=== PATIENT | female | born 1965 | race African-American/Black ===

== ENCOUNTER 2016-11-10 20:39 | Emergency (ER) | payer MEDICAID, OTHER ==
[~2016-11-10] VITALS: Ht 172.7 cm; Wt 81.0 kg
[~2016-11-10 20:39] MED LIST: LISI10TA5 PO; OMEP20CA10 PO
[2016-11-10] MEDS ORDERED: MAGNESIUM/ALUMINUM HYDROXIDE/SIMETHICONE 30ML UDC PO STA (20:54)
[2016-11-10] MEDS ORDERED: ONDANSETRON HCL 4MG/2ML VIAL IV STA (20:54)
[2016-11-10] MEDS ORDERED: FAMOTIDINE 20MG/2ML VIAL IV STA (20:54)
[2016-11-10] MEDS ORDERED: KETOROLAC 30MG/ML VIAL IV STA (20:54)
[2016-11-10] MEDS ORDERED: SODIUM CHLORIDE 0.9% 1,000 ML IV ONE (20:54)
[2016-11-10] MEDS ORDERED: MORPHINE SULFATE 4 MG/ML CPJ (NOT FOR IM USE) IV STA (20:54)
[2016-11-10 21:23] LABS: BASOPHILS % 0.3 % (0.0-2.0); EOSINOPHILS % 0.2 % (0.0-5.0); HEMATOCRIT. 35.3 % (36.0-48.0); HEMOGLOBIN. 11.5 g/dL (12.0-16.0); LYMPHOCYTES % 31.1 % (20.0-50.0); MEAN CORPUSCULAR HEMOGLOBIN 26.5 pg (28.0-32.0); MEAN CORPUSCULAR HGB CONC 32.5 g/dL (31.0-37.0); MEAN CORPUSCULAR VOLUME 81.8 fL (81.0-99.0); MEAN PLATELET VOLUME 8.5 fl (7.4-10.4); MONOCYTES % 11.7 % (2.0-8.0); NEUTROPHILS % 56.7 % (40.0-76.0); PLATELET 168 x1000/uL (130-400); RED BLOOD CELL COUNT 4.32 mill/uL (4.2-5.4); RED CELL DISTRIBUTION WIDTH 14.3 % (11.6-14.6); WHITE BLOOD COUNT 3.8 x1000/uL (4.5-11.0)
[2016-11-10 21:26] LABS: INR 1.1; PROTHROMBIN TIME 11.4 sec
[2016-11-10 21:55] LABS: ALANINE AMINOTRANSFERASE 35 IU/L (13-61); ALBUMIN 3.5 g/dL (3.4-5.0); ANION GAP 16; CALCIUM 9.3 mg/dL (8.5-10.1); CARBON DIOXIDE 27 mEq/L (21-32); CHLORIDE 99 mEq/L (98-107); ETHANOL BLOOD < 10 mg/dL; INDEX HEMOLYSI 1 (1-3); INDEX ICTERIC 1 (1-4); INDEX LIPEMIC 1 (1-3); LIPASE 63 IU/L (73-393); NT PRO B-TYPE NATRIURETIC PEP 318 pg/mL (5-125); TROPONIN I < 0.02 ng/mL (0.00-0.04); UREA NITROGEN BLOOD 11 mg/dL (7-21); eGFR > 60 mL/min (>60)
[2016-11-10] MEDS ORDERED: MORPHINE SULFATE 4 MG/ML CPJ (NOT FOR IM USE) IV ONE (23:15)
[2016-11-10] MEDS ORDERED: ONDANSETRON HCL 4MG/2ML VIAL IV ONE (23:15)
[2016-11-10 23:19] LABS: CLARITY URINE CLEAR (CLEAR); COLOR URINE YELLOW (YELLOW); GLUCOSE URINE 3+ (NEGATIVE); KETONES URINE 1+ (NEGATIVE); LEUKOCYTE ESTERASE URINE 2+ (NEGATIVE); NITRITE URINE NEGATIVE (NEGATIVE); OCCULT BLOOD URINE NEGATIVE (NEGATIVE); PROTEIN URINE NEGATIVE (NEGATIVE); SPECIFIC GRAVITY URINE 1.015 (1.005-1.030); UROBILINOGEN URINE 0.2 E.U./dL (0.2-1.0)
[2016-11-10 23:31] LABS: *AMPHETAMINES SCREEN URINE NEGATIVE (NEGATIVE); *BARBITURATES SCREEN URINE NEGATIVE (NEGATIVE); *BENZODIAZEPINES SCREEN URINE NEGATIVE (NEGATIVE); *COCAINE SCREEN URINE NEGATIVE (NEGATIVE); CANNABINOID URINE SCREEN NEGATIVE (NEGATIVE); ECSTASY MDMA SCREEN URINE NEGATIVE (NEGATIVE); METHADONE URINE SCREEN NEGATIVE (NEGATIVE); OPIATES URINE SCREEN PRESUMTIVE POSITIVE (NEGATIVE); PHENCYCLIDINE URINE SCREEN NEGATIVE (NEGATIVE)
[2016-11-10 23:46] VITALS: BP 182/93
[2016-11-10 23:55] LABS: SQUAMOUS EPITHELIAL CELL URINE 1+ /lpf (RARE/1+)
[2016-11-10 23:56] LABS: BACTERIA URINE 1+; RBC URINE 0-2 /hpf (0-2)
== END 2016-11-10 23:51 | disposition home or self-care (01) ==
LOC: ER 20:41
DX: K29.00 Acute gastritis without bleeding (principal); D64.9 Anemia, unspecified; I10 Essential (primary) hypertension; E11.9 Type 2 diabetes mellitus without complications; M10.9 Gout, unspecified; Z90.710 Acquired absence of both cervix and uterus; Z88.8 Allergy status to other drugs, medicaments and biological substances
CPT/HCPCS: 36415; 71010; 74000; 80053; 80305; 81001; 82962; 83690; 83880; 84484; 85025; 85610; 93005; 96361; 96374; 96375; 99285; G0482; J1885; J2270; J2405; J3490; J7030; Z7610

== ENCOUNTER 2017-02-17 13:25 | Emergency (ER) | payer MEDICAID, OTHER ==
[~2017-02-17] VITALS: Ht 172.7 cm; Wt 77.0 kg
[2017-02-17 14:30] VITALS: BP 171/86
== END 2017-02-17 21:58 | disposition left against medical advice (07) ==
LOC: ER 21:36
DX: K21.9 Gastro-esophageal reflux disease without esophagitis (principal); R10.9 Unspecified abdominal pain; Z53.21 Procedure and treatment not carried out due to patient leaving prior to being seen by health care provider

== ENCOUNTER 2017-02-25 21:58 | Emergency (ER) | payer MEDICAID, OTHER ==
[~2017-02-25] VITALS: Ht 175.3 cm; Wt 78.0 kg
[2017-02-26] MEDS ORDERED: FAMOTIDINE 20MG/2ML VIAL IV STA (01:19)
[2017-02-26 01:34] LABS: BASOPHILS % 0.2 % (0.0-2.0); EOSINOPHILS % 0.2 % (0.0-5.0); HEMATOCRIT. 36.8 % (36.0-48.0); HEMOGLOBIN. 12.4 g/dL (12.0-16.0); LYMPHOCYTES % 39.4 % (20.0-50.0); MEAN CORPUSCULAR HEMOGLOBIN 26.6 pg (28.0-32.0); MEAN CORPUSCULAR VOLUME 78.8 fL (81.0-99.0); MEAN PLATELET VOLUME 7.2 fl (7.4-10.4); MONOCYTES % 8.4 % (2.0-8.0); NEUTROPHILS % 51.8 % (40.0-76.0); PLATELET 256 x1000/uL (130-400); RED BLOOD CELL COUNT 4.67 mill/uL (4.2-5.4)
[2017-02-26 01:42] LABS: INR 1.1; PARTIAL THROMBOPLASTIN TIME 25.9 sec (24.0-34.0); PROTHROMBIN TIME 11.2 sec
[2017-02-26 01:49] LABS: CARBON DIOXIDE 29 mEq/L (21-32); CHLORIDE 101 mEq/L (98-107); TROPONIN I < 0.02 ng/mL (0.00-0.04)
[2017-02-26] MEDS ORDERED: KETOROLAC 30MG/ML VIAL IV STA (02:09)
[2017-02-26] MEDS ORDERED: SODIUM CHLORIDE 0.9% 1,000 ML IV ONE (03:39)
[2017-02-26 04:15] VITALS: BP 112/62
== END 2017-02-26 05:50 | disposition home or self-care (01) ==
LOC: ER 02-26 01:29
DX: S42.402A Unspecified fracture of lower end of left humerus, initial encounter for closed fracture (principal); K21.9 Gastro-esophageal reflux disease without esophagitis; I10 Essential (primary) hypertension; E11.9 Type 2 diabetes mellitus without complications; Z88.8 Allergy status to other drugs, medicaments and biological substances; W19.XXXA Unspecified fall, initial encounter; Y93.89 Activity, other specified; Y92.89 Other specified places as the place of occurrence of the external cause; Y99.8 Other external cause status
CPT/HCPCS: 36415; 71010; 73080; 80053; 83690; 84484; 85025; 85610; 85730; 93005; 96361; 96374; 96375; 99285; J1885; J3490; J7030; Z7610; A4565

== ENCOUNTER 2017-03-11 07:45 | Inpatient (IN) | payer MEDICAID, OTHER ==
[~2017-03-11] VITALS: Ht 172.7 cm; Wt 76.7 kg
[2017-03-11] MEDS ORDERED: PANTOPRAZOLE SODIUM 40 MG/VIAL IV STA (07:57)
[2017-03-11] MEDS ORDERED: ONDANSETRON HCL 4MG/2ML VIAL IV STA (07:57)
[2017-03-11] MEDS ORDERED: SODIUM CHLORIDE 0.9% 1,000 ML IV ONE ×2 (07:57→09:38)
[2017-03-11] MEDS ORDERED: INSULIN REGULAR (HUMULIN R) 300UNITS/3ML SUBCUT ONE (08:00)
[2017-03-11 08:46] LABS: CHLORIDE 93 mEq/L (98-107); PROTHROMBIN TIME 10.7 sec
[2017-03-11 08:49] LABS: BASOPHILS % 0.3 % (0.0-2.0); HEMATOCRIT. 36.5 % (36.0-48.0); HEMOGLOBIN. 12.3 g/dL (12.0-16.0); LYMPHOCYTES % 21.9 % (20.0-50.0); MEAN CORPUSCULAR HEMOGLOBIN 27.3 pg (28.0-32.0); MEAN CORPUSCULAR VOLUME 81.4 fL (81.0-99.0); MEAN PLATELET VOLUME 7.9 fl (7.4-10.4); MONOCYTES % 4.9 % (2.0-8.0); NEUTROPHILS % 72.9 % (40.0-76.0); PLATELET 291 x1000/uL (130-400); RED BLOOD CELL COUNT 4.49 mill/uL (4.2-5.4); RED CELL DISTRIBUTION WIDTH 14.6 % (11.6-14.6)
[2017-03-11 08:55] LABS: CARBON DIOXIDE 20 mEq/L (21-32); TROPONIN I < 0.02 ng/mL (0.00-0.04)
[2017-03-11 09:11] LABS: BETA HYDROXYBUTYRATE 7.5 mMol/L (0.0-0.3)
[2017-03-11 09:39] LABS: BG BASE EXCESS -6.7 mmol/L (-2.0-2.0); BG CARBOXYHEMOGLOBIN 0.4 % (0.5-1.5); BG DEOXYHEMOGLOBIN 5.2 % (0.0-5.0); BG FRACTION INSPIRED OXYGEN 21; BG HCO3 ACT 17.7 mmol/L (22.0-26.0); BG METHEMOGLOBIN 0.1 % (0.0-1.5); BG OXYGEN SATURATION 94.8 % (92.0-98.5); BG OXYHEMOGLOBIN 94.3 % (94.0-97.0); BG PCO2 32.1 mmHg (35.0-45.0); BG PO2 82.2 mmHg (75.0-100.0); BG SAMPLE SITE RIGHT BRACHIAL; BG TOTAL HEMOGLOBIN 12.3 g/dL (12.0-18.0); BG VENT MODE ROOM AIR
[2017-03-11 09:44] LABS: CLARITY URINE CLOUDY (CLEAR); COLOR URINE YELLOW (YELLOW); GLUCOSE URINE 3+ (NEGATIVE); KETONES URINE 1+ (NEGATIVE); LEUKOCYTE ESTERASE URINE 1+ (NEGATIVE); NITRITE URINE NEGATIVE (NEGATIVE); OCCULT BLOOD URINE 2+ (NEGATIVE); PH URINE 5.5 (4.5-8.0); PROTEIN URINE NEGATIVE (NEGATIVE); SPECIFIC GRAVITY URINE 1.026 (1.005-1.030); UROBILINOGEN URINE 0.2 E.U./dL (0.2-1.0)
[2017-03-11] MEDS ORDERED: ONDANSETRON HCL 4MG/2ML VIAL IV ONE (09:45)
[2017-03-11] MEDS ORDERED: MORPHINE SULFATE 4 MG/ML CPJ (NOT FOR IM USE) IV ONE (09:45)
[2017-03-11] MEDS ORDERED: INSULIN REGULAR (DRIP) 100 UNITS in SODIUM CHLORIDE 0.9% 100 ML IV ONE (10:30)
[2017-03-11] MEDS ORDERED: INSULIN REGULAR (DRIP) 100 UNITS in SODIUM CHLORIDE 0.9% 99 ML IV ONE (10:30)
[2017-03-11] MEDS ORDERED: INSULIN REGULAR (DRIP) 100 UNITS in SODIUM CHLORIDE 0.9% 100 ML IV SCH (12:00)
[2017-03-11] MEDS ORDERED: MAGNESIUM/ALUMINUM HYDROXIDE/SIMETHICONE 30ML UDC PO PRN (12:00)
[2017-03-11] MEDS ORDERED: CLONIDINE 0.1MG TABLET PO PRN (12:00)
[2017-03-11] MEDS ORDERED: ONDANSETRON HCL 4MG/2ML VIAL IV PRN (12:00)
[2017-03-11] MEDS ORDERED: IPRATROPIUM/ALBUTEROL 0.5-3(2.5)MG/3ML NEB INH PRN (12:00)
[2017-03-11] MEDS: MORPHINE SULFATE 2 MG/ML CPJ (NOT FOR IM USE) IV PRN (14:35)
[2017-03-11 15:05] LABS: CARBON DIOXIDE 27 mEq/L (21-32); CHLORIDE 103 mEq/L (98-107)
[2017-03-11 15:12] LABS: CREATINE KINASE 188 IU/L (26-192); PHOSPHORUS 2.1 mg/dL (2.5-4.9); TROPONIN I < 0.02 ng/mL (0.00-0.04)
[2017-03-11 15:13] LABS: CREATINE KINASE MB FRACTION 2.5 ng/mL (0.5-3.6)
[2017-03-11 15:14] LABS: *AMPHETAMINES SCREEN URINE NEGATIVE (NEGATIVE); *BARBITURATES SCREEN URINE NEGATIVE (NEGATIVE); *BENZODIAZEPINES SCREEN URINE NEGATIVE (NEGATIVE); *COCAINE SCREEN URINE NEGATIVE (NEGATIVE); CANNABINOID URINE SCREEN NEGATIVE (NEGATIVE); METHADONE URINE SCREEN NEGATIVE (NEGATIVE); OPIATES URINE SCREEN NEGATIVE (NEGATIVE); PHENCYCLIDINE URINE SCREEN NEGATIVE (NEGATIVE)
[2017-03-11 16:34] LABS: CHLORIDE 104 mEq/L (98-107)
[2017-03-11 16:39] LABS: CARBON DIOXIDE 27 mEq/L (21-32)
[2017-03-11] MEDS ORDERED: INSULIN DETEMIR UD 100 UNITS/ML SYR SUBCUT NR (17:45)
[2017-03-11] MEDS ORDERED: INSULIN REGULAR (DRIP) 100 UNITS in SODIUM CHLORIDE 0.9% 99 ML IV PRN (19:00)
[2017-03-11 20:00] VITALS: BP_SYST 144; BP_SYST 154; BP_DIAS 78; BP_DIAS 82
[2017-03-11] MEDS ORDERED: CEFTRIAXONE 1 G PREMIX 50 ML IV SCH (20:00)
[2017-03-11] MEDS ORDERED: DEXTROSE 50% WATER 50ML SYRINGE IV PRN (20:15)
[2017-03-11 20:34] LABS: CARBON DIOXIDE 23 mEq/L (21-32); CHLORIDE 104 mEq/L (98-107)
[2017-03-11] MEDS: SODIUM CHLORIDE 0.9% 1,000 ML IV SCH (20:58)
[2017-03-11] MEDS ORDERED: ENOXAPARIN 40MG/0.4ML SYR SUBCUT SCH (21:00)
[2017-03-11 23:24] LABS: CREATINE KINASE 150 IU/L (26-192); TROPONIN I < 0.02 ng/mL (0.00-0.04)
[2017-03-11 23:25] LABS: CREATINE KINASE MB FRACTION 1.8 ng/mL (0.5-3.6)
[2017-03-12] VITALS: BP 116/61
[2017-03-12] MEDS: INSULIN LISPRO 100 UNITS/ML SUBCUT SCH ×4 (00:09→12:00)
[2017-03-12] MEDS: INSULIN DETEMIR UD 100 UNITS/ML SYR SUBCUT SCH ×2 (00:10→10:15)
[2017-03-12 04:00] VITALS: BP 126/68
[2017-03-12] MEDS: BLOOD SUGAR DIAGNOSTIC STRIP TEST SCH ×4 (04:00→12:17)
[2017-03-12] MEDS ORDERED: DEXT 5%/0.9% NACL 1,000 ML IV SCH (04:30)
[2017-03-12] MEDS: MORPHINE SULFATE 2 MG/ML CPJ (NOT FOR IM USE) IV PRN ×2 (06:44→10:41)
[2017-03-12] MEDS: SODIUM CHLORIDE 0.9% 1,000 ML IV SCH (06:48)
[2017-03-12 07:06] LABS: BASOPHILS % 0.2 % (0.0-2.0); EOSINOPHILS % 0.2 % (0.0-5.0); HEMATOCRIT. 34.2 % (36.0-48.0); HEMOGLOBIN. 11.3 g/dL (12.0-16.0); LYMPHOCYTES % 33.6 % (20.0-50.0); MEAN CORPUSCULAR HEMOGLOBIN 26.7 pg (28.0-32.0); MEAN CORPUSCULAR VOLUME 80.9 fL (81.0-99.0); MEAN PLATELET VOLUME 7.5 fl (7.4-10.4); MONOCYTES % 6.3 % (2.0-8.0); NEUTROPHILS % 59.7 % (40.0-76.0); PLATELET 306 x1000/uL (130-400); RED BLOOD CELL COUNT 4.23 mill/uL (4.2-5.4); RED CELL DISTRIBUTION WIDTH 14.7 % (11.6-14.6)
[2017-03-12 08:00] VITALS: BP 142/96
[2017-03-12 12:00] VITALS: BP 128/78
[2017-03-12 15:53] VITALS: BP 128/78
[2017-03-12] MEDS ORDERED: ATORVASTATIN CALCIUM 20MG TABLET PO SCH (21:00)
== END 2017-03-12 16:10 | disposition home or self-care (01) | DRG 420 ==
LOC: ER 07:56 → 6EST 10:21 → EDBEDREQ 10:25 → EDBEDREQSVC 10:25 → ENRESERV 17:42 → 6EST 18:53
PROVIDERS: ADMIT Internal Medicine; ATTEND Internal Medicine
DX: E10.10 Type 1 diabetes mellitus with ketoacidosis without coma (principal); N39.0 Urinary tract infection, site not specified; I10 Essential (primary) hypertension; K21.9 Gastro-esophageal reflux disease without esophagitis; Z91.14 Patient's other noncompliance with medication regimen; Z79.4 Long term (current) use of insulin; Z79.899 Other long term (current) drug therapy; Z88.8 Allergy status to other drugs, medicaments and biological substances
CPT/HCPCS: 36415; 36600; 71010; 80048; 80053; 80061; 80305; 81001; 82010; 82375; 82550; 82553; 82805; 82962; 83036; 83690; 83735; 83880; 84100; 84443; 84484; 85025; 85610; 87040; 87086; 93005; 93970; 96361; 96365; 96372; 96375; 96376; 99291; C9113; J0696; J1650; J1815; J2270; J2405; J7030; J7042; J7050

== ENCOUNTER 2017-04-28 07:00 | Inpatient (IN) | payer MEDICAID, OTHER ==
[~2017-04-28] VITALS: Ht 152.4 cm; Wt 77.6 kg
[2017-04-28] MEDS ORDERED: SODIUM CHLORIDE 0.9% 1,000 ML IV ONE (09:21)
[2017-04-28] MEDS ORDERED: FAMOTIDINE 20MG/2ML VIAL IV ONE (09:30)
[2017-04-28 09:31] LABS: BASOPHILS % 0.3 % (0.0-2.0); HEMOGLOBIN. 13.4 g/dL (12.0-16.0); LYMPHOCYTES % 19.8 % (20.0-50.0); MEAN CORPUSCULAR HEMOGLOBIN 27.1 pg (28.0-32.0); MEAN CORPUSCULAR VOLUME 82.6 fL (81.0-99.0); MONOCYTES % 5.1 % (2.0-8.0); NEUTROPHILS % 74.8 % (40.0-76.0); PLATELET 228 x1000/uL (130-400); RED BLOOD CELL COUNT 4.96 mill/uL (4.2-5.4); RED CELL DISTRIBUTION WIDTH 14.3 % (11.6-14.6)
[2017-04-28 09:33] LABS: CHLORIDE 90 mEq/L (98-107)
[2017-04-28 09:38] LABS: HCG SCREEN NEGATIVE
[2017-04-28 09:41] LABS: CARBON DIOXIDE 28 mEq/L (21-32)
[2017-04-28 09:43] LABS: BETA HYDROXYBUTYRATE 2.9 mMol/L (0.0-0.3)
[2017-04-28] MEDS ORDERED: INSULIN REGULAR (HUMULIN R) 300UNITS/3ML IV ONE (10:15)
[2017-04-28 10:43] LABS: BG BASE EXCESS -2.6 mmol/L (-2.0-2.0); BG CARBOXYHEMOGLOBIN 0.6 % (0.5-1.5); BG DEOXYHEMOGLOBIN 2.4 % (0.0-5.0); BG FRACTION INSPIRED OXYGEN 21; BG HCO3 ACT 19.4 mmol/L (22.0-26.0); BG METHEMOGLOBIN 0.3 % (0.0-1.5); BG OXYGEN SATURATION 97.6 % (92.0-98.5); BG OXYHEMOGLOBIN 96.7 % (94.0-97.0); BG PCO2 26.4 mmHg (35.0-45.0); BG PH 7.484 (7.350-7.450); BG PO2 101.5 mmHg (75.0-100.0); BG SAMPLE SITE RIGHT BRACHIAL; BG TOTAL HEMOGLOBIN 13.4 g/dL (12.0-18.0); BG VENT MODE ROOM AIR
[2017-04-28] MEDS ORDERED: NITROGLYCERIN 0.4MG TABLET SL SL PRN (12:00)
[2017-04-28] MEDS ORDERED: NA PHOS,M-B/NA PHOS,DI-BA ENEMA 118ML PR PRN (12:00)
[2017-04-28] MEDS ORDERED: DEXTROSE 50% WATER 50ML SYRINGE IV PRN (12:00)
[2017-04-28] MEDS ORDERED: ZOLPIDEM TARTRATE 5MG TABLET PO PRN (12:00)
[2017-04-28] MEDS ORDERED: IPRATROPIUM/ALBUTEROL 0.5-3(2.5)MG/3ML NEB INH PRN (12:00)
[2017-04-28] MEDS ORDERED: ACETAMINOPHEN 325MG TABLET PO PRN (12:00)
[2017-04-28] MEDS ORDERED: GUAIFENESIN 200MG/10ML SUGAR FREE UDC PO PRN (12:00)
[2017-04-28] MEDS ORDERED: CLONIDINE 0.1MG TABLET PO PRN (12:00)
[2017-04-28] MEDS ORDERED: DIPHENHYDRAMINE 50MG/ML VIAL IV PRN (12:00)
[2017-04-28] MEDS ORDERED: OXYCODONE HCL/ACETAMINOPHEN 5/325MG TABLET PO ONE (12:00)
[2017-04-28] MEDS ORDERED: MAGNESIUM/ALUMINUM HYDROXIDE/SIMETHICONE 30ML UDC PO PRN (12:00)
[2017-04-28] MEDS ORDERED: DOCUSATE SODIUM 100MG CAPSULE PO PRN (12:00)
[2017-04-28] MEDS ORDERED: INSULIN LISPRO 100 UNITS/ML SUBCUT SCH (13:20)
[2017-04-28 13:55] VITALS: BP 150/80
[2017-04-28] MEDS: SODIUM CHLORIDE 0.9% 1,000 ML IV SCH (14:59)
[2017-04-28] MEDS: ONDANSETRON HCL 4MG/2ML VIAL IV PRN ×2 (15:15→21:30)
[2017-04-28 16:00] VITALS: BP 134/64
[2017-04-28] MEDS ORDERED: ENOXAPARIN 40MG/0.4ML SYR SUBCUT SCH (16:00)
[2017-04-28] MEDS ORDERED: 70/30 INSULIN SUBCUT ×2 (16:29)
[2017-04-28] MEDS: BLOOD SUGAR DIAGNOSTIC STRIP TEST SCH ×2 (17:38→21:47)
[2017-04-28] MEDS: INSULIN LISPRO 100 UNITS/ML SUBCUT SCH ×3 (17:48→21:47)
[2017-04-28] MEDS: KETOROLAC 15MG/ML VIAL IV PRN (17:52)
[2017-04-28 19:25] LABS: *AMPHETAMINES SCREEN URINE NEGATIVE (NEGATIVE); *BARBITURATES SCREEN URINE NEGATIVE (NEGATIVE); *BENZODIAZEPINES SCREEN URINE NEGATIVE (NEGATIVE); *COCAINE SCREEN URINE NEGATIVE (NEGATIVE); CANNABINOID URINE SCREEN NEGATIVE (NEGATIVE); METHADONE URINE SCREEN NEGATIVE (NEGATIVE); OPIATES URINE SCREEN NEGATIVE (NEGATIVE); PHENCYCLIDINE URINE SCREEN NEGATIVE (NEGATIVE)
[2017-04-28 20:00] VITALS: BP 163/93
[2017-04-28] MEDS: LISINOPRIL 20MG TABLET PO SCH (21:31)
[2017-04-28] MEDS: LORAZEPAM 2MG/ML CPJ IV PRN (21:31)
[2017-04-28] MEDS: FAMOTIDINE 20MG/2ML VIAL IV SCH (21:31)
[2017-04-28] MEDS ORDERED: INSULIN DETEMIR UD 100 UNITS/ML SYR SUBCUT SCH ×2 (22:00)
[2017-04-29] VITALS: BP 99/62
[2017-04-29] MEDS: SODIUM CHLORIDE 0.9% 1,000 ML IV SCH (00:39)
[2017-04-29 04:24] VITALS: BP 174/93
[2017-04-29] MEDS: ONDANSETRON HCL 4MG/2ML VIAL IV PRN (06:06)
[2017-04-29] MEDS: KETOROLAC 15MG/ML VIAL IV PRN (06:07)
[2017-04-29] MEDS: LORAZEPAM 2MG/ML CPJ IV PRN (06:08)
[2017-04-29] MEDS: INSULIN LISPRO 100 UNITS/ML SUBCUT SCH ×4 (06:50→12:50)
[2017-04-29] MEDS: BLOOD SUGAR DIAGNOSTIC STRIP TEST SCH ×2 (06:50→12:24)
[2017-04-29 08:00] VITALS: BP 98/53
[2017-04-29] MEDS: FAMOTIDINE 20MG/2ML VIAL IV SCH (08:48)
[2017-04-29] MEDS: LISINOPRIL 20MG TABLET PO SCH (08:49)
[2017-04-29 10:14] VITALS: BP 98/53
== END 2017-04-29 13:45 | disposition home or self-care (01) | DRG 241 ==
LOC: ER 08:15 → 6EST 11:44 → ENRESERV 13:02
PROVIDERS: ADMIT Internal Medicine; ATTEND Internal Medicine
DX: K29.70 Gastritis, unspecified, without bleeding (principal); E11.65 Type 2 diabetes mellitus with hyperglycemia; I10 Essential (primary) hypertension; E83.52 Hypercalcemia; E87.1 Hypo-osmolality and hyponatremia; K21.9 Gastro-esophageal reflux disease without esophagitis; Z79.4 Long term (current) use of insulin; Z88.8 Allergy status to other drugs, medicaments and biological substances; Z79.899 Other long term (current) drug therapy
CPT/HCPCS: 36415; 36600; 80053; 80061; 80305; 82010; 82375; 82805; 82947; 82962; 83036; 83690; 84703; 85025; 93005; 96361; 96374; 96375; 99285; J1650; J1815; J1885; J2060; J2405; J3490; J7030

== ENCOUNTER 2017-11-02 09:59 | Emergency (ER) | payer MEDICAID, OTHER ==
[~2017-11-02] VITALS: Ht 172.7 cm; Wt 64.0 kg
[2017-11-02] MEDS ORDERED: MORPHINE SULFATE 10 MG/ML CPJ IM ONE (11:00)
[2017-11-02] MEDS ORDERED: KETOROLAC 60MG/2ML VIAL IM ONE (11:00)
[2017-11-02 11:06] LABS: BASOPHILS % 0.3 % (0.0-2.0); EOSINOPHILS % 0.1 % (0.0-5.0); HEMATOCRIT. 35.1 % (36.0-48.0); LYMPHOCYTES % 42.5 % (20.0-50.0); MEAN CORPUSCULAR HEMOGLOBIN 27.7 pg (28.0-32.0); MEAN PLATELET VOLUME 6.9 fl (7.4-10.4); MONOCYTES % 11.9 % (2.0-8.0); NEUTROPHILS % 45.2 % (40.0-76.0); PLATELET 250 x1000/uL (130-400); RED BLOOD CELL COUNT 4.33 mill/uL (4.2-5.4); RED CELL DISTRIBUTION WIDTH 13.9 % (11.6-14.6)
[2017-11-02 11:14] LABS: CHLORIDE 106 mEq/L (98-107)
[2017-11-02 11:19] LABS: PARTIAL THROMBOPLASTIN TIME 27.5 sec (23.4-31.0); PROTHROMBIN TIME 10.8 sec (9.4-11.6)
[2017-11-02 11:21] LABS: CREATINE KINASE 99 IU/L (26-192)
[2017-11-02 12:48] VITALS: BP 137/75
== END 2017-11-02 12:53 | disposition home or self-care (01) ==
LOC: ER 11:11
DX: M25.572 Pain in left ankle and joints of left foot (principal); E11.649 Type 2 diabetes mellitus with hypoglycemia without coma; M10.9 Gout, unspecified; K21.9 Gastro-esophageal reflux disease without esophagitis; I10 Essential (primary) hypertension; Z88.8 Allergy status to other drugs, medicaments and biological substances
CPT/HCPCS: 36415; 73610; 73630; 80053; 82550; 83690; 83880; 84443; 84484; 84550; 85025; 85610; 85730; 96372; 99285; J1885; J2270; Z7610

== ENCOUNTER 2017-11-30 10:05 | Emergency (ER) | payer MEDICAID ==
[~2017-11-30] VITALS: Ht 172.7 cm; Wt 73.0 kg
[2017-11-30 11:59] LABS: BASOPHILS % 0.3 % (0.0-2.0); EOSINOPHILS % 0.1 % (0.0-5.0); HEMATOCRIT. 35.1 % (36.0-48.0); HEMOGLOBIN. 11.6 g/dL (12.0-16.0); LYMPHOCYTES % 32.3 % (20.0-50.0); MEAN CORPUSCULAR VOLUME 81.5 fL (81.0-99.0); MONOCYTES % 8.4 % (2.0-8.0); NEUTROPHILS % 58.9 % (40.0-76.0); PLATELET 232 x1000/uL (130-400); RED CELL DISTRIBUTION WIDTH 13.9 % (11.6-14.6)
[2017-11-30 13:59] VITALS: BP 137/73
== END 2017-11-30 14:00 | disposition home or self-care (01) ==
LOC: ER 13:06
DX: R60.0 Localized edema (principal); M10.9 Gout, unspecified; K21.9 Gastro-esophageal reflux disease without esophagitis; I10 Essential (primary) hypertension; E11.9 Type 2 diabetes mellitus without complications
CPT/HCPCS: 36415; 84550; 85025; 93971; 99285

== ENCOUNTER 2017-12-30 08:52 | Emergency (ER) | payer MEDICAID ==
[~2017-12-30] VITALS: Ht 175.3 cm; Wt 73.5 kg
[2017-12-30] MEDS ORDERED: AMLO10TA80 PO (09:02)
[2017-12-30] MEDS ORDERED: benazepril (09:02)
[2017-12-30] MEDS ORDERED: insulin (09:02)
[2017-12-30 10:42] LABS: BASOPHILS % 0.1 % (0.0-2.0); EOSINOPHILS % 0.3 % (0.0-5.0); HEMATOCRIT. 31.1 % (36.0-48.0); HEMOGLOBIN. 10.5 g/dL (12.0-16.0); MEAN CORPUSCULAR HEMOGLOBIN 27.3 pg (28.0-32.0); MEAN CORPUSCULAR VOLUME 80.5 fL (81.0-99.0); MEAN PLATELET VOLUME 6.4 fl (7.4-10.4); MONOCYTES % 10.1 % (2.0-8.0); NEUTROPHILS % 66.5 % (40.0-76.0); PLATELET 280 x1000/uL (130-400); RED BLOOD CELL COUNT 3.86 mill/uL (4.2-5.4); RED CELL DISTRIBUTION WIDTH 13.5 % (11.6-14.6)
[2017-12-30 10:47] LABS: CHLORIDE 109 mEq/L (98-107)
[2017-12-30 10:49] LABS: PROTHROMBIN TIME 10.8 sec (9.4-11.6)
[2017-12-30 12:59] VITALS: BP 144/79
== END 2017-12-30 13:37 | disposition home or self-care (01) ==
LOC: ER 08:57
DX: I87.2 Venous insufficiency (chronic) (peripheral) (principal); R60.0 Localized edema; E11.9 Type 2 diabetes mellitus without complications; I10 Essential (primary) hypertension; Z79.4 Long term (current) use of insulin
CPT/HCPCS: 36415; 80053; 85025; 85610; 93971; 99285; Z7610

== ENCOUNTER 2018-04-11 10:04 | Emergency (ER) | payer MEDICAID ==
[~2018-04-11] VITALS: Ht 172.7 cm; Wt 78.0 kg
[~2018-04-11 10:04] MED LIST changes: +AMLO10TA80 PO; -LISI10TA5 PO; +benazepril; +insulin
[2018-04-11] MEDS ORDERED: SODIUM CHLORIDE 0.9% 1,000 ML IV ONE (10:36)
[2018-04-11] MEDS ORDERED: ATENOLOL 25MG TABLET PO ONE (10:45)
[2018-04-11 11:22] VITALS: BP 182/96
== END 2018-04-11 11:36 | disposition left against medical advice (07) ==
LOC: ER 10:16
DX: R53.1 Weakness (principal); E11.649 Type 2 diabetes mellitus with hypoglycemia without coma; Z71.89 Other specified counseling; I11.9 Hypertensive heart disease without heart failure; Z79.4 Long term (current) use of insulin
CPT/HCPCS: 82962; 99283; J7030

== ENCOUNTER 2018-06-29 07:18 | Inpatient (IN) | payer MEDICAID ==
[~2018-06-29] VITALS: Ht 172.7 cm; Wt 77.6 kg
[2018-06-29] MEDS ORDERED: SODIUM CHLORIDE 0.9% 1,000 ML IV ONE (09:00)
[2018-06-29] MEDS ORDERED: MECLIZINE 25MG TABLET PO ONE (09:00)
[2018-06-29 09:48] LABS: BASOPHILS % 0.5 % (0.0-2.0); EOSINOPHILS % 0.4 % (0.0-5.0); HEMATOCRIT. 37.1 % (36.0-48.0); HEMOGLOBIN. 12.7 g/dL (12.0-16.0); LYMPHOCYTES % 30.9 % (20.0-50.0); MEAN CORPUSCULAR HEMOGLOBIN 28.6 pg (28.0-32.0); MEAN CORPUSCULAR VOLUME 83.7 fL (81.0-99.0); MEAN PLATELET VOLUME 7.7 fl (7.4-10.4); MONOCYTES % 9.6 % (2.0-8.0); NEUTROPHILS % 58.6 % (40.0-76.0); PLATELET 258 x1000/uL (130-400); RED BLOOD CELL COUNT 4.43 mill/uL (4.2-5.4); RED CELL DISTRIBUTION WIDTH 14.3 % (11.6-14.6)
[2018-06-29 09:52] LABS: CHLORIDE 102 mEq/L (98-107)
[2018-06-29 09:57] LABS: ETHANOL BLOOD < 10 mg/dL
[2018-06-29 10:24] LABS: CLARITY URINE CLEAR (CLEAR); COLOR URINE YELLOW (YELLOW); KETONES URINE NEGATIVE (NEGATIVE); LEUKOCYTE ESTERASE URINE NEGATIVE (NEGATIVE); NITRITE URINE NEGATIVE (NEGATIVE); OCCULT BLOOD URINE NEGATIVE (NEGATIVE); PROTEIN URINE NEGATIVE (NEGATIVE); SPECIFIC GRAVITY URINE 1.016 (1.005-1.030); UROBILINOGEN URINE 0.2 E.U./dL (0.2-1.0)
[2018-06-29 10:38] LABS: *AMPHETAMINES SCREEN URINE NEGATIVE (NEGATIVE)
[2018-06-29 10:39] LABS: *BARBITURATES SCREEN URINE NEGATIVE (NEGATIVE); *BENZODIAZEPINES SCREEN URINE NEGATIVE (NEGATIVE); *COCAINE SCREEN URINE NEGATIVE (NEGATIVE); METHADONE URINE SCREEN NEGATIVE (NEGATIVE); OPIATES URINE SCREEN NEGATIVE (NEGATIVE); PHENCYCLIDINE URINE SCREEN NEGATIVE (NEGATIVE)
[2018-06-29 10:40] LABS: CANNABINOID URINE SCREEN NEGATIVE (NEGATIVE)
[2018-06-29 16:10] VITALS: BP 166/92
[2018-06-29] MEDS ORDERED: ATEN50TA PO (16:12)
[2018-06-29] MEDS ORDERED: GABA-529 PO (16:14)
[2018-06-29] MEDS ORDERED: DEXTROSE 50% WATER 50ML SYRINGE IV PRN (17:00)
[2018-06-29 17:23] VITALS: BP 166/92
[2018-06-29] MEDS: BLOOD SUGAR DIAGNOSTIC STRIP TEST SCH ×2 (18:09→21:20)
[2018-06-29] MEDS: ASPIRIN 325MG TABLET PO SCH (18:22)
[2018-06-29] MEDS: GABAPENTIN 100MG CAPSULE PO SCH (18:23)
[2018-06-29] MEDS: ATENOLOL 50 MG TABLET PO SCH (18:23)
[2018-06-29] MEDS: METFORMIN HCL 500MG TABLET PO SCH (18:23)
[2018-06-29] MEDS: INSULIN LISPRO 100 UNITS/ML SUBCUT SCH ×2 (18:24→21:17)
[2018-06-29 20:00] VITALS: BP 163/85
[2018-06-29] MEDS ORDERED: CLONIDINE 0.1MG TABLET PO PRN (20:30)
[2018-06-29] MEDS ORDERED: ATORVASTATIN CALCIUM 20MG TABLET PO SCH (21:00)
[2018-06-29] MEDS ORDERED: INSULIN GLARGINE UD 100 UNITS/ML SYR SUBCUT SCH (22:00)
[2018-06-30] VITALS: BP 95/54
[2018-06-30 04:00] VITALS: BP 114/72
[2018-06-30] MEDS: BLOOD SUGAR DIAGNOSTIC STRIP TEST SCH ×2 (06:33→12:40)
[2018-06-30] MEDS: INSULIN LISPRO 100 UNITS/ML SUBCUT SCH ×2 (07:48→13:05)
[2018-06-30 07:56] LABS: BASOPHILS % 0.4 % (0.0-2.0); EOSINOPHILS % 0.3 % (0.0-5.0); HEMATOCRIT. 35.1 % (36.0-48.0); HEMOGLOBIN. 11.6 g/dL (12.0-16.0); LYMPHOCYTES % 37.5 % (20.0-50.0); MEAN CORPUSCULAR HEMOGLOBIN 27.7 pg (28.0-32.0); MONOCYTES % 12.3 % (2.0-8.0); NEUTROPHILS % 49.5 % (40.0-76.0); PLATELET 250 x1000/uL (130-400); RED BLOOD CELL COUNT 4.18 mill/uL (4.2-5.4); RED CELL DISTRIBUTION WIDTH 14.1 % (11.6-14.6)
[2018-06-30 08:00] VITALS: BP 114/73
[2018-06-30 08:02] LABS: CHLORIDE 103 mEq/L (98-107)
[2018-06-30] MEDS: METFORMIN HCL 500MG TABLET PO SCH (08:50)
[2018-06-30] MEDS: ASPIRIN 325MG TABLET PO SCH (08:50)
[2018-06-30] MEDS: GABAPENTIN 100MG CAPSULE PO SCH (08:50)
[2018-06-30] MEDS: ATENOLOL 50 MG TABLET PO SCH (08:52)
[2018-06-30] MEDS ORDERED: MECLIZINE 25MG TABLET PO PRN (09:00)
[2018-06-30 12:00] VITALS: BP 127/74
[2018-06-30] MEDS ORDERED: POTASSIUM CHLORIDE 20MEQ TABLET SR PO SCH (13:30)
[2018-06-30 16:00] VITALS: BP 110/66
== END 2018-06-30 16:30 | disposition home or self-care (01) | DRG 48 ==
LOC: ER 07:38 → 7WST 13:21 → ENRESERV 13:58
PROVIDERS: ADMIT Internal Medicine; ATTEND Internal Medicine
DX: G90.8 Other disorders of autonomic nervous system (principal); E11.65 Type 2 diabetes mellitus with hyperglycemia; E78.5 Hyperlipidemia, unspecified; I10 Essential (primary) hypertension; Z79.899 Other long term (current) drug therapy; Z88.8 Allergy status to other drugs, medicaments and biological substances
CPT/HCPCS: 36415; 70551; 80061; 80305; 82962; 83036; 93005; 99285; G0482; J1815; J7030; J8597

== ENCOUNTER 2018-12-07 15:47 | Inpatient (IN) | payer MEDICAID ==
[~2018-12-07] VITALS: Ht 175.3 cm; Wt 77.1 kg
[~2018-12-07 15:47] MED LIST changes: -AMLO10TA80 PO; +ATEN50TA PO; +GABA-529 PO; -OMEP20CA10 PO; -benazepril; -insulin
[2018-12-07] MEDS ORDERED: SODIUM CHLORIDE 0.9% 1,000 ML IV ONE ×2 (19:49→22:41)
[2018-12-07] MEDS ORDERED: MORPHINE SULFATE 4 MG/ML CPJ (NOT FOR IM USE) IV STA (19:49)
[2018-12-07] MEDS ORDERED: FAMOTIDINE 20MG/2ML VIAL IV STA (19:49)
[2018-12-07] MEDS ORDERED: ONDANSETRON HCL 4MG/2ML INJ IV STA (19:49)
[2018-12-07 20:17] LABS: CLARITY URINE TURBID (CLEAR); COLOR URINE YELLOW (YELLOW)
[2018-12-07 20:19] LABS: KETONES URINE TRACE (NEGATIVE); LEUKOCYTE ESTERASE URINE 3+ (NEGATIVE); NITRITE URINE NEGATIVE (NEGATIVE); OCCULT BLOOD URINE 2+ (NEGATIVE); PROTEIN URINE 2+ (NEGATIVE); SPECIFIC GRAVITY URINE 1.018 (1.005-1.030); UROBILINOGEN URINE 0.2 E.U./dL (0.2-1.0)
[2018-12-07 20:20] LABS: BASOPHILS % 0.1 % (0.0-2.0); HEMATOCRIT. 39.4 % (36.0-48.0); HEMOGLOBIN. 12.8 g/dL (12.0-16.0); LYMPHOCYTES % 9.9 % (20.0-50.0); MEAN CORPUSCULAR HEMOGLOBIN 26.4 pg (28.0-32.0); MEAN PLATELET VOLUME 8.4 fl (7.4-10.4); MONOCYTES % 13.7 % (2.0-8.0); NEUTROPHILS % 76.3 % (40.0-76.0); PLATELET 270 x1000/uL (130-400); RED BLOOD CELL COUNT 4.87 mill/uL (4.2-5.4)
[2018-12-07 20:23] LABS: CHLORIDE 99 mEq/L (98-107)
[2018-12-07 20:24] LABS: PROTHROMBIN TIME 10.8 sec (9.6-11.0)
[2018-12-07 20:26] LABS: ETHANOL BLOOD < 10 mg/dL
[2018-12-07 20:38] LABS: HCG SCREEN NEGATIVE
[2018-12-07 20:42] LABS: *AMPHETAMINES SCREEN URINE NEGATIVE (NEGATIVE); *BARBITURATES SCREEN URINE NEGATIVE (NEGATIVE); *BENZODIAZEPINES SCREEN URINE NEGATIVE (NEGATIVE); *COCAINE SCREEN URINE NEGATIVE (NEGATIVE); CANNABINOID URINE SCREEN NEGATIVE (NEGATIVE); METHADONE URINE SCREEN NEGATIVE (NEGATIVE); OPIATES URINE SCREEN NEGATIVE (NEGATIVE); PHENCYCLIDINE URINE SCREEN NEGATIVE (NEGATIVE)
[2018-12-07] MEDS ORDERED: INSULIN REGULAR (HUMULIN R) 300UNITS/3ML IV ONE ×2 (21:00→23:15)
[2018-12-08] VITALS: BP_SYST 111; BP_SYST 130; BP_DIAS 60; BP_DIAS 65
[2018-12-08] MEDS ORDERED: ONDANSETRON HCL 4MG/2ML INJ IV PRN (00:15)
[2018-12-08] MEDS ORDERED: DEXTROSE 50% WATER 50ML SYRINGE IV PRN (00:15)
[2018-12-08] MEDS ORDERED: INSULIN GLARGINE UD 100 UNITS/ML SYR SUBCUT SCH (01:00)
[2018-12-08] MEDS: CEFTRIAXONE 1 G PREMIX 50 ML IV SCH (01:25)
[2018-12-08] MEDS: SODIUM CHLORIDE 0.9% 1,000 ML IV SCH ×3 (01:25→20:31)
[2018-12-08] MEDS: MORPHINE SULFATE 4 MG/ML CPJ (NOT FOR IM USE) IV PRN ×4 (01:39→23:30)
[2018-12-08 04:00] VITALS: BP 102/59
[2018-12-08 06:20] LABS: CHLORIDE 105 mEq/L (98-107)
[2018-12-08 06:25] LABS: HEMOGLOBIN. 11.4 g/dL (12.0-16.0); MEAN CORPUSCULAR HEMOGLOBIN 26.1 pg (28.0-32.0); MEAN CORPUSCULAR VOLUME 82.4 fL (81.0-99.0); MEAN PLATELET VOLUME 8.6 fl (7.4-10.4); PLATELET 245 x1000/uL (130-400); RED BLOOD CELL COUNT 4.37 mill/uL (4.2-5.4); RED CELL DISTRIBUTION WIDTH 14.1 % (11.6-14.6)
[2018-12-08 06:28] LABS: HDL CHOLESTEROL 81 mg/dL (40-59)
[2018-12-08 06:29] LABS: LDL CHOLESTEROL 59 mg/dL (5-100)
[2018-12-08] MEDS: BLOOD SUGAR DIAGNOSTIC STRIP TEST SCH ×4 (06:36→20:44)
[2018-12-08] MEDS ORDERED: INSULIN LISPRO 100 UNITS/ML SUBCUT SCH ×2 (07:50→17:45)
[2018-12-08 08:00] VITALS: BP 109/47
[2018-12-08] MEDS: INSULIN GLARGINE UD 100 UNITS/ML SYR SUBCUT SCH ×2 (10:38→21:22)
[2018-12-08 12:00] VITALS: BP 101/51
[2018-12-08] MEDS: INSULIN LISPRO 100 UNITS/ML SUBCUT SCH ×4 (13:46→20:42)
[2018-12-08 15:49] LABS: PLATELET ESTIMATE NORMAL
[2018-12-08] MEDS: OMEPRAZOLE 20MG CAPSULE EXTENDED RELEASE PO SCH (15:56)
[2018-12-08 16:00] VITALS: BP 104/61
[2018-12-08] MEDS: GLIPIZIDE 5MG TABLET PO SCH (18:16)
[2018-12-08 20:00] VITALS: BP_SYST 107; BP_SYST 110; BP_DIAS 55; BP_DIAS 63
[2018-12-09] VITALS: BP 105/67
[2018-12-09] MEDS: CEFTRIAXONE 1 G PREMIX 50 ML IV SCH (01:09)
[2018-12-09 04:00] VITALS: BP 108/61
[2018-12-09] MEDS: BLOOD SUGAR DIAGNOSTIC STRIP TEST SCH ×2 (06:33→11:44)
[2018-12-09] MEDS: INSULIN LISPRO 100 UNITS/ML SUBCUT SCH ×4 (06:34→12:08)
[2018-12-09] MEDS: OMEPRAZOLE 20MG CAPSULE EXTENDED RELEASE PO SCH (06:37)
[2018-12-09 07:07] LABS: HEMATOCRIT. 32.7 % (36.0-48.0); HEMOGLOBIN. 10.8 g/dL (12.0-16.0); MEAN CORPUSCULAR HEMOGLOBIN 26.2 pg (28.0-32.0); MEAN CORPUSCULAR VOLUME 79.5 fL (81.0-99.0); MEAN PLATELET VOLUME 7.9 fl (7.4-10.4); PLATELET 219 x1000/uL (130-400); RED BLOOD CELL COUNT 4.12 mill/uL (4.2-5.4); RED CELL DISTRIBUTION WIDTH 13.8 % (11.6-14.6)
[2018-12-09 08:00] VITALS: BP 131/76
[2018-12-09] MEDS: GLIPIZIDE 5MG TABLET PO SCH (08:41)
[2018-12-09] MEDS: INSULIN GLARGINE UD 100 UNITS/ML SYR SUBCUT SCH (10:58)
[2018-12-09 12:00] VITALS: BP 156/81
[2018-12-09 13:38] VITALS: BP 131/71
[2018-12-09 17:52] LABS: PLATELET ESTIMATE NORMAL
== END 2018-12-09 13:50 | disposition home or self-care (01) | DRG 720 ==
LOC: ER 15:47 → 6EST 21:26 → EDBEDREQ 21:38 → EDBEDREQTM 21:38 → ENRESERV 22:29
PROVIDERS: ADMIT Internal Medicine; ATTEND Internal Medicine
DX: A41.9 Sepsis, unspecified organism (principal); N17.0 Acute kidney failure with tubular necrosis; E11.65 Type 2 diabetes mellitus with hyperglycemia; N39.0 Urinary tract infection, site not specified; K21.9 Gastro-esophageal reflux disease without esophagitis; I10 Essential (primary) hypertension; Z88.0 Allergy status to penicillin
CPT/HCPCS: 36415; 71045; 74176; 80048; 80061; 80305; 80320; 82962; 83036; 84484; 84703; 87077; 87186; 93005; 96374; 96375; 99285; J0696; J1815; J2270; J2405; J3490; J7030; G0480

== ENCOUNTER 2019-01-05 13:43 | Inpatient (IN) | payer MEDICAID ==
[~2019-01-05] VITALS: Ht 172.7 cm; Wt 75.0 kg
[2019-01-05] MEDS ORDERED: ONDANSETRON HCL 4MG/2ML INJ IV STA (14:31)
[2019-01-05] MEDS ORDERED: SODIUM CHLORIDE 0.9% 1,000 ML IV ONE (14:31)
[2019-01-05 14:46] LABS: BASOPHILS % 0.1 % (0.0-2.0); CHLORIDE 102 mEq/L (98-107); HEMATOCRIT. 38.9 % (36.0-48.0); HEMOGLOBIN. 13.1 g/dL (12.0-16.0); LYMPHOCYTES % 19.4 % (20.0-50.0); MEAN CORPUSCULAR HEMOGLOBIN 26.8 pg (28.0-32.0); MEAN CORPUSCULAR VOLUME 79.9 fL (81.0-99.0); MEAN PLATELET VOLUME 7.4 fl (7.4-10.4); MONOCYTES % 5.4 % (2.0-8.0); NEUTROPHILS % 75.1 % (40.0-76.0); PLATELET 277 x1000/uL (130-400); RED BLOOD CELL COUNT 4.87 mill/uL (4.2-5.4); RED CELL DISTRIBUTION WIDTH 15.5 % (11.6-14.6)
[2019-01-05 14:48] LABS: PROTHROMBIN TIME 10.6 sec (9.6-11.0)
[2019-01-05 14:50] LABS: ETHANOL BLOOD < 10 mg/dL
[2019-01-05 14:51] LABS: CLARITY URINE CLEAR (CLEAR); COLOR URINE YELLOW (YELLOW); KETONES URINE TRACE (NEGATIVE); LEUKOCYTE ESTERASE URINE NEGATIVE (NEGATIVE); NITRITE URINE NEGATIVE (NEGATIVE); OCCULT BLOOD URINE TRACE (NEGATIVE); PROTEIN URINE 2+ (NEGATIVE); SPECIFIC GRAVITY URINE 1.026 (1.005-1.030); UROBILINOGEN URINE 0.2 E.U./dL (0.2-1.0)
[2019-01-05] MEDS ORDERED: PANTOPRAZOLE 80MG in SODIUM CHLORIDE 0.9% 100ML IV SCH (15:00)
[2019-01-05] MEDS ORDERED: PANTOPRAZOLE SODIUM 40 MG/VIAL IV SCH (15:00)
[2019-01-05] MEDS ORDERED: PANTOPRAZOLE 80 MG in SODIUM CHLORIDE 0.9% 100 ML IV SCH (15:00)
[2019-01-05] MEDS ORDERED: MORPHINE SULFATE 4 MG/ML CPJ (NOT FOR IM USE) IV ONE (15:00)
[2019-01-05 15:27] LABS: *BARBITURATES SCREEN URINE NEGATIVE (NEGATIVE); *BENZODIAZEPINES SCREEN URINE NEGATIVE (NEGATIVE); *COCAINE SCREEN URINE NEGATIVE (NEGATIVE); CANNABINOID URINE SCREEN NEGATIVE (NEGATIVE); METHADONE URINE SCREEN NEGATIVE (NEGATIVE); OPIATES URINE SCREEN NEGATIVE (NEGATIVE); PHENCYCLIDINE URINE SCREEN NEGATIVE (NEGATIVE)
[2019-01-05 15:28] LABS: *AMPHETAMINES SCREEN URINE NEGATIVE (NEGATIVE)
[2019-01-05] MEDS ORDERED: INSULIN REGULAR (HUMULIN R) 300UNITS/3ML SUBCUT ONE (18:00)
[2019-01-05] MEDS ORDERED: ACETAMINOPHEN 325MG TABLET PO PRN (20:15)
[2019-01-05] MEDS ORDERED: CLONIDINE 0.1MG TABLET PO PRN (20:15)
[2019-01-05] MEDS ORDERED: ONDANSETRON HCL 4MG/2ML INJ IV PRN (20:15)
[2019-01-05] MEDS ORDERED: ZOLPIDEM TARTRATE 5MG TABLET PO PRN (21:00)
[2019-01-05 23:10] VITALS: BP 166/92
[2019-01-05 23:15] VITALS: BP 166/92
[2019-01-05] MEDS ORDERED: HYDRALAZINE 20MG/ML VIAL IV PRN (23:35)
[2019-01-05] MEDS: MORPHINE SULFATE 2 MG/ML CPJ (NOT FOR IM USE) IV PRN (23:41)
[2019-01-06] MEDS: SODIUM CHLORIDE 0.9% 1,000 ML IV SCH ×2 (01:54→13:52)
[2019-01-06 02:46] VITALS: BP 161/83
[2019-01-06 04:00] VITALS: BP 124/61
[2019-01-06] MEDS: MORPHINE SULFATE 2 MG/ML CPJ (NOT FOR IM USE) IV PRN ×2 (04:30→10:26)
[2019-01-06] MEDS ORDERED: METOCLOPRAMIDE HCL 10MG/2ML VIAL IV PRN (05:45)
[2019-01-06] MEDS: BLOOD SUGAR DIAGNOSTIC STRIP TEST SCH ×4 (07:08→20:57)
[2019-01-06] MEDS ORDERED: DEXTROSE 50% WATER 50ML SYRINGE IV PRN (07:30)
[2019-01-06 08:00] VITALS: BP 98/48
[2019-01-06] MEDS ORDERED: KCL 20MEQ/100ML PREMIX 100 ML IV SCH (08:00)
[2019-01-06 08:11] LABS: BASOPHILS % 0.2 % (0.0-2.0); HEMATOCRIT. 35.8 % (36.0-48.0); HEMOGLOBIN. 11.8 g/dL (12.0-16.0); LYMPHOCYTES % 11.3 % (20.0-50.0); MEAN CORPUSCULAR HEMOGLOBIN 26.7 pg (28.0-32.0); MEAN CORPUSCULAR VOLUME 81.3 fL (81.0-99.0); MEAN PLATELET VOLUME 7.7 fl (7.4-10.4); MONOCYTES % 6.9 % (2.0-8.0); NEUTROPHILS % 81.6 % (40.0-76.0); PLATELET 277 x1000/uL (130-400); RED BLOOD CELL COUNT 4.41 mill/uL (4.2-5.4); RED CELL DISTRIBUTION WIDTH 16.2 % (11.6-14.6)
[2019-01-06] MEDS: LOSARTAN POTASSIUM 50 MG TABLET PO SCH ×2 (08:35→21:00)
[2019-01-06] MEDS: FAMOTIDINE 20MG/2ML VIAL IV SCH ×2 (08:42→21:06)
[2019-01-06] MEDS: AZITHROMYCIN 500 MG TABLET PO SCH (08:42)
[2019-01-06] MEDS ORDERED: AMLODIPINE 5MG TABLET PO SCH (09:00)
[2019-01-06] MEDS: INSULIN LISPRO 100 UNITS/ML SUBCUT SCH ×6 (09:07→21:00)
[2019-01-06] MEDS ORDERED: INSULIN GLARGINE UD 100 UNITS/ML SYR SUBCUT SCH (10:00)
[2019-01-06 10:23] LABS: TOTAL IRON BINDING CAPACITY 299 ug/dL (250-450)
[2019-01-06] MEDS: CEFTRIAXONE 1 G PREMIX 50 ML IV SCH (11:50)
[2019-01-06 12:00] VITALS: BP 121/51
[2019-01-06 16:00] VITALS: BP 94/50
[2019-01-06 20:00] VITALS: BP 90/52
[2019-01-06] MEDS: INSULIN GLARGINE UD 100 UNITS/ML SYR SUBCUT SCH (22:00)
[2019-01-07] VITALS: BP 95/54
[2019-01-07] MEDS: SODIUM CHLORIDE 0.9% 1,000 ML IV SCH ×2 (00:17→15:01)
[2019-01-07 04:00] VITALS: BP 122/70
[2019-01-07] MEDS: BLOOD SUGAR DIAGNOSTIC STRIP TEST SCH ×4 (05:44→20:20)
[2019-01-07] MEDS: INSULIN LISPRO 100 UNITS/ML SUBCUT SCH ×7 (06:00→20:28)
[2019-01-07] MEDS: MORPHINE SULFATE 2 MG/ML CPJ (NOT FOR IM USE) IV PRN ×3 (06:00→20:19)
[2019-01-07 06:19] LABS: BASOPHILS % 0.2 % (0.0-2.0); EOSINOPHILS % 0.2 % (0.0-5.0); HEMATOCRIT. 33.7 % (36.0-48.0); HEMOGLOBIN. 11.2 g/dL (12.0-16.0); LYMPHOCYTES % 32.2 % (20.0-50.0); MEAN CORPUSCULAR HEMOGLOBIN 26.9 pg (28.0-32.0); MEAN CORPUSCULAR VOLUME 80.8 fL (81.0-99.0); MEAN PLATELET VOLUME 7.6 fl (7.4-10.4); NEUTROPHILS % 58.4 % (40.0-76.0); PLATELET 262 x1000/uL (130-400); RED BLOOD CELL COUNT 4.17 mill/uL (4.2-5.4); RED CELL DISTRIBUTION WIDTH 16.4 % (11.6-14.6)
[2019-01-07 08:00] VITALS: BP 119/68
[2019-01-07] MEDS: FAMOTIDINE 20MG/2ML VIAL IV SCH ×2 (09:00→20:19)
[2019-01-07] MEDS: AZITHROMYCIN 500 MG TABLET PO SCH (09:00)
[2019-01-07] MEDS: LOSARTAN POTASSIUM 50 MG TABLET PO SCH (09:00)
[2019-01-07] MEDS: CEFTRIAXONE 1 G PREMIX 50 ML IV SCH (09:04)
[2019-01-07] MEDS: INSULIN GLARGINE UD 100 UNITS/ML SYR SUBCUT SCH ×2 (11:16→22:00)
[2019-01-07 11:23] LABS: CREATINE KINASE 69 IU/L (26-192)
[2019-01-07 12:00] VITALS: BP 132/67
[2019-01-07 16:00] VITALS: BP 120/80
[2019-01-07 20:00] VITALS: BP 132/67
[2019-01-08] VITALS: BP 113/62
[2019-01-08 04:00] VITALS: BP 127/77
[2019-01-08] MEDS: SODIUM CHLORIDE 0.9% 1,000 ML IV SCH (05:05)
[2019-01-08] MEDS: INSULIN LISPRO 100 UNITS/ML SUBCUT SCH ×7 (06:02→21:00)
[2019-01-08] MEDS: BLOOD SUGAR DIAGNOSTIC STRIP TEST SCH ×4 (06:03→21:29)
[2019-01-08 07:25] LABS: BASOPHILS % 0.2 % (0.0-2.0); EOSINOPHILS % 0.3 % (0.0-5.0); HEMATOCRIT. 30.5 % (36.0-48.0); HEMOGLOBIN. 10.2 g/dL (12.0-16.0); LYMPHOCYTES % 42.4 % (20.0-50.0); MEAN CORPUSCULAR HEMOGLOBIN 26.9 pg (28.0-32.0); MEAN CORPUSCULAR VOLUME 80.4 fL (81.0-99.0); MEAN PLATELET VOLUME 7.5 fl (7.4-10.4); MONOCYTES % 9.2 % (2.0-8.0); NEUTROPHILS % 47.9 % (40.0-76.0); PLATELET 219 x1000/uL (130-400); RED BLOOD CELL COUNT 3.79 mill/uL (4.2-5.4); RED CELL DISTRIBUTION WIDTH 16.1 % (11.6-14.6)
[2019-01-08 08:00] VITALS: BP 141/71
[2019-01-08] MEDS: AZITHROMYCIN 500 MG TABLET PO SCH (08:11)
[2019-01-08] MEDS: CEFTRIAXONE 1 G PREMIX 50 ML IV SCH (08:12)
[2019-01-08] MEDS: FAMOTIDINE 20MG/2ML VIAL IV SCH ×2 (08:12→21:12)
[2019-01-08 10:14] LABS: PHOSPHORUS 3.5 mg/dL (2.5-4.9)
[2019-01-08 10:31] LABS: CLARITY URINE CLEAR (CLEAR); COLOR URINE YELLOW (YELLOW); KETONES URINE TRACE (NEGATIVE); LEUKOCYTE ESTERASE URINE 1+ (NEGATIVE); NITRITE URINE NEGATIVE (NEGATIVE); OCCULT BLOOD URINE NEGATIVE (NEGATIVE); PH URINE 5.5 (4.5-8.0); PROTEIN URINE 2+ (NEGATIVE); SPECIFIC GRAVITY URINE 1.021 (1.005-1.030); UROBILINOGEN URINE 0.2 E.U./dL (0.2-1.0)
[2019-01-08] MEDS: INSULIN GLARGINE UD 100 UNITS/ML SYR SUBCUT SCH ×2 (10:31→22:09)
[2019-01-08] MEDS ORDERED: MAGNESIUM 2 G PREMIX 50 ML IV NR (11:30)
[2019-01-08 12:00] VITALS: BP 154/77
[2019-01-08] MEDS: POTASSIUM CHLORIDE INJ 40 MEQ in SODIUM CHLORIDE 0.45% 1,000 ML IV SCH (13:25)
[2019-01-08 16:00] VITALS: BP 131/77
[2019-01-08] MEDS: MORPHINE SULFATE 2 MG/ML CPJ (NOT FOR IM USE) IV PRN ×2 (17:59→22:02)
[2019-01-08 20:00] VITALS: BP 137/77
[2019-01-09] VITALS: BP 142/80
[2019-01-09] MEDS: POTASSIUM CHLORIDE INJ 40 MEQ in SODIUM CHLORIDE 0.45% 1,000 ML IV SCH (01:36)
[2019-01-09] MEDS: MORPHINE SULFATE 2 MG/ML CPJ (NOT FOR IM USE) IV PRN (03:49)
[2019-01-09 04:00] VITALS: BP 152/85
[2019-01-09 06:23] LABS: BASOPHILS % 0.1 % (0.0-2.0); EOSINOPHILS % 0.3 % (0.0-5.0); HEMATOCRIT. 30.6 % (36.0-48.0); HEMOGLOBIN. 10.2 g/dL (12.0-16.0); LYMPHOCYTES % 38.4 % (20.0-50.0); MEAN CORPUSCULAR HEMOGLOBIN 26.6 pg (28.0-32.0); MEAN CORPUSCULAR VOLUME 79.7 fL (81.0-99.0); MEAN PLATELET VOLUME 7.4 fl (7.4-10.4); MONOCYTES % 10.4 % (2.0-8.0); NEUTROPHILS % 50.8 % (40.0-76.0); PLATELET 215 x1000/uL (130-400); RED BLOOD CELL COUNT 3.84 mill/uL (4.2-5.4); RED CELL DISTRIBUTION WIDTH 15.9 % (11.6-14.6)
[2019-01-09] MEDS: INSULIN LISPRO 100 UNITS/ML SUBCUT SCH ×3 (06:33→14:08)
[2019-01-09] MEDS: BLOOD SUGAR DIAGNOSTIC STRIP TEST SCH ×2 (06:33→12:37)
[2019-01-09 08:00] VITALS: BP 149/79
[2019-01-09 08:29] LABS: CHLORIDE 111 mEq/L (98-107)
[2019-01-09 08:34] LABS: PHOSPHORUS 3.6 mg/dL (2.5-4.9)
[2019-01-09] MEDS: FAMOTIDINE 20MG/2ML VIAL IV SCH (08:34)
[2019-01-09] MEDS: CEFTRIAXONE 1 G PREMIX 50 ML IV SCH (08:34)
[2019-01-09] MEDS: AZITHROMYCIN 500 MG TABLET PO SCH (08:34)
[2019-01-09] MEDS: INSULIN GLARGINE UD 100 UNITS/ML SYR SUBCUT SCH (10:11)
[2019-01-09] MEDS ORDERED: INSULIN LISPRO 100 UNITS/ML SUBCUT SCH (11:45)
[2019-01-09 12:00] VITALS: BP 164/84
[2019-01-09 14:19] VITALS: BP 132/68
[2019-01-09 15:07] VITALS: BP 134/72
[2019-01-09 15:39] LABS: CLARITY URINE CLEAR (CLEAR); COLOR URINE YELLOW (YELLOW); KETONES URINE NEGATIVE (NEGATIVE); LEUKOCYTE ESTERASE URINE NEGATIVE (NEGATIVE); NITRITE URINE NEGATIVE (NEGATIVE); OCCULT BLOOD URINE NEGATIVE (NEGATIVE); PH URINE 6.5 (4.5-8.0); PROTEIN URINE 1+ (NEGATIVE); SPECIFIC GRAVITY URINE 1.014 (1.005-1.030); UROBILINOGEN URINE 0.2 E.U./dL (0.2-1.0)
== END 2019-01-09 15:00 | disposition home or self-care (01) | DRG 242 ==
LOC: ER 13:43 → 5WST 18:09 → ENRESERV 19:58
PROVIDERS: ADMIT Internal Medicine; ATTEND Internal Medicine
DX: K22.6 Gastro-esophageal laceration-hemorrhage syndrome (principal); N17.0 Acute kidney failure with tubular necrosis; E11.22 Type 2 diabetes mellitus with diabetic chronic kidney disease; D50.9 Iron deficiency anemia, unspecified; E87.6 Hypokalemia; I12.9 Hypertensive chronic kidney disease with stage 1 through stage 4 chronic kidney disease, or unspecified chronic kidney disease; K21.9 Gastro-esophageal reflux disease without esophagitis; I16.0 Hypertensive urgency; N18.1 Chronic kidney disease, stage 1; E11.65 Type 2 diabetes mellitus with hyperglycemia; N32.89 Other specified disorders of bladder; E87.0 Hyperosmolality and hypernatremia; J18.9 Pneumonia, unspecified organism; K29.71 Gastritis, unspecified, with bleeding; Z79.4 Long term (current) use of insulin; Z82.49 Family history of ischemic heart disease and other diseases of the circulatory system; Z83.3 Family history of diabetes mellitus; Z90.710 Acquired absence of both cervix and uterus; Z88.8 Allergy status to other drugs, medicaments and biological substances; Z79.899 Other long term (current) drug therapy
CPT/HCPCS: 36415; 71045; 76705; 76770; 80048; 80305; 80320; 82550; 82728; 82962; 83540; 83550; 83735; 84100; 84145; 84484; 87106; 93005; 93970; 96374; 96375; 99285; C9113; J0360; J0696; J1815; J2270; J2405; J2765; J3475; J3480; J3490; J7030; J7050; G0480

== ENCOUNTER 2019-06-02 11:08 | Inpatient (IN) | payer MEDICAID ==
[~2019-06-02] VITALS: Ht 172.7 cm; Wt 72.6 kg
[2019-06-02] MEDS ORDERED: MAGNESIUM/ALUMINUM HYDROXIDE/SIMETHICONE 30ML UDC PO STA (11:35)
[2019-06-02] MEDS ORDERED: SODIUM CHLORIDE 0.9% 2,000 ML IV ONE (11:35)
[2019-06-02 12:00] LABS: BASOPHILS % 0.1 % (0.0-2.0); EOSINOPHILS % 0.1 % (0.0-5.0); HEMOGLOBIN. 11.7 g/dL (12.0-16.0); LYMPHOCYTES % 24.8 % (20.0-50.0); MEAN CORPUSCULAR HEMOGLOBIN 27.1 pg (28.0-32.0); MEAN PLATELET VOLUME 7.2 fl (7.4-10.4); MONOCYTES % 8.7 % (2.0-8.0); NEUTROPHILS % 66.3 % (40.0-76.0); PLATELET 241 x1000/uL (130-400); RED CELL DISTRIBUTION WIDTH 14.6 % (11.6-14.6)
[2019-06-02 12:06] LABS: HCG SCREEN NEGATIVE
[2019-06-02 12:07] LABS: CHLORIDE 97 mEq/L (98-107)
[2019-06-02 12:12] LABS: ETHANOL BLOOD < 10 mg/dL
[2019-06-02 12:19] LABS: PROTHROMBIN TIME 10.6 sec (9.6-11.0)
[2019-06-02 12:32] LABS: CLARITY URINE CLEAR (CLEAR); COLOR URINE YELLOW (YELLOW); KETONES URINE TRACE (NEGATIVE); LEUKOCYTE ESTERASE URINE NEGATIVE (NEGATIVE); NITRITE URINE NEGATIVE (NEGATIVE); OCCULT BLOOD URINE TRACE (NEGATIVE); PH URINE 6.5 (4.5-8.0); PROTEIN URINE NEGATIVE (NEGATIVE); SPECIFIC GRAVITY URINE 1.025 (1.005-1.030); UROBILINOGEN URINE 0.2 E.U./dL (0.2-1.0)
[2019-06-02 12:43] LABS: *AMPHETAMINES SCREEN URINE NEGATIVE (NEGATIVE); *BARBITURATES SCREEN URINE NEGATIVE (NEGATIVE)
[2019-06-02 12:44] LABS: *BENZODIAZEPINES SCREEN URINE NEGATIVE (NEGATIVE); *COCAINE SCREEN URINE NEGATIVE (NEGATIVE); METHADONE URINE SCREEN NEGATIVE (NEGATIVE); OPIATES URINE SCREEN NEGATIVE (NEGATIVE); PHENCYCLIDINE URINE SCREEN NEGATIVE (NEGATIVE)
[2019-06-02 12:45] LABS: CANNABINOID URINE SCREEN NEGATIVE (NEGATIVE)
[2019-06-02 13:05] LABS: BG BASE EXCESS -1.3 mmol/L (-2.0-2.0); BG CARBOXYHEMOGLOBIN 0.7 % (0.5-1.5); BG DEOXYHEMOGLOBIN 4.6 % (0.0-5.0); BG FRACTION INSPIRED OXYGEN 21; BG HCO3 ACT 24.2 mmol/L (22.0-26.0); BG METHEMOGLOBIN 0.3 % (0.0-1.5); BG OXYGEN SATURATION 95.4 % (92.0-98.5); BG OXYHEMOGLOBIN 94.4 % (94.0-97.0); BG PCO2 43.8 mmHg (35.0-45.0); BG PO2 79.7 mmHg (75.0-100.0); BG SAMPLE SITE RIGHT BRACHIAL; BG TOTAL HEMOGLOBIN 12.2 g/dL (12.0-18.0); BG VENT MODE ROOM AIR
[2019-06-02] MEDS ORDERED: INSULIN REGULAR 0.5UNIT/ML SYR(NEO) IV ONE (13:30)
[2019-06-02] MEDS ORDERED: POTASSIUM CHLORIDE 20MEQ TABLET SR PO ONE (13:30)
[2019-06-02] MEDS ORDERED: CEFTRIAXONE 1 G PREMIX 50 ML IV ONE (13:30)
[2019-06-02] MEDS ORDERED: INSULIN REGULAR (HUMULIN R) 300UNITS/3ML IV NR (14:00)
[2019-06-02] MEDS ORDERED: ACETAMINOPHEN 325MG TABLET PO ONE (18:00)
[2019-06-02 23:00] VITALS: BP 138/68
[2019-06-02 23:10] VITALS: BP 138/68
[2019-06-03] VITALS: BP 146/73
[2019-06-03] MEDS ORDERED: ACETAMINOPHEN 325MG TABLET PO PRN
[2019-06-03] MEDS ORDERED: DEXTROSE 50% WATER 50ML SYRINGE IV PRN
[2019-06-03] MEDS ORDERED: MORPHINE SULFATE 2 MG/ML CPJ (NOT FOR IM USE) IV PRN
[2019-06-03] MEDS: SODIUM CHLORIDE 0.9% 1,000 ML IV SCH ×2 (03:58→15:20)
[2019-06-03 04:00] VITALS: BP 147/78
[2019-06-03] MEDS ORDERED: INSU100I34 SQ (06:40)
[2019-06-03] MEDS: BLOOD SUGAR DIAGNOSTIC STRIP TEST SCH ×4 (06:45→20:43)
[2019-06-03] MEDS ORDERED: INSULIN LISPRO 100 UNITS/ML SUBCUT SCH (07:50)
[2019-06-03 07:58] LABS: EOSINOPHILS % 0.1 % (0.0-5.0); HEMATOCRIT. 34.6 % (36.0-48.0); HEMOGLOBIN. 11.5 g/dL (12.0-16.0); LYMPHOCYTES % 28.1 % (20.0-50.0); MEAN CORPUSCULAR HEMOGLOBIN 26.7 pg (28.0-32.0); MEAN CORPUSCULAR VOLUME 80.3 fL (81.0-99.0); MEAN PLATELET VOLUME 7.4 fl (7.4-10.4); MONOCYTES % 6.2 % (2.0-8.0); NEUTROPHILS % 65.6 % (40.0-76.0); PLATELET 238 x1000/uL (130-400); RED BLOOD CELL COUNT 4.31 mill/uL (4.2-5.4); RED CELL DISTRIBUTION WIDTH 14.7 % (11.6-14.6)
[2019-06-03 08:00] VITALS: BP 158/81
[2019-06-03 08:13] LABS: CHLORIDE 101 mEq/L (98-107)
[2019-06-03 08:30] LABS: LDL CHOLESTEROL 140 mg/dL (5-100)
[2019-06-03 08:31] LABS: HDL CHOLESTEROL 62 mg/dL (40-59)
[2019-06-03] MEDS: ENOXAPARIN 40MG/0.4ML SYR SUBCUT SCH (09:35)
[2019-06-03] MEDS: INSULIN LISPRO 100 UNITS/ML SUBCUT SCH ×6 (09:38→20:41)
[2019-06-03] MEDS ORDERED: INSULIN GLARGINE UD 100 UNITS/ML SYR SUBCUT SCH (10:00)
[2019-06-03] MEDS: AMLODIPINE 5MG TABLET PO SCH ×2 (11:30→20:31)
[2019-06-03 12:00] VITALS: BP 109/56
[2019-06-03] MEDS: INSULIN GLARGINE UD 100 UNITS/ML SYR SUBCUT SCH ×2 (12:16→22:40)
[2019-06-03] MEDS ORDERED: CEFTRIAXONE 1 G PREMIX 50 ML IV SCH (15:00)
[2019-06-03 16:00] VITALS: BP 102/53
[2019-06-03 20:00] VITALS: BP 106/60
[2019-06-03] MEDS ORDERED: FAMOTIDINE 20MG TABLET PO SCH (21:00)
[2019-06-03] MEDS ORDERED: ATORVASTATIN CALCIUM 40MG TABLET PO SCH (21:00)
[2019-06-04] VITALS: BP 158/89
[2019-06-04 04:00] VITALS: BP_SYST 106; BP_SYST 124; BP_DIAS 66; BP_DIAS 72
[2019-06-04] MEDS: BLOOD SUGAR DIAGNOSTIC STRIP TEST SCH ×2 (07:26→12:29)
[2019-06-04 08:00] VITALS: BP 149/90
[2019-06-04] MEDS: AMLODIPINE 5MG TABLET PO SCH (09:01)
[2019-06-04] MEDS: ENOXAPARIN 40MG/0.4ML SYR SUBCUT SCH (09:01)
[2019-06-04] MEDS: INSULIN LISPRO 100 UNITS/ML SUBCUT SCH ×4 (09:05→12:50)
[2019-06-04] MEDS: INSULIN GLARGINE UD 100 UNITS/ML SYR SUBCUT SCH (09:56)
[2019-06-04 11:43] VITALS: BP 133/85
[2019-06-04 12:00] VITALS: BP 100/61
== END 2019-06-04 13:30 | disposition home or self-care (01) | DRG 420 ==
LOC: ER 11:08 → 6EST 15:05 → EDBEDREQTM 15:25 → ENRESERV 21:16
PROVIDERS: ADMIT Internal Medicine; ATTEND Internal Medicine
DX: E11.65 Type 2 diabetes mellitus with hyperglycemia (principal); E87.8 Other disorders of electrolyte and fluid balance, not elsewhere classified; E87.1 Hypo-osmolality and hyponatremia; E78.5 Hyperlipidemia, unspecified; E87.6 Hypokalemia; I10 Essential (primary) hypertension; K21.9 Gastro-esophageal reflux disease without esophagitis; Z90.710 Acquired absence of both cervix and uterus; Z88.9 Allergy status to unspecified drugs, medicaments and biological substances; Z79.4 Long term (current) use of insulin
CPT/HCPCS: 36415; 36600; 71045; 80061; 80305; 80320; 81003; 82375; 82805; 82962; 83036; 84484; 84703; 93005; 96365; 99285; J0696; J1650; J1815; J2270; J7030; G0480

== ENCOUNTER 2019-11-13 12:24 | Emergency (ER) | payer MEDICAID, OTHER ==
[~2019-11-13] VITALS: Ht 172.7 cm; Wt 66.0 kg
[2019-11-13] MEDS ORDERED: insulin (12:41)
[2019-11-13 12:42] VITALS: BP 113/71
== END 2019-11-13 16:42 | disposition left against medical advice (07) ==
LOC: ER 12:24
DX: Z53.21 Procedure and treatment not carried out due to patient leaving prior to being seen by health care provider (principal)

== ENCOUNTER 2023-09-10 06:09 | Inpatient (IN) | payer OTHER ==
[~2023-09-10] VITALS: Ht 172.7 cm; Wt 75.3 kg
[~2023-09-10 06:09] MED LIST changes: +FAMO-135 MT; +LANTUSUD SUBCUT; +insulin
[2023-09-10 06:14] VITALS: O2SAT 97
[2023-09-10 07:33] LABS: BASOPHILS % 0.4 % (0.0-2.0); HEMATOCRIT. 29.1 % (36.0-48.0); LYMPHOCYTES % 15.8 % (20.0-50.0); MEAN CORPUSCULAR HEMOGLOBIN 26.1 pg (28.0-32.0); MEAN CORPUSCULAR VOLUME 84.4 fL (81.0-99.0); MEAN PLATELET VOLUME 7.3 fl (7.4-10.4); MONOCYTES % 13.8 % (2.0-8.0); PLATELET 202 x1000/uL (130-400); RED BLOOD CELL COUNT 3.45 mill/uL (4.2-5.4); RED CELL DISTRIBUTION WIDTH 15.4 % (11.6-14.6); WHITE BLOOD COUNT 3.4 x1000/uL (4.5-11.0)
[2023-09-10 07:39] LABS: ALANINE AMINOTRANSFERASE 15 IU/L (10-49); ALBUMIN 3.4 g/dL (3.2-4.8); ASPARTATE AMINOTRANSFERASE 39 IU/L (<34); BILIRUBIN TOTAL 0.9 mg/dL (0.1-1.0); CALCIUM 7.5 mg/dL (8.7-10.4); CARBON DIOXIDE 24 mEq/L (21-32); CHLORIDE 107 mEq/L (98-107); CREATININE 3.1 mg/dL (0.6-1.0); GLUCOSE 87 mg/dL (70-105); POTASSIUM 5.3 mEq/L (3.5-5.1); PROTEIN TOTAL 7.8 g/dL (6.0-8.3); SODIUM 139 mEq/L (136-145); TROPONIN I HIGH SENSITIVITY 8 ng/L (3.0-34); UREA NITROGEN BLOOD 43 mg/dL (9-23)
[2023-09-10] MEDS ORDERED: KETOROLAC 30MG/ML VIAL IV ONE (08:45)
[2023-09-10] MEDS ORDERED: DEXTROSE 50% WATER 50ML SYRINGE IV PRN (12:15)
[2023-09-10] MEDS ORDERED: ONDANSETRON HCL 4MG/2ML INJ IV PRN (12:15)
[2023-09-10] MEDS: AMLODIPINE 10MG TABLET PO SCH (12:33)
[2023-09-10] MEDS: BLOOD SUGAR DIAGNOSTIC STRIP TEST SCH ×3 (12:34→21:34)
[2023-09-10] MEDS: TRAMADOL 50MG TABLET PO PRN ×2 (12:42→18:59)
[2023-09-10] MEDS: INSULIN LISPRO 100 UNITS/ML SUBCUT SCH ×3 (12:42→21:31)
[2023-09-10] MEDS ORDERED: NALOXONE HCL 0.4MG/ML VIAL IV PRN (12:45)
[2023-09-10] MEDS: METOCLOPRAMIDE HCL 10MG/2ML VIAL IV SCH ×2 (12:47→17:11)
[2023-09-10 13:30] VITALS: BP 168/83; PULSE 86; RESP 18; RESP 20; TEMP 97.9
[2023-09-10 13:35] VITALS: RESP 18
[2023-09-10] MEDS ORDERED: AMLO10TA80 PO (14:30)
[2023-09-10] MEDS ORDERED: HYDR100T26 PO (14:30)
[2023-09-10] MEDS ORDERED: LOSA50TA41 PO (14:30)
[2023-09-10] MEDS ORDERED: INSULIN GLARGINE 100 UNITS/ML SUBCUT NR (14:45)
[2023-09-10] MEDS ORDERED: AMLODIPINE 10MG TABLET PO SCH (15:00)
[2023-09-10] MEDS: LOSARTAN 50 MG TABLET PO SCH (15:04)
[2023-09-10] MEDS: FOLIC ACID/VITAMIN B COMP W-C TABLET PO SCH (15:48)
[2023-09-10 16:00] VITALS: BP_SYST 126; BP_SYST 168; BP_SYST 188; BP_DIAS 80; BP_DIAS 83; BP_DIAS 95; PULSE 77; PULSE 79; PULSE 80; RESP 19; RESP 20; TEMP 97.2; TEMP 97.9; TEMP 98.5
[2023-09-10 16:30] VITALS: BP 152/80; PULSE 82; RESP 20; TEMP 97.9
[2023-09-10] MEDS ORDERED: INSULIN LISPRO 100 UNITS/ML SUBCUT NR (17:00)
[2023-09-10] MEDS ORDERED: NON FORMULARY PATIENT HOME MED XX SCH ×2 (17:00→17:15)
[2023-09-10] MEDS: ENOXAPARIN 30MG/0.3ML SYR SUBCUT SCH (17:16)
[2023-09-10 20:00] VITALS: BP 162/91; PULSE 80; RESP 19; TEMP 98.4
[2023-09-10 20:47] LABS: BODY FLUID MONOCYTES 6 %; BODY FLUID RBC 60 /cu mm (0-2000); BODY FLUID WBC 25 /cu mm (0-200)
[2023-09-10] MEDS ORDERED: EPOETIN ALFA 4000UNITS/ML VIAL SUBCUT SCH (21:00)
[2023-09-10] MEDS ORDERED: FAMOTIDINE 20MG TABLET PO SCH (21:00)
[2023-09-10] MEDS ORDERED: MELATONIN 3MG TABLET PO PRN (21:00)
[2023-09-10] MEDS: GABAPENTIN 100MG CAPSULE PO SCH (21:16)
[2023-09-10] MEDS: HYDRALAZINE HCL 100MG TABLET PO SCH (21:17)
[2023-09-10] MEDS: INSULIN GLARGINE 100 UNITS/ML SUBCUT SCH (21:33)
[2023-09-11] VITALS (7 sets, daily range): BP systolic 92–145; BP diastolic 49–78; PULSE 76–83; RESP 15–20; TEMP 97.5–98.6
[2023-09-11] MEDS: GABAPENTIN 100MG CAPSULE PO SCH ×2 (05:48→13:38)
[2023-09-11] MEDS: METOCLOPRAMIDE HCL 10MG/2ML VIAL IV SCH ×4 (05:48→17:04)
[2023-09-11] MEDS: HYDRALAZINE HCL 100MG TABLET PO SCH ×2 (05:49→13:41)
[2023-09-11 07:31] LABS: PHOSPHORUS 4.3 mg/dL (2.5-4.9)
[2023-09-11] MEDS: BLOOD SUGAR DIAGNOSTIC STRIP TEST SCH ×3 (07:40→16:48)
[2023-09-11] MEDS: INSULIN LISPRO 100 UNITS/ML SUBCUT SCH ×3 (08:22→17:09)
[2023-09-11] MEDS: AMLODIPINE 10MG TABLET PO SCH (08:23)
[2023-09-11] MEDS: LOSARTAN 50 MG TABLET PO SCH (08:23)
[2023-09-11] MEDS: FOLIC ACID/VITAMIN B COMP W-C TABLET PO SCH (08:24)
[2023-09-11] MEDS ORDERED: ATENOLOL 50 MG TABLET PO SCH (09:00)
[2023-09-11] MEDS: INSULIN GLARGINE 100 UNITS/ML SUBCUT SCH (09:35)
[2023-09-11] MEDS ORDERED: FUROSEMIDE 40MG TABLET PO SCH (11:30)
[2023-09-11] MEDS: ENOXAPARIN 30MG/0.3ML SYR SUBCUT SCH (16:07)
[2023-09-11] MEDS ORDERED: INSULIN GLARGINE 100 UNITS/ML SUBCUT SCH (22:00)
== END 2023-09-11 17:55 | disposition home or self-care (01) | DRG 640 ==
LOC: ER 06:09 → EDBEDREQ 08:37 → 5WST 10:43 → EDBEDREQ 10:45 → EDBEDREQTM 10:45 → 7WST 13:53
PROVIDERS: ADMIT Internal Medicine; ATTEND Internal Medicine
PROC: 3E1M39Z Irrigation of Peritoneal Cavity using Dialysate, Percutaneous Approach (ICD-10-PCS; principal; 2023-09-10)
DX: E87.5 Hyperkalemia (principal); N18.6 End stage renal disease; E46 Unspecified protein-calorie malnutrition; I12.0 Hypertensive chronic kidney disease with stage 5 chronic kidney disease or end stage renal disease; N17.9 Acute kidney failure, unspecified; E87.70 Fluid overload, unspecified; E11.22 Type 2 diabetes mellitus with diabetic chronic kidney disease; D64.9 Anemia, unspecified; R09.02 Hypoxemia; D72.819 Decreased white blood cell count, unspecified; E11.65 Type 2 diabetes mellitus with hyperglycemia; Z99.2 Dependence on renal dialysis; Z87.01 Personal history of pneumonia (recurrent); Z87.440 Personal history of urinary (tract) infections; Z90.710 Acquired absence of both cervix and uterus; Z79.899 Other long term (current) drug therapy; Z68.25 Body mass index [BMI] 25.0-25.9, adult
CPT/HCPCS: 36415; 71045; 80053; 82962; 83036; 83880; 84100; 84484; 85025; 90945; 93005; 99285; J0885; J1650; J1815; J1885; J2765

== ENCOUNTER 2023-10-23 09:11 | Inpatient (IN) | payer OTHER ==
[~2023-10-23] VITALS: Ht 152.4 cm; Wt 82.7 kg
[~2023-10-23 09:11] MED LIST changes: +AMLO10TA80 PO; +HYDR100T26 PO; -LANTUSUD SUBCUT; +LOSA50TA41 PO
[2023-10-23] MEDS: SODIUM CHLORIDE 0.9% 1,000 ML IV ONE (09:36)
[2023-10-23 10:05] LABS: BASOPHILS % 0.1 % (0.0-2.0); EOSINOPHILS % 0.1 % (0.0-5.0); HEMATOCRIT. 26.5 % (36.0-48.0); HEMOGLOBIN. 8.2 g/dL (12.0-16.0); LYMPHOCYTES % 11.7 % (20.0-50.0); MEAN CORPUSCULAR HEMOGLOBIN 27.5 pg (28.0-32.0); MEAN CORPUSCULAR VOLUME 88.7 fL (81.0-99.0); MONOCYTES % 9.1 % (2.0-8.0); PLATELET 196 x1000/uL (130-400); RED BLOOD CELL COUNT 2.99 mill/uL (4.2-5.4); RED CELL DISTRIBUTION WIDTH 20.5 % (11.6-14.6); WHITE BLOOD COUNT 3.6 x1000/uL (4.5-11.0)
[2023-10-23 10:15] LABS: INR 1.1; PROTHROMBIN TIME 11.7 sec (9.6-11.0)
[2023-10-23 10:33] LABS: ALANINE AMINOTRANSFERASE < 7 IU/L (10-49); ALBUMIN 4.1 g/dL (3.2-4.8); ASPARTATE AMINOTRANSFERASE 14 IU/L (<34); BILIRUBIN TOTAL 0.9 mg/dL (0.1-1.0); CALCIUM 7.2 mg/dL (8.7-10.4); CARBON DIOXIDE 18 mEq/L (21-32); CHLORIDE 113 mEq/L (98-107); CREATININE 3.3 mg/dL (0.6-1.0); GLUCOSE 81 mg/dL (70-105); POTASSIUM 3.6 mEq/L (3.5-5.1); PROTEIN TOTAL 8.4 g/dL (6.0-8.3); SODIUM 141 mEq/L (136-145); UREA NITROGEN BLOOD 44 mg/dL (9-23)
[2023-10-23] MEDS ORDERED: DOCUSATE SODIUM 100MG CAPSULE PO PRN (12:15)
[2023-10-23] MEDS ORDERED: CLONIDINE 0.1MG TABLET PO PRN (12:15)
[2023-10-23] MEDS ORDERED: GUAIFENESIN 200MG/10ML SUGAR FREE UDC PO PRN (12:15)
[2023-10-23] MEDS ORDERED: ACETAMINOPHEN 325MG TABLET PO PRN (12:15)
[2023-10-23] MEDS ORDERED: DIPHENHYDRAMINE 50MG/ML VIAL IV PRN (12:15)
[2023-10-23] MEDS ORDERED: NALOXONE HCL 0.4MG/ML VIAL IV PRN (12:45)
[2023-10-23] MEDS: AMLODIPINE 5MG TABLET PO NR (12:50)
[2023-10-23] MEDS: DEXT 5%/0.45% NACL 1000ML 1,000 ML IV SCH (12:55)
[2023-10-23 13:06] LABS: CLARITY URINE CLOUDY (CLEAR); COLOR URINE YELLOW (YELLOW); GLUCOSE URINE NEGATIVE (NEGATIVE); KETONES URINE NEGATIVE (NEGATIVE); LEUKOCYTE ESTERASE URINE 3+ (NEGATIVE); NITRITE URINE NEGATIVE (NEGATIVE); OCCULT BLOOD URINE NEGATIVE (NEGATIVE); PROTEIN URINE 2+ (NEGATIVE); SPECIFIC GRAVITY URINE 1.011 (1.005-1.030); UROBILINOGEN URINE 0.2 E.U./dL (0.2-1.0)
[2023-10-23] MEDS ORDERED: AMLODIPINE 10MG TABLET PO SCH (13:30)
[2023-10-23] MEDS: GABAPENTIN 100MG CAPSULE PO SCH (14:32)
[2023-10-23] MEDS: HYDRALAZINE HCL 100MG TABLET PO SCH (14:34)
[2023-10-23 14:38] LABS: SQUAMOUS EPITHELIAL CELL URINE RARE /lpf (RARE/1+)
[2023-10-23 14:39] LABS: BACTERIA URINE 4+; RBC URINE 0-2 /hpf (0-2); WBC URINE TNTC /hpf (0-2)
[2023-10-23] MEDS: ATENOLOL 25MG TABLET PO SCH (15:25)
[2023-10-23] MEDS: TRAMADOL 50MG TABLET PO PRN (16:15)
[2023-10-23] MEDS: FAMOTIDINE 20MG TABLET PO SCH (17:42)
[2023-10-23 20:00] VITALS: BP 136/86; PULSE 74; TEMP 98.6
[2023-10-23 21:40] VITALS: BP 120/63; PULSE 74; RESP 17; TEMP 98.4
[2023-10-23] MEDS: MELATONIN 3MG TABLET PO NR (22:21)
[2023-10-23] MEDS ORDERED: DEXTROSE 50% WATER 50ML SYRINGE IV PRN (22:45)
[2023-10-24] VITALS (11 sets, daily range): BP systolic 98–148; BP diastolic 54–78; PULSE 63–76; RESP 14–18; TEMP 97.8–99.2
[2023-10-24 06:04] LABS: BASOPHILS % 0.2 % (0.0-2.0); EOSINOPHILS % 0.3 % (0.0-5.0); HEMATOCRIT. 24.3 % (36.0-48.0); HEMOGLOBIN. 7.3 g/dL (12.0-16.0); LYMPHOCYTES % 15.6 % (20.0-50.0); MEAN CORPUSCULAR HEMOGLOBIN 27.5 pg (28.0-32.0); MEAN CORPUSCULAR HGB CONC 29.9 g/dL (31.0-37.0); MEAN PLATELET VOLUME 7.5 fl (7.4-10.4); NEUTROPHILS % 71.9 % (40.0-76.0); PLATELET 171 x1000/uL (130-400); RED BLOOD CELL COUNT 2.65 mill/uL (4.2-5.4); RED CELL DISTRIBUTION WIDTH 21.1 % (11.6-14.6); WHITE BLOOD COUNT 2.8 x1000/uL (4.5-11.0)
[2023-10-24 06:19] LABS: ALANINE AMINOTRANSFERASE < 7 IU/L (10-49); ALBUMIN 3.5 g/dL (3.2-4.8); ASPARTATE AMINOTRANSFERASE 9 IU/L (<34); CARBON DIOXIDE 16 mEq/L (21-32); CHLORIDE 107 mEq/L (98-107); CHOLESTEROL 147 mg/dL (<200); CREATININE 3.7 mg/dL (0.6-1.0); HDL CHOLESTEROL 52 mg/dL (>65); LDL CHOLESTEROL 66 mg/dL (5-100); PROTEIN TOTAL 7.4 g/dL (6.0-8.3); SODIUM 135 mEq/L (136-145); TRIGLYCERIDE 143 mg/dL (0-150); UREA NITROGEN BLOOD 46 mg/dL (9-23)
[2023-10-24 06:47] LABS: GLUCOSE 609 mg/dL (70-105)
[2023-10-24] MEDS: INSULIN LISPRO 100 UNITS/ML SUBCUT SCH ×2 (06:47→12:55)
[2023-10-24] MEDS: BLOOD SUGAR DIAGNOSTIC STRIP TEST SCH (06:47)
[2023-10-24] MEDS: INSULIN GLARGINE 100 UNITS/ML SUBCUT NR (07:30)
[2023-10-24] MEDS: INSULIN REGULAR (HUMULIN R) 300UNITS/3ML VIAL SUBCUT NR (08:58)
[2023-10-24] MEDS: LOSARTAN 50 MG TABLET PO SCH (09:24)
[2023-10-24] MEDS: AMLODIPINE 10MG TABLET PO SCH (09:25)
[2023-10-24] MEDS ORDERED: CEFTRIAXONE 500 MG in DEXTROSE 5% WATER 50 ML IV SCH (11:15)
[2023-10-24] MEDS: FOLIC ACID/VITAMIN B COMP W-C TABLET PO SCH (13:46)
[2023-10-24] MEDS: CEFTRIAXONE 1GM/50ML 50 ML IV SCH (13:47)
[2023-10-24] MEDS: MELATONIN 3MG TABLET PO NR (20:49)
[2023-10-24] MEDS: EPOETIN ALFA 4000UNITS/ML VIAL SUBCUT SCH (20:50)
[2023-10-25] VITALS (11 sets, daily range): BP systolic 93–133; BP diastolic 5–72; PULSE 66–79; RESP 14–20; TEMP 97.5–99
[2023-10-25 06:07] LABS: CALCIUM 7.1 mg/dL (8.7-10.4); CREATININE 4.5 mg/dL (0.6-1.0); POTASSIUM 4.1 mEq/L (3.5-5.1)
[2023-10-25 06:16] LABS: BASOPHILS % 0.3 % (0.0-2.0); EOSINOPHILS % 0.3 % (0.0-5.0); HEMATOCRIT. 23.9 % (36.0-48.0); HEMOGLOBIN. 7.5 g/dL (12.0-16.0); LYMPHOCYTES % 24.3 % (20.0-50.0); MEAN CORPUSCULAR HEMOGLOBIN 28.4 pg (28.0-32.0); MEAN CORPUSCULAR HGB CONC 31.4 g/dL (31.0-37.0); MEAN CORPUSCULAR VOLUME 90.3 fL (81.0-99.0); MEAN PLATELET VOLUME 7.6 fl (7.4-10.4); NEUTROPHILS % 61.1 % (40.0-76.0); PLATELET 195 x1000/uL (130-400); RED BLOOD CELL COUNT 2.65 mill/uL (4.2-5.4); RED CELL DISTRIBUTION WIDTH 21.1 % (11.6-14.6); WHITE BLOOD COUNT 3.4 x1000/uL (4.5-11.0)
[2023-10-25] MEDS: PNEUMOCOCCAL 23-VAL P-SAC VAC 0.5 ML IM ONE (06:43)
[2023-10-25] MEDS: INFLUENZA VACCINE 05/PF 0.5 ML SYRINGE IM ONE (06:44)
[2023-10-25] MEDS: INSULIN GLARGINE 100 UNITS/ML SUBCUT SCH (09:14)
[2023-10-25] MEDS: SODIUM CHLORIDE 0.9% 1,000 ML IV SCH (12:31)
[2023-10-25] MEDS: MELATONIN 3MG TABLET PO SCH (21:34)
[2023-10-26] VITALS (10 sets, daily range): BP systolic 101–118; BP diastolic 55–72; PULSE 65–70; RESP 12–17; TEMP 97.8–99
[2023-10-26 06:42] LABS: ALANINE AMINOTRANSFERASE < 7 IU/L (10-49); ALBUMIN 3.2 g/dL (3.2-4.8); ASPARTATE AMINOTRANSFERASE 12 IU/L (<34); BILIRUBIN TOTAL 0.4 mg/dL (0.1-1.0); CARBON DIOXIDE 19 mEq/L (21-32); CHLORIDE 106 mEq/L (98-107); GLUCOSE 274 mg/dL (70-105); POTASSIUM 3.6 mEq/L (3.5-5.1); PROTEIN TOTAL 6.4 g/dL (6.0-8.3); SODIUM 137 mEq/L (136-145); UREA NITROGEN BLOOD 52 mg/dL (9-23)
[2023-10-26 06:44] LABS: BASOPHILS % 0.3 % (0.0-2.0); EOSINOPHILS % 0.5 % (0.0-5.0); HEMATOCRIT. 24.9 % (36.0-48.0); HEMOGLOBIN. 7.9 g/dL (12.0-16.0); LYMPHOCYTES % 20.8 % (20.0-50.0); MEAN CORPUSCULAR HEMOGLOBIN 28.3 pg (28.0-32.0); MEAN CORPUSCULAR HGB CONC 31.8 g/dL (31.0-37.0); MEAN CORPUSCULAR VOLUME 89.2 fL (81.0-99.0); MEAN PLATELET VOLUME 7.4 fl (7.4-10.4); MONOCYTES % 14.8 % (2.0-8.0); NEUTROPHILS % 63.6 % (40.0-76.0); PLATELET 201 x1000/uL (130-400); RED BLOOD CELL COUNT 2.79 mill/uL (4.2-5.4); RED CELL DISTRIBUTION WIDTH 20.6 % (11.6-14.6); WHITE BLOOD COUNT 3.3 x1000/uL (4.5-11.0)
[2023-10-26 06:49] LABS: CREATININE 5.5 mg/dL (0.6-1.0)
[2023-10-26 07:11] LABS: DIFFERENTIAL COMMENT 1
[2023-10-26] MEDS: MEROPENEM IV SCH (12:04)
[2023-10-26] MEDS ORDERED: MEROPENEM 1G/100ML 100 ML IV SCH (14:00)
[2023-10-27] VITALS (10 sets, daily range): BP systolic 97–115; BP diastolic 49–76; PULSE 63–68; RESP 11–19; TEMP 97.6–98.6
[2023-10-27 06:57] LABS: CARBON DIOXIDE 20 mEq/L (21-32); CHLORIDE 108 mEq/L (98-107); POTASSIUM 4.3 mEq/L (3.5-5.1); SODIUM 138 mEq/L (136-145)
[2023-10-27] MEDS: ONDANSETRON HCL 4MG/2ML INJ IV PRN (08:58)
[2023-10-27] MEDS ORDERED: LIDOCAINE HCL 1% 10 MG/ML 10ML VIAL ONE (12:32)
[2023-10-27] MEDS ORDERED: HYDRALAZINE HCL 25MG TABLET PO SCH (13:00)
[2023-10-28] VITALS (10 sets, daily range): BP systolic 106–143; BP diastolic 59–71; PULSE 68–89; RESP 13–22; TEMP 97.6–99.3
[2023-10-28] MEDS: HYDRALAZINE HCL 50MG TABLET PO SCH (09:06)
[2023-10-28] MEDS: FUROSEMIDE 40MG TABLET PO SCH (14:57)
[2023-10-29] VITALS (7 sets, daily range): BP systolic 119–129; BP diastolic 59–70; PULSE 66–71; RESP 12–16; TEMP 97.6–99.3; O2SAT 100
[2023-10-29 05:59] LABS: BASOPHILS % 0.2 % (0.0-2.0); EOSINOPHILS % 0.5 % (0.0-5.0); HEMATOCRIT. 26.6 % (36.0-48.0); HEMOGLOBIN. 8.3 g/dL (12.0-16.0); LYMPHOCYTES % 30.1 % (20.0-50.0); MEAN CORPUSCULAR HEMOGLOBIN 28.3 pg (28.0-32.0); MEAN CORPUSCULAR HGB CONC 31.2 g/dL (31.0-37.0); MEAN CORPUSCULAR VOLUME 90.7 fL (81.0-99.0); MEAN PLATELET VOLUME 7.5 fl (7.4-10.4); MONOCYTES % 14.1 % (2.0-8.0); NEUTROPHILS % 55.1 % (40.0-76.0); PLATELET 234 x1000/uL (130-400); RED BLOOD CELL COUNT 2.93 mill/uL (4.2-5.4); RED CELL DISTRIBUTION WIDTH 20.2 % (11.6-14.6); WHITE BLOOD COUNT 3.3 x1000/uL (4.5-11.0)
[2023-10-29 06:05] LABS: DIFFERENTIAL COMMENT 1
[2023-10-29 06:31] LABS: CALCIUM 6.9 mg/dL (8.7-10.4); POTASSIUM 3.8 mEq/L (3.5-5.1)
[2023-10-29 06:32] LABS: CREATININE 7.5 mg/dL (0.6-1.0)
== END 2023-10-29 13:45 | disposition home or self-care (01) | DRG 638 ==
LOC: ER 10:08 → EDBEDREQ 11:34 → EDBEDREQTM 11:34 → EDBEDREQSVC 12:44 → 3WST 20:35
PROVIDERS: ADMIT Hospitalist; ATTEND Hospitalist
PROC: 3E1M39Z Irrigation of Peritoneal Cavity using Dialysate, Percutaneous Approach (ICD-10-PCS; 2023-10-23)
PROC: 3E1M39Z Irrigation of Peritoneal Cavity using Dialysate, Percutaneous Approach (ICD-10-PCS; 2023-10-24)
PROC: 3E1M39Z Irrigation of Peritoneal Cavity using Dialysate, Percutaneous Approach (ICD-10-PCS; 2023-10-25)
PROC: 3E1M39Z Irrigation of Peritoneal Cavity using Dialysate, Percutaneous Approach (ICD-10-PCS; 2023-10-26)
PROC: 02HV33Z Insertion of Infusion Device into Superior Vena Cava, Percutaneous Approach (ICD-10-PCS; principal; 2023-10-27)
PROC: B548ZZA Ultrasonography of Superior Vena Cava, Guidance (ICD-10-PCS; 2023-10-27)
PROC: B5181ZA Fluoroscopy of Superior Vena Cava using Low Osmolar Contrast, Guidance (ICD-10-PCS; 2023-10-27)
PROC: 3E1M39Z Irrigation of Peritoneal Cavity using Dialysate, Percutaneous Approach (ICD-10-PCS; 2023-10-27)
PROC: 3E1M39Z Irrigation of Peritoneal Cavity using Dialysate, Percutaneous Approach (ICD-10-PCS; 2023-10-28)
DX: E11.649 Type 2 diabetes mellitus with hypoglycemia without coma (principal); E46 Unspecified protein-calorie malnutrition; Z16.12 Extended spectrum beta lactamase (ESBL) resistance; I12.0 Hypertensive chronic kidney disease with stage 5 chronic kidney disease or end stage renal disease; N39.0 Urinary tract infection, site not specified; N18.6 End stage renal disease; E87.70 Fluid overload, unspecified; E11.40 Type 2 diabetes mellitus with diabetic neuropathy, unspecified; E11.22 Type 2 diabetes mellitus with diabetic chronic kidney disease; D64.9 Anemia, unspecified; E11.65 Type 2 diabetes mellitus with hyperglycemia; D72.819 Decreased white blood cell count, unspecified; K21.9 Gastro-esophageal reflux disease without esophagitis; Z99.2 Dependence on renal dialysis; Z79.4 Long term (current) use of insulin; Z87.01 Personal history of pneumonia (recurrent); Z90.710 Acquired absence of both cervix and uterus; Z68.35 Body mass index [BMI] 35.0-35.9, adult
CPT/HCPCS: 36415; 36573; 80048; 80051; 80053; 80061; 81003; 82962; 83036; 84145; 85025; 87077; 87186; 90686; 90732; 90945; 93970; 99285; C1725; J0696; J0885; J1815; J2185; J2405; J3490; J7030

== ENCOUNTER 2023-11-02 05:09 | Inpatient (IN) | payer OTHER ==
[~2023-11-02] VITALS: Ht 170.2 cm; Wt 91.1 kg
[2023-11-02 06:34] LABS: HEMATOCRIT. 27.4 % (36.0-48.0); HEMOGLOBIN. 8.4 g/dL (12.0-16.0); MEAN CORPUSCULAR HEMOGLOBIN 28.1 pg (28.0-32.0); MEAN CORPUSCULAR HGB CONC 30.7 g/dL (31.0-37.0); MEAN CORPUSCULAR VOLUME 91.5 fL (81.0-99.0); MEAN PLATELET VOLUME 7.2 fl (7.4-10.4); PLATELET 183 x1000/uL (130-400); RED CELL DISTRIBUTION WIDTH 20.3 % (11.6-14.6); WHITE BLOOD COUNT 3.9 x1000/uL (4.5-11.0)
[2023-11-02 06:36] LABS: DIFFERENTIAL COMMENT 1
[2023-11-02 06:44] LABS: PROTHROMBIN TIME 11.6 sec (9.6-11.0)
[2023-11-02 06:58] LABS: ALANINE AMINOTRANSFERASE 54 IU/L (10-49); ALBUMIN 3.8 g/dL (3.2-4.8); ASPARTATE AMINOTRANSFERASE 102 IU/L (<34); BILIRUBIN TOTAL 0.8 mg/dL (0.1-1.0); CALCIUM 6.8 mg/dL (8.7-10.4); CARBON DIOXIDE 19 mEq/L (21-32); CHLORIDE 111 mEq/L (98-107); GLUCOSE 59 mg/dL (70-105); POTASSIUM 5.8 mEq/L (3.5-5.1); PROTEIN TOTAL 7.9 g/dL (6.0-8.3); SODIUM 143 mEq/L (136-145); TROPONIN I HIGH SENSITIVITY 11 ng/L (3.0-34); UREA NITROGEN BLOOD 70 mg/dL (9-23)
[2023-11-02 07:00] LABS: CREATININE 10.3 mg/dL (0.6-1.0)
[2023-11-02] MEDS: PIPERACILLIN/TAZO 3.375G/50ML 50 ML IV ONE (07:27)
[2023-11-02] MEDS: SODIUM BICARBONATE 8.4% 1 MEQ/ML 50ML SYR IV ONE (08:10)
[2023-11-02] MEDS: DEXTROSE 50% WATER 50ML SYRINGE IV ONE (08:10)
[2023-11-02] MEDS: SODIUM POLYSTYRENE SULFONATE 15 G/60 ML BOT PO ONE (08:10)
[2023-11-02 08:18] VITALS: PULSE 59; RESP 14; O2SAT 100
[2023-11-02] MEDS: ALBUTEROL (0.083%) 2.5MG/3ML NEB HHN ONE (08:18)
[2023-11-02] MEDS: MORPHINE SULFATE 2 MG/ML CPJ (NOT FOR IM USE) IV NR (08:41)
[2023-11-02 08:53] LABS: ANISOCYTOSIS 2+; HYPOCHROMASIA 1+; PLATELET ESTIMATE NORMAL
[2023-11-02] MEDS ORDERED: ACETAMINOPHEN 325MG TABLET PO PRN ×2 (10:15)
[2023-11-02] MEDS ORDERED: ENOXAPARIN 40MG/0.4ML SYR SUBCUT SCH (10:15)
[2023-11-02] MEDS ORDERED: DOCUSATE SODIUM 100MG CAPSULE PO PRN (10:15)
[2023-11-02] MEDS ORDERED: ONDANSETRON HCL 4MG/2ML INJ IV PRN (10:15)
[2023-11-02] MEDS ORDERED: GUAIFENESIN 200MG/10ML SUGAR FREE UDC PO PRN (10:15)
[2023-11-02] MEDS ORDERED: MAGNESIUM/ALUMINUM HYDROXIDE/SIMETHICONE 30ML UDC PO PRN (10:15)
[2023-11-02] MEDS ORDERED: IPRATROPIUM/ALBUTEROL 0.5-3(2.5)MG/3ML NEB HHN PRN (10:15)
[2023-11-02] MEDS ORDERED: CLONIDINE 0.1MG TABLET PO PRN (10:15)
[2023-11-02] MEDS: ENOXAPARIN 30MG/0.3ML SYR SUBCUT SCH (11:01)
[2023-11-02] MEDS ORDERED: DEXTROSE 50% WATER 50ML SYRINGE IV PRN (11:45)
[2023-11-02 13:13] LABS: CLARITY URINE CLOUDY (CLEAR); COLOR URINE YELLOW (YELLOW); GLUCOSE URINE NEGATIVE (NEGATIVE); KETONES URINE TRACE (NEGATIVE); PROTEIN URINE 1+ (NEGATIVE); SPECIFIC GRAVITY URINE 1.015 (1.005-1.030)
[2023-11-02 13:14] LABS: LEUKOCYTE ESTERASE URINE 2+ (NEGATIVE); NITRITE URINE NEGATIVE (NEGATIVE); OCCULT BLOOD URINE NEGATIVE (NEGATIVE); UROBILINOGEN URINE 0.2 E.U./dL (0.2-1.0)
[2023-11-02] MEDS: BLOOD SUGAR DIAGNOSTIC STRIP TEST SCH (13:17)
[2023-11-02 13:18] LABS: BACTERIA URINE TRACE; RBC URINE 0-2 /hpf (0-2); SQUAMOUS EPITHELIAL CELL URINE 2+ /lpf (RARE/1+); WBC URINE 50-100 /hpf (0-2); YEAST URINE NONE SEEN
[2023-11-02] MEDS: GABAPENTIN 100MG CAPSULE PO SCH (13:19)
[2023-11-02] MEDS: INSULIN LISPRO 100 UNITS/ML SUBCUT SCH (13:29)
[2023-11-02 13:35] LABS: IRON 43 ug/dL (50-170); TOTAL IRON BINDING CAPACITY 228 ug/dl (250-425)
[2023-11-02 13:54] LABS: *AMPHETAMINES SCREEN URINE NEGATIVE (NEGATIVE); *BARBITURATES SCREEN URINE NEGATIVE (NEGATIVE); *BENZODIAZEPINES SCREEN URINE NEGATIVE (NEGATIVE); *COCAINE SCREEN URINE NEGATIVE (NEGATIVE); CANNABINOID URINE SCREEN NEGATIVE (NEGATIVE); ECSTASY MDMA SCREEN URINE NEGATIVE (NEGATIVE); METHADONE URINE SCREEN Neg (NEGATIVE); OPIATES URINE SCREEN PRESUMPTIVE POSITIVE (NEGATIVE); PHENCYCLIDINE URINE SCREEN NEGATIVE (NEGATIVE)
[2023-11-02] MEDS: MEROPENEM 1G/100ML IV SCH (14:29)
[2023-11-02 14:57] LABS: FERRITIN 185 ng/mL (10-291); VITAMIN B12 SERUM 610 pg/mL (211-911)
[2023-11-02 15:11] LABS: CREATINE KINASE MB FRACTION 1.1 ng/mL (0.5-3.6)
[2023-11-02 17:21] VITALS: BP 100/76; PULSE 73; RESP 18; TEMP 97.8
[2023-11-02] MEDS: FAMOTIDINE 20MG TABLET PO SCH (18:16)
[2023-11-02 19:55] VITALS: BP 107/68; PULSE 78; RESP 17; TEMP 98.6
[2023-11-02 20:00] VITALS: BP_SYST 107; BP_SYST 135; BP_DIAS 66; BP_DIAS 68; PULSE 75; PULSE 78; RESP 17; RESP 18; TEMP 98.6
[2023-11-02] MEDS ORDERED: MEROPENEM 500MG/50ML 50 ML IV SCH (21:00)
[2023-11-02 23:19] LABS: CREATINE KINASE MB FRACTION 0.9 ng/mL (0.5-3.6)
[2023-11-02] MEDS: MELATONIN 3MG TABLET PO PRN (23:37)
[2023-11-03] VITALS (9 sets, daily range): BP systolic 103–153; BP diastolic 55–85; PULSE 66–92; RESP 16–22; TEMP 97.2–99
[2023-11-03 05:58] LABS: BASOPHILS % 0.3 % (0.0-2.0); EOSINOPHILS % 0.2 % (0.0-5.0); HEMATOCRIT. 25.4 % (36.0-48.0); HEMOGLOBIN. 7.7 g/dL (12.0-16.0); LYMPHOCYTES % 19.9 % (20.0-50.0); MEAN CORPUSCULAR HEMOGLOBIN 28.4 pg (28.0-32.0); MEAN CORPUSCULAR HGB CONC 30.4 g/dL (31.0-37.0); MEAN CORPUSCULAR VOLUME 93.3 fL (81.0-99.0); MEAN PLATELET VOLUME 7.9 fl (7.4-10.4); MONOCYTES % 12.6 % (2.0-8.0); PLATELET 157 x1000/uL (130-400); RED BLOOD CELL COUNT 2.72 mill/uL (4.2-5.4); RED CELL DISTRIBUTION WIDTH 20.7 % (11.6-14.6); WHITE BLOOD COUNT 3.5 x1000/uL (4.5-11.0)
[2023-11-03 06:15] LABS: ALANINE AMINOTRANSFERASE 35 IU/L (10-49); ALBUMIN 3.5 g/dL (3.2-4.8); ASPARTATE AMINOTRANSFERASE 39 IU/L (<34); BILIRUBIN TOTAL 0.9 mg/dL (0.1-1.0); CALCIUM 6.3 mg/dL (8.7-10.4); CARBON DIOXIDE 17 mEq/L (21-32); CHLORIDE 104 mEq/L (98-107); CHOLESTEROL 132 mg/dL (<200); HDL CHOLESTEROL 67 mg/dL (>65); LDL CHOLESTEROL 54 mg/dL (5-100); PROTEIN TOTAL 7.2 g/dL (6.0-8.3); T4 FREE 0.95 ng/dL (0.89-1.76); THYROID STIMULATING HORMONE 3.52 uIU/mL (0.55-4.78); TRIGLYCERIDE 61 mg/dL (0-150); UREA NITROGEN BLOOD 70 mg/dL (9-23)
[2023-11-03 06:31] LABS: SODIUM 135 mEq/L (136-145)
[2023-11-03] MEDS ORDERED: DEXTROSE 50% WATER 50ML SYRINGE IV PRN (06:45)
[2023-11-03 07:02] LABS: GLUCOSE 643 mg/dL (70-105); POTASSIUM 6.2 mEq/L (3.5-5.1)
[2023-11-03 07:03] LABS: CREATININE 9.9 mg/dL (0.6-1.0); PHOSPHORUS 8.5 mg/dL (2.5-4.9)
[2023-11-03] MEDS ORDERED: BLOOD SUGAR DIAGNOSTIC STRIP TEST SCH ×2 (07:10)
[2023-11-03] MEDS ORDERED: INSULIN LISPRO 100 UNITS/ML SUBCUT SCH (07:40)
[2023-11-03] MEDS: INSULIN LISPRO 100 UNITS/ML SUBCUT SCH ×2 (07:40→12:50)
[2023-11-03] MEDS: FOLIC ACID/VITAMIN B COMP W-C TABLET PO SCH (09:14)
[2023-11-03] MEDS: AMLODIPINE 10MG TABLET PO SCH (09:15)
[2023-11-03] MEDS: INSULIN LISPRO 100 UNITS/ML SUBCUT ONE (09:22)
[2023-11-03] MEDS: INSULIN LISPRO 100 UNITS/ML SUBCUT NR (10:09)
[2023-11-03 10:15] LABS: BODY FLUID MONOCYTES 8 %
[2023-11-03 10:17] LABS: BODY FLUID WBC 7 /cu mm (0-200)
[2023-11-03 10:18] LABS: BODY FLUID RBC 0 /cu mm (0-2000)
[2023-11-03] MEDS: ALBUTEROL (0.083%) 2.5MG/3ML NEB HHN NR (11:15)
[2023-11-03] MEDS: SODIUM POLYSTYRENE SULFONATE 15 G/60 ML BOT PO NR (12:38)
[2023-11-03] MEDS: HYDRALAZINE HCL 100MG TABLET PO SCH (14:00)
[2023-11-03] MEDS: MEROPENEM 500MG/50ML IV SCH (17:34)
[2023-11-03 18:26] LABS: POTASSIUM 4.8 mEq/L (3.5-5.1)
[2023-11-03] MEDS ORDERED: MELATONIN 3MG TABLET PO SCH (21:00)
[2023-11-03] MEDS: INSULIN GLARGINE 100 UNITS/ML SUBCUT SCH (21:58)
[2023-11-03] MEDS: EPOETIN ALFA 4000UNITS/ML VIAL SUBCUT SCH (22:30)
[2023-11-04] VITALS (11 sets, daily range): BP systolic 85–143; BP diastolic 52–79; PULSE 62–109; RESP 12–19; TEMP 97–98.5
[2023-11-04 06:21] LABS: BASOPHILS % 0.2 % (0.0-2.0); EOSINOPHILS % 0.4 % (0.0-5.0); HEMATOCRIT. 24.2 % (36.0-48.0); HEMOGLOBIN. 7.6 g/dL (12.0-16.0); LYMPHOCYTES % 24.4 % (20.0-50.0); MEAN CORPUSCULAR HEMOGLOBIN 27.5 pg (28.0-32.0); MEAN CORPUSCULAR HGB CONC 31.5 g/dL (31.0-37.0); MEAN CORPUSCULAR VOLUME 87.4 fL (81.0-99.0); MEAN PLATELET VOLUME 7.7 fl (7.4-10.4); MONOCYTES % 14.5 % (2.0-8.0); NEUTROPHILS % 60.5 % (40.0-76.0); PLATELET 166 x1000/uL (130-400); RED BLOOD CELL COUNT 2.77 mill/uL (4.2-5.4); RED CELL DISTRIBUTION WIDTH 19.3 % (11.6-14.6); WHITE BLOOD COUNT 3.3 x1000/uL (4.5-11.0)
[2023-11-04 06:44] LABS: CALCIUM 6.6 mg/dL (8.7-10.4); CARBON DIOXIDE 20 mEq/L (21-32); CHLORIDE 106 mEq/L (98-107); GLUCOSE 171 mg/dL (70-105); POTASSIUM 4.1 mEq/L (3.5-5.1); SODIUM 140 mEq/L (136-145); UREA NITROGEN BLOOD 66 mg/dL (9-23)
[2023-11-04 07:54] LABS: CREATININE 9.7 mg/dL (0.6-1.0)
[2023-11-04 07:56] LABS: PHOSPHORUS 8.6 mg/dL (2.5-4.9)
[2023-11-04] MEDS ORDERED: LORAZEPAM 2MG/ML INJ IV NR (08:45)
[2023-11-04] MEDS ORDERED: GLUCAGON,HUMAN RECOMBINANT 1MG/VIAL IM ONE (09:00)
[2023-11-04] MEDS ORDERED: GLUCAGON,HUMAN RECOMBINANT 1MG/VIAL IM NR (09:00)
[2023-11-04] MEDS: DEXTROSE 50% WATER 50ML SYRINGE IV PRN (10:07)
[2023-11-04] MEDS: DEXT 10% WATER 1,000 ML IV SCH (11:48)
[2023-11-04] MEDS: SODIUM CHLORIDE 0.9% 500 ML IV ONE (11:49)
[2023-11-04] MEDS: MAGNESIUM 4 G PREMIX 100 ML IV NR (11:54)
[2023-11-04] MEDS ORDERED: INSU100I24 SUBCUT (13:23)
[2023-11-04] MEDS ORDERED: INSU100I53 SUBCUT (13:23)
[2023-11-04 17:11] LABS: CALCIUM 6.1 mg/dL (8.7-10.4); POTASSIUM 4.9 mEq/L (3.5-5.1)
[2023-11-04 17:17] LABS: CREATININE 9.8 mg/dL (0.6-1.0)
[2023-11-04] MEDS ORDERED: DEXTROSE 50% WATER 50ML SYRINGE IV PRN ×2 (18:45)
[2023-11-04] MEDS ORDERED: INSULIN LISPRO 100 UNITS/ML SUBCUT SCH (18:45)
[2023-11-04] MEDS: INSULIN LISPRO 100 UNITS/ML SUBCUT SCH (19:32)
[2023-11-04] MEDS ORDERED: BLOOD SUGAR DIAGNOSTIC STRIP TEST SCH (21:00)
[2023-11-04] MEDS: BLOOD SUGAR DIAGNOSTIC STRIP TEST SCH (21:00)
[2023-11-04] MEDS: IBUPROFEN 200MG TABLET PO NR (22:07)
[2023-11-05] VITALS (15 sets, daily range): BP systolic 102–145; BP diastolic 62–84; PULSE 70–92; RESP 10–18; TEMP 96.7–98.9
[2023-11-05] MEDS ORDERED: IBUPROFEN 200MG TABLET PO PRN (06:00)
[2023-11-05] MEDS: INSULIN LISPRO 100 UNITS/ML SUBCUT NR (06:05)
[2023-11-05 06:18] LABS: HEMATOCRIT. 26.4 % (36.0-48.0); HEMOGLOBIN. 8.1 g/dL (12.0-16.0); MEAN CORPUSCULAR HEMOGLOBIN 27.2 pg (28.0-32.0); MEAN CORPUSCULAR HGB CONC 30.7 g/dL (31.0-37.0); MEAN CORPUSCULAR VOLUME 88.5 fL (81.0-99.0); MEAN PLATELET VOLUME 7.6 fl (7.4-10.4); PLATELET 174 x1000/uL (130-400); RED BLOOD CELL COUNT 2.98 mill/uL (4.2-5.4); WHITE BLOOD COUNT 3.1 x1000/uL (4.5-11.0)
[2023-11-05 06:44] LABS: DIFFERENTIAL COMMENT 1
[2023-11-05 06:45] LABS: CALCIUM 6.3 mg/dL (8.7-10.4); CARBON DIOXIDE 20 mEq/L (21-32); CHLORIDE 103 mEq/L (98-107); POTASSIUM 4.7 mEq/L (3.5-5.1); SODIUM 137 mEq/L (136-145); UREA NITROGEN BLOOD 63 mg/dL (9-23)
[2023-11-05 08:15] LABS: GLUCOSE 445 mg/dL (70-105)
[2023-11-05 08:16] LABS: CREATININE 9.6 mg/dL (0.6-1.0)
[2023-11-05 08:17] LABS: PHOSPHORUS 8.7 mg/dL (2.5-4.9)
[2023-11-05] MEDS: CALCIUM ACETATE 667MG CAPSULE PO SCH (13:15)
[2023-11-05 19:10] LABS: PLATELET ESTIMATE NORMAL
[2023-11-05] MEDS: INSULIN GLARGINE 100 UNITS/ML SUBCUT SCH (22:15)
[2023-11-06] VITALS (11 sets, daily range): BP systolic 113–138; BP diastolic 56–74; PULSE 67–70; RESP 14–19; TEMP 96.9–98.6; O2SAT 98
[2023-11-06] MEDS: INSULIN LISPRO 100 UNITS/ML SUBCUT NR (06:02)
[2023-11-06 07:36] LABS: BASOPHILS % 0.2 % (0.0-2.0); EOSINOPHILS % 0.5 % (0.0-5.0); HEMATOCRIT. 27.5 % (36.0-48.0); HEMOGLOBIN. 8.6 g/dL (12.0-16.0); LYMPHOCYTES % 19.8 % (20.0-50.0); MEAN CORPUSCULAR HEMOGLOBIN 27.5 pg (28.0-32.0); MEAN CORPUSCULAR HGB CONC 31.2 g/dL (31.0-37.0); MEAN CORPUSCULAR VOLUME 88.2 fL (81.0-99.0); MEAN PLATELET VOLUME 7.8 fl (7.4-10.4); MONOCYTES % 13.5 % (2.0-8.0); PLATELET 201 x1000/uL (130-400); RED BLOOD CELL COUNT 3.12 mill/uL (4.2-5.4); RED CELL DISTRIBUTION WIDTH 18.2 % (11.6-14.6)
[2023-11-06 07:50] LABS: CALCIUM 6.3 mg/dL (8.7-10.4); POTASSIUM 4.9 mEq/L (3.5-5.1)
[2023-11-06 08:09] LABS: CREATININE 9.8 mg/dL (0.6-1.0)
[2023-11-06] MEDS: INSULIN LISPRO 100 UNITS/ML SUBCUT SCH ×2 (08:36→13:00)
[2023-11-06] MEDS ORDERED: INS NPH/REG HM 70-30 10ML VIAL (HUMULIN 70-30) SUBCUT SCH (09:00)
[2023-11-06 14:09] LABS: FOLATE RBC 2181 ng/mL (>498)
[2023-11-06] MEDS ORDERED: INSU100I24 SUBCUT (17:03)
[2023-11-06] MEDS ORDERED: INSU100I53 SUBCUT (17:03)
[2023-11-06] MEDS ORDERED: INSULIN GLARGINE 100 UNITS/ML SUBCUT SCH (22:00)
== END 2023-11-06 19:45 | disposition home health service (06) | DRG 640 ==
LOC: ER 05:09 → 8WST 08:33 → EDBEDREQ 09:01 → EDBEDREQSVC 09:01 → EDBEDREQTM 09:01 → 5EST 11-04 10:15
PROVIDERS: ADMIT Internal Medicine; ATTEND Internal Medicine
PROC: 3E1M39Z Irrigation of Peritoneal Cavity using Dialysate, Percutaneous Approach (ICD-10-PCS; principal; 2023-11-02)
PROC: 3E1M39Z Irrigation of Peritoneal Cavity using Dialysate, Percutaneous Approach (ICD-10-PCS; 2023-11-03)
PROC: 3E1M39Z Irrigation of Peritoneal Cavity using Dialysate, Percutaneous Approach (ICD-10-PCS; 2023-11-04)
PROC: 3E1M39Z Irrigation of Peritoneal Cavity using Dialysate, Percutaneous Approach (ICD-10-PCS; 2023-11-05)
PROC: 5A1935Z Respiratory Ventilation, Less than 24 Consecutive Hours (ICD-10-PCS; 2023-11-05)
DX: E87.70 Fluid overload, unspecified (principal); I21.A1 Myocardial infarction type 2; N18.6 End stage renal disease; N39.0 Urinary tract infection, site not specified; E46 Unspecified protein-calorie malnutrition; J84.9 Interstitial pulmonary disease, unspecified; Z16.12 Extended spectrum beta lactamase (ESBL) resistance; I12.0 Hypertensive chronic kidney disease with stage 5 chronic kidney disease or end stage renal disease; M48.54XA Collapsed vertebra, not elsewhere classified, thoracic region, initial encounter for fracture; G93.40 Encephalopathy, unspecified; E87.5 Hyperkalemia; J44.9 Chronic obstructive pulmonary disease, unspecified; B96.1 Klebsiella pneumoniae [K. pneumoniae] as the cause of diseases classified elsewhere; Z91.158 Patient's noncompliance with renal dialysis for other reason; Z99.2 Dependence on renal dialysis; D63.8 Anemia in other chronic diseases classified elsewhere; R74.01 Elevation of levels of liver transaminase levels; R91.1 Solitary pulmonary nodule; D72.819 Decreased white blood cell count, unspecified; E11.22 Type 2 diabetes mellitus with diabetic chronic kidney disease; K76.9 Liver disease, unspecified; E11.40 Type 2 diabetes mellitus with diabetic neuropathy, unspecified; E11.649 Type 2 diabetes mellitus with hypoglycemia without coma; I25.10 Atherosclerotic heart disease of native coronary artery without angina pectoris; Z68.31 Body mass index [BMI] 31.0-31.9, adult; Z79.4 Long term (current) use of insulin; Z79.899 Other long term (current) drug therapy; Z87.01 Personal history of pneumonia (recurrent); Z87.440 Personal history of urinary (tract) infections; Z90.49 Acquired absence of other specified parts of digestive tract; Z90.710 Acquired absence of both cervix and uterus
CPT/HCPCS: 36415; 71045; 74176; 80048; 80053; 80061; 80305; 81003; 82010; 82550; 82553; 82607; 82728; 82747; 82962; 83036; 83540; 83550; 83605; 83735; 83880; 83930; 84100; 84132; 84145; 84439; 84443; 84484; 85014; 85025; 90945; 93005; 94640; 97162; 97166; 99285; J0885; J1610; J1650; J1815; J2060; J2185; J2270; J2543; J3475; J3490

== ENCOUNTER 2023-11-08 05:28 | Inpatient (IN) | payer OTHER ==
[~2023-11-08] VITALS: Ht 167.6 cm; Wt 91.6 kg
[2023-11-08] VITALS (10 sets, daily range): BP systolic 87–155; BP diastolic 64–106; PULSE 80–85; RESP 16–20; TEMP 97–98.8
[~2023-11-08 05:28] MED LIST changes: +INSU100I24 SUBCUT; +INSU100I53 SUBCUT; -insulin
[2023-11-08] MEDS ORDERED: FUROSEMIDE 40MG/4ML VIAL IVP ONE (06:00)
[2023-11-08 06:16] LABS: HEMATOCRIT. 26.8 % (36.0-48.0); HEMOGLOBIN. 8.2 g/dL (12.0-16.0); MEAN CORPUSCULAR HEMOGLOBIN 27.7 pg (28.0-32.0); MEAN CORPUSCULAR HGB CONC 30.6 g/dL (31.0-37.0); MEAN CORPUSCULAR VOLUME 90.5 fL (81.0-99.0); MEAN PLATELET VOLUME 7.7 fl (7.4-10.4); PLATELET 197 x1000/uL (130-400); RED BLOOD CELL COUNT 2.96 mill/uL (4.2-5.4); RED CELL DISTRIBUTION WIDTH 18.4 % (11.6-14.6); WHITE BLOOD COUNT 6.5 x1000/uL (4.5-11.0)
[2023-11-08 06:26] LABS: DIFFERENTIAL COMMENT 1
[2023-11-08 06:27] LABS: PROTHROMBIN TIME 11.5 sec (9.6-11.0)
[2023-11-08 07:09] LABS: PLATELET ESTIMATE NORMAL
[2023-11-08] MEDS: FUROSEMIDE 40MG/4ML VIAL IVP NR (07:41)
[2023-11-08] MEDS: SODIUM POLYSTYRENE SULFONATE 15 G/60 ML BOT PO ONE ×2 (07:45→12:30)
[2023-11-08] MEDS: CALCIUM CHLORIDE 1GM/10ML SYR IV ONE ×2 (09:11→12:30)
[2023-11-08] MEDS: SODIUM BICARBONATE 8.4% 1 MEQ/ML 50ML SYR IV ONE ×2 (09:11→12:30)
[2023-11-08] MEDS: ALBUTEROL (0.083%) 2.5MG/3ML NEB HHN ONE (09:15)
[2023-11-08 10:22] LABS: ALANINE AMINOTRANSFERASE 15 IU/L (10-49); ALBUMIN 3.4 g/dL (3.2-4.8); ASPARTATE AMINOTRANSFERASE 18 IU/L (<34); BETA HYDROXYBUTYRATE 0.5 mMol/L (0.0-0.3); BILIRUBIN TOTAL 0.8 mg/dL (0.1-1.0); CARBON DIOXIDE 19 mEq/L (21-32); CHLORIDE 97 mEq/L (98-107); PROTEIN TOTAL 6.7 g/dL (6.0-8.3); SODIUM 131 mEq/L (136-145); TROPONIN I HIGH SENSITIVITY 25 ng/L (3.0-34); UREA NITROGEN BLOOD 92 mg/dL (9-23)
[2023-11-08 10:24] LABS: ETHANOL BLOOD < 10 mg/dL (<10)
[2023-11-08 10:30] LABS: POTASSIUM 6.7 mEq/L (3.5-5.1)
[2023-11-08 10:31] LABS: CALCIUM 5.8 mg/dL (8.7-10.4); CREATININE 11.6 mg/dL (0.6-1.0); GLUCOSE 628 mg/dL (70-105)
[2023-11-08] MEDS: INSULIN REGULAR (HUMULIN R) 300UNITS/3ML VIAL SUBCUT ONE (10:45)
[2023-11-08 12:22] LABS: CALCIUM 6.6 mg/dL (8.7-10.4)
[2023-11-08 12:27] LABS: POTASSIUM 6.7 mEq/L (3.5-5.1)
[2023-11-08] MEDS ORDERED: FUROSEMIDE 100MG/10ML VIAL IV STA (12:28)
[2023-11-08 12:29] LABS: CREATININE 11.7 mg/dL (0.6-1.0)
[2023-11-08] MEDS ORDERED: ALBUTEROL (0.083%) 2.5MG/3ML NEB HHN ONE (12:30)
[2023-11-08] MEDS ORDERED: INSULIN REGULAR (HUMULIN R) 300UNITS/3ML VIAL SUBCUT ONE (13:15)
[2023-11-08] MEDS: FUROSEMIDE 40MG/4ML VIAL IV NR (13:31)
[2023-11-08] MEDS: INSULIN REGULAR (HUMULIN R) 300UNITS/3ML VIAL SUBCUT SCH (13:32)
[2023-11-08] MEDS: SODIUM CHLORIDE 0.9% 1,000 ML IV ONE (13:33)
[2023-11-08] MEDS ORDERED: ALBUTEROL (0.083%) 2.5MG/3ML NEB HHN NR (15:30)
[2023-11-08] MEDS: SODIUM BICARBONATE 100 MEQ in SODIUM CHLORIDE 0.45% 1,000 ML IV SCH (16:00)
[2023-11-08 19:34] LABS: ALANINE AMINOTRANSFERASE 10 IU/L (10-49); ALBUMIN 3.4 g/dL (3.2-4.8); ASPARTATE AMINOTRANSFERASE 19 IU/L (<34); BILIRUBIN TOTAL 0.9 mg/dL (0.1-1.0); CALCIUM 6.8 mg/dL (8.7-10.4); CARBON DIOXIDE 14 mEq/L (21-32); CHLORIDE 97 mEq/L (98-107); POTASSIUM 5.7 mEq/L (3.5-5.1); PROTEIN TOTAL 6.8 g/dL (6.0-8.3); SODIUM 132 mEq/L (136-145); UREA NITROGEN BLOOD 84 mg/dL (9-23)
[2023-11-08 19:36] LABS: GLUCOSE 797 mg/dL (70-105)
[2023-11-08] MEDS ORDERED: DEXTROSE 50% WATER 50ML SYRINGE IV PRN ×2 (21:45)
[2023-11-08] MEDS: INSULIN REGULAR (HUMULIN R) 300UNITS/3ML VIAL IV NR (22:07)
[2023-11-08] MEDS: BLOOD SUGAR DIAGNOSTIC STRIP TEST SCH (22:07)
[2023-11-08] MEDS: SODIUM BICARBONATE 8.4% 1 MEQ/ML 50ML SYR IV NR (22:11)
[2023-11-08] MEDS: INSULIN REGULAR 100U/100ML PMX 100 ML IV SCH (23:25)
[2023-11-09] VITALS (17 sets, daily range): BP systolic 101–149; BP diastolic 50–98; PULSE 74–88; RESP 11–19; TEMP 97.5–99.1
[2023-11-09] MEDS ORDERED: ONDANSETRON HCL 4MG/2ML INJ IV PRN (01:00)
[2023-11-09 01:33] LABS: POTASSIUM 4.8 mEq/L (3.5-5.1)
[2023-11-09 02:02] LABS: CREATININE 11.5 mg/dL (0.6-1.0)
[2023-11-09 02:19] LABS: PHOSPHORUS 8.8 mg/dL (2.5-4.9)
[2023-11-09] MEDS: INSULIN GLARGINE 100 UNITS/ML SUBCUT SCH (10:00)
[2023-11-09] MEDS: DEXTROSE 50% WATER 50ML SYRINGE IV PRN (11:01)
[2023-11-09] MEDS: DEXTROSE 50% WATER 50ML SYRINGE IV NR (11:41)
[2023-11-09] MEDS: INSULIN LISPRO 100 UNITS/ML SUBCUT SCH (12:35)
[2023-11-09] MEDS: BLOOD SUGAR DIAGNOSTIC STRIP TEST SCH (13:00)
[2023-11-09] MEDS: GABAPENTIN 100MG CAPSULE PO SCH (23:01)
[2023-11-09] MEDS: MELATONIN 3MG TABLET PO SCH (23:01)
[2023-11-09] MEDS: FAMOTIDINE 20MG TABLET PO SCH (23:01)
[2023-11-10] VITALS (15 sets, daily range): BP systolic 101–158; BP diastolic 45–85; PULSE 67–88; RESP 16–20; TEMP 97.3–99.1
[2023-11-10 11:44] LABS: BASOPHILS % 0.2 % (0.0-2.0); DIFFERENTIAL COMMENT 0; EOSINOPHILS % 0.2 % (0.0-5.0); HEMATOCRIT. 21.8 % (36.0-48.0); LYMPHOCYTES % 11.4 % (20.0-50.0); MEAN CORPUSCULAR HEMOGLOBIN 27.8 pg (28.0-32.0); MEAN CORPUSCULAR HGB CONC 31.5 g/dL (31.0-37.0); MEAN CORPUSCULAR VOLUME 88.1 fL (81.0-99.0); MEAN PLATELET VOLUME 7.9 fl (7.4-10.4); MONOCYTES % 13.5 % (2.0-8.0); NEUTROPHILS % 74.7 % (40.0-76.0); PLATELET 185 x1000/uL (130-400); RED BLOOD CELL COUNT 2.47 mill/uL (4.2-5.4); RED CELL DISTRIBUTION WIDTH 17.8 % (11.6-14.6); WHITE BLOOD COUNT 4.9 x1000/uL (4.5-11.0)
[2023-11-10 12:06] LABS: HEMOGLOBIN. 6.9 g/dL (12.0-16.0)
[2023-11-10 12:33] LABS: CALCIUM 6.4 mg/dL (8.7-10.4)
[2023-11-10 12:52] LABS: POTASSIUM 6.3 mEq/L (3.5-5.1)
[2023-11-10 14:10] LABS: CLARITY URINE CLOUDY (CLEAR); COLOR URINE YELLOW (YELLOW); GLUCOSE URINE 2+ (NEGATIVE); KETONES URINE NEGATIVE (NEGATIVE); LEUKOCYTE ESTERASE URINE 3+ (NEGATIVE); NITRITE URINE NEGATIVE (NEGATIVE); OCCULT BLOOD URINE NEGATIVE (NEGATIVE); PROTEIN URINE 2+ (NEGATIVE); SPECIFIC GRAVITY URINE 1.013 (1.005-1.030); UROBILINOGEN URINE 0.2 E.U./dL (0.2-1.0)
[2023-11-10 14:27] LABS: BACTERIA URINE 1+; SQUAMOUS EPITHELIAL CELL URINE FEW /lpf (RARE/1+); WBC URINE 50-100 /hpf (0-2); YEAST URINE 1+
[2023-11-10] MEDS: SODIUM POLYSTYRENE SULFONATE 15 G/60 ML BOT PO NR (15:08)
[2023-11-10] MEDS: MEROPENEM 500MG/50ML IV SCH (17:58)
[2023-11-10] MEDS ORDERED: MEROPENEM 1G/100ML 100 ML IV SCH (22:00)
[2023-11-11] VITALS (8 sets, daily range): BP systolic 125–156; BP diastolic 61–76; PULSE 73–80; RESP 17–20; TEMP 97.1–97.5
[2023-11-11] MEDS: EPOETIN ALFA 4000UNITS/ML VIAL SUBCUT NR (02:06)
[2023-11-11 07:08] LABS: BASOPHILS % 0.2 % (0.0-2.0); EOSINOPHILS % 0.1 % (0.0-5.0); HEMATOCRIT. 25.6 % (36.0-48.0); HEMOGLOBIN. 8.2 g/dL (12.0-16.0); LYMPHOCYTES % 9.6 % (20.0-50.0); MEAN CORPUSCULAR HEMOGLOBIN 27.7 pg (28.0-32.0); MEAN CORPUSCULAR HGB CONC 32.1 g/dL (31.0-37.0); MEAN CORPUSCULAR VOLUME 86.1 fL (81.0-99.0); MEAN PLATELET VOLUME 8.1 fl (7.4-10.4); MONOCYTES % 13.6 % (2.0-8.0); NEUTROPHILS % 76.5 % (40.0-76.0); PLATELET 206 x1000/uL (130-400); RED BLOOD CELL COUNT 2.98 mill/uL (4.2-5.4); RED CELL DISTRIBUTION WIDTH 17.2 % (11.6-14.6); WHITE BLOOD COUNT 4.9 x1000/uL (4.5-11.0)
[2023-11-11 07:24] LABS: CALCIUM 6.5 mg/dL (8.7-10.4); POTASSIUM 5.3 mEq/L (3.5-5.1)
[2023-11-11] MEDS: INSULIN GLARGINE 100 UNITS/ML SUBCUT SCH (10:25)
[2023-11-11] MEDS: SODIUM POLYSTYRENE SULFONATE 15 G/60 ML BOT PO NR (10:27)
[2023-11-11] MEDS: CALCIUM ACETATE 667MG CAPSULE PO SCH (14:15)
[2023-11-11 19:38] LABS: CREATINE KINASE 121 IU/L (34-145)
[2023-11-11] MEDS: OMEPRAZOLE 20MG CAPSULE EXTENDED RELEASE PO SCH (21:31)
[2023-11-11] MEDS: DAPTOMYCIN 500 MG in SODIUM CHLORIDE 0.9% 50 ML IV SCH (21:53)
[2023-11-12] VITALS (8 sets, daily range): BP systolic 134–155; BP diastolic 55–79; PULSE 62–78; RESP 17–20; TEMP 96.9–98
[2023-11-12] MEDS: SODIUM CHLORIDE 0.9% IV NR (01:58)
[2023-11-12] MEDS: DAPTOMYCIN IV NR (01:58)
[2023-11-12 07:15] LABS: BASOPHILS % 0.3 % (0.0-2.0); EOSINOPHILS % 0.2 % (0.0-5.0); HEMATOCRIT. 25.7 % (36.0-48.0); HEMOGLOBIN. 8.3 g/dL (12.0-16.0); MEAN CORPUSCULAR HEMOGLOBIN 27.6 pg (28.0-32.0); MEAN CORPUSCULAR HGB CONC 32.3 g/dL (31.0-37.0); MEAN CORPUSCULAR VOLUME 85.4 fL (81.0-99.0); MEAN PLATELET VOLUME 7.8 fl (7.4-10.4); MONOCYTES % 13.9 % (2.0-8.0); NEUTROPHILS % 72.6 % (40.0-76.0); PLATELET 212 x1000/uL (130-400); RED BLOOD CELL COUNT 3.01 mill/uL (4.2-5.4); RED CELL DISTRIBUTION WIDTH 16.9 % (11.6-14.6); WHITE BLOOD COUNT 4.8 x1000/uL (4.5-11.0)
[2023-11-12 07:32] LABS: CALCIUM 6.4 mg/dL (8.7-10.4); POTASSIUM 4.5 mEq/L (3.5-5.1)
[2023-11-12 07:42] LABS: CREATININE 10.6 mg/dL (0.6-1.0)
[2023-11-12] MEDS: HYDROCODONE/ACETAMINOPHEN 5/325MG TABLET PO PRN (15:12)
[2023-11-12] MEDS: HYDROCODONE/ACETAMINOPHEN 10/325MG TABLET PO PRN (18:06)
[2023-11-12] MEDS ORDERED: FAMOTIDINE 20MG TABLET PO SCH (21:00)
[2023-11-12] MEDS: INSULIN GLARGINE 100 UNITS/ML SUBCUT SCH (23:43)
[2023-11-13] VITALS (8 sets, daily range): BP systolic 95–145; BP diastolic 50–75; PULSE 73–88; RESP 17–20; TEMP 97.6–98.9
[2023-11-13] MEDS ORDERED: LINE600T14 MT (16:50)
[2023-11-13] MEDS: DAPTOMYCIN 700 MG in SODIUM CHLORIDE 0.9% 100 ML IV SCH (21:11)
[2023-11-14] VITALS (31 sets, daily range): BP systolic 106–203; BP diastolic 41–130; PULSE 70–88; RESP 0–28; TEMP 97.8–99.2; O2SAT 98
[2023-11-14] MEDS: GLUCAGON,HUMAN RECOMBINANT 1MG/VIAL IM NR (16:15)
[2023-11-14 17:05] LABS: BG BASE EXCESS -0.4 mmol/L (-2.0-2.0); BG CARBOXYHEMOGLOBIN 0.3 % (0.5-1.5); BG DEOXYHEMOGLOBIN 35.6 % (0.0-5.0); BG FRACTION INSPIRED OXYGEN 21; BG HCO3 ACT 27.1 mmol/L (22.0-26.0); BG METHEMOGLOBIN 0.3 % (0.0-1.5); BG OXYGEN SATURATION 64.2 % (92.0-98.5); BG OXYHEMOGLOBIN 63.8 % (94.0-97.0); BG PCO2 59.4 mmHg (35.0-45.0); BG PH 7.277 (7.350-7.450); BG PO2 39.1 mmHg (75.0-100.0); BG SAMPLE SITE RIGHT BRACHIAL; BG TOTAL HEMOGLOBIN 10.3 g/dL (12.0-18.0); BG VENT MODE ROOM AIR
[2023-11-14] MEDS ORDERED: NALOXONE HCL 0.4MG/ML VIAL IV PRN (17:30)
[2023-11-14] MEDS ORDERED: NICARDIPINE 100 MG in SODIUM CHLORIDE 0.9% 60 ML IV PRN (17:30)
[2023-11-14] MEDS: HYDRALAZINE 20MG/ML VIAL IV NR (17:37)
[2023-11-14] MEDS ORDERED: NICARDIPINE 50 MG in SODIUM CHLORIDE 0.9% 250 ML IV PRN (18:00)
[2023-11-14 18:29] LABS: BG BASE EXCESS -2.7 mmol/L (-2.0-2.0); BG CARBOXYHEMOGLOBIN 0.7 % (0.5-1.5); BG DEOXYHEMOGLOBIN 0.3 % (0.0-5.0); BG FRACTION INSPIRED OXYGEN 100; BG HCO3 ACT 22.1 mmol/L (22.0-26.0); BG METHEMOGLOBIN 0.3 % (0.0-1.5); BG OXYGEN SATURATION 99.7 % (92.0-98.5); BG OXYHEMOGLOBIN 98.7 % (94.0-97.0); BG PCO2 37.9 mmHg (35.0-45.0); BG PH 7.383 (7.350-7.450); BG PO2 350.9 mmHg (75.0-100.0); BG SAMPLE SITE RIGHT BRACHIAL; BG TOTAL HEMOGLOBIN 9.8 g/dL (12.0-18.0); BG TOTAL RESPIRATORY RATE 21 b/min; BG VENT MODE VENT - AC
[2023-11-14 18:42] LABS: BASOPHILS % 0.2 % (0.0-2.0); EOSINOPHILS % 0.2 % (0.0-5.0); HEMATOCRIT. 29.4 % (36.0-48.0); HEMOGLOBIN. 9.5 g/dL (12.0-16.0); LYMPHOCYTES % 7.8 % (20.0-50.0); MEAN CORPUSCULAR HGB CONC 32.4 g/dL (31.0-37.0); MEAN CORPUSCULAR VOLUME 83.5 fL (81.0-99.0); MEAN PLATELET VOLUME 7.4 fl (7.4-10.4); MONOCYTES % 12.6 % (2.0-8.0); NEUTROPHILS % 79.2 % (40.0-76.0); PLATELET 255 x1000/uL (130-400); RED BLOOD CELL COUNT 3.52 mill/uL (4.2-5.4); RED CELL DISTRIBUTION WIDTH 17.2 % (11.6-14.6)
[2023-11-14 18:49] LABS: CALCIUM 6.2 mg/dL (8.7-10.4); POTASSIUM 4.7 mEq/L (3.5-5.1)
[2023-11-14 18:51] LABS: D-DIMER 5.02 mg/L FEU (<0.50); PROTHROMBIN TIME 11.5 sec (9.6-11.0)
[2023-11-14 18:54] LABS: CREATININE 10.5 mg/dL (0.6-1.0)
[2023-11-14] MEDS: PROPOFOL 10MG/ML 100ML 100 ML IV PRN (19:02)
[2023-11-14] MEDS: METHYLPREDNISOLONE SOD SUCC 40MG/ML (ACT-O-VIAL) IV SCH (20:12)
[2023-11-14] MEDS: SODIUM BICARBONATE 100 MEQ in SODIUM CHLORIDE 0.45% 1,000 ML IV SCH (21:41)
[2023-11-14 22:00] LABS: AMMONIA 26 uMol/L (<32)
[2023-11-14] MEDS ORDERED: IOHEXOL-350 100 ML BOTTLE ONE (23:01)
[2023-11-15] VITALS (100 sets, daily range): BP systolic 82–171; BP diastolic 25–147; PULSE 65–132; RESP 0–26; TEMP 97.5–98.3
[2023-11-15 05:24] LABS: HEMOGLOBIN. 10.1 g/dL (12.0-16.0); MEAN CORPUSCULAR HEMOGLOBIN 26.6 pg (28.0-32.0); MEAN CORPUSCULAR HGB CONC 31.6 g/dL (31.0-37.0); MEAN CORPUSCULAR VOLUME 84.4 fL (81.0-99.0); MEAN PLATELET VOLUME 7.9 fl (7.4-10.4); PLATELET 294 x1000/uL (130-400); RED BLOOD CELL COUNT 3.79 mill/uL (4.2-5.4); RED CELL DISTRIBUTION WIDTH 17.3 % (11.6-14.6); WHITE BLOOD COUNT 4.4 x1000/uL (4.5-11.0)
[2023-11-15 05:46] LABS: POTASSIUM 4.3 mEq/L (3.5-5.1)
[2023-11-15 06:45] LABS: DIFFERENTIAL COMMENT 1
[2023-11-15] MEDS: INSULIN LISPRO 100 UNITS/ML SUBCUT NR (06:52)
[2023-11-15] MEDS: SODIUM CHLORIDE 0.45% 1,000 ML IV SCH (08:36)
[2023-11-15] MEDS: HYDRALAZINE 20MG/ML VIAL IV PRN (08:49)
[2023-11-15] MEDS ORDERED: LIDOCAINE HCL 1% 10 MG/ML 10ML VIAL ONE (09:14)
[2023-11-15 10:15] LABS: BG BASE EXCESS 1.7 mmol/L (-2.0-2.0); BG CARBOXYHEMOGLOBIN 0.5 % (0.5-1.5); BG DEOXYHEMOGLOBIN 6.3 % (0.0-5.0); BG FRACTION INSPIRED OXYGEN 45; BG HCO3 ACT 24.8 mmol/L (22.0-26.0); BG METHEMOGLOBIN 0.2 % (0.0-1.5); BG OXYGEN SATURATION 93.7 % (92.0-98.5); BG PCO2 33.3 mmHg (35.0-45.0); BG PH 7.489 (7.350-7.450); BG PO2 71.4 mmHg (75.0-100.0); BG SAMPLE SITE RIGHT BRACHIAL; BG TOTAL HEMOGLOBIN 10.2 g/dL (12.0-18.0); BG VENT MODE VENT - AC
[2023-11-15] MEDS ORDERED: HEPARIN 100 UNITS/1 ML VIAL IVF PRN (11:45)
[2023-11-15 13:12] LABS: ANISOCYTOSIS 1+; PLATELET ESTIMATE NORMAL
[2023-11-15 14:53] LABS: HEPATITIS A AB IGM NEGATIVE (Negative); HEPATITIS B CORE AB IGM NEGATIVE (Negative); HEPATITIS B SURFACE ANTIGEN NEGATIVE (Negative); HEPATITIS C AB NON REACTIVE (Neg) (Negative)
[2023-11-15] MEDS: NOREPINEPHRINE 8MG/250ML PMX 250 ML IV PRN (15:44)
[2023-11-15] MEDS ORDERED: METHYLPREDNISOLONE SOD SUCC 40MG/ML (ACT-O-VIAL) IV SCH (16:30)
[2023-11-15] MEDS: VANCOMYCIN 2,000 MG in DEXT 5% WATER 500 ML IV NR (18:24)
[2023-11-16] VITALS (101 sets, daily range): BP systolic 84–158; BP diastolic 43–124; PULSE 64–83; RESP 0–25; TEMP 97.2–98.6
[2023-11-16 05:21] LABS: BASOPHILS % 0.2 % (0.0-2.0); HEMATOCRIT. 31.2 % (36.0-48.0); LYMPHOCYTES % 8.7 % (20.0-50.0); MEAN CORPUSCULAR HEMOGLOBIN 26.8 pg (28.0-32.0); MEAN CORPUSCULAR HGB CONC 32.1 g/dL (31.0-37.0); MEAN CORPUSCULAR VOLUME 83.4 fL (81.0-99.0); MEAN PLATELET VOLUME 7.9 fl (7.4-10.4); MONOCYTES % 10.3 % (2.0-8.0); NEUTROPHILS % 80.8 % (40.0-76.0); PLATELET 350 x1000/uL (130-400); RED BLOOD CELL COUNT 3.75 mill/uL (4.2-5.4); WHITE BLOOD COUNT 6.2 x1000/uL (4.5-11.0)
[2023-11-16 05:37] LABS: CALCIUM 6.3 mg/dL (8.7-10.4); POTASSIUM 4.1 mEq/L (3.5-5.1)
[2023-11-16 06:16] LABS: CREATININE 10.8 mg/dL (0.6-1.0)
[2023-11-16] MEDS ORDERED: CALCIUM GLUCONATE 1,000 MG in DEXT 5% WATER 90 ML IV ONE (07:30)
[2023-11-16] MEDS: CALCIUM GLUCONATE 1GM PREMIX 50ML IV NR (08:51)
[2023-11-16] MEDS: PREDNISONE 20MG TABLET PO SCH (08:52)
[2023-11-16] MEDS: MEROPENEM 1G/100ML 100 ML IV SCH (17:21)
[2023-11-17] VITALS (71 sets, daily range): BP systolic 98–150; BP diastolic 37–93; PULSE 73–89; RESP 0–21; TEMP 97.4–98.4
[2023-11-17 05:17] LABS: EOSINOPHILS % 0.4 % (0.0-5.0); HEMATOCRIT. 32.6 % (36.0-48.0); HEMOGLOBIN. 10.5 g/dL (12.0-16.0); LYMPHOCYTES % 9.5 % (20.0-50.0); MEAN CORPUSCULAR HEMOGLOBIN 26.9 pg (28.0-32.0); MEAN CORPUSCULAR HGB CONC 32.4 g/dL (31.0-37.0); MEAN PLATELET VOLUME 7.5 fl (7.4-10.4); MONOCYTES % 9.5 % (2.0-8.0); NEUTROPHILS % 80.6 % (40.0-76.0); PLATELET 393 x1000/uL (130-400); RED BLOOD CELL COUNT 3.92 mill/uL (4.2-5.4); RED CELL DISTRIBUTION WIDTH 17.3 % (11.6-14.6); WHITE BLOOD COUNT 5.9 x1000/uL (4.5-11.0)
[2023-11-17 05:28] LABS: CALCIUM 6.5 mg/dL (8.7-10.4); CARBON DIOXIDE 24 mEq/L (21-32); CHLORIDE 98 mEq/L (98-107); GLUCOSE 82 mg/dL (70-105); POTASSIUM 4.6 mEq/L (3.5-5.1); SODIUM 134 mEq/L (136-145); UREA NITROGEN BLOOD 71 mg/dL (9-23)
[2023-11-17 05:49] LABS: PHOSPHORUS 9.3 mg/dL (2.5-4.9)
[2023-11-17] MEDS: PREDNISONE 10MG TABLET PO SCH (08:16)
[2023-11-18] VITALS (19 sets, daily range): BP systolic 99–130; BP diastolic 56–82; PULSE 71–89; RESP 8–23; TEMP 97.2–98.4
[2023-11-18 05:56] LABS: POTASSIUM 4.6 mEq/L (3.5-5.1)
[2023-11-18 05:59] LABS: CREATININE 11.7 mg/dL (0.6-1.0)
[2023-11-18] MEDS ORDERED: HYDRALAZINE 10 MG in SODIUM CHLORIDE 0.9% 49.5 ML IV PRN (12:00)
[2023-11-19 04:00] VITALS: BP 116/61; PULSE 77; RESP 16; TEMP 97.2
[2023-11-19] MEDS: OMEPRAZOLE 20MG CAPSULE EXTENDED RELEASE PO SCH (06:34)
[2023-11-19 08:00] VITALS: BP 128/53; PULSE 73; RESP 20; TEMP 98.4
[2023-11-19 12:00] VITALS: BP 130/65; PULSE 70; RESP 20; TEMP 98.4
[2023-11-19 14:56] VITALS: BP 130/65; PULSE 70; TEMP 98.4; O2SAT 100
== END 2023-11-19 15:23 | disposition home or self-care (01) | DRG 291 ==
LOC: ER 05:28 → 5EST 11:33 → EDBEDREQTM 11:34 → EDBEDREQSVC 11:34 → EDBEDREQ 11:34 → 4WST 18:35 → ER 18:35 → CVICU 22:20 → 4WST 11-09 12:34 → MICUSO 11-14 17:30 → 6EST 11-18 11:38
PROVIDERS: ADMIT Internal Medicine; ATTEND Internal Medicine
PROC: 30233N1 Transfusion of Nonautologous Red Blood Cells into Peripheral Vein, Percutaneous Approach (ICD-10-PCS; 2023-11-10)
PROC: 5A1945Z Respiratory Ventilation, 24-96 Consecutive Hours (ICD-10-PCS; principal; 2023-11-14)
PROC: 0BH17EZ Insertion of Endotracheal Airway into Trachea, Via Natural or Artificial Opening (ICD-10-PCS; 2023-11-14)
PROC: 02HV33Z Insertion of Infusion Device into Superior Vena Cava, Percutaneous Approach (ICD-10-PCS; 2023-11-15)
PROC: B548ZZA Ultrasonography of Superior Vena Cava, Guidance (ICD-10-PCS; 2023-11-15)
PROC: 5A1D70Z Performance of Urinary Filtration, Intermittent, Less than 6 Hours Per Day (ICD-10-PCS; 2023-11-15)
PROC: 5A1D70Z Performance of Urinary Filtration, Intermittent, Less than 6 Hours Per Day (ICD-10-PCS; 2023-11-16)
PROC: 5A1D70Z Performance of Urinary Filtration, Intermittent, Less than 6 Hours Per Day (ICD-10-PCS; 2023-11-18)
DX: I13.2 Hypertensive heart and chronic kidney disease with heart failure and with stage 5 chronic kidney disease, or end stage renal disease (principal); E11.10 Type 2 diabetes mellitus with ketoacidosis without coma; J96.01 Acute respiratory failure with hypoxia; N18.6 End stage renal disease; J69.0 Pneumonitis due to inhalation of food and vomit; J96.02 Acute respiratory failure with hypercapnia; N39.0 Urinary tract infection, site not specified; E46 Unspecified protein-calorie malnutrition; G93.49 Other encephalopathy; J84.9 Interstitial pulmonary disease, unspecified; Z16.12 Extended spectrum beta lactamase (ESBL) resistance; Z99.2 Dependence on renal dialysis; Z68.32 Body mass index [BMI] 32.0-32.9, adult; E87.5 Hyperkalemia; Z20.822 Contact with and (suspected) exposure to COVID-19; E78.5 Hyperlipidemia, unspecified; E11.65 Type 2 diabetes mellitus with hyperglycemia; E11.22 Type 2 diabetes mellitus with diabetic chronic kidney disease; D64.9 Anemia, unspecified; B96.1 Klebsiella pneumoniae [K. pneumoniae] as the cause of diseases classified elsewhere; R41.82 Altered mental status, unspecified; K21.9 Gastro-esophageal reflux disease without esophagitis; D72.819 Decreased white blood cell count, unspecified; E11.40 Type 2 diabetes mellitus with diabetic neuropathy, unspecified; I50.9 Heart failure, unspecified; Z87.01 Personal history of pneumonia (recurrent); Z87.440 Personal history of urinary (tract) infections; Z90.710 Acquired absence of both cervix and uterus
CPT/HCPCS: 31500; 36415; 36556; 36600; 70496; 70498; 71045; 76937; 78580; 80048; 80053; 80061; 80202; 80320; 81003; 82010; 82140; 82270; 82375; 82550; 82803; 82805; 82962; 83036; 83735; 83880; 84100; 84145; 84478; 84484; 85025; 85379; 86705; 86709; 86850; 86900; 86920; 87070; 87186; 87340; 87426; 87804; 90935; 90945; 93005; 94002; 94003; 94640; 97162; 99285; C1752; J0360; J0610; J0878; J0885; J1610; J1815; J1940; J2185; J2704; J2920; J3370; J3490; J7030; J7050; J7060; J7512; P9016; Q9967; G0480

== ENCOUNTER 2023-11-21 00:09 | Inpatient (IN) | payer OTHER ==
[~2023-11-21] VITALS: Ht 170.2 cm; Wt 87.5 kg
[2023-11-21] VITALS (38 sets, daily range): BP systolic 100–150; BP diastolic 49–92; PULSE 67–78; RESP 0–19; TEMP 98.5–99.1; O2SAT 99
[2023-11-21 01:01] LABS: BASOPHILS % 0.3 % (0.0-2.0); EOSINOPHILS % 0.1 % (0.0-5.0); HEMATOCRIT. 28.9 % (36.0-48.0); HEMOGLOBIN. 8.7 g/dL (12.0-16.0); LYMPHOCYTES % 8.7 % (20.0-50.0); MEAN CORPUSCULAR HEMOGLOBIN 26.7 pg (28.0-32.0); MEAN CORPUSCULAR HGB CONC 29.9 g/dL (31.0-37.0); MEAN CORPUSCULAR VOLUME 89.4 fL (81.0-99.0); MEAN PLATELET VOLUME 7.5 fl (7.4-10.4); MONOCYTES % 7.7 % (2.0-8.0); NEUTROPHILS % 83.2 % (40.0-76.0); PLATELET 237 x1000/uL (130-400); RED BLOOD CELL COUNT 3.24 mill/uL (4.2-5.4); RED CELL DISTRIBUTION WIDTH 18.3 % (11.6-14.6); WHITE BLOOD COUNT 6.4 x1000/uL (4.5-11.0)
[2023-11-21 01:20] LABS: ALANINE AMINOTRANSFERASE 80 IU/L (10-49); ALBUMIN 2.9 g/dL (3.2-4.8); ASPARTATE AMINOTRANSFERASE 425 IU/L (<34); BILIRUBIN TOTAL 0.5 mg/dL (0.1-1.0); CARBON DIOXIDE 19 mEq/L (21-32); CHLORIDE 98 mEq/L (98-107); POTASSIUM 5.7 mEq/L (3.5-5.1); PROTEIN TOTAL 6.7 g/dL (6.0-8.3); SODIUM 133 mEq/L (136-145); TROPONIN I HIGH SENSITIVITY 22 ng/L (3.0-34); UREA NITROGEN BLOOD 72 mg/dL (9-23)
[2023-11-21 01:23] LABS: LACTIC ACID 3.6 mmol/L (0.4-2.0)
[2023-11-21 01:24] LABS: BG BASE EXCESS -6.3 mmol/L (-2.0-2.0); BG CARBOXYHEMOGLOBIN 0.1 % (0.5-1.5); BG DEOXYHEMOGLOBIN 10.4 % (0.0-5.0); BG FRACTION INSPIRED OXYGEN 32; BG HCO3 ACT 18.9 mmol/L (22.0-26.0); BG METHEMOGLOBIN 0.2 % (0.0-1.5); BG OXYGEN SATURATION 89.6 % (92.0-98.5); BG OXYHEMOGLOBIN 89.3 % (94.0-97.0); BG PCO2 36.3 mmHg (35.0-45.0); BG PH 7.334 (7.350-7.450); BG PO2 68.2 mmHg (75.0-100.0); BG SAMPLE SITE RIGHT BRACHIAL; BG TOTAL HEMOGLOBIN 12.3 g/dL (12.0-18.0); BG VENT MODE NASAL CANNULA
[2023-11-21 01:24] LABS: ETHANOL BLOOD < 10 mg/dL (<10)
[2023-11-21 01:25] LABS: HCG SCREEN NEGATIVE
[2023-11-21 01:26] LABS: GLUCOSE 767 mg/dL (70-105)
[2023-11-21 01:27] LABS: CALCIUM 5.5 mg/dL (8.7-10.4); CREATININE 10.8 mg/dL (0.6-1.0)
[2023-11-21] MEDS ORDERED: DEXTROSE 50% WATER 50ML SYRINGE IV PRN ×2 (01:45→10:15)
[2023-11-21 01:59] LABS: PARTIAL THROMBOPLASTIN TIME 31.2 sec (23.4-31.0); PROTHROMBIN TIME 11.4 sec (9.6-11.0)
[2023-11-21] MEDS ORDERED: BLOOD SUGAR DIAGNOSTIC STRIP TEST SCH (02:00)
[2023-11-21 02:04] LABS: BETA HYDROXYBUTYRATE 1.1 mMol/L (0.0-0.3)
[2023-11-21 02:26] LABS: CARBON DIOXIDE 21 mEq/L (21-32); CHLORIDE 97 mEq/L (98-107); PHOSPHORUS 6.7 mg/dL (2.5-4.9); POTASSIUM 5.8 mEq/L (3.5-5.1); SODIUM 131 mEq/L (136-145)
[2023-11-21] MEDS: BLOOD SUGAR DIAGNOSTIC STRIP TEST SCH ×2 (02:26→13:14)
[2023-11-21] MEDS: SODIUM CHLORIDE 0.9% 1,000 ML IV SCH (02:26)
[2023-11-21] MEDS: INSULIN REGULAR (HUMULIN R) 300UNITS/3ML VIAL IV NR (02:27)
[2023-11-21] MEDS: MORPHINE SULFATE 2 MG/ML CPJ (NOT FOR IM USE) IV ONE (02:31)
[2023-11-21] MEDS: INSULIN REGULAR 100U/100ML PMX 100 ML IV SCH (02:52)
[2023-11-21] MEDS: CALCIUM GLUCONATE 100MG/ML 10ML VIAL IV NR (05:50)
[2023-11-21 07:52] LABS: HEPATITIS A AB IGM NEGATIVE (Negative); HEPATITIS B CORE AB IGM NEGATIVE (Negative); HEPATITIS B SURFACE AB < 3.1 mIU/mL (<10); HEPATITIS B SURFACE ANTIGEN NEGATIVE (Negative); HEPATITIS C AB NON REACTIVE (Neg) (Negative)
[2023-11-21] MEDS ORDERED: LIDOCAINE HCL 1% 10 MG/ML 10ML VIAL ONE (09:16)
[2023-11-21] MEDS ORDERED: ONDANSETRON HCL 4MG/2ML INJ IV PRN (10:15)
[2023-11-21] MEDS: INSULIN GLARGINE 100 UNITS/ML SUBCUT NR (11:09)
[2023-11-21] MEDS ORDERED: IPRATROPIUM/ALBUTEROL 0.5-3(2.5)MG/3ML NEB HHN PRN (13:15)
[2023-11-21] MEDS: FOLIC ACID/VITAMIN B COMP W-C TABLET PO SCH (13:28)
[2023-11-21] MEDS: INSULIN LISPRO 100 UNITS/ML SUBCUT SCH (13:29)
[2023-11-21 16:18] LABS: HEMATOCRIT 27.7 % (36.0-48.0); HEMOGLOBIN 8.5 g/dL (12.0-16.0)
[2023-11-21 16:24] LABS: POTASSIUM 4.6 mEq/L (3.5-5.1)
[2023-11-21 16:33] LABS: CALCIUM 5.7 mg/dL (8.7-10.4); CREATININE 10.9 mg/dL (0.6-1.0)
[2023-11-21] MEDS: EPOETIN ALFA 4000UNITS/ML VIAL SUBCUT SCH (21:48)
[2023-11-21] MEDS: INSULIN GLARGINE 100 UNITS/ML SUBCUT SCH (21:49)
[2023-11-21] MEDS: ACETAMINOPHEN 325MG TABLET PO PRN (21:56)
[2023-11-22] VITALS (51 sets, daily range): BP systolic 104–157; BP diastolic 62–111; PULSE 66–98; RESP 0–18; TEMP 97.5–98.6; O2SAT 99
[2023-11-22] MEDS: IPRATROPIUM/ALBUTEROL 0.5-3(2.5)MG/3ML NEB HHN SCH (02:00)
[2023-11-22 06:01] LABS: MEAN CORPUSCULAR HEMOGLOBIN 26.7 pg (28.0-32.0); MEAN CORPUSCULAR HGB CONC 32.1 g/dL (31.0-37.0); MEAN CORPUSCULAR VOLUME 83.3 fL (81.0-99.0); MEAN PLATELET VOLUME 7.5 fl (7.4-10.4); PLATELET 274 x1000/uL (130-400); RED BLOOD CELL COUNT 2.99 mill/uL (4.2-5.4); RED CELL DISTRIBUTION WIDTH 18.4 % (11.6-14.6); WHITE BLOOD COUNT 5.7 x1000/uL (4.5-11.0)
[2023-11-22 06:27] LABS: PHOSPHORUS 7.9 mg/dL (2.5-4.9); POTASSIUM 4.7 mEq/L (3.5-5.1)
[2023-11-22 06:28] LABS: CREATININE 11.4 mg/dL (0.6-1.0)
[2023-11-22 06:33] LABS: CALCIUM 5.3 mg/dL (8.7-10.4)
[2023-11-22 06:40] LABS: DIFFERENTIAL COMMENT 1
[2023-11-22] MEDS: HYDROCODONE/ACETAMINOPHEN 10/325MG TABLET PO PRN (09:35)
[2023-11-22] MEDS ORDERED: NALOXONE HCL 0.4MG/ML VIAL IV PRN (12:30)
[2023-11-22 12:39] LABS: ANISOCYTOSIS 2+; NUCLEATED RED BLOOD CELLS 1 /100 WBC; PLATELET ESTIMATE NORMAL
[2023-11-23] VITALS (9 sets, daily range): BP systolic 125–157; BP diastolic 67–87; PULSE 81–99; RESP 18–20; TEMP 97.7–99.3; O2SAT 97
[2023-11-24] VITALS (16 sets, daily range): BP systolic 103–172; BP diastolic 52–84; PULSE 57–101; RESP 16–20; TEMP 97.7–102.7; O2SAT 94–96
[2023-11-24 12:28] LABS: BG BASE EXCESS -1.9 mmol/L (-2.0-2.0); BG CARBOXYHEMOGLOBIN 0.3 % (0.5-1.5); BG DEOXYHEMOGLOBIN 6.5 % (0.0-5.0); BG FRACTION INSPIRED OXYGEN 28; BG HCO3 ACT 22.9 mmol/L (22.0-26.0); BG METHEMOGLOBIN 0.3 % (0.0-1.5); BG OXYGEN SATURATION 93.5 % (92.0-98.5); BG OXYHEMOGLOBIN 92.9 % (94.0-97.0); BG PH 7.387 (7.350-7.450); BG PO2 80.4 mmHg (75.0-100.0); BG SAMPLE SITE RIGHT BRACHIAL; BG TOTAL HEMOGLOBIN 8.5 g/dL (12.0-18.0); BG VENT MODE NASAL CANNULA
[2023-11-24 12:28] LABS: HEMATOCRIT. 28.9 % (36.0-48.0); HEMOGLOBIN. 8.7 g/dL (12.0-16.0); MEAN CORPUSCULAR HEMOGLOBIN 26.4 pg (28.0-32.0); MEAN CORPUSCULAR HGB CONC 30.1 g/dL (31.0-37.0); MEAN CORPUSCULAR VOLUME 87.7 fL (81.0-99.0); MEAN PLATELET VOLUME 7.5 fl (7.4-10.4); PLATELET 235 x1000/uL (130-400); RED CELL DISTRIBUTION WIDTH 18.8 % (11.6-14.6); WHITE BLOOD COUNT 9.9 x1000/uL (4.5-11.0)
[2023-11-24 12:33] LABS: DIFFERENTIAL COMMENT 1
[2023-11-24 12:53] LABS: CALCIUM 6.2 mg/dL (8.7-10.4); POTASSIUM 5.4 mEq/L (3.5-5.1)
[2023-11-24 12:59] LABS: CREATININE 9.2 mg/dL (0.6-1.0)
[2023-11-24 13:15] LABS: PHOSPHORUS 5.1 mg/dL (2.5-4.9); TROPONIN I HIGH SENSITIVITY 28 ng/L (3.0-34)
[2023-11-24 14:15] LABS: ANISOCYTOSIS 1+; PLATELET ESTIMATE NORMAL
[2023-11-24] MEDS: AMLODIPINE 10MG TABLET PO SCH (18:09)
[2023-11-24] MEDS: INSULIN GLARGINE 100 UNITS/ML SUBCUT SCH (21:07)
[2023-11-24] MEDS: VANCOMYCIN 1.5GM/250ML IV NR (21:28)
[2023-11-25] VITALS (17 sets, daily range): BP systolic 111–138; BP diastolic 60–79; PULSE 83–99; RESP 13–28; TEMP 97.7–99.8; O2SAT 97
[2023-11-25 06:29] LABS: HEMATOCRIT. 24.4 % (36.0-48.0); HEMOGLOBIN. 7.7 g/dL (12.0-16.0); MEAN CORPUSCULAR HEMOGLOBIN 25.9 pg (28.0-32.0); MEAN CORPUSCULAR HGB CONC 31.6 g/dL (31.0-37.0); MEAN PLATELET VOLUME 7.9 fl (7.4-10.4); PLATELET 194 x1000/uL (130-400); RED BLOOD CELL COUNT 2.98 mill/uL (4.2-5.4); RED CELL DISTRIBUTION WIDTH 18.6 % (11.6-14.6); WHITE BLOOD COUNT 9.5 x1000/uL (4.5-11.0)
[2023-11-25 07:53] LABS: DIFFERENTIAL COMMENT 1
[2023-11-25 08:10] LABS: CALCIUM 6.2 mg/dL (8.7-10.4); PHOSPHORUS 6.1 mg/dL (2.5-4.9); POTASSIUM 5.8 mEq/L (3.5-5.1)
[2023-11-25] MEDS ORDERED: MIDAZOLAM HCL 2 MG/2 ML VIAL ONE (08:31)
[2023-11-25] MEDS ORDERED: LIDOCAINE HCL 1% 20ML VIAL (Pyxis) INJ ONE (08:31)
[2023-11-25] MEDS ORDERED: HEPARIN 1000 UNITS/ML 10ML ONE ×2 (08:32→10:01)
[2023-11-25] MEDS ORDERED: FENTANYL CITRATE/PF 50MCG/ML 2ML VIAL ONE (08:32)
[2023-11-25] MEDS ORDERED: DIPHENHYDRAMINE 50MG/ML VIAL ONE (09:14)
[2023-11-25 09:19] LABS: CREATININE 10.1 mg/dL (0.6-1.0)
[2023-11-25] MEDS ORDERED: IODIXANOL 320MG/ML 100 ML BOTTLE IV ONE ×3 (09:36→10:28)
[2023-11-25] MEDS ORDERED: CLOPIDOGREL 75MG TABLET ONE (10:34)
[2023-11-25] MEDS ORDERED: LABETALOL HCL 5MG/ML VIAL 20ML IV ONE (10:42)
[2023-11-25] MEDS ORDERED: HYDRALAZINE 20MG/ML VIAL ONE (10:42)
[2023-11-25] MEDS ORDERED: ATROPINE SULFATE 1MG/10ML SYR IV PRN (11:30)
[2023-11-25 13:24] LABS: ANISOCYTOSIS 1+; PLATELET ESTIMATE NORMAL
[2023-11-25] MEDS: ASPIRIN 325MG EC TABLET PO NR (17:35)
[2023-11-25] MEDS: ATORVASTATIN CALCIUM 40MG TABLET PO SCH (22:15)
[2023-11-25] MEDS: ACETAMINOPHEN 325MG TABLET PO PRN (23:16)
[2023-11-26] VITALS (7 sets, daily range): BP systolic 99–123; BP diastolic 56–75; PULSE 80–98; RESP 12–23; TEMP 97.3–99.5; O2SAT 96
[2023-11-26 04:58] LABS: BASOPHILS % 0.2 % (0.0-2.0); EOSINOPHILS % 0.4 % (0.0-5.0); HEMATOCRIT. 24.1 % (36.0-48.0); HEMOGLOBIN. 7.6 g/dL (12.0-16.0); LYMPHOCYTES % 9.2 % (20.0-50.0); MEAN CORPUSCULAR HEMOGLOBIN 26.7 pg (28.0-32.0); MEAN CORPUSCULAR HGB CONC 31.6 g/dL (31.0-37.0); MEAN CORPUSCULAR VOLUME 84.5 fL (81.0-99.0); MEAN PLATELET VOLUME 8.1 fl (7.4-10.4); MONOCYTES % 14.5 % (2.0-8.0); NEUTROPHILS % 75.7 % (40.0-76.0); PLATELET 188 x1000/uL (130-400); RED BLOOD CELL COUNT 2.85 mill/uL (4.2-5.4); RED CELL DISTRIBUTION WIDTH 18.8 % (11.6-14.6); WHITE BLOOD COUNT 11.8 x1000/uL (4.5-11.0)
[2023-11-26 05:08] LABS: CALCIUM 6.8 mg/dL (8.7-10.4); POTASSIUM 4.9 mEq/L (3.5-5.1)
[2023-11-26 05:11] LABS: CREATININE 8.1 mg/dL (0.6-1.0)
[2023-11-26] MEDS: SODIUM CHLORIDE 0.9% 1,000 ML IV ONE (06:23)
[2023-11-26] MEDS: ASPIRIN 81MG EC TABLET PO SCH (08:32)
[2023-11-26] MEDS: CLOPIDOGREL 75MG TABLET PO SCH (08:32)
[2023-11-26] MEDS: CEFTRIAXONE 1GM/50ML 50 ML IV NR (15:29)
[2023-11-26 20:06] LABS: BODY FLUID MONOCYTES 10 %; BODY FLUID RBC 440 /cu mm (0-2000); BODY FLUID WBC 45 /cu mm (0-200)
[2023-11-26] MEDS: MEROPENEM 1G/100ML 100 ML IV SCH (20:50)
[2023-11-26] MEDS: EPOETIN ALFA 4000UNITS/ML VIAL SUBCUT SCH (21:57)
[2023-11-27] VITALS (17 sets, daily range): BP systolic 95–146; BP diastolic 58–95; PULSE 78–96; RESP 15–25; TEMP 96.6–100.1
[2023-11-27 07:43] LABS: BASOPHILS % 0.4 % (0.0-2.0); DIFFERENTIAL COMMENT 0; EOSINOPHILS % 0.2 % (0.0-5.0); HEMATOCRIT. 21.3 % (36.0-48.0); LYMPHOCYTES % 7.1 % (20.0-50.0); MEAN CORPUSCULAR HEMOGLOBIN 25.8 pg (28.0-32.0); MEAN CORPUSCULAR HGB CONC 31.4 g/dL (31.0-37.0); MEAN CORPUSCULAR VOLUME 82.1 fL (81.0-99.0); MONOCYTES % 14.8 % (2.0-8.0); NEUTROPHILS % 77.5 % (40.0-76.0); PLATELET 207 x1000/uL (130-400); RED BLOOD CELL COUNT 2.59 mill/uL (4.2-5.4); RED CELL DISTRIBUTION WIDTH 18.9 % (11.6-14.6); WHITE BLOOD COUNT 7.6 x1000/uL (4.5-11.0)
[2023-11-27 07:54] LABS: CALCIUM 6.7 mg/dL (8.7-10.4); POTASSIUM 4.9 mEq/L (3.5-5.1)
[2023-11-27 07:58] LABS: CREATININE 9.2 mg/dL (0.6-1.0)
[2023-11-27 09:08] LABS: HEMOGLOBIN. 6.7 g/dL (12.0-16.0)
[2023-11-27] MEDS ORDERED: CEFTRIAXONE 1GM/50ML 50 ML IV SCH (15:00)
[2023-11-27 16:37] LABS: BG BASE EXCESS -2.5 mmol/L (-2.0-2.0); BG CARBOXYHEMOGLOBIN 0.3 % (0.5-1.5); BG DEOXYHEMOGLOBIN 18.7 % (0.0-5.0); BG FRACTION INSPIRED OXYGEN 21; BG HCO3 ACT 21.7 mmol/L (22.0-26.0); BG METHEMOGLOBIN 0.3 % (0.0-1.5); BG OXYGEN SATURATION 81.2 % (92.0-98.5); BG OXYHEMOGLOBIN 80.7 % (94.0-97.0); BG PO2 47.9 mmHg (75.0-100.0); BG SAMPLE SITE LEFT BRACHIAL; BG TOTAL HEMOGLOBIN 9.9 g/dL (12.0-18.0); BG VENT MODE ROOM AIR
[2023-11-27] MEDS: VANCOMYCIN 500MG/100ML IV NR (22:01)
[2023-11-28 00:15] VITALS: BP 122/67; PULSE 93; RESP 16; TEMP 100.2
[2023-11-28 04:15] VITALS: BP 121/67; PULSE 85; RESP 16; TEMP 99.9
[2023-11-28 06:38] LABS: HEMATOCRIT. 24.4 % (36.0-48.0); HEMOGLOBIN. 7.9 g/dL (12.0-16.0); MEAN CORPUSCULAR HEMOGLOBIN 26.4 pg (28.0-32.0); MEAN CORPUSCULAR HGB CONC 32.4 g/dL (31.0-37.0); MEAN CORPUSCULAR VOLUME 81.4 fL (81.0-99.0); MEAN PLATELET VOLUME 7.9 fl (7.4-10.4); PLATELET 223 x1000/uL (130-400); RED CELL DISTRIBUTION WIDTH 18.1 % (11.6-14.6); WHITE BLOOD COUNT 6.2 x1000/uL (4.5-11.0)
[2023-11-28 06:53] LABS: DIFFERENTIAL COMMENT 1
[2023-11-28 07:03] LABS: POTASSIUM 4.7 mEq/L (3.5-5.1)
[2023-11-28 07:04] LABS: CALCIUM 7.5 mg/dL (8.7-10.4)
[2023-11-28 07:24] LABS: CREATININE 7.5 mg/dL (0.6-1.0)
[2023-11-28 12:00] VITALS: BP 102/61; PULSE 83; RESP 16; TEMP 98.7
[2023-11-28] MEDS ORDERED: NALOXONE HCL 0.4MG/ML VIAL IV PRN (15:00)
[2023-11-28] MEDS: HYDROCODONE/ACETAMINOPHEN 5/325MG TABLET PO PRN (15:55)
[2023-11-28 16:00] VITALS: BP 114/68; PULSE 84; RESP 18; TEMP 98.2
[2023-11-28 18:01] LABS: PLATELET ESTIMATE NORMAL
[2023-11-28 20:10] VITALS: BP 111/69; PULSE 80; RESP 21; TEMP 97.5
[2023-11-29] VITALS (14 sets, daily range): BP systolic 92–146; BP diastolic 58–82; PULSE 79–91; RESP 16–22; TEMP 97.4–100.1
[2023-11-29 06:31] LABS: HEMATOCRIT. 24.8 % (36.0-48.0); MEAN CORPUSCULAR HEMOGLOBIN 26.9 pg (28.0-32.0); MEAN CORPUSCULAR HGB CONC 32.3 g/dL (31.0-37.0); MEAN CORPUSCULAR VOLUME 83.4 fL (81.0-99.0); MEAN PLATELET VOLUME 7.9 fl (7.4-10.4); PLATELET 230 x1000/uL (130-400); RED BLOOD CELL COUNT 2.98 mill/uL (4.2-5.4); RED CELL DISTRIBUTION WIDTH 18.4 % (11.6-14.6); WHITE BLOOD COUNT 5.9 x1000/uL (4.5-11.0)
[2023-11-29 06:47] LABS: CALCIUM 7.1 mg/dL (8.7-10.4); POTASSIUM 4.8 mEq/L (3.5-5.1)
[2023-11-29 06:54] LABS: CREATININE 9.4 mg/dL (0.6-1.0)
[2023-11-29 06:58] LABS: DIFFERENTIAL COMMENT 1
[2023-11-29 12:37] LABS: ANISOCYTOSIS 1+; PLATELET ESTIMATE NORMAL
[2023-11-29] MEDS ORDERED: IPRATROPIUM/ALBUTEROL 0.5-3(2.5)MG/3ML NEB HHN PRN (17:15)
[2023-11-29 21:58] LABS: HEMATOCRIT. 24.2 % (36.0-48.0); HEMOGLOBIN. 7.8 g/dL (12.0-16.0); MEAN CORPUSCULAR HEMOGLOBIN 26.5 pg (28.0-32.0); MEAN CORPUSCULAR HGB CONC 32.2 g/dL (31.0-37.0); MEAN CORPUSCULAR VOLUME 82.2 fL (81.0-99.0); MEAN PLATELET VOLUME 7.9 fl (7.4-10.4); PLATELET 215 x1000/uL (130-400); RED BLOOD CELL COUNT 2.95 mill/uL (4.2-5.4); RED CELL DISTRIBUTION WIDTH 18.9 % (11.6-14.6); WHITE BLOOD COUNT 5.4 x1000/uL (4.5-11.0)
[2023-11-29 22:00] LABS: DIFFERENTIAL COMMENT 1
[2023-11-29 22:19] LABS: ANISOCYTOSIS 1+; PLATELET ESTIMATE NORMAL
[2023-11-30] VITALS (7 sets, daily range): BP systolic 86–116; BP diastolic 60–86; PULSE 76–90; RESP 13–22; TEMP 97.2–99.9
[2023-11-30 06:52] LABS: HEMATOCRIT. 22.8 % (36.0-48.0); HEMOGLOBIN. 7.3 g/dL (12.0-16.0); MEAN CORPUSCULAR HEMOGLOBIN 26.7 pg (28.0-32.0); MEAN CORPUSCULAR HGB CONC 31.9 g/dL (31.0-37.0); MEAN CORPUSCULAR VOLUME 83.7 fL (81.0-99.0); MEAN PLATELET VOLUME 7.5 fl (7.4-10.4); PLATELET 220 x1000/uL (130-400); RED BLOOD CELL COUNT 2.72 mill/uL (4.2-5.4); RED CELL DISTRIBUTION WIDTH 18.6 % (11.6-14.6); WHITE BLOOD COUNT 5.2 x1000/uL (4.5-11.0)
[2023-11-30 06:57] LABS: POTASSIUM 4.3 mEq/L (3.5-5.1)
[2023-11-30 06:59] LABS: CALCIUM 6.6 mg/dL (8.7-10.4)
[2023-11-30 07:00] LABS: DIFFERENTIAL COMMENT 1
[2023-11-30 07:05] LABS: CREATININE 8.7 mg/dL (0.6-1.0)
[2023-11-30 13:59] LABS: ANISOCYTOSIS 1+; PLATELET ESTIMATE NORMAL
[2023-12-01] VITALS (12 sets, daily range): BP systolic 102–124; BP diastolic 70–86; PULSE 63–86; RESP 14–27; TEMP 97.3–98.8
[2023-12-01 06:30] LABS: HEMATOCRIT. 24.7 % (36.0-48.0); MEAN CORPUSCULAR HEMOGLOBIN 26.6 pg (28.0-32.0); MEAN CORPUSCULAR HGB CONC 32.2 g/dL (31.0-37.0); MEAN CORPUSCULAR VOLUME 82.6 fL (81.0-99.0); MEAN PLATELET VOLUME 7.7 fl (7.4-10.4); PLATELET 244 x1000/uL (130-400); RED BLOOD CELL COUNT 2.99 mill/uL (4.2-5.4)
[2023-12-01 06:39] LABS: POTASSIUM 4.6 mEq/L (3.5-5.1)
[2023-12-01 06:40] LABS: CALCIUM 6.6 mg/dL (8.7-10.4)
[2023-12-01 07:00] LABS: CREATININE 9.7 mg/dL (0.6-1.0)
[2023-12-01 07:18] LABS: DIFFERENTIAL COMMENT 1
[2023-12-01] MEDS ORDERED: LIDOCAINE HCL 1% 10 MG/ML 10ML VIAL ONE (07:47)
[2023-12-01 12:27] LABS: ANISOCYTOSIS 1+; PLATELET ESTIMATE NORMAL
[2023-12-02] VITALS (13 sets, daily range): BP systolic 92–120; BP diastolic 66–80; PULSE 62–81; RESP 16–18; TEMP 97.3–99; O2SAT 96
[2023-12-02] MEDS: IOHEXOL-350 100 ML BOTTLE ONE (06:52)
[2023-12-02 07:33] LABS: HEMATOCRIT. 23.5 % (36.0-48.0); HEMOGLOBIN. 7.4 g/dL (12.0-16.0); MEAN CORPUSCULAR HEMOGLOBIN 25.8 pg (28.0-32.0); MEAN CORPUSCULAR HGB CONC 31.5 g/dL (31.0-37.0); MEAN CORPUSCULAR VOLUME 81.9 fL (81.0-99.0); MEAN PLATELET VOLUME 7.8 fl (7.4-10.4); PLATELET 273 x1000/uL (130-400); RED BLOOD CELL COUNT 2.86 mill/uL (4.2-5.4); WHITE BLOOD COUNT 4.1 x1000/uL (4.5-11.0)
[2023-12-02 07:52] LABS: DIFFERENTIAL COMMENT 1
[2023-12-02 08:01] LABS: CALCIUM 6.4 mg/dL (8.7-10.4); POTASSIUM 4.4 mEq/L (3.5-5.1)
[2023-12-02 08:15] LABS: CREATININE 10.6 mg/dL (0.6-1.0)
[2023-12-02 14:09] LABS: NUCLEATED RED BLOOD CELLS 1 /100 WBC
[2023-12-02 14:15] LABS: ANISOCYTOSIS 2+; PLATELET ESTIMATE NORMAL
== END 2023-12-02 13:32 | disposition home or self-care (01) | DRG 323 ==
LOC: ER 00:09 → CVICU 03:52 → EDBEDREQTM 03:55 → EDBEDREQ 03:55 → 8WST 11-22 12:04 → 3WST 11-25 11:16
PROVIDERS: ADMIT Internal Medicine; ATTEND Internal Medicine
PROC: 02HV33Z Insertion of Infusion Device into Superior Vena Cava, Percutaneous Approach (ICD-10-PCS; 2023-11-21)
PROC: B548ZZA Ultrasonography of Superior Vena Cava, Guidance (ICD-10-PCS; 2023-11-21)
PROC: 027034Z Dilation of Coronary Artery, One Artery with Drug-eluting Intraluminal Device, Percutaneous Approach (ICD-10-PCS; 2023-11-22)
PROC: 3E1M39Z Irrigation of Peritoneal Cavity using Dialysate, Percutaneous Approach (ICD-10-PCS; 2023-11-22)
PROC: 02F03ZZ Fragmentation in Coronary Artery, One Artery, Percutaneous Approach (ICD-10-PCS; 2023-11-25)
PROC: 4A023N7 Measurement of Cardiac Sampling and Pressure, Left Heart, Percutaneous Approach (ICD-10-PCS; 2023-11-25)
PROC: B215YZZ Fluoroscopy of Left Heart using Other Contrast (ICD-10-PCS; 2023-11-25)
PROC: B41FYZZ Fluoroscopy of Right Lower Extremity Arteries using Other Contrast (ICD-10-PCS; 2023-11-25)
PROC: B41JYZZ Fluoroscopy of Other Lower Arteries using Other Contrast (ICD-10-PCS; 2023-11-25)
PROC: 30233N1 Transfusion of Nonautologous Red Blood Cells into Peripheral Vein, Percutaneous Approach (ICD-10-PCS; principal; 2023-11-27)
PROC: 0JH63XZ Insertion of Tunneled Vascular Access Device into Chest Subcutaneous Tissue and Fascia, Percutaneous Approach (ICD-10-PCS; 2023-12-01)
PROC: 02HV33Z Insertion of Infusion Device into Superior Vena Cava, Percutaneous Approach (ICD-10-PCS; 2023-12-01)
PROC: B5181ZA Fluoroscopy of Superior Vena Cava using Low Osmolar Contrast, Guidance (ICD-10-PCS; 2023-12-01)
DX: I25.110 Atherosclerotic heart disease of native coronary artery with unstable angina pectoris (principal); E11.10 Type 2 diabetes mellitus with ketoacidosis without coma; J96.01 Acute respiratory failure with hypoxia; N18.6 End stage renal disease; E46 Unspecified protein-calorie malnutrition; Z16.12 Extended spectrum beta lactamase (ESBL) resistance; N39.0 Urinary tract infection, site not specified; I12.0 Hypertensive chronic kidney disease with stage 5 chronic kidney disease or end stage renal disease; J81.1 Chronic pulmonary edema; J84.9 Interstitial pulmonary disease, unspecified; Z99.2 Dependence on renal dialysis; E87.5 Hyperkalemia; E11.22 Type 2 diabetes mellitus with diabetic chronic kidney disease; B96.1 Klebsiella pneumoniae [K. pneumoniae] as the cause of diseases classified elsewhere; E66.9 Obesity, unspecified; Z91.199 Patient's noncompliance with other medical treatment and regimen due to unspecified reason; Z87.01 Personal history of pneumonia (recurrent); E87.70 Fluid overload, unspecified; E87.6 Hypokalemia; Z68.34 Body mass index [BMI] 34.0-34.9, adult; D63.1 Anemia in chronic kidney disease; I49.3 Ventricular premature depolarization
CPT/HCPCS: 36415; 36556; 36558; 36589; 36600; 71045; 71275; 76937; 77001; 80048; 80051; 80053; 80202; 80320; 82010; 82375; 82805; 82962; 83605; 83735; 83880; 83930; 84100; 84145; 84484; 84703; 85014; 85018; 85025; 85347; 86705; 86706; 86709; 86850; 86900; 86920; 87340; 90935; 92928; 93005; 93306; 93458; 93970; 94640; 99291; C1725; C1750; C1752; C1760; C1769; C1874; C1887; C1893; J0360; J0610; J0696; J0885; J1200; J1642; J1644; J1815; J2185; J2250; J2270; J3010; J3370; J3490; P9016; Q9967; C1761; G0480

== ENCOUNTER 2023-12-06 10:06 | Inpatient (IN) | payer OTHER ==
[~2023-12-06] VITALS: Ht 172.7 cm; Wt 63.5 kg
[2023-12-06] MEDS ORDERED: DEXTROSE 50% WATER 50ML SYRINGE IV PRN ×2 (10:30→14:45)
[2023-12-06] MEDS: SODIUM CHLORIDE 0.9% 1,000 ML IV ONE (10:30)
[2023-12-06 10:55] LABS: CARBON DIOXIDE 22 mEq/L (21-32); CHLORIDE 97 mEq/L (98-107); POTASSIUM 3.9 mEq/L (3.5-5.1); SODIUM 134 mEq/L (136-145)
[2023-12-06 10:56] LABS: CALCIUM 7.1 mg/dL (8.7-10.4)
[2023-12-06 11:01] LABS: GLUCOSE 382 mg/dL (70-105); UREA NITROGEN BLOOD 25 mg/dL (9-23)
[2023-12-06 11:02] LABS: ALANINE AMINOTRANSFERASE < 7 IU/L (10-49); ASPARTATE AMINOTRANSFERASE 13 IU/L (<34)
[2023-12-06 11:03] LABS: ALBUMIN 3.1 g/dL (3.2-4.8); BETA HYDROXYBUTYRATE 4.9 mMol/L (0.0-0.3); BILIRUBIN TOTAL 0.4 mg/dL (0.1-1.0); PHOSPHORUS 4.2 mg/dL (2.5-4.9)
[2023-12-06] MEDS: BLOOD SUGAR DIAGNOSTIC STRIP TEST SCH ×2 (11:22→17:16)
[2023-12-06] MEDS: INSULIN GLARGINE 100 UNITS/ML SUBCUT ONE (11:35)
[2023-12-06 12:21] LABS: BG BASE EXCESS -5.1 mmol/L (-2.0-2.0); BG CARBOXYHEMOGLOBIN 0.3 % (0.5-1.5); BG DEOXYHEMOGLOBIN 6.4 % (0.0-5.0); BG FRACTION INSPIRED OXYGEN 28; BG HCO3 ACT 19.1 mmol/L (22.0-26.0); BG METHEMOGLOBIN 0.4 % (0.0-1.5); BG OXYGEN SATURATION 93.6 % (92.0-98.5); BG OXYHEMOGLOBIN 92.9 % (94.0-97.0); BG PCO2 32.2 mmHg (35.0-45.0); BG PH 7.391 (7.350-7.450); BG PO2 74.6 mmHg (75.0-100.0); BG SAMPLE SITE RIGHT BRACHIAL; BG TOTAL HEMOGLOBIN 9.4 g/dL (12.0-18.0); BG VENT MODE NASAL CANNULA
[2023-12-06] MEDS ORDERED: ONDANSETRON HCL 4MG/2ML INJ IV PRN (14:45)
[2023-12-06 14:56] VITALS: BP 145/83; PULSE 85; RESP 20; TEMP 97.7
[2023-12-06] MEDS: AMLODIPINE 10MG TABLET PO SCH (15:37)
[2023-12-06 16:00] VITALS: BP 128/69; PULSE 84; RESP 20; TEMP 97.6
[2023-12-06] MEDS: ASPIRIN 81MG TABLET PO SCH (16:18)
[2023-12-06] MEDS: CLOPIDOGREL 75MG TABLET PO SCH (16:18)
[2023-12-06] MEDS: ACETAMINOPHEN 325MG TABLET PO PRN (16:42)
[2023-12-06] MEDS: INSULIN GLARGINE 100 UNITS/ML SUBCUT NR (17:26)
[2023-12-06] MEDS: INSULIN LISPRO 100 UNITS/ML SUBCUT SCH (17:27)
[2023-12-06 20:00] VITALS: BP 99/50; PULSE 76; RESP 16; TEMP 97.3
[2023-12-06] MEDS: ATORVASTATIN CALCIUM 40MG TABLET PO SCH (21:00)
[2023-12-07] MEDS: INSULIN GLARGINE 100 UNITS/ML SUBCUT SCH (00:35)
[2023-12-07 04:00] VITALS: BP 105/61; PULSE 84; RESP 16; TEMP 97.3
[2023-12-07 08:00] VITALS: BP 135/76; PULSE 73; RESP 18; TEMP 97.5
[2023-12-07 11:18] LABS: HEPATITIS B SURFACE ANTIGEN NEGATIVE (Negative)
[2023-12-07 11:39] LABS: HEPATITIS A AB IGM NEGATIVE (Negative)
[2023-12-07 11:40] LABS: HEPATITIS B CORE AB IGM NEGATIVE (Negative); HEPATITIS C AB NON REACTIVE (Neg) (Negative)
[2023-12-07 12:00] VITALS: BP 130/75; PULSE 74; RESP 19; TEMP 98.2
[2023-12-07 14:12] VITALS: BP 130/75; PULSE 74; TEMP 98.2; O2SAT 93
== END 2023-12-07 14:56 | disposition home or self-care (01) | DRG 637 ==
LOC: ER 10:50 → 6WST 12:47 → EDBEDREQTM 12:49 → EDBEDREQ 12:49 → EDBEDREQSVC 12:49
PROVIDERS: ADMIT Internal Medicine; ATTEND Internal Medicine
DX: E11.65 Type 2 diabetes mellitus with hyperglycemia (principal); N18.6 End stage renal disease; E46 Unspecified protein-calorie malnutrition; N39.0 Urinary tract infection, site not specified; I12.0 Hypertensive chronic kidney disease with stage 5 chronic kidney disease or end stage renal disease; Z16.12 Extended spectrum beta lactamase (ESBL) resistance; B96.1 Klebsiella pneumoniae [K. pneumoniae] as the cause of diseases classified elsewhere; D64.9 Anemia, unspecified; E11.22 Type 2 diabetes mellitus with diabetic chronic kidney disease; E87.70 Fluid overload, unspecified; Z68.21 Body mass index [BMI] 21.0-21.9, adult; Z79.4 Long term (current) use of insulin; Z87.01 Personal history of pneumonia (recurrent); Z87.440 Personal history of urinary (tract) infections; Z99.2 Dependence on renal dialysis; Z79.899 Other long term (current) drug therapy
CPT/HCPCS: 36415; 36600; 80051; 80053; 82010; 82375; 82805; 82962; 83036; 83735; 83930; 84100; 86705; 86709; 87340; 99285; J1815; J7030

== ENCOUNTER 2023-12-25 23:18 | Emergency (ER) | payer OTHER, MEDICAID ==
[~2023-12-25] VITALS: Ht 172.7 cm; Wt 80.0 kg
[2023-12-25 23:25] VITALS: O2SAT 97
[2023-12-25 23:51] LABS: HEMOGLOBIN. 10.8 g/dL (12.0-16.0); MEAN CORPUSCULAR HEMOGLOBIN 26.5 pg (28.0-32.0); MEAN CORPUSCULAR HGB CONC 31.7 g/dL (31.0-37.0); MEAN CORPUSCULAR VOLUME 83.6 fL (81.0-99.0); MEAN PLATELET VOLUME 6.7 fl (7.4-10.4); PLATELET 191 x1000/uL (130-400); RED BLOOD CELL COUNT 4.07 mill/uL (4.2-5.4); RED CELL DISTRIBUTION WIDTH 20.7 % (11.6-14.6); WHITE BLOOD COUNT 2.9 x1000/uL (4.5-11.0)
[2023-12-25 23:57] LABS: CARBON DIOXIDE 28 mEq/L (21-32); CHLORIDE 103 mEq/L (98-107); POTASSIUM 3.9 mEq/L (3.5-5.1); SODIUM 143 mEq/L (136-145)
[2023-12-25 23:58] LABS: CALCIUM 8.5 mg/dL (8.7-10.4)
[2023-12-26 00:03] LABS: UREA NITROGEN BLOOD 32 mg/dL (9-23)
[2023-12-26 00:04] LABS: TROPONIN I HIGH SENSITIVITY 15 ng/L (3.0-34)
[2023-12-26 00:05] LABS: ALANINE AMINOTRANSFERASE 7 IU/L (10-49); ALBUMIN 3.8 g/dL (3.2-4.8); ASPARTATE AMINOTRANSFERASE 23 IU/L (<34); BILIRUBIN TOTAL 0.3 mg/dL (0.1-1.0); PROTEIN TOTAL 7.8 g/dL (6.0-8.3)
[2023-12-26 00:09] LABS: GLUCOSE 48 mg/dL (70-105)
[2023-12-26 00:10] LABS: CREATININE 5.8 mg/dL (0.6-1.0)
[2023-12-26 00:15] LABS: DIFFERENTIAL COMMENT 1
[2023-12-26 00:45] LABS: PLATELET ESTIMATE NORMAL
[2023-12-26] MEDS: DEXTROSE 10% WATER 500 ML IV ONE (01:30)
[2023-12-26] MEDS: HYDROCODONE/ACETAMINOPHEN 5/325MG TABLET PO ONE (02:30)
[2023-12-26 06:30] VITALS: BP 139/74; PULSE 99; RESP 19; TEMP 98.5
== END 2023-12-26 06:38 | disposition home or self-care (01) ==
LOC: ER 23:18
DX: R53.1 Weakness (principal); R42 Dizziness and giddiness; E11.9 Type 2 diabetes mellitus without complications; I10 Essential (primary) hypertension; Z79.899 Other long term (current) drug therapy
CPT/HCPCS: 36415; 71045; 80053; 82962; 84484; 85025; 93005; 99291

== ENCOUNTER 2024-01-06 16:03 | Inpatient (IN) | payer OTHER ==
[~2024-01-06] VITALS: Ht 170.2 cm; Wt 77.6 kg
[2024-01-06] MEDS: NITROGLYCERIN 0.4MG TABLET SL SL PRN (16:51)
[2024-01-06] MEDS: ASPIRIN 81MG TABLET PO ONE (16:51)
[2024-01-06] MEDS: ONDANSETRON HCL 4MG/2ML INJ IV ONE (17:17)
[2024-01-06 17:18] LABS: HEMATOCRIT. 34.7 % (36.0-48.0); HEMOGLOBIN. 10.9 g/dL (12.0-16.0); MEAN CORPUSCULAR HGB CONC 31.3 g/dL (31.0-37.0); MEAN CORPUSCULAR VOLUME 86.2 fL (81.0-99.0); MEAN PLATELET VOLUME 7.5 fl (7.4-10.4); PLATELET 240 x1000/uL (130-400); RED BLOOD CELL COUNT 4.03 mill/uL (4.2-5.4); RED CELL DISTRIBUTION WIDTH 20.4 % (11.6-14.6); WHITE BLOOD COUNT 2.9 x1000/uL (4.5-11.0)
[2024-01-06 17:19] LABS: DIFFERENTIAL COMMENT 1
[2024-01-06 17:22] LABS: PARTIAL THROMBOPLASTIN TIME 26.8 sec (23.4-31.0); PROTHROMBIN TIME 10.8 sec (9.6-11.0)
[2024-01-06 17:26] LABS: CHLORIDE 100 mEq/L (98-107); POTASSIUM 4.6 mEq/L (3.5-5.1); SODIUM 132 mEq/L (136-145)
[2024-01-06 17:27] LABS: CALCIUM 8.3 mg/dL (8.7-10.4); CARBON DIOXIDE 18 mEq/L (21-32)
[2024-01-06 17:33] LABS: GLUCOSE 392 mg/dL (70-105); TROPONIN I HIGH SENSITIVITY 19 ng/L (3.0-34); UREA NITROGEN BLOOD 60 mg/dL (9-23)
[2024-01-06 17:35] LABS: ETHANOL BLOOD < 10 mg/dL (<10)
[2024-01-06 17:42] LABS: CREATININE 8.9 mg/dL (0.6-1.0)
[2024-01-06 17:48] LABS: ANISOCYTOSIS 1+; PLATELET ESTIMATE NORMAL
[2024-01-06 18:23] LABS: ALANINE AMINOTRANSFERASE 54 IU/L (10-49); ALBUMIN 3.8 g/dL (3.2-4.8); ASPARTATE AMINOTRANSFERASE 54 IU/L (<34); BILIRUBIN DIRECT 0.1 mg/dL (<=3.0); BILIRUBIN TOTAL < 0.2 mg/dL (0.1-1.0); PROTEIN TOTAL 7.3 g/dL (6.0-8.3)
[2024-01-06] MEDS: HYDROCODONE/ACETAMINOPHEN 10/325MG TABLET PO PRN (18:39)
[2024-01-06] MEDS: NALOXONE HCL 0.4MG/ML VIAL IV PRN (18:39)
[2024-01-06 20:27] LABS: TROPONIN I HIGH SENSITIVITY 17 ng/L (3.0-34)
[2024-01-06] MEDS: INSULIN LISPRO 100 UNITS/ML SUBCUT NR (20:35)
[2024-01-07] VITALS (11 sets, daily range): BP systolic 103–196; BP diastolic 65–96; PULSE 79–87; RESP 15–20; TEMP 97.9–98
[2024-01-07] MEDS ORDERED: DEXTROSE 50% WATER 50ML SYRINGE IV PRN (12:45)
[2024-01-07] MEDS: CLOPIDOGREL 75MG TABLET PO SCH (16:40)
[2024-01-07] MEDS: ASPIRIN 81MG TABLET PO SCH (16:40)
[2024-01-07] MEDS: INSULIN GLARGINE 100 UNITS/ML SUBCUT NR (16:41)
[2024-01-07] MEDS: INSULIN LISPRO 100 UNITS/ML SUBCUT SCH (16:42)
[2024-01-07] MEDS: BLOOD SUGAR DIAGNOSTIC STRIP TEST SCH (16:42)
[2024-01-07] MEDS: METOCLOPRAMIDE HCL 10MG/2ML VIAL IV SCH (17:10)
[2024-01-07] MEDS: ONDANSETRON HCL 4MG/2ML INJ IV PRN (17:10)
[2024-01-07 20:00] LABS: CLARITY URINE TURBID (CLEAR); COLOR URINE YELLOW (YELLOW); GLUCOSE URINE 2+ (NEGATIVE); KETONES URINE TRACE (NEGATIVE); LEUKOCYTE ESTERASE URINE 3+ (NEGATIVE); NITRITE URINE NEGATIVE (NEGATIVE); OCCULT BLOOD URINE TRACE (NEGATIVE); PH URINE 5.5 (4.5-8.0); PROTEIN URINE 2+ (NEGATIVE); SPECIFIC GRAVITY URINE 1.015 (1.005-1.030); UROBILINOGEN URINE 0.2 E.U./dL (0.2-1.0)
[2024-01-07 20:48] LABS: BACTERIA URINE 3+; SQUAMOUS EPITHELIAL CELL URINE 1+ /lpf (RARE/1+)
[2024-01-07 20:49] LABS: RBC URINE 0-2 /hpf (0-2); WBC URINE TNTC /hpf (0-2)
[2024-01-07] MEDS: MELATONIN 3MG TABLET PO SCH (21:02)
[2024-01-07] MEDS: INSULIN GLARGINE 100 UNITS/ML SUBCUT SCH (22:35)
[2024-01-08 01:30] VITALS: BP 96/47; PULSE 95; RESP 20; TEMP 98
[2024-01-08 04:00] VITALS: BP 130/79; PULSE 71; RESP 22; TEMP 98.2
[2024-01-08 06:50] LABS: HEMATOCRIT 32.4 % (36.0-48.0); HEMOGLOBIN 10.4 g/dL (12.0-16.0); MEAN CORPUSCULAR HEMOGLOBIN 26.9 pg (28.0-32.0); MEAN CORPUSCULAR HGB CONC 32.2 g/dL (31.0-37.0); MEAN CORPUSCULAR VOLUME 83.5 fL (81.0-99.0); PLATELET 229 x1000/uL (130-400); RED BLOOD CELL COUNT 3.88 mill/uL (4.2-5.4); RED CELL DISTRIBUTION WIDTH 19.8 % (11.6-14.6); WHITE BLOOD COUNT 2.6 x1000/uL (4.5-11.0)
[2024-01-08 07:01] LABS: CALCIUM 7.8 mg/dL (8.7-10.4); CARBON DIOXIDE 24 mEq/L (21-32); CHLORIDE 104 mEq/L (98-107); POTASSIUM 4.5 mEq/L (3.5-5.1); SODIUM 139 mEq/L (136-145)
[2024-01-08 07:07] LABS: GLUCOSE 77 mg/dL (70-105); UREA NITROGEN BLOOD 45 mg/dL (9-23)
[2024-01-08 07:10] LABS: PHOSPHORUS 5.4 mg/dL (2.5-4.9)
[2024-01-08 08:00] VITALS: BP 149/88; PULSE 77; RESP 15; TEMP 98.2
[2024-01-08] MEDS ORDERED: LINE600T11 MT (10:37)
[2024-01-08] MEDS ORDERED: LANTUSUD SUBCUT (10:37)
[2024-01-08 12:00] VITALS: BP 156/85; PULSE 79; RESP 16; TEMP 98.2
[2024-01-08 13:22] VITALS: BP 156/85; PULSE 79; TEMP 98.2; O2SAT 100
[2024-01-08] MEDS: CEFTRIAXONE 1GM/50ML 50 ML IV SCH (13:38)
== END 2024-01-08 19:07 | disposition home or self-care (01) | DRG 291 ==
LOC: ER 16:03 → 5WST 18:03 → EDBEDREQ 18:15 → EDBEDREQTM 18:15 → 3WST 01-07 15:35
PROVIDERS: ADMIT Internal Medicine; ATTEND Internal Medicine
PROC: 5A1D70Z Performance of Urinary Filtration, Intermittent, Less than 6 Hours Per Day (ICD-10-PCS; principal; 2024-01-07)
DX: I13.2 Hypertensive heart and chronic kidney disease with heart failure and with stage 5 chronic kidney disease, or end stage renal disease (principal); N18.6 End stage renal disease; N39.0 Urinary tract infection, site not specified; D64.9 Anemia, unspecified; I25.10 Atherosclerotic heart disease of native coronary artery without angina pectoris; R07.89 Other chest pain; I50.9 Heart failure, unspecified; Z99.2 Dependence on renal dialysis; E11.22 Type 2 diabetes mellitus with diabetic chronic kidney disease; E11.65 Type 2 diabetes mellitus with hyperglycemia; I25.2 Old myocardial infarction; Z95.5 Presence of coronary angioplasty implant and graft
CPT/HCPCS: 36415; 71045; 80048; 80076; 80320; 81003; 82962; 83735; 83880; 84100; 84484; 85025; 85027; 87077; 87186; 90935; 93005; 99285; J0696; J1815; J2405; J2765; G0480

== ENCOUNTER 2024-01-24 04:21 | Inpatient (IN) | payer OTHER ==
[~2024-01-24] VITALS: Ht 172.7 cm; Wt 73.0 kg
[2024-01-24] VITALS (11 sets, daily range): BP systolic 114–188; BP diastolic 71–99; PULSE 71–108; RESP 14–18; TEMP 97.5–98.1
[~2024-01-24 04:21] MED LIST changes: +LANTUSUD SUBCUT; +LINE600T11 MT
[2024-01-24] MEDS: DEXTROSE 50% WATER 50ML SYRINGE IV ONE ×5 (04:45→11:17)
[2024-01-24] MEDS ORDERED: ONDANSETRON 4MG ODT PO ONE (05:30)
[2024-01-24] MEDS ORDERED: MORPHINE SULFATE 4 MG/ML INJ (FOR IV/IM USE) IV ONE (05:30)
[2024-01-24 05:38] LABS: BASOPHILS % 0.6 % (0.0-2.0); EOSINOPHILS % 1.2 % (0.0-5.0); HEMATOCRIT. 27.2 % (36.0-48.0); HEMOGLOBIN. 8.5 g/dL (12.0-16.0); LYMPHOCYTES % 14.8 % (20.0-50.0); MEAN CORPUSCULAR HEMOGLOBIN 26.4 pg (28.0-32.0); MEAN CORPUSCULAR HGB CONC 31.2 g/dL (31.0-37.0); MEAN CORPUSCULAR VOLUME 84.4 fL (81.0-99.0); MEAN PLATELET VOLUME 7.6 fl (7.4-10.4); MONOCYTES % 11.8 % (2.0-8.0); NEUTROPHILS % 71.6 % (40.0-76.0); PLATELET 188 x1000/uL (130-400); RED BLOOD CELL COUNT 3.22 mill/uL (4.2-5.4); RED CELL DISTRIBUTION WIDTH 20.3 % (11.6-14.6); WHITE BLOOD COUNT 3.6 x1000/uL (4.5-11.0)
[2024-01-24 05:40] LABS: CHLORIDE 108 mEq/L (98-107); SODIUM 138 mEq/L (136-145)
[2024-01-24 05:41] LABS: CARBON DIOXIDE 18 mEq/L (21-32)
[2024-01-24 05:42] LABS: CALCIUM 7.1 mg/dL (8.7-10.4)
[2024-01-24 05:46] LABS: GLUCOSE 103 mg/dL (70-105); TROPONIN I HIGH SENSITIVITY 12 ng/L (3.0-34)
[2024-01-24 05:47] LABS: UREA NITROGEN BLOOD 80 mg/dL (9-23)
[2024-01-24 05:48] LABS: ALANINE AMINOTRANSFERASE 32 IU/L (10-49); ASPARTATE AMINOTRANSFERASE 42 IU/L (<34)
[2024-01-24 05:49] LABS: BILIRUBIN TOTAL 0.3 mg/dL (0.1-1.0); PROTEIN TOTAL 7.5 g/dL (6.0-8.3)
[2024-01-24 05:52] LABS: POTASSIUM 5.2 mEq/L (3.5-5.1)
[2024-01-24 05:54] LABS: CREATININE 9.2 mg/dL (0.6-1.0)
[2024-01-24] MEDS: DEXT 10% WATER 250 ML IV SCH (05:54)
[2024-01-24 05:56] LABS: PROTHROMBIN TIME 11.3 sec (9.6-11.0)
[2024-01-24] MEDS: MORPHINE SULFATE 4 MG/ML INJ (FOR IV/IM USE) IV NR (06:08)
[2024-01-24] MEDS: ONDANSETRON 4MG ODT PO NR (06:08)
[2024-01-24] MEDS ORDERED: DEXTROSE 50% WATER 50ML SYRINGE IV ONE (07:24)
[2024-01-24] MEDS: DEXT 10% WATER 1,000 ML IV ONE (07:59)
[2024-01-24] MEDS: MORPHINE SULFATE 4 MG/ML INJ (FOR IV/IM USE) IV ONE (08:12)
[2024-01-24 09:17] LABS: TROPONIN I HIGH SENSITIVITY 16 ng/L (3.0-34)
[2024-01-24] MEDS ORDERED: DEXT 10% WATER 1,000 ML IV SCH (11:15)
[2024-01-24 11:40] LABS: HEPATITIS B SURFACE ANTIGEN NEGATIVE (Negative)
[2024-01-24 12:00] LABS: HEPATITIS A AB IGM NEGATIVE (Negative)
[2024-01-24 12:01] LABS: HEPATITIS B CORE AB IGM NEGATIVE (Negative)
[2024-01-24 12:02] LABS: HEPATITIS C AB NON REACTIVE (Neg) (Negative)
[2024-01-24] MEDS ORDERED: ONDANSETRON HCL 4MG/2ML INJ IV PRN (12:15)
[2024-01-24] MEDS ORDERED: ACETAMINOPHEN 325MG TABLET PO PRN (12:15)
[2024-01-24] MEDS: BLOOD SUGAR DIAGNOSTIC STRIP TEST SCH (13:10)
[2024-01-24] MEDS: CALCIUM ACETATE 667 MG TABLET PO SCH (13:27)
[2024-01-24] MEDS: MORPHINE SULFATE 2 MG/ML CPJ (NOT FOR IM USE) IV ONE (15:07)
[2024-01-24] MEDS ORDERED: ASPI-1406 MT (16:39)
[2024-01-24] MEDS ORDERED: DEXTROSE 50% WATER 50ML SYRINGE IV PRN (18:30)
[2024-01-24] MEDS: DEXT 5%/0.45% NACL 1000ML 1,000 ML IV SCH (21:40)
[2024-01-25] VITALS: BP 152/76; PULSE 86; RESP 18; TEMP 98.6
[2024-01-25 04:00] VITALS: BP 156/86; PULSE 86; RESP 18; TEMP 98.8
[2024-01-25 08:00] VITALS: BP 135/58; PULSE 83; RESP 18; TEMP 97.8
[2024-01-25] MEDS: ASPIRIN 81MG TABLET PO SCH (08:49)
[2024-01-25] MEDS: CLOPIDOGREL 75MG TABLET PO SCH (08:50)
[2024-01-25] MEDS: FOLIC ACID/VITAMIN B COMP W-C TABLET PO SCH (08:50)
[2024-01-25 11:42] VITALS: BP 159/79; PULSE 86; TEMP 98.8; O2SAT 100
[2024-01-25 12:00] VITALS: BP 159/79; PULSE 86; RESP 18; TEMP 98.8
== END 2024-01-25 13:25 | disposition home or self-care (01) | DRG 638 ==
LOC: ER 04:21 → EDBEDREQSVC 08:40 → EDBEDREQTM 08:40 → EDBEDREQ 08:40 → EDBEDREQSVC 11:09 → 8WST 15:41
PROVIDERS: ADMIT Internal Medicine; ATTEND Internal Medicine
PROC: 3E1M39Z Irrigation of Peritoneal Cavity using Dialysate, Percutaneous Approach (ICD-10-PCS; principal; 2024-01-24)
DX: E11.649 Type 2 diabetes mellitus with hypoglycemia without coma (principal); I12.0 Hypertensive chronic kidney disease with stage 5 chronic kidney disease or end stage renal disease; E11.65 Type 2 diabetes mellitus with hyperglycemia; E11.22 Type 2 diabetes mellitus with diabetic chronic kidney disease; D64.9 Anemia, unspecified; E87.70 Fluid overload, unspecified; I25.10 Atherosclerotic heart disease of native coronary artery without angina pectoris; I25.2 Old myocardial infarction; N18.6 End stage renal disease; Z87.440 Personal history of urinary (tract) infections; Z95.5 Presence of coronary angioplasty implant and graft; Z99.2 Dependence on renal dialysis; Z88.8 Allergy status to other drugs, medicaments and biological substances
CPT/HCPCS: 36415; 71045; 74176; 80053; 82962; 84484; 85025; 86705; 86709; 87340; 90935; 99291; J2270; Q0162

== ENCOUNTER 2024-01-27 10:23 | Inpatient (IN) | payer OTHER ==
[~2024-01-27] VITALS: Ht 172.7 cm; Wt 87.7 kg
[~2024-01-27 10:23] MED LIST changes: +ASPI-1406 MT
[2024-01-27] MEDS: DEXTROSE 50% WATER 50ML SYRINGE IV ONE ×2 (11:00→12:37)
[2024-01-27 11:15] LABS: BASOPHILS % 0.7 % (0.0-2.0); EOSINOPHILS % 0.9 % (0.0-5.0); HEMATOCRIT. 25.4 % (36.0-48.0); HEMOGLOBIN. 8.2 g/dL (12.0-16.0); LYMPHOCYTES % 16.8 % (20.0-50.0); MEAN CORPUSCULAR HEMOGLOBIN 26.9 pg (28.0-32.0); MEAN CORPUSCULAR HGB CONC 32.4 g/dL (31.0-37.0); MEAN CORPUSCULAR VOLUME 82.9 fL (81.0-99.0); MEAN PLATELET VOLUME 7.2 fl (7.4-10.4); MONOCYTES % 12.1 % (2.0-8.0); NEUTROPHILS % 69.5 % (40.0-76.0); PLATELET 154 x1000/uL (130-400); RED BLOOD CELL COUNT 3.07 mill/uL (4.2-5.4); RED CELL DISTRIBUTION WIDTH 19.6 % (11.6-14.6); WHITE BLOOD COUNT 2.5 x1000/uL (4.5-11.0)
[2024-01-27 11:21] LABS: CHLORIDE 104 mEq/L (98-107); POTASSIUM 4.2 mEq/L (3.5-5.1); SODIUM 137 mEq/L (136-145)
[2024-01-27 11:22] LABS: CARBON DIOXIDE 22 mEq/L (21-32)
[2024-01-27 11:23] LABS: CALCIUM 6.8 mg/dL (8.7-10.4)
[2024-01-27 11:26] LABS: INR 1.1; PROTHROMBIN TIME 11.9 sec (9.6-11.0)
[2024-01-27 11:27] LABS: GLUCOSE 172 mg/dL (70-105); UREA NITROGEN BLOOD 64 mg/dL (9-23)
[2024-01-27 11:28] LABS: TROPONIN I HIGH SENSITIVITY 21 ng/L (3.0-34)
[2024-01-27 11:50] LABS: CREATININE 7.7 mg/dL (0.6-1.0)
[2024-01-27] MEDS: ONDANSETRON HCL 4MG/2ML INJ IV STA (12:41)
[2024-01-27] MEDS: MORPHINE SULFATE 4 MG/ML INJ (FOR IV/IM USE) IV STA (12:42)
[2024-01-27 13:28] LABS: TROPONIN I HIGH SENSITIVITY 23 ng/L (3.0-34)
[2024-01-27] MEDS ORDERED: IPRATROPIUM/ALBUTEROL 0.5-3(2.5)MG/3ML NEB HHN PRN (14:30)
[2024-01-27] MEDS ORDERED: DEXTROSE 50% WATER 50ML SYRINGE IV PRN ×2 (14:30→23:30)
[2024-01-27] MEDS ORDERED: ONDANSETRON HCL 4MG/2ML INJ IV PRN (14:30)
[2024-01-27] MEDS ORDERED: ACETAMINOPHEN 325MG TABLET PO PRN ×2 (14:30)
[2024-01-27] MEDS: PANTOPRAZOLE SODIUM 40 MG/VIAL IV SCH (16:20)
[2024-01-27] MEDS: FOLIC ACID/VITAMIN B COMP W-C TABLET PO SCH (16:28)
[2024-01-27] MEDS: AMLODIPINE 10MG TABLET PO SCH (16:28)
[2024-01-27] MEDS: ATENOLOL 25MG TABLET PO SCH (16:28)
[2024-01-27] MEDS ORDERED: HYDRALAZINE 20MG/ML VIAL IV PRN (17:00)
[2024-01-27 17:24] LABS: PHOSPHORUS 6.9 mg/dL (2.5-4.9); TROPONIN I HIGH SENSITIVITY 18 ng/L (3.0-34)
[2024-01-27 17:33] LABS: IRON 69 ug/dL (50-170)
[2024-01-27 17:35] LABS: ALBUMIN 3.7 g/dL (3.2-4.8); TOTAL IRON BINDING CAPACITY 335 ug/dl (250-425)
[2024-01-27] MEDS ORDERED: CALCIUM GLUCONATE 1GM PREMIX 50 ML IV NR (18:30)
[2024-01-27] MEDS: LOSARTAN 50 MG TABLET PO SCH (19:07)
[2024-01-27] MEDS: HYDRALAZINE HCL 50MG TABLET PO SCH (19:07)
[2024-01-27 19:25] VITALS: BP 133/74; PULSE 68; RESP 18; TEMP 97.9
[2024-01-27 19:30] VITALS: BP 128/73; PULSE 68; RESP 18; TEMP 97.9
[2024-01-27 19:44] LABS: FOLIC ACID (FOLATE) SERUM 10.16 ng/mL (>5.38)
[2024-01-27 19:45] LABS: VITAMIN B12 SERUM 1052 pg/mL (211-911)
[2024-01-27 20:00] VITALS: BP 133/74; PULSE 71; RESP 18; TEMP 97.9
[2024-01-27] MEDS: TRAMADOL 50MG TABLET PO NR (21:46)
[2024-01-27] MEDS: EPOETIN ALFA 4000UNITS/ML VIAL SUBCUT SCH (21:53)
[2024-01-27 22:00] VITALS: BP 133/74; PULSE 71; RESP 14; TEMP 97.9
[2024-01-27] MEDS ORDERED: HYDRALAZINE HCL 50MG TABLET PO SCH (22:00)
[2024-01-27] MEDS: CALCIUM GLUCONATE 1 GM IV NR (22:46)
[2024-01-27] MEDS: MELATONIN 3MG TABLET PO PRN (23:12)
[2024-01-28] VITALS (9 sets, daily range): BP systolic 98–129; BP diastolic 56–88; PULSE 66–85; RESP 11–20; TEMP 97.5–98.5
[2024-01-28] MEDS: INSULIN LISPRO 100 UNITS/ML SUBCUT NR (05:53)
[2024-01-28 06:40] LABS: POTASSIUM 4.4 mEq/L (3.5-5.1)
[2024-01-28 06:41] LABS: CALCIUM 6.8 mg/dL (8.7-10.4)
[2024-01-28 06:49] LABS: THYROID STIMULATING HORMONE 5.71 uIU/mL (0.55-4.78)
[2024-01-28 06:54] LABS: CREATININE 7.2 mg/dL (0.6-1.0)
[2024-01-28 06:55] LABS: BASOPHILS % 0.5 % (0.0-2.0); EOSINOPHILS % 1.9 % (0.0-5.0); HEMATOCRIT. 24.3 % (36.0-48.0); HEMOGLOBIN. 7.9 g/dL (12.0-16.0); LYMPHOCYTES % 20.3 % (20.0-50.0); MEAN CORPUSCULAR HEMOGLOBIN 27.2 pg (28.0-32.0); MEAN CORPUSCULAR HGB CONC 32.4 g/dL (31.0-37.0); MEAN CORPUSCULAR VOLUME 83.8 fL (81.0-99.0); MEAN PLATELET VOLUME 8.2 fl (7.4-10.4); MONOCYTES % 12.4 % (2.0-8.0); NEUTROPHILS % 64.9 % (40.0-76.0); PLATELET 189 x1000/uL (130-400); RED CELL DISTRIBUTION WIDTH 19.5 % (11.6-14.6)
[2024-01-28] MEDS ORDERED: DEXTROSE 50% WATER 50ML SYRINGE IV PRN (07:30)
[2024-01-28] MEDS: BLOOD SUGAR DIAGNOSTIC STRIP TEST SCH ×2 (07:30)
[2024-01-28] MEDS ORDERED: LOSARTAN 50 MG TABLET PO SCH (09:00)
[2024-01-28] MEDS ORDERED: NALOXONE HCL 0.4MG/ML VIAL IV PRN (10:00)
[2024-01-28] MEDS: ASPIRIN 81MG EC TABLET PO SCH (10:09)
[2024-01-28 12:23] LABS: CLARITY URINE TURBID (CLEAR); COLOR URINE YELLOW (YELLOW); GLUCOSE URINE NEGATIVE (NEGATIVE); KETONES URINE TRACE (NEGATIVE); LEUKOCYTE ESTERASE URINE 3+ (NEGATIVE); NITRITE URINE NEGATIVE (NEGATIVE); OCCULT BLOOD URINE 3+ (NEGATIVE); PH URINE 6.5 (4.5-8.0); PROTEIN URINE 2+ (NEGATIVE); SPECIFIC GRAVITY URINE 1.016 (1.005-1.030); UROBILINOGEN URINE 0.2 E.U./dL (0.2-1.0)
[2024-01-28 12:36] LABS: *AMPHETAMINES SCREEN URINE NEGATIVE (NEGATIVE); *BENZODIAZEPINES SCREEN URINE NEGATIVE (NEGATIVE)
[2024-01-28 12:37] LABS: *BARBITURATES SCREEN URINE NEGATIVE (NEGATIVE); *COCAINE SCREEN URINE NEGATIVE (NEGATIVE); CANNABINOID URINE SCREEN NEGATIVE (NEGATIVE); METHADONE URINE SCREEN NEGATIVE (NEGATIVE); OPIATES URINE SCREEN PRESUMPTIVE POSITIVE (NEGATIVE); PHENCYCLIDINE URINE SCREEN NEGATIVE (NEGATIVE)
[2024-01-28 12:38] LABS: ECSTASY MDMA SCREEN URINE NEGATIVE (NEGATIVE)
[2024-01-28 13:00] LABS: BACTERIA URINE 4+
[2024-01-28 13:01] LABS: SQUAMOUS EPITHELIAL CELL URINE NONE SEEN /lpf (RARE/1+); WBC URINE TNTC /hpf (0-2)
[2024-01-28 13:02] LABS: RBC URINE 25-50 /hpf (0-2)
[2024-01-28] MEDS: INSULIN LISPRO 100 UNITS/ML SUBCUT SCH (14:21)
[2024-01-28] MEDS: LEVOTHYROXINE SODIUM 25MCG TABLET PO SCH (17:30)
[2024-01-28] MEDS: TRAMADOL 50MG TABLET PO PRN (21:30)
[2024-01-28 22:21] LABS: BODY FLUID MONOCYTES 49 %; BODY FLUID RBC 75 /cu mm (0-2000); BODY FLUID WBC 23 /cu mm (0-200)
[2024-01-29] VITALS (9 sets, daily range): BP systolic 96–142; BP diastolic 54–103; PULSE 62–87; RESP 11–23; TEMP 98–98.9
[2024-01-29] MEDS: MORPHINE SULFATE 2 MG/ML CPJ (NOT FOR IM USE) IV NR (02:01)
[2024-01-29] MEDS: INSULIN REGULAR (HUMULIN R) 1000UNITS/10ML VIAL IV NR ×2 (07:11→10:46)
[2024-01-29] MEDS: INSULIN LISPRO 100 UNITS/ML SUBCUT NR (07:12)
[2024-01-29 08:13] LABS: FOLICLE STIMULATING HORMONE 1.6 mIU/mL (.); LUTEINIZING HORMONE <0.3 mIU/mL (.); THYROID PEROXIDASE ANTIBODY 14 IU/mL (0-34); VITAMIN D 25-OH 7.8 ng/mL (30.0-100.0)
[2024-01-29] MEDS: FUROSEMIDE 40MG TABLET PO SCH (09:17)
[2024-01-29 10:20] LABS: HEMATOCRIT. 26.1 % (36.0-48.0); MEAN CORPUSCULAR HEMOGLOBIN 27.2 pg (28.0-32.0); MEAN CORPUSCULAR HGB CONC 30.7 g/dL (31.0-37.0); MEAN CORPUSCULAR VOLUME 88.5 fL (81.0-99.0); MEAN PLATELET VOLUME 8.4 fl (7.4-10.4); PLATELET 173 x1000/uL (130-400); RED BLOOD CELL COUNT 2.95 mill/uL (4.2-5.4); RED CELL DISTRIBUTION WIDTH 19.9 % (11.6-14.6); WHITE BLOOD COUNT 3.3 x1000/uL (4.5-11.0)
[2024-01-29 10:22] LABS: DIFFERENTIAL COMMENT 1
[2024-01-29 11:54] LABS: CALCIUM 6.4 mg/dL (8.7-10.4); POTASSIUM 3.8 mEq/L (3.5-5.1)
[2024-01-29] MEDS: SEVELAMER CARBONATE 800 MG TABLET PO SCH (12:20)
[2024-01-29 13:07] LABS: C-PEPTIDE < 0.1 ng/mL (1.1-4.4); INSULIN 1.3 uIU/mL (2.6-24.9)
[2024-01-29] MEDS ORDERED: INSULIN REGULAR (HUMULIN R) 1000UNITS/10ML VIAL SUBCUT SCH (16:50)
[2024-01-29 18:03] LABS: PLATELET ESTIMATE NORMAL
[2024-01-29 18:04] LABS: ANISOCYTOSIS 1+
[2024-01-29] MEDS: INSULIN LISPRO 100 UNITS/ML SUBCUT SCH ×3 (18:11→22:35)
[2024-01-29] MEDS ORDERED: CALCIUM GLUCONATE 1GM PREMIX 50 ML IV ONE (20:15)
[2024-01-29] MEDS: CALCIUM GLUCONATE 1 GM IV NR (21:09)
[2024-01-29] MEDS: CEFTRIAXONE 1GM/50ML 50 ML IV SCH (22:33)
[2024-01-30] VITALS: BP 98/51; PULSE 60; RESP 14; TEMP 98.7
[2024-01-30] MEDS: BLOOD SUGAR DIAGNOSTIC STRIP TEST SCH (03:00)
[2024-01-30 04:00] VITALS: BP 99/59; PULSE 60; RESP 17; TEMP 98.7
[2024-01-30] MEDS: INSULIN LISPRO 100 UNITS/ML SUBCUT SCH (06:55)
[2024-01-30] MEDS: INSULIN REGULAR (HUMULIN R) 1000UNITS/10ML VIAL IV SCH (06:56)
[2024-01-30 07:27] LABS: CHLORIDE 102 mEq/L (98-107); POTASSIUM 4.3 mEq/L (3.5-5.1); SODIUM 134 mEq/L (136-145)
[2024-01-30 07:28] LABS: CALCIUM 6.8 mg/dL (8.7-10.4); CARBON DIOXIDE 21 mEq/L (21-32); HEMATOCRIT. 25.2 % (36.0-48.0); MEAN CORPUSCULAR HEMOGLOBIN 26.8 pg (28.0-32.0); MEAN CORPUSCULAR HGB CONC 31.7 g/dL (31.0-37.0); MEAN CORPUSCULAR VOLUME 84.5 fL (81.0-99.0); MEAN PLATELET VOLUME 8.2 fl (7.4-10.4); PLATELET 199 x1000/uL (130-400); RED BLOOD CELL COUNT 2.98 mill/uL (4.2-5.4); RED CELL DISTRIBUTION WIDTH 19.6 % (11.6-14.6); WHITE BLOOD COUNT 3.6 x1000/uL (4.5-11.0)
[2024-01-30 07:30] VITALS: BP_SYST 104; BP_SYST 105; BP_DIAS 54; BP_DIAS 66; PULSE 66; PULSE 67; RESP 18; TEMP 97; TEMP 97.8
[2024-01-30 07:33] LABS: GLUCOSE 351 mg/dL (70-105); UREA NITROGEN BLOOD 60 mg/dL (9-23)
[2024-01-30 07:44] LABS: CREATININE 8.4 mg/dL (0.6-1.0)
[2024-01-30 08:00] VITALS: BP 113/59; PULSE 63; RESP 11; TEMP 98.5
[2024-01-30 08:01] LABS: DIFFERENTIAL COMMENT 1
[2024-01-30] MEDS ORDERED: MAGNESIUM 2 G PREMIX 50 ML IV SCH (09:30)
[2024-01-30] MEDS: INSULIN REGULAR (HUMULIN R) 1000UNITS/10ML VIAL IV ONE (09:39)
[2024-01-30] MEDS: MAGNESIUM 2 G PREMIX 50 ML IV ONE (10:15)
[2024-01-30] MEDS ORDERED: INSU100V40 SQ (10:47)
[2024-01-30] MEDS ORDERED: INSU100V43 SQ (10:47)
[2024-01-30] MEDS ORDERED: LEVO-65 PO (10:47)
[2024-01-30] MEDS ORDERED: LEVO25TA7 PO (11:02)
[2024-01-30 13:10] VITALS: BP 111/69; PULSE 60; TEMP 98.4; O2SAT 97
[2024-01-30 16:37] LABS: PLATELET ESTIMATE NORMAL
[2024-02-02 14:11] LABS: PRO INSULIN < 0.3 pmol/L (0.0-10.0)
== END 2024-01-30 13:50 | disposition home or self-care (01) | DRG 638 ==
LOC: ER 10:23 → 5WST 13:01 → EDBEDREQTM 13:12 → EDBEDREQ 13:12 → 3WST 18:15
PROVIDERS: ADMIT Internal Medicine; ATTEND Internal Medicine
PROC: 3E1M39Z Irrigation of Peritoneal Cavity using Dialysate, Percutaneous Approach (ICD-10-PCS; principal; 2024-01-27)
PROC: 3E1M39Z Irrigation of Peritoneal Cavity using Dialysate, Percutaneous Approach (ICD-10-PCS; 2024-01-28)
PROC: 3E1M39Z Irrigation of Peritoneal Cavity using Dialysate, Percutaneous Approach (ICD-10-PCS; 2024-01-29)
DX: E11.649 Type 2 diabetes mellitus with hypoglycemia without coma (principal); I12.0 Hypertensive chronic kidney disease with stage 5 chronic kidney disease or end stage renal disease; N39.0 Urinary tract infection, site not specified; N18.6 End stage renal disease; I25.10 Atherosclerotic heart disease of native coronary artery without angina pectoris; E83.51 Hypocalcemia; J44.9 Chronic obstructive pulmonary disease, unspecified; D63.1 Anemia in chronic kidney disease; E11.22 Type 2 diabetes mellitus with diabetic chronic kidney disease; B96.1 Klebsiella pneumoniae [K. pneumoniae] as the cause of diseases classified elsewhere; E03.9 Hypothyroidism, unspecified; T38.3X5A Adverse effect of insulin and oral hypoglycemic [antidiabetic] drugs, initial encounter; D72.819 Decreased white blood cell count, unspecified; E83.42 Hypomagnesemia; K76.0 Fatty (change of) liver, not elsewhere classified; R91.1 Solitary pulmonary nodule; Z99.2 Dependence on renal dialysis; I25.2 Old myocardial infarction; Z87.440 Personal history of urinary (tract) infections; Z87.19 Personal history of other diseases of the digestive system; Z79.4 Long term (current) use of insulin; Z79.82 Long term (current) use of aspirin; Z79.899 Other long term (current) drug therapy; Z90.49 Acquired absence of other specified parts of digestive tract; Z95.5 Presence of coronary angioplasty implant and graft; Y92.89 Other specified places as the place of occurrence of the external cause
CPT/HCPCS: 36415; 71045; 80048; 80305; 81003; 82040; 82306; 82330; 82533; 82607; 82746; 82947; 82962; 83001; 83002; 83036; 83525; 83540; 83550; 83605; 83735; 83880; 83930; 83935; 84100; 84145; 84146; 84206; 84439; 84443; 84484; 84681; 85025; 86376; 87077; 87186; 90935; 90945; 99285; C9113; J0610; J0696; J0885; J1815; J2270; J2405; J3475

== ENCOUNTER 2024-03-06 10:17 | Inpatient (IN) | payer OTHER ==
[~2024-03-06] VITALS: Ht 162.6 cm; Wt 83.0 kg
[~2024-03-06 10:17] MED LIST changes: -HYDR100T26 PO; -INSU100I24 SUBCUT; -INSU100I53 SUBCUT; +INSU100V40 SQ; +INSU100V43 SQ; -LANTUSUD SUBCUT; +LEVO-65 PO; +LEVO25TA7 PO; -LINE600T11 MT; -LOSA50TA41 PO
[2024-03-06 10:25] VITALS: O2SAT 97
[2024-03-06] MEDS: FUROSEMIDE 40MG/4ML VIAL IVP SCH (11:24)
[2024-03-06] MEDS: VANCOMYCIN 1G PREMIX 200 ML IV STA (12:08)
[2024-03-06] MEDS: PIPERACILLIN/TAZO 3.375G/50ML 50 ML IV STA (12:09)
[2024-03-06] MEDS: MORPHINE SULFATE 4 MG/ML INJ (FOR IV/IM USE) IV ONE (12:54)
[2024-03-06] MEDS: HYDRALAZINE 20MG/ML VIAL IV ONE (12:54)
[2024-03-06 13:02] LABS: HEMATOCRIT. 27.7 % (36.0-48.0); HEMOGLOBIN. 8.7 g/dL (12.0-16.0); MEAN CORPUSCULAR HEMOGLOBIN 26.5 pg (28.0-32.0); MEAN CORPUSCULAR HGB CONC 31.2 g/dL (31.0-37.0); MEAN CORPUSCULAR VOLUME 84.9 fL (81.0-99.0); MEAN PLATELET VOLUME 7.1 fl (7.4-10.4); PLATELET 235 x1000/uL (130-400); RED BLOOD CELL COUNT 3.26 mill/uL (4.2-5.4); WHITE BLOOD COUNT 4.6 x1000/uL (4.5-11.0)
[2024-03-06 13:03] LABS: DIFFERENTIAL COMMENT 1
[2024-03-06 13:06] LABS: CHLORIDE 102 mEq/L (98-107); POTASSIUM 4.9 mEq/L (3.5-5.1); SODIUM 137 mEq/L (136-145)
[2024-03-06 13:07] LABS: CALCIUM 8.2 mg/dL (8.7-10.4); CARBON DIOXIDE 26 mEq/L (21-32)
[2024-03-06 13:12] LABS: GLUCOSE 135 mg/dL (70-105); UREA NITROGEN BLOOD 60 mg/dL (9-23)
[2024-03-06 13:14] LABS: ALANINE AMINOTRANSFERASE < 7 IU/L (10-49); ALBUMIN 3.3 g/dL (3.2-4.8); ASPARTATE AMINOTRANSFERASE 10 IU/L (<34); BILIRUBIN TOTAL 0.4 mg/dL (0.1-1.0); PROTEIN TOTAL 7.1 g/dL (6.0-8.3)
[2024-03-06 13:18] LABS: TROPONIN I HIGH SENSITIVITY 44 ng/L (3.0-34)
[2024-03-06 13:19] LABS: CREATININE 9.6 mg/dL (0.6-1.0)
[2024-03-06] MEDS: SEVELAMER CARBONATE 800 MG TABLET PO SCH (13:39)
[2024-03-06] MEDS: ASPIRIN 325MG TABLET PO ONE (14:17)
[2024-03-06 14:21] LABS: ANISOCYTOSIS 1+; PLATELET ESTIMATE NORMAL
[2024-03-06] MEDS ORDERED: ONDANSETRON HCL 4MG/2ML INJ IV PRN (14:30)
[2024-03-06] MEDS ORDERED: MAGNESIUM/ALUMINUM HYDROXIDE/SIMETHICONE 30ML UDC PO PRN (14:30)
[2024-03-06] MEDS ORDERED: IPRATROPIUM/ALBUTEROL 0.5-3(2.5)MG/3ML NEB HHN PRN (14:30)
[2024-03-06] MEDS ORDERED: DOCUSATE SODIUM 100MG CAPSULE PO PRN (14:30)
[2024-03-06] MEDS ORDERED: GUAIFENESIN 200MG/10ML SUGAR FREE UDC PO PRN (14:30)
[2024-03-06] MEDS ORDERED: HYDRALAZINE 20MG/ML VIAL IV PRN (14:30)
[2024-03-06] MEDS: ENOXAPARIN 30MG/0.3ML SYR SUBCUT SCH (14:30)
[2024-03-06] MEDS ORDERED: CLONIDINE 0.1MG TABLET PO PRN (14:30)
[2024-03-06 15:33] LABS: TROPONIN I HIGH SENSITIVITY 42 ng/L (3.0-34)
[2024-03-06] MEDS: VANCOMYCIN 500MG/100ML IV NR (16:38)
[2024-03-06] MEDS: BLOOD SUGAR DIAGNOSTIC STRIP TEST SCH (16:45)
[2024-03-06] MEDS: INSULIN LISPRO 100 UNITS/ML SUBCUT SCH (17:15)
[2024-03-06] MEDS: HYDRALAZINE HCL 50MG TABLET PO SCH (23:00)
[2024-03-07] MEDS: PIPERACILLIN/TAZO 3.375G/50ML 50 ML IV SCH
[2024-03-07 00:09] LABS: TROPONIN I HIGH SENSITIVITY 39 ng/L (3.0-34)
[2024-03-07 04:00] VITALS: BP 114/70; PULSE 80; RESP 19; TEMP 97.9
[2024-03-07] MEDS ORDERED: NALOXONE HCL 0.4MG/ML VIAL IV PRN (05:45)
[2024-03-07] MEDS ORDERED: LEVOTHYROXINE SODIUM PO SCH (06:40)
[2024-03-07 08:00] VITALS: BP 153/72; PULSE 86; RESP 18; TEMP 98.6
[2024-03-07] MEDS: FOLIC ACID/VITAMIN B COMP W-C TABLET PO SCH (08:18)
[2024-03-07] MEDS: PANTOPRAZOLE SODIUM 40 MG/VIAL IV SCH (08:18)
[2024-03-07] MEDS: MORPHINE SULFATE 4 MG/ML INJ (FOR IV/IM USE) IV PRN (08:19)
[2024-03-07] MEDS: CLOPIDOGREL 75MG TABLET PO SCH (08:19)
[2024-03-07] MEDS: ASPIRIN 81MG EC TABLET PO SCH (08:19)
[2024-03-07] MEDS: LEVOTHYROXINE SODIUM 75MCG TABLET PO SCH (08:26)
[2024-03-07 12:00] VITALS: BP 128/68; PULSE 83; RESP 18; TEMP 99.7
[2024-03-07 12:13] LABS: HEMATOCRIT. 26.4 % (36.0-48.0); HEMOGLOBIN. 8.3 g/dL (12.0-16.0); MEAN CORPUSCULAR HEMOGLOBIN 26.8 pg (28.0-32.0); MEAN CORPUSCULAR HGB CONC 31.6 g/dL (31.0-37.0); MEAN CORPUSCULAR VOLUME 84.8 fL (81.0-99.0); MEAN PLATELET VOLUME 7.6 fl (7.4-10.4); PLATELET 243 x1000/uL (130-400); RED BLOOD CELL COUNT 3.11 mill/uL (4.2-5.4)
[2024-03-07 12:17] LABS: DIFFERENTIAL COMMENT 1
[2024-03-07 12:23] LABS: CARBON DIOXIDE 24 mEq/L (21-32); CHLORIDE 101 mEq/L (98-107); SODIUM 136 mEq/L (136-145)
[2024-03-07 12:24] LABS: CALCIUM 7.9 mg/dL (8.7-10.4)
[2024-03-07 12:25] LABS: TROPONIN I HIGH SENSITIVITY 27 ng/L (3.0-34)
[2024-03-07 12:28] LABS: IRON 20 ug/dL (50-170)
[2024-03-07 12:29] LABS: GLUCOSE 145 mg/dL (70-105); T4 FREE 0.74 ng/dL (0.89-1.76); TRIGLYCERIDE 84 mg/dL (0-150); UREA NITROGEN BLOOD 66 mg/dL (9-23)
[2024-03-07 12:30] LABS: LDL CHOLESTEROL 83 mg/dL (5-100); THYROID STIMULATING HORMONE 5.38 uIU/mL (0.55-4.78)
[2024-03-07 12:31] LABS: CHOLESTEROL 163 mg/dL (<200); HDL CHOLESTEROL 64 mg/dL (>65); PHOSPHORUS 6.7 mg/dL (2.5-4.9); TOTAL IRON BINDING CAPACITY 400 ug/dl (250-425)
[2024-03-07 12:36] LABS: FERRITIN 278 ng/mL (10-291)
[2024-03-07 12:37] LABS: FOLIC ACID (FOLATE) SERUM 11.63 ng/mL (>5.38); VITAMIN B12 SERUM 790 pg/mL (211-911)
[2024-03-07 13:01] LABS: CREATININE 10.2 mg/dL (0.6-1.0)
[2024-03-07] MEDS: ENOXAPARIN 40MG/0.4ML SYR SUBCUT SCH (15:13)
[2024-03-07 16:00] VITALS: BP 136/68; PULSE 81; RESP 18; TEMP 99.5
[2024-03-07 16:42] LABS: PLATELET ESTIMATE NORMAL
[2024-03-07] MEDS: FUROSEMIDE 100MG/10ML VIAL IVP SCH (17:15)
[2024-03-07 19:55] VITALS: BP 140/85; PULSE 80; RESP 18; TEMP 98.1
[2024-03-07 20:00] VITALS: BP_SYST 141; BP_SYST 144; BP_DIAS 101; BP_DIAS 83; PULSE 80; PULSE 81; RESP 18; RESP 19; TEMP 97.9; TEMP 98.1
[2024-03-08] VITALS (9 sets, daily range): BP systolic 120–155; BP diastolic 62–89; PULSE 82–91; RESP 16–19; TEMP 97–98.3
[2024-03-08 11:07] LABS: POTASSIUM 5.7 mEq/L (3.5-5.1)
[2024-03-08 11:08] LABS: CALCIUM 7.6 mg/dL (8.7-10.4)
[2024-03-08 11:23] LABS: CREATININE 9.9 mg/dL (0.6-1.0)
[2024-03-08 12:35] LABS: HEMATOCRIT. 26.7 % (36.0-48.0); HEMOGLOBIN. 8.3 g/dL (12.0-16.0); MEAN CORPUSCULAR HEMOGLOBIN 26.7 pg (28.0-32.0); MEAN PLATELET VOLUME 7.4 fl (7.4-10.4); PLATELET 240 x1000/uL (130-400); RED BLOOD CELL COUNT 3.11 mill/uL (4.2-5.4); RED CELL DISTRIBUTION WIDTH 16.1 % (11.6-14.6); WHITE BLOOD COUNT 5.7 x1000/uL (4.5-11.0)
[2024-03-08 12:43] LABS: DIFFERENTIAL COMMENT 1
[2024-03-08] MEDS: VANCOMYCIN 1GM/200ML PMX (BAXTER) IV NR (13:07)
[2024-03-08] MEDS: FERROUS SULFATE 325MG TABLET PO SCH (13:07)
[2024-03-08] MEDS: MAGNESIUM 2 G PREMIX 50 ML IV NR (13:09)
[2024-03-08] MEDS: INSULIN GLARGINE 100 UNITS/ML SUBCUT SCH (13:15)
[2024-03-08] MEDS: SODIUM BICARBONATE 8.4% 50MEQ/50ML SYR IV NR (14:15)
[2024-03-08] MEDS: INSULIN REGULAR (HUMULIN R) 1000UNITS/10ML VIAL IV NR (14:15)
[2024-03-08 14:16] LABS: ANISOCYTOSIS 1+; PLATELET ESTIMATE NORMAL
[2024-03-08] MEDS: CALCIUM GLUCONATE 1GM PREMIX 50 ML IV NR (15:00)
[2024-03-08 17:36] LABS: POTASSIUM 5.1 mEq/L (3.5-5.1)
[2024-03-09] VITALS (8 sets, daily range): BP systolic 98–145; BP diastolic 43–97; PULSE 84–90; RESP 16–20; TEMP 97.7–98.5
[2024-03-09 04:45] LABS: POTASSIUM 5.2 mEq/L (3.5-5.1)
[2024-03-09 04:46] LABS: CALCIUM 7.6 mg/dL (8.7-10.4)
[2024-03-09 04:55] LABS: CREATININE 10.4 mg/dL (0.6-1.0)
[2024-03-09 07:26] LABS: HEMATOCRIT. 27.1 % (36.0-48.0); HEMOGLOBIN. 8.5 g/dL (12.0-16.0); MEAN CORPUSCULAR HEMOGLOBIN 26.6 pg (28.0-32.0); MEAN CORPUSCULAR HGB CONC 31.2 g/dL (31.0-37.0); MEAN CORPUSCULAR VOLUME 85.4 fL (81.0-99.0); MEAN PLATELET VOLUME 7.9 fl (7.4-10.4); PLATELET 259 x1000/uL (130-400); RED BLOOD CELL COUNT 3.18 mill/uL (4.2-5.4); RED CELL DISTRIBUTION WIDTH 15.5 % (11.6-14.6); WHITE BLOOD COUNT 4.9 x1000/uL (4.5-11.0)
[2024-03-09 07:48] LABS: DIFFERENTIAL COMMENT 1
[2024-03-09] MEDS: SODIUM ZIRCONIUM CYCLOSILICATE 10GM/PACKET PO NR (13:29)
[2024-03-09 16:04] LABS: BODY FLUID RBC 0 /cu mm (0-2000); BODY FLUID WBC 1 /cu mm (0-200)
[2024-03-09 16:39] LABS: PLATELET ESTIMATE NORMAL
[2024-03-10] VITALS (8 sets, daily range): BP systolic 98–145; BP diastolic 7–84; PULSE 83–90; RESP 16–20; TEMP 97.6–98.1
[2024-03-10 06:17] LABS: HEMATOCRIT. 28.1 % (36.0-48.0); HEMOGLOBIN. 8.7 g/dL (12.0-16.0); MEAN CORPUSCULAR HEMOGLOBIN 26.4 pg (28.0-32.0); MEAN CORPUSCULAR HGB CONC 30.9 g/dL (31.0-37.0); MEAN CORPUSCULAR VOLUME 85.5 fL (81.0-99.0); MEAN PLATELET VOLUME 8.1 fl (7.4-10.4); PLATELET 300 x1000/uL (130-400); RED BLOOD CELL COUNT 3.28 mill/uL (4.2-5.4); RED CELL DISTRIBUTION WIDTH 15.9 % (11.6-14.6); WHITE BLOOD COUNT 6.2 x1000/uL (4.5-11.0)
[2024-03-10 06:22] LABS: DIFFERENTIAL COMMENT 1
[2024-03-10 06:52] LABS: POTASSIUM 5.1 mEq/L (3.5-5.1)
[2024-03-10 06:54] LABS: CALCIUM 8.1 mg/dL (8.7-10.4)
[2024-03-10 07:27] LABS: CREATININE 11.1 mg/dL (0.6-1.0)
[2024-03-10] MEDS ORDERED: SODIUM POLYSTYRENE SULFONATE 15 G/60 ML BOT PO ONE (08:45)
[2024-03-10] MEDS: SODIUM ZIRCONIUM CYCLOSILICATE 10GM/PACKET PO NR (09:34)
[2024-03-10 16:37] LABS: PLATELET ESTIMATE NORMAL
[2024-03-11] VITALS: BP 105/70; PULSE 87; RESP 19; TEMP 98
[2024-03-11 04:00] VITALS: BP 121/74; PULSE 92; RESP 19; TEMP 97.9
[2024-03-11] MEDS ORDERED: CALC0.253 PO (07:13)
[2024-03-11] MEDS ORDERED: CALC667C MT (07:13)
[2024-03-11 08:00] VITALS: BP_SYST 112; BP_SYST 133; BP_SYST 140; BP_DIAS 52; BP_DIAS 58; BP_DIAS 78; PULSE 88; PULSE 94; RESP 18; RESP 19; TEMP 97; TEMP 98
[2024-03-11] MEDS: CLOPIDOGREL 75MG TABLET PO SCH (09:00)
[2024-03-11 14:25] VITALS: BP_SYST 114; BP_SYST 115; BP_DIAS 54; BP_DIAS 61; PULSE 88; PULSE 95; RESP 18; RESP 19; TEMP 97; TEMP 98
[2024-03-11 16:00] VITALS: BP 106/59; PULSE 81; RESP 18; TEMP 98.6
[2024-03-11 20:00] VITALS: BP 114/63; PULSE 90; RESP 18; TEMP 98.2
[2024-03-12] VITALS (35 sets, daily range): BP systolic 87–234; BP diastolic 55–96; PULSE 76–92; RESP 7–23; TEMP 97.9–98.8
[2024-03-12] MEDS: LEVETIRACETAM 500MG TABLET PO SCH (08:15)
[2024-03-12] MEDS: LORAZEPAM 2MG/ML INJ IV PRN (08:25)
[2024-03-12] MEDS: INSULIN GLARGINE 100 UNITS/ML SUBCUT SCH (11:26)
[2024-03-12] MEDS ORDERED: LIDOCAINE HCL 1% 10 MG/ML 10ML VIAL ONE (14:02)
[2024-03-12] MEDS: CALCIUM ACETATE 667MG CAPSULE PO SCH (16:26)
[2024-03-12] MEDS: INSULIN LISPRO 100 UNITS/ML SUBCUT SCH (16:35)
[2024-03-12 17:39] LABS: HEMATOCRIT. 23.9 % (36.0-48.0); HEMOGLOBIN. 7.5 g/dL (12.0-16.0); MEAN CORPUSCULAR HEMOGLOBIN 26.6 pg (28.0-32.0); MEAN CORPUSCULAR HGB CONC 31.3 g/dL (31.0-37.0); MEAN CORPUSCULAR VOLUME 84.9 fL (81.0-99.0); MEAN PLATELET VOLUME 7.6 fl (7.4-10.4); PLATELET 287 x1000/uL (130-400); RED BLOOD CELL COUNT 2.81 mill/uL (4.2-5.4); RED CELL DISTRIBUTION WIDTH 16.1 % (11.6-14.6); WHITE BLOOD COUNT 6.9 x1000/uL (4.5-11.0)
[2024-03-12 17:43] LABS: POTASSIUM 4.8 mEq/L (3.5-5.1)
[2024-03-12 17:44] LABS: CALCIUM 7.7 mg/dL (8.7-10.4)
[2024-03-12 17:47] LABS: DIFFERENTIAL COMMENT 1
[2024-03-12 17:56] LABS: CREATININE 12.5 mg/dL (0.6-1.0)
[2024-03-12 18:06] LABS: HEPATITIS B SURFACE ANTIGEN NEGATIVE (Negative)
[2024-03-12 18:26] LABS: HEPATITIS A AB IGM NEGATIVE (Negative)
[2024-03-12 18:27] LABS: HEPATITIS B CORE AB IGM NEGATIVE (Negative); HEPATITIS C AB NON REACTIVE (Neg) (Negative)
[2024-03-12] MEDS: LEVETIRACETAM 500MG in NACL 100ML PREMIX IV SCH (21:32)
[2024-03-12 22:27] LABS: ANISOCYTOSIS 1+; PLATELET ESTIMATE NORMAL
[2024-03-13] VITALS (60 sets, daily range): BP systolic 94–161; BP diastolic 55–86; PULSE 72–90; RESP 2–20; TEMP 97.5–98.6
[2024-03-13 04:30] LABS: CHLORIDE 103 mEq/L (98-107); POTASSIUM 4.2 mEq/L (3.5-5.1); SODIUM 141 mEq/L (136-145)
[2024-03-13 04:31] LABS: CARBON DIOXIDE 26 mEq/L (21-32)
[2024-03-13 04:36] LABS: GLUCOSE 62 mg/dL (70-105)
[2024-03-13 04:37] LABS: UREA NITROGEN BLOOD 37 mg/dL (9-23)
[2024-03-13 04:39] LABS: PHOSPHORUS 6.5 mg/dL (2.5-4.9)
[2024-03-13 04:54] LABS: CREATININE 8.8 mg/dL (0.6-1.0)
[2024-03-13] MEDS: DEXTROSE 50% WATER 50ML SYRINGE IV PRN (06:24)
[2024-03-13] MEDS: PANTOPRAZOLE SODIUM 40 MG/VIAL IV SCH (08:14)
[2024-03-13] MEDS: ENOXAPARIN 30MG/0.3ML SYR SUBCUT SCH (08:15)
[2024-03-13] MEDS: EPOETIN ALFA-EPBX 4,000 UNIT/ML VIAL SUBCUT SCH (20:31)
[2024-03-13] MEDS: ACETAMINOPHEN 325MG TABLET PO PRN (21:28)
[2024-03-14] VITALS (22 sets, daily range): BP systolic 95–130; BP diastolic 55–80; PULSE 69–80; RESP 2–19; TEMP 83.2–99.1
[2024-03-14 05:28] LABS: POTASSIUM 3.6 mEq/L (3.5-5.1)
[2024-03-14 05:29] LABS: CALCIUM 7.7 mg/dL (8.7-10.4)
[2024-03-14 05:36] LABS: PHOSPHORUS 6.4 mg/dL (2.5-4.9)
[2024-03-14 05:41] LABS: HEMATOCRIT. 23.7 % (36.0-48.0); HEMOGLOBIN. 7.5 g/dL (12.0-16.0); MEAN CORPUSCULAR HEMOGLOBIN 26.5 pg (28.0-32.0); MEAN CORPUSCULAR HGB CONC 31.5 g/dL (31.0-37.0); MEAN CORPUSCULAR VOLUME 84.1 fL (81.0-99.0); MEAN PLATELET VOLUME 7.6 fl (7.4-10.4); PLATELET 295 x1000/uL (130-400); RED BLOOD CELL COUNT 2.82 mill/uL (4.2-5.4); RED CELL DISTRIBUTION WIDTH 15.6 % (11.6-14.6); WHITE BLOOD COUNT 5.5 x1000/uL (4.5-11.0)
[2024-03-14 05:47] LABS: CREATININE 8.2 mg/dL (0.6-1.0)
[2024-03-14 06:45] LABS: DIFFERENTIAL COMMENT 1
[2024-03-14 10:31] LABS: PLATELET ESTIMATE NORMAL
[2024-03-14] MEDS: LEVETIRACETAM 500MG PREMIX 100 ML IV SCH (20:50)
[2024-03-15] VITALS (15 sets, daily range): BP systolic 99–142; BP diastolic 47–81; PULSE 74–94; RESP 16–19; TEMP 96.6–100.9
[2024-03-15 05:49] LABS: POTASSIUM 4.3 mEq/L (3.5-5.1)
[2024-03-15 05:50] LABS: CALCIUM 7.8 mg/dL (8.7-10.4)
[2024-03-15 06:17] LABS: CREATININE 9.3 mg/dL (0.6-1.0)
[2024-03-15 07:24] LABS: BASOPHILS % 0.3 % (0.0-2.0); EOSINOPHILS % 3.7 % (0.0-5.0); HEMATOCRIT. 24.2 % (36.0-48.0); HEMOGLOBIN. 7.6 g/dL (12.0-16.0); LYMPHOCYTES % 13.2 % (20.0-50.0); MEAN CORPUSCULAR HEMOGLOBIN 26.7 pg (28.0-32.0); MEAN CORPUSCULAR HGB CONC 31.4 g/dL (31.0-37.0); MEAN CORPUSCULAR VOLUME 85.2 fL (81.0-99.0); MEAN PLATELET VOLUME 7.9 fl (7.4-10.4); MONOCYTES % 11.5 % (2.0-8.0); NEUTROPHILS % 71.3 % (40.0-76.0); PLATELET 287 x1000/uL (130-400); RED BLOOD CELL COUNT 2.84 mill/uL (4.2-5.4); RED CELL DISTRIBUTION WIDTH 15.7 % (11.6-14.6); WHITE BLOOD COUNT 5.7 x1000/uL (4.5-11.0)
[2024-03-15] MEDS: ACETAMINOPHEN 325MG TABLET PO PRN (21:25)
[2024-03-16] VITALS: BP 117/80; PULSE 88; RESP 20; TEMP 98
[2024-03-16 04:00] VITALS: BP 119/59; PULSE 74; RESP 20; TEMP 98.1
== END 2024-03-16 13:50 | disposition left against medical advice (07) | DRG 291 ==
LOC: ER 10:30 → 5WST 13:13 → EDBEDREQ 13:51 → 7EST 03-07 05:25 → MICUSO 03-12 10:29 → 8WST 03-14 11:50
PROVIDERS: ADMIT Internal Medicine; ATTEND Internal Medicine
PROC: 5A1D70Z Performance of Urinary Filtration, Intermittent, Less than 6 Hours Per Day (ICD-10-PCS; 2024-03-07)
PROC: 3E1M39Z Irrigation of Peritoneal Cavity using Dialysate, Percutaneous Approach (ICD-10-PCS; 2024-03-07)
PROC: 5A1D70Z Performance of Urinary Filtration, Intermittent, Less than 6 Hours Per Day (ICD-10-PCS; 2024-03-08)
PROC: 3E1M39Z Irrigation of Peritoneal Cavity using Dialysate, Percutaneous Approach (ICD-10-PCS; 2024-03-08)
PROC: 5A1D70Z Performance of Urinary Filtration, Intermittent, Less than 6 Hours Per Day (ICD-10-PCS; 2024-03-09)
PROC: 3E1M39Z Irrigation of Peritoneal Cavity using Dialysate, Percutaneous Approach (ICD-10-PCS; 2024-03-09)
PROC: 5A1D70Z Performance of Urinary Filtration, Intermittent, Less than 6 Hours Per Day (ICD-10-PCS; 2024-03-10)
PROC: 3E1M39Z Irrigation of Peritoneal Cavity using Dialysate, Percutaneous Approach (ICD-10-PCS; 2024-03-10)
PROC: 5A1D70Z Performance of Urinary Filtration, Intermittent, Less than 6 Hours Per Day (ICD-10-PCS; 2024-03-11)
PROC: 3E1M39Z Irrigation of Peritoneal Cavity using Dialysate, Percutaneous Approach (ICD-10-PCS; 2024-03-11)
PROC: 02H633Z Insertion of Infusion Device into Right Atrium, Percutaneous Approach (ICD-10-PCS; 2024-03-12)
PROC: B548ZZA Ultrasonography of Superior Vena Cava, Guidance (ICD-10-PCS; 2024-03-12)
PROC: 5A1D70Z Performance of Urinary Filtration, Intermittent, Less than 6 Hours Per Day (ICD-10-PCS; 2024-03-12)
PROC: 4A00X4Z Measurement of Central Nervous Electrical Activity, External Approach (ICD-10-PCS; principal; 2024-03-13)
PROC: 5A1D70Z Performance of Urinary Filtration, Intermittent, Less than 6 Hours Per Day (ICD-10-PCS; 2024-03-13)
PROC: 5A1D70Z Performance of Urinary Filtration, Intermittent, Less than 6 Hours Per Day (ICD-10-PCS; 2024-03-15)
PROC: 5A1D70Z Performance of Urinary Filtration, Intermittent, Less than 6 Hours Per Day (ICD-10-PCS; 2024-03-16)
DX: I13.2 Hypertensive heart and chronic kidney disease with heart failure and with stage 5 chronic kidney disease, or end stage renal disease (principal); G93.41 Metabolic encephalopathy; I50.33 Acute on chronic diastolic (congestive) heart failure; J96.01 Acute respiratory failure with hypoxia; N18.6 End stage renal disease; E87.5 Hyperkalemia; I25.10 Atherosclerotic heart disease of native coronary artery without angina pectoris; E11.65 Type 2 diabetes mellitus with hyperglycemia; E11.22 Type 2 diabetes mellitus with diabetic chronic kidney disease; D63.1 Anemia in chronic kidney disease; E03.9 Hypothyroidism, unspecified; E11.40 Type 2 diabetes mellitus with diabetic neuropathy, unspecified; G40.909 Epilepsy, unspecified, not intractable, without status epilepticus; N31.9 Neuromuscular dysfunction of bladder, unspecified; R04.0 Epistaxis; R13.10 Dysphagia, unspecified; Z53.29 Procedure and treatment not carried out because of patient's decision for other reasons; R26.9 Unspecified abnormalities of gait and mobility; R74.01 Elevation of levels of liver transaminase levels; R33.9 Retention of urine, unspecified; Z99.2 Dependence on renal dialysis; I25.2 Old myocardial infarction; Z82.49 Family history of ischemic heart disease and other diseases of the circulatory system; Z87.19 Personal history of other diseases of the digestive system; Z87.440 Personal history of urinary (tract) infections; Z95.5 Presence of coronary angioplasty implant and graft; Z88.8 Allergy status to other drugs, medicaments and biological substances
CPT/HCPCS: 36415; 36556; 70551; 71045; 74018; 76937; 80048; 80053; 80061; 80202; 82607; 82728; 82746; 82962; 83036; 83540; 83550; 83735; 83880; 84100; 84132; 84145; 84439; 84443; 84484; 85025; 86705; 86709; 87340; 87426; 90935; 90945; 93005; 93306; 95816; 97167; 99291; A6261; C1752; J0360; J0610; J0885; J1642; J1650; J1815; J1940; J1953; J2060; J2270; J2470; J2543; J3370; J3475; J3490

== ENCOUNTER 2024-04-23 10:39 | Inpatient (IN) | payer OTHER ==
[~2024-04-23] VITALS: Ht 170.2 cm; Wt 75.3 kg
[~2024-04-23 10:39] MED LIST changes: +CALC0.253 PO; +CALC667C MT
[2024-04-23 11:15] LABS: BASOPHILS % 0.5 % (0.0-2.0); EOSINOPHILS % 2.2 % (0.0-5.0); HEMATOCRIT. 28.1 % (36.0-48.0); HEMOGLOBIN. 9.1 g/dL (12.0-16.0); LYMPHOCYTES % 13.3 % (20.0-50.0); MEAN CORPUSCULAR HEMOGLOBIN 28.5 pg (28.0-32.0); MEAN CORPUSCULAR HGB CONC 32.4 g/dL (31.0-37.0); MEAN CORPUSCULAR VOLUME 87.8 fL (81.0-99.0); MEAN PLATELET VOLUME 7.2 fl (7.4-10.4); MONOCYTES % 14.6 % (2.0-8.0); NEUTROPHILS % 69.4 % (40.0-76.0); PLATELET 277 x1000/uL (130-400); RED CELL DISTRIBUTION WIDTH 18.1 % (11.6-14.6); WHITE BLOOD COUNT 4.7 x1000/uL (4.5-11.0)
[2024-04-23 11:16] LABS: CHLORIDE 102 mEq/L (98-107); POTASSIUM 4.1 mEq/L (3.5-5.1); SODIUM 140 mEq/L (136-145)
[2024-04-23 11:17] LABS: CARBON DIOXIDE 33 mEq/L (21-32)
[2024-04-23 11:22] LABS: GLUCOSE 359 mg/dL (70-105)
[2024-04-23 11:23] LABS: UREA NITROGEN BLOOD 33 mg/dL (9-23)
[2024-04-23 11:26] LABS: D-DIMER 2.39 mg/L FEU (<0.50); PROTHROMBIN TIME 10.9 sec (9.6-11.0)
[2024-04-23 11:31] LABS: TROPONIN I HIGH SENSITIVITY 59 ng/L (3.0-34)
[2024-04-23 11:32] LABS: CREATININE 5.7 mg/dL (0.6-1.0)
[2024-04-23 11:37] VITALS: PULSE 85; RESP 20; O2SAT 100
[2024-04-23] MEDS: ALBUTEROL (0.083%) 2.5MG/3ML NEB HHN STA (11:37)
[2024-04-23] MEDS: IPRATROPIUM BROMIDE (0.02%) 0.5MG/2.5ML NEB HHN STA (11:38)
[2024-04-23] MEDS: MORPHINE SULFATE 4 MG/ML INJ (FOR IV/IM USE) IV STA ×2 (12:02→13:29)
[2024-04-23] MEDS: ONDANSETRON HCL 4MG/2ML INJ IV STA (12:02)
[2024-04-23] MEDS: CEFTRIAXONE 2GM/50ML 50 ML IV ONE (12:56)
[2024-04-23] MEDS ORDERED: ONDANSETRON HCL 4MG/2ML INJ IV PRN (13:15)
[2024-04-23] MEDS ORDERED: IPRATROPIUM/ALBUTEROL 0.5-3(2.5)MG/3ML NEB HHN PRN (13:15)
[2024-04-23 13:35] LABS: TROPONIN I HIGH SENSITIVITY 66 ng/L (3.0-34)
[2024-04-23 14:35] LABS: CREATINE KINASE MB FRACTION < 0.5 ng/mL (0.5-3.6)
[2024-04-23 14:36] LABS: CREATINE KINASE 34 IU/L (34-145)
[2024-04-23 14:43] LABS: TROPONIN I HIGH SENSITIVITY 61 ng/L (3.0-34)
[2024-04-23] MEDS: INSULIN LISPRO 100 UNITS/ML SUBCUT SCH (17:15)
[2024-04-23] MEDS: CALCIUM ACETATE 667MG CAPSULE PO SCH (17:18)
[2024-04-23] MEDS: FAMOTIDINE 20MG/2ML VIAL IV SCH (17:18)
[2024-04-23] MEDS: GABAPENTIN 100MG CAPSULE PO SCH (17:18)
[2024-04-23] MEDS: BLOOD SUGAR DIAGNOSTIC STRIP TEST SCH (17:19)
[2024-04-23] MEDS: INSULIN REGULAR (HUMULIN R) 1000UNITS/10ML VIAL SUBCUT NR (17:43)
[2024-04-23 21:00] VITALS: BP 126/73; PULSE 73; RESP 21; TEMP 36.8072
[2024-04-23] MEDS ORDERED: FAMOTIDINE 20MG/2ML VIAL IV SCH (21:00)
[2024-04-23 21:10] VITALS: BP 126/73; PULSE 73; RESP 21; TEMP 36.78072; O2SAT 96
[2024-04-24] VITALS: BP 110/75; PULSE 68; RESP 13; TEMP 36.89184; O2SAT 96
[2024-04-24 00:06] LABS: CREATINE KINASE MB FRACTION 0.8 ng/mL (0.5-3.6)
[2024-04-24] MEDS: MORPHINE SULFATE 2 MG/ML INJ (NOT FOR IM USE) IV NR (00:07)
[2024-04-24 04:00] VITALS: BP 116/67; PULSE 64; RESP 12; TEMP 36.72516; O2SAT 96
[2024-04-24] MEDS: LEVOTHYROXINE SODIUM 25MCG TABLET PO SCH (06:50)
[2024-04-24] MEDS: DEXTROSE 50% WATER 50ML SYRINGE IV PRN (06:50)
[2024-04-24 07:55] LABS: CALCIUM 8.4 mg/dL (8.7-10.4); POTASSIUM 4.3 mEq/L (3.5-5.1)
[2024-04-24 08:00] VITALS: BP 126/79; PULSE 66; RESP 11; TEMP 36.9474; O2SAT 94
[2024-04-24 08:01] LABS: T4 FREE 1.11 ng/dL (0.89-1.76)
[2024-04-24 08:02] LABS: BASOPHILS % 0.7 % (0.0-2.0); EOSINOPHILS % 5.4 % (0.0-5.0); HEMATOCRIT. 25.4 % (36.0-48.0); LYMPHOCYTES % 22.8 % (20.0-50.0); MEAN CORPUSCULAR HEMOGLOBIN 27.8 pg (28.0-32.0); MEAN CORPUSCULAR HGB CONC 31.6 g/dL (31.0-37.0); MEAN PLATELET VOLUME 7.5 fl (7.4-10.4); MONOCYTES % 14.7 % (2.0-8.0); NEUTROPHILS % 56.4 % (40.0-76.0); PLATELET 239 x1000/uL (130-400); RED BLOOD CELL COUNT 2.88 mill/uL (4.2-5.4); THYROID STIMULATING HORMONE 1.63 uIU/mL (0.55-4.78); WHITE BLOOD COUNT 3.5 x1000/uL (4.5-11.0)
[2024-04-24 08:03] LABS: CREATININE 6.5 mg/dL (0.6-1.0)
[2024-04-24 08:59] LABS: HEPATITIS B SURFACE ANTIGEN NEGATIVE (Negative)
[2024-04-24] MEDS: CALCITRIOL 0.25MCG CAPSULE PO SCH (09:07)
[2024-04-24] MEDS: ASPIRIN 81MG EC TABLET PO SCH (09:08)
[2024-04-24] MEDS: ATENOLOL 25MG TABLET PO SCH (09:08)
[2024-04-24] MEDS: AMLODIPINE 10MG TABLET PO SCH (09:08)
[2024-04-24 09:19] LABS: HEPATITIS A AB IGM NEGATIVE (Negative)
[2024-04-24 09:20] LABS: HEPATITIS B CORE AB IGM NEGATIVE (Negative); HEPATITIS C AB NON REACTIVE (Neg) (Negative)
[2024-04-24] MEDS: ACETAMINOPHEN 325MG TABLET PO PRN (11:09)
[2024-04-24 12:00] VITALS: BP 100/71; PULSE 62; RESP 10; TEMP 36.6696; O2SAT 93
[2024-04-24] MEDS: INSULIN LISPRO 100 UNITS/ML SUBCUT SCH (12:20)
[2024-04-24] MEDS ORDERED: MAGNESIUM/ALUMINUM HYDROXIDE/SIMETHICONE 30ML UDC PO PRN (12:45)
[2024-04-24 13:28] LABS: CREATINE KINASE MB FRACTION 0.6 ng/mL (0.5-3.6)
[2024-04-24] MEDS: PANTOPRAZOLE 40MG DR TABLET PO SCH (15:19)
[2024-04-24 16:00] VITALS: BP 111/72; PULSE 65; RESP 12; TEMP 36.50292; O2SAT 92
[2024-04-24 17:07] LABS: CLARITY URINE CLOUDY (CLEAR); COLOR URINE YELLOW (YELLOW); GLUCOSE URINE 2+ (NEGATIVE); KETONES URINE TRACE (NEGATIVE); LEUKOCYTE ESTERASE URINE 2+ (NEGATIVE); NITRITE URINE NEGATIVE (NEGATIVE); OCCULT BLOOD URINE NEGATIVE (NEGATIVE); PH URINE 5.5 (4.5-8.0); PROTEIN URINE 2+ (NEGATIVE); SPECIFIC GRAVITY URINE 1.015 (1.005-1.030); UROBILINOGEN URINE 0.2 E.U./dL (0.2-1.0)
[2024-04-24 17:17] LABS: *AMPHETAMINES SCREEN URINE NEGATIVE (NEGATIVE); *BENZODIAZEPINES SCREEN URINE NEGATIVE (NEGATIVE)
[2024-04-24 17:18] LABS: *BARBITURATES SCREEN URINE NEGATIVE (NEGATIVE); *COCAINE SCREEN URINE NEGATIVE (NEGATIVE)
[2024-04-24 17:19] LABS: CANNABINOID URINE SCREEN NEGATIVE (NEGATIVE); ECSTASY MDMA SCREEN URINE NEGATIVE (NEGATIVE); METHADONE URINE SCREEN NEGATIVE (NEGATIVE); OPIATES URINE SCREEN PRESUMPTIVE POSITIVE (NEGATIVE); PHENCYCLIDINE URINE SCREEN NEGATIVE (NEGATIVE)
[2024-04-24 18:11] LABS: BACTERIA URINE 3+; SQUAMOUS EPITHELIAL CELL URINE 1+ /lpf (RARE/1+)
[2024-04-24 18:12] LABS: RBC URINE 0-2 /hpf (0-2)
[2024-04-24 20:00] VITALS: BP 93/57; PULSE 64; RESP 12; TEMP 36.89184; O2SAT 94
[2024-04-24 20:50] LABS: CREATINE KINASE MB FRACTION < 0.5 ng/mL (0.5-3.6); TROPONIN I HIGH SENSITIVITY 34 ng/L (3.0-34)
[2024-04-24 20:51] LABS: ALANINE AMINOTRANSFERASE 25 IU/L (10-49); ALBUMIN 3.4 g/dL (3.2-4.8); ASPARTATE AMINOTRANSFERASE 24 IU/L (<34); BILIRUBIN DIRECT 0.2 mg/dL (<=3.0); BILIRUBIN TOTAL 0.5 mg/dL (0.1-1.0); PROTEIN TOTAL 6.9 g/dL (6.0-8.3)
[2024-04-24 20:52] LABS: CREATINE KINASE 34 IU/L (34-145)
[2024-04-24] MEDS: MELATONIN 3MG TABLET PO SCH (22:11)
[2024-04-25] VITALS (15 sets, daily range): BP systolic 102–136; BP diastolic 59–75; PULSE 58–69; RESP 12–18; TEMP 36.22512–37.28076; O2SAT 92–100
[2024-04-25] MEDS: INSULIN LISPRO 100 UNITS/ML SUBCUT NR (06:23)
[2024-04-25 07:51] LABS: CARBON DIOXIDE 25 mEq/L (21-32); CHLORIDE 102 mEq/L (98-107); POTASSIUM 5.9 mEq/L (3.5-5.1); SODIUM 136 mEq/L (136-145)
[2024-04-25 07:52] LABS: CALCIUM 7.9 mg/dL (8.7-10.4)
[2024-04-25 07:56] LABS: IRON 45 ug/dL (50-170)
[2024-04-25 07:57] LABS: CREATINE KINASE MB FRACTION < 0.5 ng/mL (0.5-3.6); TROPONIN I HIGH SENSITIVITY 27 ng/L (3.0-34); UREA NITROGEN BLOOD 47 mg/dL (9-23)
[2024-04-25 07:59] LABS: CREATINE KINASE 32 IU/L (34-145); HEMATOCRIT 27.1 % (36.0-48.0); HEMATOCRIT. 27.1 % (36.0-48.0); HEMOGLOBIN 8.1 g/dL (12.0-16.0); HEMOGLOBIN. 8.1 g/dL (12.0-16.0); MEAN CORPUSCULAR HEMOGLOBIN 27.5 pg (28.0-32.0); MEAN CORPUSCULAR HGB CONC 30.1 g/dL (31.0-37.0); MEAN CORPUSCULAR VOLUME 91.5 fL (81.0-99.0); PHOSPHORUS 4.5 mg/dL (2.5-4.9); PLATELET 222 x1000/uL (130-400); RED BLOOD CELL COUNT 2.96 mill/uL (4.2-5.4); RED CELL DISTRIBUTION WIDTH 19.5 % (11.6-14.6); TOTAL IRON BINDING CAPACITY 178 ug/dl (250-425); WHITE BLOOD COUNT 4.5 x1000/uL (4.5-11.0)
[2024-04-25 08:01] LABS: CREATININE 7.6 mg/dL (0.6-1.0)
[2024-04-25 08:03] LABS: DIFFERENTIAL COMMENT 1
[2024-04-25 08:04] LABS: GLUCOSE 452 mg/dL (70-105)
[2024-04-25 08:13] LABS: FERRITIN 620 ng/mL (10-291)
[2024-04-25 08:14] LABS: FOLIC ACID (FOLATE) SERUM 12.48 ng/mL (>5.38); VITAMIN B12 SERUM 1091 pg/mL (211-911)
[2024-04-25] MEDS: CLOPIDOGREL 75MG TABLET PO SCH (08:18)
[2024-04-25] MEDS: CEFTRIAXONE 1GM/50ML 50 ML IV SCH (08:31)
[2024-04-25] MEDS ORDERED: KETOROLAC 15MG/ML VIAL IV PRN (09:30)
[2024-04-25 10:42] LABS: ANISOCYTOSIS 1+; PLATELET ESTIMATE NORMAL
[2024-04-25] MEDS: INSULIN GLARGINE 100 UNITS/ML SUBCUT SCH (11:01)
[2024-04-25] MEDS: TRAMADOL 50MG TABLET PO PRN (12:14)
[2024-04-26] VITALS (15 sets, daily range): BP systolic 90–122; BP diastolic 59–83; PULSE 56–63; RESP 7–16; TEMP 35.8362–36.78072; O2SAT 95–100
[2024-04-26 07:00] LABS: POTASSIUM 4.8 mEq/L (3.5-5.1)
[2024-04-26 07:27] LABS: CREATININE 6.9 mg/dL (0.6-1.0)
[2024-04-26] MEDS ORDERED: NALOXONE HCL 0.4MG/ML VIAL IV PRN (07:30)
[2024-04-26] MEDS ORDERED: PANTOPRAZOLE 40MG DR TABLET PO SCH (09:15)
[2024-04-26] MEDS ORDERED: CLOP-31 PO (14:14)
[2024-04-26] MEDS ORDERED: ATOR20TA65 PO (14:16)
[2024-04-27 00:10] VITALS: BP 110/73; PULSE 57; RESP 12; TEMP 36.16956; O2SAT 99
[2024-04-27 04:10] VITALS: BP 129/70; PULSE 58; RESP 13; TEMP 36.16956; O2SAT 99
[2024-04-27 06:44] LABS: CHLORIDE 103 mEq/L (98-107); POTASSIUM 4.8 mEq/L (3.5-5.1); SODIUM 139 mEq/L (136-145)
[2024-04-27 06:45] LABS: CARBON DIOXIDE 28 mEq/L (21-32)
[2024-04-27 06:50] LABS: GLUCOSE 126 mg/dL (70-105); UREA NITROGEN BLOOD 38 mg/dL (9-23)
[2024-04-27 06:51] LABS: ALBUMIN 3.6 g/dL (3.2-4.8)
[2024-04-27 06:52] LABS: PHOSPHORUS 4.9 mg/dL (2.5-4.9); PREALBUMIN 12.2 mg/dl (10.0-40.0)
[2024-04-27 07:10] LABS: CREATININE 6.8 mg/dL (0.6-1.0)
[2024-04-27 08:00] VITALS: BP 143/73; PULSE 61; RESP 16; TEMP 36.9474; O2SAT 98
[2024-04-27 08:37] LABS: HEMOGLOBIN 8.3 g/dL (12.0-16.0); MEAN CORPUSCULAR HEMOGLOBIN 27.7 pg (28.0-32.0); MEAN CORPUSCULAR HGB CONC 28.7 g/dL (31.0-37.0); MEAN CORPUSCULAR VOLUME 96.6 fL (81.0-99.0); PLATELET 239 x1000/uL (130-400); RED CELL DISTRIBUTION WIDTH 19.7 % (11.6-14.6); WHITE BLOOD COUNT 3.7 x1000/uL (4.5-11.0)
[2024-04-27 11:22] VITALS: BP 149/73; PULSE 61; TEMP 98.5; O2SAT 98
[2024-04-27 12:00] VITALS: BP 141/81; PULSE 62; RESP 20; TEMP 36.6696; TEMP 36.66960; O2SAT 99
== END 2024-04-27 13:06 | disposition home or self-care (01) | DRG 391 ==
LOC: ER 10:39 → 5WST 12:41 → EDBEDREQ 12:49 → EDBEDREQTM 12:49 → 3WST 21:00
PROVIDERS: ADMIT Internal Medicine; ATTEND Internal Medicine
PROC: 5A1D70Z Performance of Urinary Filtration, Intermittent, Less than 6 Hours Per Day (ICD-10-PCS; principal; 2024-04-25)
PROC: 5A1D70Z Performance of Urinary Filtration, Intermittent, Less than 6 Hours Per Day (ICD-10-PCS; 2024-04-26)
DX: K21.9 Gastro-esophageal reflux disease without esophagitis (principal); I21.A1 Myocardial infarction type 2; L89.153 Pressure ulcer of sacral region, stage 3; J96.00 Acute respiratory failure, unspecified whether with hypoxia or hypercapnia; N18.6 End stage renal disease; J18.9 Pneumonia, unspecified organism; I50.30 Unspecified diastolic (congestive) heart failure; I13.2 Hypertensive heart and chronic kidney disease with heart failure and with stage 5 chronic kidney disease, or end stage renal disease; N39.0 Urinary tract infection, site not specified; D63.1 Anemia in chronic kidney disease; E11.22 Type 2 diabetes mellitus with diabetic chronic kidney disease; E87.5 Hyperkalemia; E03.9 Hypothyroidism, unspecified; B96.1 Klebsiella pneumoniae [K. pneumoniae] as the cause of diseases classified elsewhere; I25.10 Atherosclerotic heart disease of native coronary artery without angina pectoris; I25.2 Old myocardial infarction; Z79.4 Long term (current) use of insulin; Z79.82 Long term (current) use of aspirin; Z79.899 Other long term (current) drug therapy; Z87.440 Personal history of urinary (tract) infections; Z95.5 Presence of coronary angioplasty implant and graft; Z99.2 Dependence on renal dialysis; Z88.8 Allergy status to other drugs, medicaments and biological substances
CPT/HCPCS: 36415; 71045; 74176; 76700; 80048; 80061; 80076; 80305; 81003; 82040; 82550; 82553; 82607; 82728; 82746; 82962; 83036; 83540; 83550; 83605; 83735; 83880; 84100; 84134; 84439; 84443; 84484; 85025; 85027; 85044; 85379; 86705; 86709; 87340; 90935; 93005; 94640; 99285; J0696; J1815; J2270; J2405; J3490

== ENCOUNTER 2024-07-15 05:49 | Inpatient (IN) | payer OTHER, MEDICAID ==
[~2024-07-15] VITALS: Ht 170.2 cm; Wt 67.6 kg
[~2024-07-15 05:49] MED LIST changes: +ATOR20TA65 PO; +CLOP-31 PO; -LEVO-65 PO
[2024-07-15] MEDS: MORPHINE SULFATE 4 MG/ML INJ (FOR IV/IM USE) IV ONE (07:08)
[2024-07-15 07:26] LABS: BASOPHILS % 0.5 % (0.0-2.0); EOSINOPHILS % 0.2 % (0.0-5.0); HEMATOCRIT. 38.7 % (36.0-48.0); HEMOGLOBIN. 12.2 g/dL (12.0-16.0); LYMPHOCYTES % 14.1 % (20.0-50.0); MEAN CORPUSCULAR HEMOGLOBIN 27.6 pg (28.0-32.0); MEAN CORPUSCULAR HGB CONC 31.4 g/dL (31.0-37.0); MEAN CORPUSCULAR VOLUME 87.7 fL (81.0-99.0); MEAN PLATELET VOLUME 7.6 fl (7.4-10.4); MONOCYTES % 13.6 % (2.0-8.0); NEUTROPHILS % 71.6 % (40.0-76.0); PLATELET 212 x1000/uL (130-400); RED BLOOD CELL COUNT 4.42 mill/uL (4.2-5.4); RED CELL DISTRIBUTION WIDTH 17.2 % (11.6-14.6)
[2024-07-15 07:31] LABS: CHLORIDE 102 mEq/L (98-107); POTASSIUM 4.4 mEq/L (3.5-5.1); SODIUM 142 mEq/L (136-145)
[2024-07-15 07:32] LABS: CALCIUM 9.4 mg/dL (8.7-10.4); CARBON DIOXIDE 27 mEq/L (21-32)
[2024-07-15 07:37] LABS: GLUCOSE 82 mg/dL (70-105)
[2024-07-15 07:38] LABS: UREA NITROGEN BLOOD 33 mg/dL (9-23)
[2024-07-15 07:39] LABS: ALANINE AMINOTRANSFERASE < 7 IU/L (10-49); ALBUMIN 4.8 g/dL (3.2-4.8); ASPARTATE AMINOTRANSFERASE 13 IU/L (<34); BILIRUBIN DIRECT 0.1 mg/dL (<=3.0)
[2024-07-15 07:40] LABS: BILIRUBIN TOTAL 0.4 mg/dL (0.1-1.0)
[2024-07-15 08:25] LABS: PROTEIN TOTAL 9.7 g/dL (6.0-8.3)
[2024-07-15 08:26] LABS: CREATININE 9.9 mg/dL (0.6-1.0)
[2024-07-15] MEDS: IOHEXOL-300 100 ML BOTTLE ONE (10:09)
[2024-07-15] MEDS ORDERED: CLONIDINE 0.1MG TABLET PO PRN (13:45)
[2024-07-15] MEDS ORDERED: MAGNESIUM/ALUMINUM HYDROXIDE/SIMETHICONE 30ML UDC PO PRN (13:45)
[2024-07-15] MEDS ORDERED: ACETAMINOPHEN 325MG TABLET PO PRN (13:45)
[2024-07-15] MEDS ORDERED: GUAIFENESIN 200MG/10ML SUGAR FREE UDC PO PRN (13:45)
[2024-07-15] MEDS ORDERED: IPRATROPIUM/ALBUTEROL 0.5-3(2.5)MG/3ML NEB HHN PRN (13:45)
[2024-07-15] MEDS ORDERED: DOCUSATE SODIUM 100MG CAPSULE PO PRN (13:45)
[2024-07-15] MEDS: PANTOPRAZOLE 40MG DR TABLET PO SCH (14:33)
[2024-07-15] MEDS: KETOROLAC 15MG/ML VIAL IV NR (14:33)
[2024-07-15 14:53] LABS: HEPATITIS B SURFACE ANTIGEN NEGATIVE (Negative)
[2024-07-15 15:05] LABS: HEPATITIS A AB IGM NEGATIVE (Negative)
[2024-07-15 15:06] LABS: HEPATITIS B CORE AB IGM NEGATIVE (Negative); HEPATITIS C AB NON REACTIVE (Neg) (Negative)
[2024-07-15] MEDS ORDERED: DEXTROSE 50% WATER 50ML SYRINGE IV PRN (19:45)
[2024-07-15 20:00] VITALS: BP 146/68; PULSE 79; RESP 19; TEMP 36.44736; O2SAT 99
[2024-07-15] MEDS: BLOOD SUGAR DIAGNOSTIC STRIP TEST SCH (20:31)
[2024-07-15] MEDS: INSULIN LISPRO 100 UNITS/ML SUBCUT NR (20:44)
[2024-07-15] MEDS: INSULIN LISPRO 100 UNITS/ML SUBCUT SCH (20:44)
[2024-07-15 22:13] VITALS: BP 146/68; PULSE 79; RESP 19; TEMP 36.4736
[2024-07-16] VITALS (14 sets, daily range): BP systolic 108–155; BP diastolic 56–82; PULSE 53–80; RESP 15–20; TEMP 36.114–37.00296; O2SAT 97–100
[2024-07-16] MEDS: MELATONIN 3MG TABLET PO NR (01:08)
[2024-07-16] MEDS: INSULIN REGULAR (HUMULIN R) 1000UNITS/10ML VIAL SUBCUT NR (05:49)
[2024-07-16] MEDS: LOPERAMIDE 2MG/15ML UDC PO NR (06:07)
[2024-07-16] MEDS: INSULIN GLARGINE 100 UNITS/ML SUBCUT SCH (10:00)
[2024-07-16] MEDS ORDERED: LEVO75TA7 PO (13:10)
[2024-07-16] MEDS ORDERED: PANT40TA51 PO (13:10)
[2024-07-16] MEDS ORDERED: CARV6.2548 PO (13:10)
[2024-07-16] MEDS ORDERED: HYDR25TA78 PO (13:10)
[2024-07-16] MEDS ORDERED: DEXTROSE 50% WATER 50ML SYRINGE IV PRN ×2 (13:15→13:30)
[2024-07-16] MEDS ORDERED: KETOROLAC 15MG/ML VIAL IV PRN (13:30)
[2024-07-16 13:54] LABS: HEMATOCRIT. 32.8 % (36.0-48.0); MEAN CORPUSCULAR HEMOGLOBIN 27.4 pg (28.0-32.0); MEAN CORPUSCULAR HGB CONC 30.5 g/dL (31.0-37.0); MEAN CORPUSCULAR VOLUME 89.8 fL (81.0-99.0); MEAN PLATELET VOLUME 7.9 fl (7.4-10.4); PLATELET 180 x1000/uL (130-400); RED BLOOD CELL COUNT 3.65 mill/uL (4.2-5.4); RED CELL DISTRIBUTION WIDTH 17.8 % (11.6-14.6); WHITE BLOOD COUNT 3.6 x1000/uL (4.5-11.0)
[2024-07-16] MEDS: ASPIRIN 81MG EC TABLET PO SCH (13:59)
[2024-07-16] MEDS: AMLODIPINE 10MG TABLET PO SCH (13:59)
[2024-07-16 14:18] LABS: DIFFERENTIAL COMMENT 1
[2024-07-16 14:39] LABS: CALCIUM 8.9 mg/dL (8.7-10.4); CARBON DIOXIDE 25 mEq/L (21-32); CHLORIDE 99 mEq/L (98-107); POTASSIUM 5.1 mEq/L (3.5-5.1); SODIUM 137 mEq/L (136-145)
[2024-07-16 14:43] LABS: GLUCOSE 375 mg/dL (70-105)
[2024-07-16 14:44] LABS: LDL CHOLESTEROL 105 mg/dL (5-100); TRIGLYCERIDE 105 mg/dL (0-150)
[2024-07-16 14:45] LABS: ALANINE AMINOTRANSFERASE < 7 IU/L (10-49); ALBUMIN 3.9 g/dL (3.2-4.8); ASPARTATE AMINOTRANSFERASE 10 IU/L (<34); CHOLESTEROL 196 mg/dL (<200); UREA NITROGEN BLOOD 40 mg/dL (9-23)
[2024-07-16 14:46] LABS: BETA HYDROXYBUTYRATE 0.7 mMol/L (0.0-0.3); BILIRUBIN DIRECT 0.1 mg/dL (<=3.0); BILIRUBIN TOTAL 0.3 mg/dL (0.1-1.0); HDL CHOLESTEROL 60 mg/dL (>65); PROTEIN TOTAL 7.8 g/dL (6.0-8.3)
[2024-07-16 14:53] LABS: T4 FREE 1.16 ng/dL (0.89-1.76)
[2024-07-16 15:03] LABS: CREATININE 11.3 mg/dL (0.6-1.0)
[2024-07-16] MEDS: SODIUM ZIRCONIUM CYCLOSILICATE 10GM/PACKET PO NR (16:00)
[2024-07-16] MEDS: BLOOD SUGAR DIAGNOSTIC STRIP TEST SCH ×2 (16:40)
[2024-07-16] MEDS ORDERED: HYDRALAZINE HCL 25MG TABLET PO SCH (17:00)
[2024-07-16] MEDS: INSULIN LISPRO 100 UNITS/ML SUBCUT SCH ×2 (17:10→18:31)
[2024-07-16] MEDS: GABAPENTIN 100MG CAPSULE PO SCH (18:27)
[2024-07-16] MEDS: IBUPROFEN 800MG TABLET PO PRN (18:27)
[2024-07-16] MEDS: CARVEDILOL 6.25 MG TABLET PO SCH (21:16)
[2024-07-17] VITALS: BP 111/64; PULSE 67; RESP 19; TEMP 36.89184; O2SAT 100
[2024-07-17] MEDS: HYDRALAZINE HCL 25MG TABLET PO SCH (01:00)
[2024-07-17 04:00] VITALS: BP 99/52; PULSE 70; RESP 19; TEMP 36.72516; O2SAT 100
[2024-07-17] MEDS: LEVOTHYROXINE SODIUM 75MCG TABLET PO SCH (05:56)
[2024-07-17 07:30] LABS: ANISOCYTOSIS 1+; PLATELET ESTIMATE NORMAL
[2024-07-17 08:00] VITALS: BP 128/71; PULSE 71; RESP 17; TEMP 36.83628; O2SAT 96
[2024-07-17] MEDS: ATORVASTATIN CALCIUM 20MG TABLET PO SCH (08:29)
[2024-07-17 09:10] LABS: HEMATOCRIT 28.7 % (36.0-48.0); HEMOGLOBIN 8.9 g/dL (12.0-16.0); MEAN CORPUSCULAR HEMOGLOBIN 27.8 pg (28.0-32.0); MEAN CORPUSCULAR HGB CONC 31.1 g/dL (31.0-37.0); MEAN CORPUSCULAR VOLUME 89.5 fL (81.0-99.0); PLATELET 212 x1000/uL (130-400); RED BLOOD CELL COUNT 3.21 mill/uL (4.2-5.4); RED CELL DISTRIBUTION WIDTH 17.4 % (11.6-14.6); WHITE BLOOD COUNT 3.4 x1000/uL (4.5-11.0)
[2024-07-17 09:20] LABS: POTASSIUM 4.8 mEq/L (3.5-5.1)
[2024-07-17] MEDS: ONDANSETRON HCL 4MG/2ML INJ IV PRN (11:05)
[2024-07-17 11:09] LABS: CALCIUM 8.5 mg/dL (8.7-10.4)
[2024-07-17 12:00] VITALS: BP 125/67; PULSE 75; RESP 19; TEMP 36.22512; O2SAT 97
[2024-07-17 15:03] LABS: PHOSPHORUS 5.1 mg/dL (2.5-4.9)
[2024-07-17 16:00] VITALS: BP 114/62; PULSE 60; RESP 17; TEMP 36.55848; O2SAT 96
[2024-07-17 20:00] VITALS: BP 117/66; PULSE 67; RESP 16; TEMP 36.44736; O2SAT 100
[2024-07-18] VITALS: BP 94/43; PULSE 63; RESP 18; TEMP 36.00288; O2SAT 95
[2024-07-18 04:00] VITALS: BP 95/43; PULSE 66; RESP 19; TEMP 36.114; O2SAT 98
[2024-07-18 08:00] VITALS: BP 116/63; PULSE 73; RESP 18; TEMP 36.6696; O2SAT 99
[2024-07-18 12:00] VITALS: BP 132/73; PULSE 77; RESP 18; TEMP 36.3918; O2SAT 99
[2024-07-18] MEDS: IBUPROFEN 800MG TABLET PO NR (12:30)
[2024-07-18 20:00] VITALS: BP 101/57; PULSE 64; RESP 18; TEMP 36.89184; O2SAT 99
[2024-07-19] VITALS (16 sets, daily range): BP systolic 101–129; BP diastolic 53–85; PULSE 63–78; RESP 16–18; TEMP 36.33624–37.89192; O2SAT 95–100
[2024-07-19] MEDS: ACETAMINOPHEN 325MG TABLET PO PRN (05:54)
[2024-07-19 07:14] LABS: CALCIUM 8.2 mg/dL (8.7-10.4)
[2024-07-19 07:16] LABS: HEMATOCRIT. 27.5 % (36.0-48.0); HEMOGLOBIN. 8.6 g/dL (12.0-16.0); MEAN CORPUSCULAR HEMOGLOBIN 27.8 pg (28.0-32.0); MEAN CORPUSCULAR HGB CONC 31.3 g/dL (31.0-37.0); MEAN CORPUSCULAR VOLUME 88.8 fL (81.0-99.0); MEAN PLATELET VOLUME 7.8 fl (7.4-10.4); PLATELET 199 x1000/uL (130-400); RED CELL DISTRIBUTION WIDTH 17.5 % (11.6-14.6); WHITE BLOOD COUNT 4.7 x1000/uL (4.5-11.0)
[2024-07-19 07:20] LABS: DIFFERENTIAL COMMENT 1
[2024-07-19 07:55] LABS: CREATININE 12.8 mg/dL (0.6-1.0); POTASSIUM 6.6 mEq/L (3.5-5.1)
[2024-07-19] MEDS ORDERED: ALBUTEROL (0.083%) 2.5MG/3ML NEB HHN NR (10:45)
[2024-07-19] MEDS: CALCIUM ACETATE 667MG CAPSULE PO SCH (11:29)
[2024-07-19] MEDS: DEXTROSE 50% WATER 50ML SYRINGE IV NR (11:29)
[2024-07-19] MEDS: SODIUM BICARBONATE 8.4% 50MEQ/50ML SYR IV NR (11:30)
[2024-07-19] MEDS: SODIUM ZIRCONIUM CYCLOSILICATE 10GM/PACKET PO NR (11:30)
[2024-07-19] MEDS: INSULIN REGULAR (HUMULIN R) 1000UNITS/10ML VIAL IV NR (12:35)
[2024-07-19 13:32] LABS: PLATELET ESTIMATE NORMAL
[2024-07-19 13:33] LABS: ANISOCYTOSIS 1+
[2024-07-19] MEDS: CALCIUM CHLORIDE 1GM/10ML SYR IV NR (16:43)
[2024-07-19] MEDS: MENTHOL/LANOLIN/CALAMINE/ZN OX OINT 71GM TOP SCH (17:44)
[2024-07-19] MEDS: EPOETIN ALFA-EPBX 4,000 UNIT/ML VIAL SUBCUT SCH (21:18)
[2024-07-20] VITALS: BP 127/83; PULSE 73; RESP 18; TEMP 36.83628; O2SAT 99
[2024-07-20 04:00] VITALS: BP 126/80; PULSE 79; RESP 17; TEMP 36.9474; O2SAT 98
[2024-07-20 06:44] LABS: CALCIUM 8.6 mg/dL (8.7-10.4)
[2024-07-20 06:47] LABS: ALBUMIN 3.6 g/dL (3.2-4.8)
[2024-07-20 06:51] LABS: PREALBUMIN 13.8 mg/dl (10.0-40.0)
[2024-07-20 07:29] LABS: CREATININE 9.3 mg/dL (0.6-1.0)
[2024-07-20 08:00] VITALS: BP 127/64; PULSE 68; RESP 18; TEMP 36.44736; O2SAT 94
[2024-07-20 10:34] VITALS: BP 127/64; PULSE 68; TEMP 97.6; O2SAT 95
[2024-07-20 12:00] VITALS: BP 125/67; PULSE 66; RESP 18; TEMP 36.28068; O2SAT 92
== END 2024-07-20 15:05 | disposition home or self-care (01) | DRG 189 ==
LOC: ER 05:49 → EDBEDREQ 07:44 → EDBEDREQSVC 07:45 → 7EST 17:57
PROVIDERS: ADMIT Hospitalist; ATTEND Hospitalist
PROC: 5A1D70Z Performance of Urinary Filtration, Intermittent, Less than 6 Hours Per Day (ICD-10-PCS; principal; 2024-07-16)
PROC: 5A1D70Z Performance of Urinary Filtration, Intermittent, Less than 6 Hours Per Day (ICD-10-PCS; 2024-07-19)
DX: J96.00 Acute respiratory failure, unspecified whether with hypoxia or hypercapnia (principal); N18.6 End stage renal disease; I13.2 Hypertensive heart and chronic kidney disease with heart failure and with stage 5 chronic kidney disease, or end stage renal disease; K56.49 Other impaction of intestine; D63.1 Anemia in chronic kidney disease; E11.22 Type 2 diabetes mellitus with diabetic chronic kidney disease; R16.0 Hepatomegaly, not elsewhere classified; R91.1 Solitary pulmonary nodule; E11.40 Type 2 diabetes mellitus with diabetic neuropathy, unspecified; I25.10 Atherosclerotic heart disease of native coronary artery without angina pectoris; E03.9 Hypothyroidism, unspecified; I50.9 Heart failure, unspecified; Z95.5 Presence of coronary angioplasty implant and graft; I25.2 Old myocardial infarction; Z99.2 Dependence on renal dialysis; Z87.440 Personal history of urinary (tract) infections; Z79.899 Other long term (current) drug therapy
CPT/HCPCS: 36415; 74177; 76700; 80048; 80061; 80076; 82010; 82040; 82962; 83036; 83735; 84100; 84134; 84145; 84439; 84443; 85025; 85027; 86705; 86709; 87340; 90935; 93005; 93970; 97166; 99285; J0885; J1815; J1885; J2270; J2405; J3490; Q9967

== ENCOUNTER 2024-07-27 02:21 | Inpatient (IN) | payer OTHER, MEDICAID ==
[~2024-07-27] VITALS: Ht 167.6 cm; Wt 69.0 kg
[2024-07-27] VITALS (13 sets, daily range): BP systolic 119–147; BP diastolic 57–80; PULSE 60–72; RESP 16–24; TEMP 36.33624–36.50292; O2SAT 94–99
[~2024-07-27 02:21] MED LIST changes: -ATEN50TA PO; -CALC0.253 PO; +CARV6.2548 PO; -FAMO-135 MT; +HYDR25TA78 PO; +LEVO75TA7 PO
[2024-07-27 03:25] LABS: BASOPHILS % 0.8 % (0.0-2.0); EOSINOPHILS % 0.3 % (0.0-5.0); HEMATOCRIT. 27.8 % (36.0-48.0); HEMOGLOBIN. 8.6 g/dL (12.0-16.0); LYMPHOCYTES % 17.6 % (20.0-50.0); MEAN CORPUSCULAR HEMOGLOBIN 27.3 pg (28.0-32.0); MEAN CORPUSCULAR VOLUME 88.2 fL (81.0-99.0); MONOCYTES % 11.5 % (2.0-8.0); NEUTROPHILS % 69.8 % (40.0-76.0); PLATELET 189 x1000/uL (130-400); RED BLOOD CELL COUNT 3.15 mill/uL (4.2-5.4); RED CELL DISTRIBUTION WIDTH 17.1 % (11.6-14.6); WHITE BLOOD COUNT 4.2 x1000/uL (4.5-11.0)
[2024-07-27 03:30] LABS: CHLORIDE 105 mEq/L (98-107); SODIUM 140 mEq/L (136-145)
[2024-07-27 03:31] LABS: CARBON DIOXIDE 19 mEq/L (21-32); INR 1.1; PARTIAL THROMBOPLASTIN TIME 29.1 sec (23.4-31.0); PROTHROMBIN TIME 11.7 sec (9.6-11.0)
[2024-07-27 03:36] LABS: GLUCOSE 305 mg/dL (70-105); UREA NITROGEN BLOOD 79 mg/dL (9-23)
[2024-07-27 03:37] LABS: TROPONIN I HIGH SENSITIVITY 18 ng/L (3.0-34)
[2024-07-27 03:49] LABS: ETHANOL BLOOD < 10 mg/dL (<10)
[2024-07-27 03:53] LABS: CREATININE 13.4 mg/dL (0.6-1.0); POTASSIUM 7.1 mEq/L (3.5-5.1)
[2024-07-27] MEDS: INSULIN REGULAR (HUMULIN R) 1000UNITS/10ML VIAL IV NR (04:00)
[2024-07-27] MEDS: ALBUTEROL (0.5%) 2.5MG/0.5ML NEB HHN ONE ×2 (05:26)
[2024-07-27] MEDS: ALBUTEROL (0.083%) 2.5MG/3ML NEB HHN NR (05:40)
[2024-07-27] MEDS: SODIUM BICARBONATE 8.4% 50MEQ/50ML SYR IV NR (05:55)
[2024-07-27] MEDS: DEXTROSE 50% WATER 50ML SYRINGE IV NR (05:55)
[2024-07-27] MEDS: CALCIUM GLUCONATE 100MG/ML 10ML VIAL IV NR (05:56)
[2024-07-27] MEDS: SODIUM ZIRCONIUM CYCLOSILICATE 10GM/PACKET PO NR (05:56)
[2024-07-27] MEDS: FUROSEMIDE 40MG/4ML VIAL IV NR (05:56)
[2024-07-27] MEDS: KETOROLAC 15MG/ML VIAL IV NR (06:38)
[2024-07-27] MEDS ORDERED: ACETAMINOPHEN 325MG TABLET PO PRN ×2 (08:45)
[2024-07-27] MEDS ORDERED: MAGNESIUM/ALUMINUM HYDROXIDE/SIMETHICONE 30ML UDC PO PRN (08:45)
[2024-07-27] MEDS ORDERED: DEXTROSE 50% WATER 50ML SYRINGE IV PRN (08:45)
[2024-07-27] MEDS ORDERED: GUAIFENESIN 200MG/10ML SUGAR FREE UDC PO PRN (08:45)
[2024-07-27] MEDS ORDERED: IPRATROPIUM/ALBUTEROL 0.5-3(2.5)MG/3ML NEB HHN PRN (08:45)
[2024-07-27] MEDS ORDERED: DOCUSATE SODIUM 100MG CAPSULE PO PRN (08:45)
[2024-07-27] MEDS ORDERED: SEVE800T25 PO (08:46)
[2024-07-27] MEDS: BLOOD SUGAR DIAGNOSTIC STRIP TEST SCH (09:13)
[2024-07-27] MEDS: INSULIN LISPRO 100 UNITS/ML SUBCUT SCH (09:17)
[2024-07-27] MEDS: ASPIRIN 81MG EC TABLET PO SCH (09:17)
[2024-07-27] MEDS: PANTOPRAZOLE SODIUM 40 MG/VIAL IV SCH (10:18)
[2024-07-27 12:05] LABS: IRON 37 ug/dL (50-170)
[2024-07-27 12:08] LABS: PHOSPHORUS 6.3 mg/dL (2.5-4.9)
[2024-07-27 12:09] LABS: TOTAL IRON BINDING CAPACITY 263 ug/dl (250-425)
[2024-07-27 12:13] LABS: FERRITIN 438 ng/mL (10-291); FOLIC ACID (FOLATE) SERUM 8.29 ng/mL (>5.38)
[2024-07-27 12:14] LABS: VITAMIN B12 SERUM 777 pg/mL (211-911)
[2024-07-27 12:27] LABS: HEPATITIS B SURFACE ANTIGEN NEGATIVE (Negative)
[2024-07-27 12:47] LABS: HEPATITIS A AB IGM NEGATIVE (Negative)
[2024-07-27 12:48] LABS: HEPATITIS B CORE AB IGM NEGATIVE (Negative); HEPATITIS C AB NON REACTIVE (Neg) (Negative)
[2024-07-27] MEDS: LEVOTHYROXINE SODIUM 25MCG TABLET PO SCH (12:59)
[2024-07-27] MEDS: HYDRALAZINE HCL 25MG TABLET PO SCH (14:53)
[2024-07-27] MEDS: ENOXAPARIN 30MG/0.3ML SYR SUBCUT SCH (14:55)
[2024-07-27] MEDS: CALCIUM ACETATE 667MG CAPSULE PO SCH (17:00)
[2024-07-27 17:39] LABS: POTASSIUM 7.5 mEq/L (3.5-5.1); TROPONIN I HIGH SENSITIVITY 48 ng/L (3.0-34)
[2024-07-27] MEDS: FAMOTIDINE 20MG TABLET PO SCH (21:42)
[2024-07-28] VITALS (9 sets, daily range): BP systolic 115–182; BP diastolic 59–99; PULSE 66–72; RESP 16–18; TEMP 36.16956–36.6696; O2SAT 94–99
[2024-07-28 00:04] LABS: TROPONIN I HIGH SENSITIVITY 31 ng/L (3.0-34)
[2024-07-28] MEDS: INSULIN GLARGINE 100 UNITS/ML SUBCUT SCH (00:24)
[2024-07-28] MEDS ORDERED: THYROID 60MG TABLET PO SCH (06:45)
[2024-07-28] MEDS: ONDANSETRON HCL 4MG/2ML INJ IV PRN (09:20)
[2024-07-28 11:03] LABS: CALCIUM 8.6 mg/dL (8.7-10.4)
[2024-07-28 11:15] LABS: CREATININE 9.2 mg/dL (0.6-1.0)
[2024-07-28 11:17] LABS: POTASSIUM 6.7 mEq/L (3.5-5.1)
[2024-07-28 11:34] LABS: HEMATOCRIT 27.8 % (36.0-48.0); HEMOGLOBIN 8.6 g/dL (12.0-16.0); MEAN CORPUSCULAR HEMOGLOBIN 26.8 pg (28.0-32.0); MEAN CORPUSCULAR VOLUME 86.4 fL (81.0-99.0); PLATELET 184 x1000/uL (130-400); RED BLOOD CELL COUNT 3.22 mill/uL (4.2-5.4); RED CELL DISTRIBUTION WIDTH 16.8 % (11.6-14.6); WHITE BLOOD COUNT 3.1 x1000/uL (4.5-11.0)
[2024-07-28] MEDS: CLONIDINE 0.1MG TABLET PO PRN (12:17)
[2024-07-29] VITALS: BP 180/76; PULSE 70; RESP 20; TEMP 37.05852; O2SAT 98
[2024-07-29 01:20] VITALS: BP 150/60
[2024-07-29 04:00] VITALS: BP 138/47; PULSE 72; RESP 18; TEMP 36.55848; O2SAT 98
[2024-07-29 05:26] VITALS: BP 137/42; PULSE 69; RESP 18
[2024-07-29] MEDS: IBUPROFEN 400MG TABLET PO NR (05:26)
== END 2024-07-29 10:40 | disposition home or self-care (01) | DRG 640 ==
LOC: ER 02:21 → 5WST 04:53
PROVIDERS: ADMIT Internal Medicine; ATTEND Internal Medicine
PROC: 5A1D70Z Performance of Urinary Filtration, Intermittent, Less than 6 Hours Per Day (ICD-10-PCS; principal; 2024-07-27)
PROC: 5A1D70Z Performance of Urinary Filtration, Intermittent, Less than 6 Hours Per Day (ICD-10-PCS; 2024-07-28)
DX: E87.5 Hyperkalemia (principal); N18.6 End stage renal disease; I13.2 Hypertensive heart and chronic kidney disease with heart failure and with stage 5 chronic kidney disease, or end stage renal disease; I50.32 Chronic diastolic (congestive) heart failure; E87.8 Other disorders of electrolyte and fluid balance, not elsewhere classified; K29.70 Gastritis, unspecified, without bleeding; E11.22 Type 2 diabetes mellitus with diabetic chronic kidney disease; E03.9 Hypothyroidism, unspecified; E83.39 Other disorders of phosphorus metabolism; R94.31 Abnormal electrocardiogram [ECG] [EKG]; I25.10 Atherosclerotic heart disease of native coronary artery without angina pectoris; D63.1 Anemia in chronic kidney disease; L89.90 Pressure ulcer of unspecified site, unspecified stage; R91.1 Solitary pulmonary nodule; I25.2 Old myocardial infarction; Z87.440 Personal history of urinary (tract) infections; Z95.5 Presence of coronary angioplasty implant and graft; Z99.2 Dependence on renal dialysis; Z91.158 Patient's noncompliance with renal dialysis for other reason; Z79.4 Long term (current) use of insulin; Z79.899 Other long term (current) drug therapy; Z88.8 Allergy status to other drugs, medicaments and biological substances
CPT/HCPCS: 36415; 71045; 74176; 80048; 80320; 82607; 82728; 82746; 82962; 83540; 83550; 83735; 83880; 84100; 84132; 84443; 84484; 85025; 85027; 86705; 86709; 87340; 90935; 93005; 94640; 99291; A6261; J0610; J1650; J1815; J1885; J1940; J2405; J2470; J3490; G0480

== ENCOUNTER 2024-08-06 00:57 | Inpatient (IN) | payer OTHER, MEDICAID ==
[~2024-08-06] VITALS: Ht 172.7 cm; Wt 68.9 kg
[2024-08-06] VITALS (8 sets, daily range): BP systolic 97–124; BP diastolic 48–61; PULSE 55–71; RESP 16–20; TEMP 36.00288–37.1408; O2SAT 95–100
[~2024-08-06 00:57] MED LIST changes: +SEVE800T25 PO
[2024-08-06] MEDS: KETOROLAC 30MG/ML VIAL IV STA (02:07)
[2024-08-06] MEDS: ONDANSETRON HCL 4MG/2ML INJ IV STA (02:07)
[2024-08-06] MEDS: SODIUM CHLORIDE 0.9% 1,000 ML IV ONE (02:07)
[2024-08-06 02:14] LABS: EOSINOPHILS % 0.5 % (0.0-5.0); HEMATOCRIT. 29.9 % (36.0-48.0); HEMOGLOBIN. 9.2 g/dL (12.0-16.0); LYMPHOCYTES % 12.2 % (20.0-50.0); MEAN CORPUSCULAR HEMOGLOBIN 26.9 pg (28.0-32.0); MEAN CORPUSCULAR HGB CONC 30.7 g/dL (31.0-37.0); MEAN CORPUSCULAR VOLUME 87.6 fL (81.0-99.0); MEAN PLATELET VOLUME 8.6 fl (7.4-10.4); NEUTROPHILS % 72.3 % (40.0-76.0); PLATELET 201 x1000/uL (130-400); RED BLOOD CELL COUNT 3.42 mill/uL (4.2-5.4); RED CELL DISTRIBUTION WIDTH 16.9 % (11.6-14.6); WHITE BLOOD COUNT 4.4 x1000/uL (4.5-11.0)
[2024-08-06 02:19] LABS: CARBON DIOXIDE 19 mEq/L (21-32); CHLORIDE 97 mEq/L (98-107); SODIUM 135 mEq/L (136-145)
[2024-08-06 02:20] LABS: CALCIUM 9.3 mg/dL (8.7-10.4)
[2024-08-06 02:25] LABS: UREA NITROGEN BLOOD 46 mg/dL (9-23)
[2024-08-06 02:27] LABS: BETA HYDROXYBUTYRATE 3.4 mMol/L (0.0-0.3)
[2024-08-06 02:51] LABS: ETHANOL BLOOD < 10 mg/dL (<10)
[2024-08-06 03:22] LABS: GLUCOSE 527 mg/dL (70-105)
[2024-08-06 03:23] LABS: CREATININE 9.8 mg/dL (0.6-1.0)
[2024-08-06] MEDS: INSULIN REGULAR (HUMULIN R) 1000UNITS/10ML VIAL IV NR (04:10)
[2024-08-06] MEDS: CALCIUM CHLORIDE 1,000 MG in DEXT 5% WATER 100 ML IV NR (04:10)
[2024-08-06] MEDS: SODIUM BICARBONATE 8.4% 50MEQ/50ML SYR IV NR (04:11)
[2024-08-06] MEDS: ALBUTEROL (0.083%) 2.5MG/3ML NEB HHN SCH (04:54)
[2024-08-06 06:11] LABS: PHOSPHORUS 5.8 mg/dL (2.5-4.9)
[2024-08-06 06:26] LABS: HEPATITIS B SURFACE ANTIGEN NEGATIVE (Negative)
[2024-08-06] MEDS ORDERED: MAGNESIUM/ALUMINUM HYDROXIDE/SIMETHICONE 30ML UDC PO PRN (06:30)
[2024-08-06] MEDS ORDERED: GUAIFENESIN 200MG/10ML SUGAR FREE UDC PO PRN (06:30)
[2024-08-06] MEDS ORDERED: ACETAMINOPHEN 325MG TABLET PO PRN ×2 (06:30)
[2024-08-06] MEDS ORDERED: NITROGLYCERIN 0.4MG TABLET SL SL PRN (06:30)
[2024-08-06] MEDS ORDERED: ONDANSETRON HCL 4MG/2ML INJ IV PRN (06:30)
[2024-08-06] MEDS ORDERED: IPRATROPIUM/ALBUTEROL 0.5-3(2.5)MG/3ML NEB NEB PRN (06:30)
[2024-08-06] MEDS ORDERED: DOCUSATE SODIUM 100MG CAPSULE PO PRN (06:30)
[2024-08-06 06:47] LABS: HEPATITIS A AB IGM NEGATIVE (Negative); HEPATITIS B CORE AB IGM NEGATIVE (Negative)
[2024-08-06 06:48] LABS: HEPATITIS C AB NON REACTIVE (Neg) (Negative)
[2024-08-06 07:03] LABS: T4 FREE 0.87 ng/dL (0.89-1.76); THYROID STIMULATING HORMONE 5.54 uIU/mL (0.55-4.78)
[2024-08-06] MEDS: LEVOTHYROXINE SODIUM 75MCG TABLET PO SCH (07:50)
[2024-08-06] MEDS: AMLODIPINE 5MG TABLET PO SCH (08:16)
[2024-08-06] MEDS: INSULIN LISPRO 100 UNITS/ML SUBCUT SCH ×2 (08:38→11:07)
[2024-08-06] MEDS: ENOXAPARIN 30MG/0.3ML SYR SUBCUT SCH (09:00)
[2024-08-06] MEDS: BLOOD SUGAR DIAGNOSTIC STRIP TEST SCH (09:00)
[2024-08-06] MEDS: INSULIN GLARGINE 100 UNITS/ML SUBCUT SCH (09:38)
[2024-08-06] MEDS: ASPIRIN 81MG EC TABLET PO SCH (10:04)
[2024-08-06] MEDS: FAMOTIDINE 20MG TABLET PO SCH (10:05)
[2024-08-06] MEDS: SEVELAMER CARBONATE 800 MG TABLET PO SCH (10:05)
[2024-08-06] MEDS: FOLIC ACID/VITAMIN B COMP W-C TABLET PO SCH (10:05)
[2024-08-06] MEDS: CLOPIDOGREL 75MG TABLET PO SCH (10:06)
[2024-08-06 17:00] LABS: HEPATITIS B SURFACE ANTIGEN NEGATIVE
[2024-08-06 17:01] LABS: HIV 1/2 AB P24AG Negative (Negative)
[2024-08-06] MEDS: CARVEDILOL 3.125 MG TABLET PO SCH (18:00)
[2024-08-06] MEDS ORDERED: IBUPROFEN 200MG TABLET PO PRN (21:15)
[2024-08-06] MEDS: ZOLPIDEM TARTRATE 5MG TABLET PO PRN (23:39)
[2024-08-07] VITALS (11 sets, daily range): BP systolic 105–136; BP diastolic 53–70; PULSE 55–84; RESP 16–20; TEMP 36.3918–36.9474; O2SAT 95–100
[2024-08-07] MEDS: IBUPROFEN 400MG TABLET PO PRN (03:30)
[2024-08-07 17:14] LABS: HEMATOCRIT. 24.8 % (36.0-48.0); HEMOGLOBIN. 7.8 g/dL (12.0-16.0); MEAN CORPUSCULAR HEMOGLOBIN 26.6 pg (28.0-32.0); MEAN CORPUSCULAR HGB CONC 31.4 g/dL (31.0-37.0); MEAN CORPUSCULAR VOLUME 84.8 fL (81.0-99.0); MEAN PLATELET VOLUME 8.1 fl (7.4-10.4); PLATELET 207 x1000/uL (130-400); RED BLOOD CELL COUNT 2.93 mill/uL (4.2-5.4); RED CELL DISTRIBUTION WIDTH 16.7 % (11.6-14.6); WHITE BLOOD COUNT 4.1 x1000/uL (4.5-11.0)
[2024-08-07 17:22] LABS: CHLORIDE 100 mEq/L (98-107); DIFFERENTIAL COMMENT 1; POTASSIUM 4.1 mEq/L (3.5-5.1); SODIUM 138 mEq/L (136-145)
[2024-08-07 17:23] LABS: CALCIUM 8.4 mg/dL (8.7-10.4); CARBON DIOXIDE 27 mEq/L (21-32)
[2024-08-07 17:28] LABS: GLUCOSE 171 mg/dL (70-105); UREA NITROGEN BLOOD 33 mg/dL (9-23)
[2024-08-07 17:30] LABS: ALANINE AMINOTRANSFERASE 8 IU/L (10-49); ALBUMIN 3.4 g/dL (3.2-4.8); ASPARTATE AMINOTRANSFERASE 18 IU/L (<34); BILIRUBIN TOTAL 0.4 mg/dL (0.1-1.0); PHOSPHORUS 3.9 mg/dL (2.5-4.9); PROTEIN TOTAL 6.9 g/dL (6.0-8.3)
[2024-08-07 17:34] LABS: CREATININE 7.5 mg/dL (0.6-1.0)
[2024-08-07 18:47] LABS: ANISOCYTOSIS 1+; PLATELET ESTIMATE NORMAL
[2024-08-08] VITALS: PULSE 61; RESP 17
[2024-08-08 04:00] VITALS: BP 124/64; PULSE 63; RESP 20; TEMP 36.61404; O2SAT 97
[2024-08-08] MEDS: LEVOTHYROXINE SODIUM 88MCG TABLET PO SCH (06:41)
[2024-08-08 12:00] VITALS: BP 133/65; PULSE 64; RESP 18; TEMP 36.50292; O2SAT 98
[2024-08-08 16:00] VITALS: BP 124/45; PULSE 65; RESP 20; TEMP 35.66952; O2SAT 100
[2024-08-08 20:00] VITALS: BP 125/51; PULSE 62; RESP 20; TEMP 36.78072; O2SAT 98
[2024-08-09] MEDS: CLONIDINE 0.1MG TABLET PO PRN (06:36)
[2024-08-09 08:00] VITALS: BP 129/60; PULSE 72; RESP 18; TEMP 35.61396; O2SAT 99
[2024-08-09 12:00] VITALS: BP 142/67; PULSE 68; RESP 18; TEMP 36.61404; O2SAT 100
[2024-08-09 16:00] VITALS: BP 144/71; PULSE 67; RESP 18; TEMP 36.61404; O2SAT 94
[2024-08-09 20:00] VITALS: BP 144/86; PULSE 67; RESP 18; TEMP 36.44736; O2SAT 95
[2024-08-10] VITALS (10 sets, daily range): BP systolic 105–149; BP diastolic 41–85; PULSE 60–87; RESP 18–19; TEMP 35.78064–37.00296; O2SAT 95–100
[2024-08-10] MEDS: DEXTROSE 50% WATER 50ML SYRINGE IV PRN (05:37)
[2024-08-11] MEDS ORDERED: INSULIN GLARGINE 100 UNITS/ML SUBCUT SCH ×2 (10:00)
== END 2024-08-10 12:30 | disposition home or self-care (01) | DRG 637 ==
LOC: ER 00:57 → 8WST 05:52 → EDBEDREQ 06:12 → EDBEDREQTM 06:12
PROVIDERS: ADMIT Internal Medicine; ATTEND Internal Medicine
PROC: 5A1D70Z Performance of Urinary Filtration, Intermittent, Less than 6 Hours Per Day (ICD-10-PCS; principal; 2024-08-06)
PROC: 5A1D70Z Performance of Urinary Filtration, Intermittent, Less than 6 Hours Per Day (ICD-10-PCS; 2024-08-10)
DX: E11.65 Type 2 diabetes mellitus with hyperglycemia (principal); N18.6 End stage renal disease; I13.2 Hypertensive heart and chronic kidney disease with heart failure and with stage 5 chronic kidney disease, or end stage renal disease; E87.1 Hypo-osmolality and hyponatremia; I50.32 Chronic diastolic (congestive) heart failure; D63.1 Anemia in chronic kidney disease; Z20.822 Contact with and (suspected) exposure to COVID-19; Z99.2 Dependence on renal dialysis; E03.9 Hypothyroidism, unspecified; E11.22 Type 2 diabetes mellitus with diabetic chronic kidney disease; E87.5 Hyperkalemia; I25.10 Atherosclerotic heart disease of native coronary artery without angina pectoris; Z87.440 Personal history of urinary (tract) infections; I25.2 Old myocardial infarction
CPT/HCPCS: 36415; 71045; 80048; 80053; 80061; 80320; 82010; 82962; 83036; 83735; 83930; 84100; 84439; 84443; 85025; 86705; 86709; 87340; 87426; 87804; 90935; 93005; 93970; 94070; 94640; 94664; 98960; 99291; A6261; J1650; J1815; J1885; J2405; J3490; J7030; J7060; G0480

== ENCOUNTER 2024-08-12 07:04 | Inpatient (IN) | payer OTHER, MEDICAID ==
[~2024-08-12] VITALS: Ht 165.1 cm; Wt 98.9 kg
[2024-08-12] VITALS (16 sets, daily range): BP systolic 116–181; BP diastolic 67–90; PULSE 57–117; RESP 16–33; TEMP 36.6696; O2SAT 100
[2024-08-12] MEDS: DEXTROSE 50% WATER 50ML SYRINGE IV ONE ×3 (07:47→12:30)
[2024-08-12] MEDS: VANCOMYCIN 1G PREMIX 200 ML IV ONE (07:47)
[2024-08-12] MEDS: PIPERACILLIN/TAZO 3.375G/50ML 50 ML IV ONE (07:47)
[2024-08-12 07:50] LABS: HEMOGLOBIN. 8.3 g/dL (12.0-16.0); MEAN CORPUSCULAR HEMOGLOBIN 27.1 pg (28.0-32.0); MEAN CORPUSCULAR HGB CONC 30.7 g/dL (31.0-37.0); MEAN CORPUSCULAR VOLUME 88.3 fL (81.0-99.0); MEAN PLATELET VOLUME 7.3 fl (7.4-10.4); PLATELET 252 x1000/uL (130-400); RED BLOOD CELL COUNT 3.05 mill/uL (4.2-5.4); RED CELL DISTRIBUTION WIDTH 17.2 % (11.6-14.6); WHITE BLOOD COUNT 6.1 x1000/uL (4.5-11.0)
[2024-08-12 07:54] LABS: DIFFERENTIAL COMMENT 1
[2024-08-12 07:55] LABS: CARBON DIOXIDE 25 mEq/L (21-32); CHLORIDE 105 mEq/L (98-107); POTASSIUM 4.9 mEq/L (3.5-5.1); SODIUM 142 mEq/L (136-145)
[2024-08-12 07:56] LABS: CALCIUM 8.3 mg/dL (8.7-10.4)
[2024-08-12 08:01] LABS: GLUCOSE 125 mg/dL (70-105); TROPONIN I HIGH SENSITIVITY 21 ng/L (3.0-34); UREA NITROGEN BLOOD 42 mg/dL (9-23)
[2024-08-12 08:03] LABS: ALANINE AMINOTRANSFERASE < 7 IU/L (10-49); ALBUMIN 3.9 g/dL (3.2-4.8); ASPARTATE AMINOTRANSFERASE 24 IU/L (<34); BILIRUBIN DIRECT 0.1 mg/dL (<=3.0); BILIRUBIN TOTAL 0.3 mg/dL (0.1-1.0); PROTEIN TOTAL 8.2 g/dL (6.0-8.3)
[2024-08-12 08:14] LABS: CREATININE 8.8 mg/dL (0.6-1.0)
[2024-08-12 08:50] LABS: D-DIMER 3.83 mg/L FEU (<0.50); PROTHROMBIN TIME 11.2 sec (9.6-11.0)
[2024-08-12] MEDS: INSULIN GLARGINE 100 UNITS/ML SUBCUT SCH (10:00)
[2024-08-12 10:24] LABS: BG BASE EXCESS 0.4 mmol/L (-2.0-3.0); BG CARBOXYHEMOGLOBIN 0.6 % (0.5-1.5); BG DEOXYHEMOGLOBIN 5.3 % (0.0-5.0); BG FRACTION INSPIRED OXYGEN 35; BG HCO3 ACT 25.3 mmol/L (21.0-28.0); BG METHEMOGLOBIN 0.3 % (0.5-1.5); BG OXYGEN SATURATION 94.7 % (94.0-98.0); BG OXYHEMOGLOBIN 93.8 % (94.0-98.0); BG PH 7.397 (7.350-7.450); BG PO2 78.5 mmHg (83.0-108.0); BG SAMPLE SITE RIGHT BRACHIAL; BG TOTAL HEMOGLOBIN 8.3 g/dL (12.0-16.0); BG VENT MODE MASK - BIPAP
[2024-08-12] MEDS ORDERED: IBUPROFEN 600MG TABLET PO PRN (11:15)
[2024-08-12] MEDS ORDERED: CLONIDINE 0.1MG TABLET PO PRN (11:15)
[2024-08-12] MEDS ORDERED: IPRATROPIUM/ALBUTEROL 0.5-3(2.5)MG/3ML NEB HHN PRN (11:15)
[2024-08-12] MEDS ORDERED: DOCUSATE SODIUM 100MG CAPSULE PO PRN (11:15)
[2024-08-12 11:40] LABS: HEPATITIS B SURFACE ANTIGEN NEGATIVE (Negative)
[2024-08-12] MEDS: ENOXAPARIN 30MG/0.3ML SYR SUBCUT SCH (12:00)
[2024-08-12] MEDS ORDERED: CEFTRIAXONE 2GM/50ML 50 ML IV SCH (12:00)
[2024-08-12 12:01] LABS: HEPATITIS A AB IGM NEGATIVE (Negative)
[2024-08-12 12:02] LABS: HEPATITIS B CORE AB IGM NEGATIVE (Negative); HEPATITIS C AB NON REACTIVE (Neg) (Negative)
[2024-08-12] MEDS: PROPOFOL 10MG/ML 100ML 100 ML IV PRN (12:30)
[2024-08-12] MEDS ORDERED: FENTANYL 2500MCG/250ML PMX 250 ML IV PRN ×2 (12:30→16:00)
[2024-08-12] MEDS ORDERED: PROPOFOL 10MG/ML 100ML 100 ML IV PRN (12:30)
[2024-08-12 13:13] LABS: BG BASE EXCESS 1.7 mmol/L (-2.0-3.0); BG CARBOXYHEMOGLOBIN 1.2 % (0.5-1.5); BG DEOXYHEMOGLOBIN 7.5 % (0.0-5.0); BG FRACTION INSPIRED OXYGEN 50; BG HCO3 ACT 26.8 mmol/L (21.0-28.0); BG METHEMOGLOBIN 0.3 % (0.5-1.5); BG OXYGEN SATURATION 92.4 % (94.0-98.0); BG PCO2 44.5 mmHg (32.0-45.0); BG PH 7.397 (7.350-7.450); BG PO2 66.4 mmHg (83.0-108.0); BG SAMPLE SITE RIGHT BRACHIAL; BG TOTAL HEMOGLOBIN 8.7 g/dL (12.0-16.0); BG VENT MODE VENT - AC
[2024-08-12] MEDS: IPRATROPIUM/ALBUTEROL 0.5-3(2.5)MG/3ML NEB HHN SCH (13:23)
[2024-08-12] MEDS: DOXYCYCLINE 100MG/100ML 100 ML IV SCH (13:25)
[2024-08-12] MEDS ORDERED: DEXTROSE 50% WATER 50ML SYRINGE IV PRN (13:30)
[2024-08-12] MEDS: GABAPENTIN 100MG CAPSULE PO SCH (14:00)
[2024-08-12] MEDS: HYDRALAZINE HCL 25MG TABLET PO SCH (14:00)
[2024-08-12] MEDS: VANCOMYCIN 500MG PREMIX 100 ML IV NR (14:41)
[2024-08-12] MEDS ORDERED: DEXMEDETOMIDINE 400 MCG/100 ML 100 ML IV PRN (14:45)
[2024-08-12] MEDS: DEXMEDETOMIDINE 400 MCG/100 ML 100 ML IV PRN (15:07)
[2024-08-12 17:08] LABS: ANISOCYTOSIS 2+; PLATELET ESTIMATE NORMAL
[2024-08-12] MEDS: BLOOD SUGAR DIAGNOSTIC STRIP TEST SCH (17:16)
[2024-08-12] MEDS: INSULIN LISPRO 100 UNITS/ML SUBCUT SCH ×2 (17:47→22:54)
[2024-08-12] MEDS: PIPERACILLIN/TAZO 3.375G/50ML 50 ML IV SCH (21:14)
[2024-08-12] MEDS: CARVEDILOL 6.25 MG TABLET PO SCH (21:14)
[2024-08-12] MEDS: HYDRALAZINE 20MG/ML VIAL IV PRN (22:53)
[2024-08-12 23:26] LABS: IRON 19 ug/dL (50-170)
[2024-08-12 23:29] LABS: CREATINE KINASE MB FRACTION 1.2 ng/mL (0.5-3.6); TOTAL IRON BINDING CAPACITY 413 ug/dl (250-425)
[2024-08-12 23:33] LABS: T4 FREE 0.98 ng/dL (0.89-1.76); THYROID STIMULATING HORMONE 2.84 uIU/mL (0.55-4.78)
[2024-08-12 23:34] LABS: FERRITIN 419 ng/mL (10-291); FOLIC ACID (FOLATE) SERUM 13.03 ng/mL (>5.38)
[2024-08-12 23:35] LABS: VITAMIN B12 SERUM 839 pg/mL (211-911)
[2024-08-13] VITALS (108 sets, daily range): BP systolic 81–171; BP diastolic 55–90; PULSE 48–111; RESP 0–31; TEMP 34.39164–36.696; O2SAT 98–100
[2024-08-13] MEDS: DOXYCYCLINE 100MG/100ML 100 ML IV SCH (01:23)
[2024-08-13 06:08] LABS: CALCIUM 8.2 mg/dL (8.7-10.4); POTASSIUM 5.7 mEq/L (3.5-5.1)
[2024-08-13] MEDS: LEVOTHYROXINE SODIUM 75MCG TABLET PO SCH (06:10)
[2024-08-13 06:50] LABS: CREATININE 9.6 mg/dL (0.6-1.0)
[2024-08-13 06:54] LABS: HEMATOCRIT. 26.3 % (36.0-48.0); HEMOGLOBIN. 8.4 g/dL (12.0-16.0); MEAN CORPUSCULAR HEMOGLOBIN 27.1 pg (28.0-32.0); MEAN CORPUSCULAR VOLUME 84.7 fL (81.0-99.0); MEAN PLATELET VOLUME 7.7 fl (7.4-10.4); PLATELET 205 x1000/uL (130-400); RED CELL DISTRIBUTION WIDTH 17.2 % (11.6-14.6); WHITE BLOOD COUNT 3.8 x1000/uL (4.5-11.0)
[2024-08-13 06:59] LABS: DIFFERENTIAL COMMENT 1
[2024-08-13] MEDS ORDERED: ALBUTEROL (0.083%) 2.5MG/3ML NEB HHN NR (08:30)
[2024-08-13] MEDS ORDERED: SODIUM POLYSTYRENE SULFONATE 15 G/60 ML BOT PO ONE (08:30)
[2024-08-13] MEDS ORDERED: DOPAMINE 400MG/250ML PREMIX 250 ML IV PRN (09:00)
[2024-08-13] MEDS: AMLODIPINE 10MG TABLET PO SCH (09:15)
[2024-08-13] MEDS: SODIUM ZIRCONIUM CYCLOSILICATE 10GM/PACKET PO NR (10:03)
[2024-08-13] MEDS: PANTOPRAZOLE SODIUM 40 MG/VIAL IV SCH (10:03)
[2024-08-13] MEDS: ASPIRIN 81MG TABLET PO SCH (10:03)
[2024-08-13] MEDS: CLOPIDOGREL 75MG TABLET PO SCH (10:03)
[2024-08-13] MEDS: CALCIUM CHLORIDE 1GM/10ML SYR IV NR (10:04)
[2024-08-13] MEDS: DEXTROSE 50% WATER 50ML SYRINGE IV NR (10:47)
[2024-08-13] MEDS: INSULIN REGULAR (HUMULIN R) 1000UNITS/10ML VIAL IV NR (10:48)
[2024-08-13] MEDS: BLOOD SUGAR DIAGNOSTIC STRIP TEST SCH (12:00)
[2024-08-13] MEDS: INSULIN LISPRO 100 UNITS/ML SUBCUT SCH ×2 (12:36→17:13)
[2024-08-13 14:18] LABS: ANISOCYTOSIS 1+; PLATELET ESTIMATE NORMAL
[2024-08-13] MEDS ORDERED: PROPOFOL 10MG/ML 100ML 100 ML IV PRN ×2 (17:49→18:00)
[2024-08-13] MEDS: PIPERACILLIN/TAZO 3.375G/100ML 100 ML IV SCH (20:48)
[2024-08-13] MEDS: EPOETIN ALFA-EPBX 4,000 UNIT/ML VIAL SUBCUT SCH (21:18)
[2024-08-14] VITALS (84 sets, daily range): BP systolic 94–135; BP diastolic 53–97; PULSE 65–78; RESP 0–20; TEMP 36.55848–37.7808; O2SAT 98–100
[2024-08-14 06:36] LABS: CALCIUM 8.3 mg/dL (8.7-10.4); POTASSIUM 4.4 mEq/L (3.5-5.1)
[2024-08-14 06:40] LABS: HEMATOCRIT. 24.3 % (36.0-48.0); HEMOGLOBIN. 7.8 g/dL (12.0-16.0); MEAN CORPUSCULAR HEMOGLOBIN 26.8 pg (28.0-32.0); MEAN CORPUSCULAR VOLUME 83.8 fL (81.0-99.0); MEAN PLATELET VOLUME 7.3 fl (7.4-10.4); PLATELET 225 x1000/uL (130-400); WHITE BLOOD COUNT 3.5 x1000/uL (4.5-11.0)
[2024-08-14 07:10] LABS: DIFFERENTIAL COMMENT 1
[2024-08-14] MEDS: LIDOCAINE HCL 1% 10 MG/ML 10ML VIAL ONE (07:42)
[2024-08-14 07:53] LABS: CREATININE 8.7 mg/dL (0.6-1.0)
[2024-08-14] MEDS: DOXYCYCLINE HYCLATE 100MG CAPSULE PO SCH (09:16)
[2024-08-14] MEDS: VANCOMYCIN 500MG PREMIX 100 ML IV SCH (09:57)
[2024-08-14] MEDS: CALCIUM ACETATE 667MG CAPSULE PO SCH (13:42)
[2024-08-14 14:27] LABS: ANISOCYTOSIS 1+; PLATELET ESTIMATE NORMAL
[2024-08-14] MEDS: PIPERACILLIN/TAZO 3.375G/100ML 100 ML IV SCH (20:51)
[2024-08-15] VITALS (108 sets, daily range): BP systolic 96–180; BP diastolic 50–94; PULSE 65–80; RESP 0–26; TEMP 36.55848–37.72524; O2SAT 98–100
[2024-08-15 05:17] LABS: CARBON DIOXIDE 24 mEq/L (21-32); CHLORIDE 100 mEq/L (98-107); POTASSIUM 4.6 mEq/L (3.5-5.1); SODIUM 138 mEq/L (136-145)
[2024-08-15 05:18] LABS: CALCIUM 7.8 mg/dL (8.7-10.4)
[2024-08-15 05:20] LABS: MEAN CORPUSCULAR HEMOGLOBIN 26.9 pg (28.0-32.0); MEAN CORPUSCULAR HGB CONC 32.2 g/dL (31.0-37.0); MEAN CORPUSCULAR VOLUME 83.7 fL (81.0-99.0); MEAN PLATELET VOLUME 7.4 fl (7.4-10.4); PLATELET 205 x1000/uL (130-400); RED BLOOD CELL COUNT 2.49 mill/uL (4.2-5.4); RED CELL DISTRIBUTION WIDTH 16.7 % (11.6-14.6); WHITE BLOOD COUNT 4.1 x1000/uL (4.5-11.0)
[2024-08-15] MEDS: DEXTROSE 50% WATER 50ML SYRINGE IV PRN (05:21)
[2024-08-15 05:23] LABS: GLUCOSE 55 mg/dL (70-105); UREA NITROGEN BLOOD 52 mg/dL (9-23)
[2024-08-15 05:25] LABS: CREATININE 9.7 mg/dL (0.6-1.0)
[2024-08-15 07:05] LABS: HEMOGLOBIN. 6.7 g/dL (12.0-16.0)
[2024-08-15 07:06] LABS: DIFFERENTIAL COMMENT 1; HEMATOCRIT. 20.8 % (36.0-48.0)
[2024-08-15 09:07] LABS: HEMATOCRIT 21.9 % (36.0-48.0)
[2024-08-15 09:14] LABS: HEMOGLOBIN 6.8 g/dL (12.0-16.0)
[2024-08-15] MEDS ORDERED: IBUPROFEN 400MG TABLET NG NR (10:45)
[2024-08-15 11:33] LABS: ANISOCYTOSIS 1+; PLATELET ESTIMATE NORMAL
[2024-08-15] MEDS: IBUPROFEN 100MG/5ML UDC NG NR (13:51)
[2024-08-15] MEDS: SODIUM CHLORIDE 3% FOR INH 4ML NEB INH SCH (21:30)
[2024-08-16] VITALS (79 sets, daily range): BP systolic 99–176; BP diastolic 54–88; PULSE 64–78; RESP 0–26; TEMP 36.89184–37.16964; O2SAT 90–100
[2024-08-16 02:14] LABS: HEMATOCRIT 27.3 % (36.0-48.0); HEMOGLOBIN 8.6 g/dL (12.0-16.0)
[2024-08-16 06:21] LABS: CALCIUM 8.3 mg/dL (8.7-10.4)
[2024-08-16 06:24] LABS: HEMATOCRIT 27.5 % (36.0-48.0); HEMOGLOBIN 8.7 g/dL (12.0-16.0); MEAN CORPUSCULAR HEMOGLOBIN 26.9 pg (28.0-32.0); MEAN CORPUSCULAR HGB CONC 31.8 g/dL (31.0-37.0); MEAN CORPUSCULAR VOLUME 84.7 fL (81.0-99.0); PLATELET 210 x1000/uL (130-400); RED BLOOD CELL COUNT 3.25 mill/uL (4.2-5.4); RED CELL DISTRIBUTION WIDTH 16.5 % (11.6-14.6); WHITE BLOOD COUNT 3.8 x1000/uL (4.5-11.0)
[2024-08-16 06:30] LABS: CREATININE 7.9 mg/dL (0.6-1.0)
[2024-08-16 12:24] LABS: BG BASE EXCESS -6.9 mmol/L (-2.0-3.0); BG CARBOXYHEMOGLOBIN 0.9 % (0.5-1.5); BG DEOXYHEMOGLOBIN 2.8 % (0.0-5.0); BG FRACTION INSPIRED OXYGEN 40; BG HCO3 ACT 18.9 mmol/L (21.0-28.0); BG METHEMOGLOBIN 0.3 % (0.5-1.5); BG OXYGEN SATURATION 97.2 % (94.0-98.0); BG PH 7.303 (7.350-7.450); BG PO2 105.5 mmHg (83.0-108.0); BG SAMPLE SITE LEFT BRACHIAL; BG TOTAL HEMOGLOBIN 8.6 g/dL (12.0-16.0); BG VENT MODE VENT - CPAP
[2024-08-16 12:41] LABS: HEMATOCRIT 27.6 % (36.0-48.0); HEMOGLOBIN 8.6 g/dL (12.0-16.0)
[2024-08-16] MEDS: BUDESONIDE 0.5MG/2ML NEB HHN NR (17:00)
[2024-08-16 21:54] LABS: HEMOGLOBIN 8.3 g/dL (12.0-16.0)
[2024-08-16] MEDS: EPOETIN ALFA-EPBX 4,000 UNIT/ML VIAL SUBCUT SCH (23:55)
[2024-08-17] VITALS (22 sets, daily range): BP systolic 88–123; BP diastolic 43–78; PULSE 63–76; RESP 10–22; TEMP 34.94724–37.503; O2SAT 88–100
[2024-08-17] MEDS: MORPHINE SULFATE 2 MG/ML INJ (NOT FOR IM USE) IV NR (01:02)
[2024-08-17] MEDS: INSULIN GLARGINE 100 UNITS/ML SUBCUT SCH (10:27)
[2024-08-17] MEDS: LOPERAMIDE HCL 2MG CAPSULE PO PRN (10:47)
[2024-08-17] MEDS: METOCLOPRAMIDE 10MG/10 ML UDC PO SCH (12:19)
[2024-08-17 12:51] LABS: POTASSIUM 4.2 mEq/L (3.5-5.1)
[2024-08-17 13:01] LABS: CREATININE 9.5 mg/dL (0.6-1.0)
[2024-08-17] MEDS: INSULIN LISPRO 100 UNITS/ML SUBCUT NR (14:58)
[2024-08-17] MEDS: IBUPROFEN 400MG TABLET PO NR (15:08)
[2024-08-17 15:55] LABS: BG BASE EXCESS -6.5 mmol/L (-2.0-3.0); BG CARBOXYHEMOGLOBIN 0.1 % (0.5-1.5); BG DEOXYHEMOGLOBIN 5.3 % (0.0-5.0); BG FRACTION INSPIRED OXYGEN 60; BG HCO3 ACT 18.5 mmol/L (21.0-28.0); BG METHEMOGLOBIN 0.3 % (0.5-1.5); BG OXYGEN SATURATION 94.7 % (94.0-98.0); BG OXYHEMOGLOBIN 94.3 % (94.0-98.0); BG PCO2 34.4 mmHg (32.0-45.0); BG PH 7.348 (7.350-7.450); BG PO2 83.9 mmHg (83.0-108.0); BG SAMPLE SITE LEFT BRACHIAL; BG TOTAL HEMOGLOBIN 8.9 g/dL (12.0-16.0); BG VENT MODE HHN TX
[2024-08-17] MEDS: INSULIN LISPRO 100 UNITS/ML SUBCUT SCH (17:30)
[2024-08-17] MEDS: BLOOD SUGAR DIAGNOSTIC STRIP TEST SCH (17:39)
[2024-08-17] MEDS: INSULIN REGULAR (HUMULIN R) 1000UNITS/10ML VIAL IV NR (17:50)
[2024-08-17 19:16] LABS: BASOPHILS % 0.5 % (0.0-2.0); EOSINOPHILS % 0.5 % (0.0-5.0); HEMATOCRIT. 23.7 % (36.0-48.0); HEMOGLOBIN. 7.4 g/dL (12.0-16.0); LYMPHOCYTES % 16.8 % (20.0-50.0); MEAN CORPUSCULAR HEMOGLOBIN 26.9 pg (28.0-32.0); MEAN CORPUSCULAR HGB CONC 31.3 g/dL (31.0-37.0); MEAN PLATELET VOLUME 7.6 fl (7.4-10.4); MONOCYTES % 19.7 % (2.0-8.0); NEUTROPHILS % 62.5 % (40.0-76.0); PLATELET 189 x1000/uL (130-400); RED BLOOD CELL COUNT 2.76 mill/uL (4.2-5.4); RED CELL DISTRIBUTION WIDTH 16.3 % (11.6-14.6)
[2024-08-17 19:27] LABS: DIFFERENTIAL COMMENT 1
[2024-08-17 19:30] LABS: POTASSIUM 3.8 mEq/L (3.5-5.1)
[2024-08-17 21:02] LABS: CREATININE 9.8 mg/dL (0.6-1.0)
[2024-08-17] MEDS: MELATONIN 3MG TABLET PO SCH (22:01)
[2024-08-17] MEDS: BUDESONIDE 0.5MG/2ML NEB HHN SCH (22:03)
[2024-08-18] VITALS (14 sets, daily range): BP systolic 95–134; BP diastolic 50–91; PULSE 65–74; RESP 13–22; TEMP 36.6696–37.16964; O2SAT 92–100
[2024-08-18] MEDS ORDERED: INSULIN REGULAR (HUMULIN R) 1000UNITS/10ML VIAL IV ONE (06:30)
[2024-08-18] MEDS: INSULIN LISPRO 100 UNITS/ML SUBCUT NR (06:33)
[2024-08-18] MEDS: IPRATROPIUM/ALBUTEROL 0.5-3(2.5)MG/3ML NEB HHN SCH (12:00)
[2024-08-18] MEDS: INSULIN LISPRO 100 UNITS/ML SUBCUT SCH ×2 (13:00→14:44)
[2024-08-18] MEDS: ACETYLCYSTEINE 200MG/ML 20% VIAL 4ML INH SCH (16:26)
[2024-08-19] VITALS (11 sets, daily range): BP systolic 87–113; BP diastolic 48–63; PULSE 63–69; RESP 14–20; TEMP 37.05852–37.7808; O2SAT 92–100
[2024-08-19 06:42] LABS: HEMATOCRIT. 22.2 % (36.0-48.0); MEAN CORPUSCULAR HGB CONC 31.4 g/dL (31.0-37.0); MEAN CORPUSCULAR VOLUME 85.9 fL (81.0-99.0); MEAN PLATELET VOLUME 7.7 fl (7.4-10.4); PLATELET 158 x1000/uL (130-400); RED BLOOD CELL COUNT 2.58 mill/uL (4.2-5.4); RED CELL DISTRIBUTION WIDTH 16.3 % (11.6-14.6); WHITE BLOOD COUNT 4.1 x1000/uL (4.5-11.0)
[2024-08-19 06:53] LABS: CALCIUM 8.2 mg/dL (8.7-10.4)
[2024-08-19] MEDS ORDERED: SODIUM CHLORIDE 0.9% 1,000 ML IV SCH (08:00)
[2024-08-19 09:53] LABS: DIFFERENTIAL COMMENT 1
[2024-08-19] MEDS: FOLIC ACID/VITAMIN B COMP W-C TABLET PO SCH (10:44)
[2024-08-19 14:06] LABS: HEMATOCRIT 22.6 % (36.0-48.0); HEMOGLOBIN 7.2 g/dL (12.0-16.0)
[2024-08-19 21:25] LABS: ANISOCYTOSIS 1+; PLATELET ESTIMATE NORMAL
[2024-08-19 22:28] LABS: HEMATOCRIT 22.7 % (36.0-48.0); HEMOGLOBIN 7.2 g/dL (12.0-16.0)
[2024-08-20] VITALS (20 sets, daily range): BP systolic 88–144; BP diastolic 51–99; PULSE 65–70; RESP 13–20; TEMP 36.22512–37.503; O2SAT 90–99
[2024-08-20 12:33] LABS: BG BASE EXCESS -3.8 mmol/L (-2.0-3.0); BG CARBOXYHEMOGLOBIN 1.2 % (0.5-1.5); BG FRACTION INSPIRED OXYGEN 21; BG HCO3 ACT 21.1 mmol/L (21.0-28.0); BG METHEMOGLOBIN 0.3 % (0.5-1.5); BG OXYGEN SATURATION 72.6 % (94.0-98.0); BG OXYHEMOGLOBIN 71.5 % (94.0-98.0); BG PCO2 37.1 mmHg (32.0-45.0); BG PH 7.372 (7.350-7.450); BG PO2 41.9 mmHg (83.0-108.0); BG SAMPLE SITE RIGHT BRACHIAL; BG TOTAL HEMOGLOBIN 7.4 g/dL (12.0-16.0); BG VENT MODE ROOM AIR
[2024-08-20 17:39] LABS: HEMOGLOBIN 7.5 g/dL (12.0-16.0); MEAN CORPUSCULAR HEMOGLOBIN 27.2 pg (28.0-32.0); MEAN CORPUSCULAR HGB CONC 32.6 g/dL (31.0-37.0); MEAN CORPUSCULAR VOLUME 83.6 fL (81.0-99.0); PLATELET 241 x1000/uL (130-400); RED BLOOD CELL COUNT 2.75 mill/uL (4.2-5.4); RED CELL DISTRIBUTION WIDTH 16.6 % (11.6-14.6); WHITE BLOOD COUNT 4.2 x1000/uL (4.5-11.0)
[2024-08-21] VITALS (8 sets, daily range): BP systolic 91–123; BP diastolic 43–87; PULSE 65–74; RESP 13–23; TEMP 35.94732–37.28076; O2SAT 93–98
[2024-08-21 00:24] LABS: CLARITY URINE TURBID (CLEAR); COLOR URINE YELLOW (YELLOW); GLUCOSE URINE NEGATIVE (NEGATIVE); KETONES URINE TRACE (NEGATIVE); LEUKOCYTE ESTERASE URINE 3+ (NEGATIVE); NITRITE URINE NEGATIVE (NEGATIVE); OCCULT BLOOD URINE 2+ (NEGATIVE); PH URINE 6.5 (4.5-8.0); PROTEIN URINE 3+ (NEGATIVE); SPECIFIC GRAVITY URINE 1.018 (1.005-1.030); UROBILINOGEN URINE 0.2 E.U./dL (0.2-1.0)
[2024-08-21 05:00] LABS: WBC URINE TNTC /hpf (0-2)
[2024-08-21 05:02] LABS: BACTERIA URINE 4+; RBC URINE 15-25 /hpf (0-2); SQUAMOUS EPITHELIAL CELL URINE NONE SEEN /lpf (RARE/1+)
[2024-08-21 10:56] LABS: HEMATOCRIT 22.3 % (36.0-48.0); HEMOGLOBIN 7.1 g/dL (12.0-16.0); MEAN CORPUSCULAR HEMOGLOBIN 26.7 pg (28.0-32.0); MEAN CORPUSCULAR HGB CONC 31.6 g/dL (31.0-37.0); MEAN CORPUSCULAR VOLUME 84.5 fL (81.0-99.0); PLATELET 241 x1000/uL (130-400); RED BLOOD CELL COUNT 2.64 mill/uL (4.2-5.4); RED CELL DISTRIBUTION WIDTH 16.6 % (11.6-14.6); WHITE BLOOD COUNT 4.4 x1000/uL (4.5-11.0)
[2024-08-21] MEDS ORDERED: BENZONATATE 100MG CAPSULE PO PRN (11:30)
[2024-08-21 11:40] LABS: POTASSIUM 4.2 mEq/L (3.5-5.1)
[2024-08-21 11:41] LABS: CALCIUM 8.4 mg/dL (8.7-10.4)
[2024-08-21 12:40] LABS: CREATININE 8.3 mg/dL (0.6-1.0)
[2024-08-21] MEDS: BENZONATATE 100MG CAPSULE PO NR (13:52)
[2024-08-22] VITALS (16 sets, daily range): BP systolic 101–124; BP diastolic 48–67; PULSE 48–75; RESP 16–20; TEMP 36.22512–36.89184; O2SAT 93–100
[2024-08-22] MEDS: CEFTRIAXONE 1GM/50ML 50 ML IV SCH (09:11)
[2024-08-22] MEDS ORDERED: GUAIFENESIN 200MG/10ML SUGAR FREE UDC PO PRN (13:30)
[2024-08-22 17:04] LABS: HEMATOCRIT. 21.8 % (36.0-48.0); MEAN CORPUSCULAR HEMOGLOBIN 27.2 pg (28.0-32.0); MEAN CORPUSCULAR VOLUME 84.8 fL (81.0-99.0); MEAN PLATELET VOLUME 7.5 fl (7.4-10.4); PLATELET 256 x1000/uL (130-400); RED BLOOD CELL COUNT 2.57 mill/uL (4.2-5.4); RED CELL DISTRIBUTION WIDTH 16.3 % (11.6-14.6); WHITE BLOOD COUNT 4.1 x1000/uL (4.5-11.0)
[2024-08-22 17:11] LABS: DIFFERENTIAL COMMENT 1
[2024-08-22 17:15] LABS: POTASSIUM 4.1 mEq/L (3.5-5.1)
[2024-08-22 17:17] LABS: CALCIUM 8.3 mg/dL (8.7-10.4)
[2024-08-22 17:41] LABS: PLATELET ESTIMATE NORMAL
[2024-08-22 17:56] LABS: CREATININE 6.1 mg/dL (0.6-1.0)
[2024-08-23] VITALS: BP 107/37; PULSE 78; RESP 20; TEMP 36.72516; O2SAT 94
[2024-08-23 01:31] LABS: HEMATOCRIT 22.8 % (36.0-48.0); HEMOGLOBIN 7.3 g/dL (12.0-16.0)
[2024-08-23] MEDS: ONDANSETRON HCL 4MG/2ML INJ IV PRN (02:52)
[2024-08-23] MEDS: INSULIN LISPRO 100 UNITS/ML SUBCUT NR (04:01)
[2024-08-23 08:00] VITALS: BP 133/59; PULSE 77; RESP 18; TEMP 36.6696; O2SAT 95
[2024-08-23 12:00] VITALS: BP 113/58; PULSE 72; RESP 18; TEMP 36.89184; O2SAT 95
[2024-08-23 13:48] LABS: HEMATOCRIT 22.3 % (36.0-48.0)
[2024-08-23] MEDS ORDERED: FERR325T6 MT (14:21)
[2024-08-23 16:00] VITALS: BP 96/48; PULSE 67; RESP 18; TEMP 36.50292; O2SAT 93
[2024-08-23 20:00] VITALS: BP 98/47; PULSE 65; RESP 20; TEMP 36.61404; O2SAT 98
[2024-08-23 20:16] VITALS: PULSE 71; RESP 16; O2SAT 95
[2024-08-24] VITALS (15 sets, daily range): BP systolic 90–145; BP diastolic 39–68; PULSE 59–81; RESP 18–22; TEMP 36.44736–37.11408; O2SAT 96–100
[2024-08-24 07:23] LABS: CARBON DIOXIDE 22 mEq/L (21-32); CHLORIDE 105 mEq/L (98-107); SODIUM 137 mEq/L (136-145)
[2024-08-24 08:08] LABS: MEAN CORPUSCULAR HGB CONC 31.8 g/dL (31.0-37.0); MEAN CORPUSCULAR VOLUME 87.9 fL (81.0-99.0); MEAN PLATELET VOLUME 7.7 fl (7.4-10.4); PLATELET 232 x1000/uL (130-400); RED BLOOD CELL COUNT 2.29 mill/uL (4.2-5.4); RED CELL DISTRIBUTION WIDTH 16.7 % (11.6-14.6); WHITE BLOOD COUNT 3.1 x1000/uL (4.5-11.0)
[2024-08-24 08:17] LABS: DIFFERENTIAL COMMENT 1
[2024-08-24 08:26] LABS: HEMATOCRIT. 20.2 % (36.0-48.0); HEMOGLOBIN. 6.4 g/dL (12.0-16.0)
[2024-08-24 08:39] LABS: POTASSIUM 6.1 mEq/L (3.5-5.1)
[2024-08-24] MEDS: SODIUM ZIRCONIUM CYCLOSILICATE 10GM/PACKET PO NR (10:51)
[2024-08-24] MEDS: INSULIN REGULAR (HUMULIN R) 1000UNITS/10ML VIAL IV NR (12:30)
[2024-08-24] MEDS: DEXTROSE 50% WATER 50ML SYRINGE IV NR (12:30)
[2024-08-24] MEDS: SODIUM BICARBONATE 8.4% 50MEQ/50ML SYR IV NR (12:30)
[2024-08-24 20:55] LABS: ANISOCYTOSIS 1+; PLATELET ESTIMATE NORMAL
[2024-08-25] VITALS (7 sets, daily range): BP systolic 97–137; BP diastolic 49–58; PULSE 60–81; RESP 16–20; TEMP 36.33624–36.6696; O2SAT 95–99
[2024-08-25 06:43] LABS: POTASSIUM 4.6 mEq/L (3.5-5.1)
[2024-08-25 06:45] LABS: CALCIUM 8.7 mg/dL (8.7-10.4)
[2024-08-25 07:05] LABS: HEMATOCRIT. 24.1 % (36.0-48.0); HEMOGLOBIN. 7.8 g/dL (12.0-16.0); MEAN CORPUSCULAR HGB CONC 32.6 g/dL (31.0-37.0); MEAN CORPUSCULAR VOLUME 85.9 fL (81.0-99.0); MEAN PLATELET VOLUME 7.8 fl (7.4-10.4); PLATELET 217 x1000/uL (130-400); RED BLOOD CELL COUNT 2.81 mill/uL (4.2-5.4); RED CELL DISTRIBUTION WIDTH 17.3 % (11.6-14.6); WHITE BLOOD COUNT 13.3 x1000/uL (4.5-11.0)
[2024-08-25 07:26] LABS: CREATININE 7.3 mg/dL (0.6-1.0)
[2024-08-25 07:42] LABS: DIFFERENTIAL COMMENT 1
[2024-08-25 16:11] LABS: PLATELET ESTIMATE NORMAL
[2024-08-26] VITALS (7 sets, daily range): BP systolic 102–126; BP diastolic 45–86; PULSE 61–68; RESP 17–20; TEMP 36.16956–36.72516; O2SAT 91–98
[2024-08-26 12:19] LABS: HEMATOCRIT. 25.2 % (36.0-48.0); MEAN CORPUSCULAR HEMOGLOBIN 27.6 pg (28.0-32.0); MEAN CORPUSCULAR HGB CONC 31.6 g/dL (31.0-37.0); MEAN CORPUSCULAR VOLUME 87.1 fL (81.0-99.0); MEAN PLATELET VOLUME 7.7 fl (7.4-10.4); PLATELET 227 x1000/uL (130-400); RED CELL DISTRIBUTION WIDTH 17.2 % (11.6-14.6); WHITE BLOOD COUNT 4.5 x1000/uL (4.5-11.0)
[2024-08-26 12:35] LABS: DIFFERENTIAL COMMENT 1
[2024-08-26 13:13] LABS: CALCIUM 8.6 mg/dL (8.7-10.4)
[2024-08-26 13:45] LABS: POTASSIUM 4.7 mEq/L (3.5-5.1)
[2024-08-26 13:54] LABS: CREATININE 8.8 mg/dL (0.6-1.0)
[2024-08-26 21:43] LABS: ANISOCYTOSIS 1+; PLATELET ESTIMATE NORMAL
[2024-08-27] VITALS (15 sets, daily range): BP systolic 109–163; BP diastolic 49–76; PULSE 58–74; RESP 15–19; TEMP 34.89168–36.61404; O2SAT 95–100
[2024-08-28] VITALS: BP 136/78; PULSE 92; RESP 18; TEMP 36.33624; O2SAT 96
== END 2024-08-28 01:38 | disposition home or self-care (01) | DRG 870 ==
LOC: ER 07:04 → MICUSO 09:51 → EDBEDREQ 09:55 → EDBEDREQTM 09:55 → EDBEDREQSVC 12:39 → 5EST 08-16 20:00 → 7EST 08-21 11:46
PROVIDERS: ADMIT Internal Medicine; ATTEND Internal Medicine
PROC: 5A1955Z Respiratory Ventilation, Greater than 96 Consecutive Hours (ICD-10-PCS; principal; 2024-08-12)
PROC: 0BH17EZ Insertion of Endotracheal Airway into Trachea, Via Natural or Artificial Opening (ICD-10-PCS; 2024-08-12)
PROC: 5A09357 Assistance with Respiratory Ventilation, Less than 24 Consecutive Hours, Continuous Positive Airway Pressure (ICD-10-PCS; 2024-08-12)
PROC: 5A1D70Z Performance of Urinary Filtration, Intermittent, Less than 6 Hours Per Day (ICD-10-PCS; 2024-08-13)
PROC: 02HV33Z Insertion of Infusion Device into Superior Vena Cava, Percutaneous Approach (ICD-10-PCS; 2024-08-14)
PROC: B548ZZA Ultrasonography of Superior Vena Cava, Guidance (ICD-10-PCS; 2024-08-14)
PROC: 30233N1 Transfusion of Nonautologous Red Blood Cells into Peripheral Vein, Percutaneous Approach (ICD-10-PCS; 2024-08-15)
PROC: 5A1D70Z Performance of Urinary Filtration, Intermittent, Less than 6 Hours Per Day (ICD-10-PCS; 2024-08-15)
PROC: 5A1D70Z Performance of Urinary Filtration, Intermittent, Less than 6 Hours Per Day (ICD-10-PCS; 2024-08-17)
PROC: 5A0945A Assistance with Respiratory Ventilation, 24-96 Consecutive Hours, High Flow/Velocity Cannula (ICD-10-PCS; 2024-08-17)
PROC: 5A1D70Z Performance of Urinary Filtration, Intermittent, Less than 6 Hours Per Day (ICD-10-PCS; 2024-08-20)
PROC: 5A1D70Z Performance of Urinary Filtration, Intermittent, Less than 6 Hours Per Day (ICD-10-PCS; 2024-08-22)
PROC: 5A1D70Z Performance of Urinary Filtration, Intermittent, Less than 6 Hours Per Day (ICD-10-PCS; 2024-08-24)
PROC: 5A1D70Z Performance of Urinary Filtration, Intermittent, Less than 6 Hours Per Day (ICD-10-PCS; 2024-08-27)
DX: A41.9 Sepsis, unspecified organism (principal); G93.41 Metabolic encephalopathy; J96.01 Acute respiratory failure with hypoxia; J18.9 Pneumonia, unspecified organism; N18.6 End stage renal disease; I50.32 Chronic diastolic (congestive) heart failure; I13.2 Hypertensive heart and chronic kidney disease with heart failure and with stage 5 chronic kidney disease, or end stage renal disease; N39.0 Urinary tract infection, site not specified; E11.22 Type 2 diabetes mellitus with diabetic chronic kidney disease; D63.1 Anemia in chronic kidney disease; I25.10 Atherosclerotic heart disease of native coronary artery without angina pectoris; E11.40 Type 2 diabetes mellitus with diabetic neuropathy, unspecified; E11.649 Type 2 diabetes mellitus with hypoglycemia without coma; E87.5 Hyperkalemia; E03.9 Hypothyroidism, unspecified; R91.1 Solitary pulmonary nodule; I05.0 Rheumatic mitral stenosis; I27.20 Pulmonary hypertension, unspecified; R56.9 Unspecified convulsions; I25.2 Old myocardial infarction; Z99.2 Dependence on renal dialysis; Z79.02 Long term (current) use of antithrombotics/antiplatelets; Z79.4 Long term (current) use of insulin; Z95.5 Presence of coronary angioplasty implant and graft; Z87.440 Personal history of urinary (tract) infections; Z88.6 Allergy status to analgesic agent; Z79.899 Other long term (current) drug therapy; Z91.199 Patient's noncompliance with other medical treatment and regimen due to unspecified reason; Z99.81 Dependence on supplemental oxygen
CPT/HCPCS: 31500; 36415; 36573; 36600; 71045; 80048; 80051; 80076; 80202; 81003; 82270; 82375; 82550; 82553; 82607; 82728; 82746; 82805; 82962; 83036; 83540; 83550; 83605; 83735; 83880; 83930; 84100; 84145; 84439; 84443; 84484; 85014; 85018; 85025; 85027; 85379; 86705; 86706; 86709; 86850; 86870; 86900; 86920; 87340; 90935; 93005; 93970; 94002; 94003; 94070; 94640; 94660; 94664; 97162; 97166; 99291; A4606; A4663; A6261; C1725; C1769; J0360; J0696; J0885; J1265; J1650; J1815; J2003; J2270; J2405; J2470; J2543; J2704; J3010; J3370; J3490; J7030; J7608; J7626; J8597; P9016; Q9957

== ENCOUNTER 2024-09-05 19:07 | Inpatient (IN) | payer OTHER, MEDICAID ==
[~2024-09-05] VITALS: Ht 165.1 cm; Wt 73.5 kg
[~2024-09-05 19:07] MED LIST changes: +FERR325T6 MT
[2024-09-05] MEDS: MORPHINE SULFATE 4 MG/ML INJ (FOR IV/IM USE) IV NR (21:24)
[2024-09-05 21:30] LABS: BASOPHILS % 0.8 % (0.0-2.0); EOSINOPHILS % 0.3 % (0.0-5.0); HEMATOCRIT. 30.7 % (36.0-48.0); HEMOGLOBIN. 9.5 g/dL (12.0-16.0); LYMPHOCYTES % 24.8 % (20.0-50.0); MEAN CORPUSCULAR HEMOGLOBIN 27.4 pg (28.0-32.0); MEAN CORPUSCULAR HGB CONC 31.1 g/dL (31.0-37.0); MEAN CORPUSCULAR VOLUME 88.1 fL (81.0-99.0); MEAN PLATELET VOLUME 7.9 fl (7.4-10.4); NEUTROPHILS % 63.1 % (40.0-76.0); PLATELET 214 x1000/uL (130-400); RED BLOOD CELL COUNT 3.49 mill/uL (4.2-5.4); WHITE BLOOD COUNT 2.8 x1000/uL (4.5-11.0)
[2024-09-05 21:31] LABS: CLARITY URINE TURBID (CLEAR); COLOR URINE YELLOW (YELLOW); GLUCOSE URINE 1+ (NEGATIVE); KETONES URINE TRACE (NEGATIVE); LEUKOCYTE ESTERASE URINE 3+ (NEGATIVE); NITRITE URINE NEGATIVE (NEGATIVE); OCCULT BLOOD URINE 3+ (NEGATIVE); PH URINE 7.5 (4.5-8.0); PROTEIN URINE 3+ (NEGATIVE); SPECIFIC GRAVITY URINE 1.013 (1.005-1.030); UROBILINOGEN URINE 0.2 E.U./dL (0.2-1.0)
[2024-09-05 21:38] LABS: CHLORIDE 100 mEq/L (98-107); POTASSIUM 4.1 mEq/L (3.5-5.1); SODIUM 141 mEq/L (136-145)
[2024-09-05 21:39] LABS: CALCIUM 8.4 mg/dL (8.7-10.4); CARBON DIOXIDE 24 mEq/L (21-32)
[2024-09-05 21:44] LABS: PROTHROMBIN TIME 11.6 sec (9.6-11.0); UREA NITROGEN BLOOD 36 mg/dL (9-23)
[2024-09-05 21:45] LABS: TROPONIN I HIGH SENSITIVITY 12 ng/L (3.0-34)
[2024-09-05 21:46] LABS: ALANINE AMINOTRANSFERASE 9 IU/L (10-49); ALBUMIN 3.9 g/dL (3.2-4.8); ASPARTATE AMINOTRANSFERASE 15 IU/L (<34); BILIRUBIN DIRECT 0.2 mg/dL (<=3.0); BILIRUBIN TOTAL 0.4 mg/dL (0.1-1.0); PROTEIN TOTAL 8.1 g/dL (6.0-8.3)
[2024-09-05 22:09] LABS: GLUCOSE 425 mg/dL (70-105)
[2024-09-05 22:10] LABS: CREATININE 7.4 mg/dL (0.6-1.0)
[2024-09-05] MEDS ORDERED: MAGNESIUM/ALUMINUM HYDROXIDE/SIMETHICONE 30ML UDC PO PRN (23:00)
[2024-09-05] MEDS ORDERED: CEFTRIAXONE 1,000 MG in DEXT 5% WATER 100 ML IV SCH (23:00)
[2024-09-05] MEDS ORDERED: CLONIDINE 0.1MG TABLET PO PRN (23:00)
[2024-09-05] MEDS ORDERED: GUAIFENESIN 200MG/10ML SUGAR FREE UDC PO PRN (23:00)
[2024-09-05] MEDS ORDERED: DEXTROSE 50% WATER 50ML SYRINGE IV PRN (23:00)
[2024-09-05 23:47] LABS: WBC URINE TNTC /hpf (0-2)
[2024-09-05 23:48] LABS: BACTERIA URINE 3+; SQUAMOUS EPITHELIAL CELL URINE 2+ /lpf (RARE/1+)
[2024-09-06] VITALS (8 sets, daily range): BP systolic 103–155; BP diastolic 47–85; PULSE 65–92; RESP 16–20; TEMP 36.114–36.72516; O2SAT 94–100
[2024-09-06] MEDS: INSULIN REGULAR (HUMULIN R) 1000UNITS/10ML VIAL SUBCUT NR (00:07)
[2024-09-06] MEDS: ENOXAPARIN 30MG/0.3ML SYR SUBCUT SCH (00:09)
[2024-09-06] MEDS: AZITHROMYCIN 500 MG TABLET PO SCH (00:14)
[2024-09-06] MEDS: CEFTRIAXONE 1GM/50ML 50 ML IV SCH (00:17)
[2024-09-06 00:20] LABS: BG BASE EXCESS -1.4 mmol/L (-2.0-3.0); BG CARBOXYHEMOGLOBIN 1.5 % (0.5-1.5); BG DEOXYHEMOGLOBIN 6.6 % (0.0-5.0); BG FRACTION INSPIRED OXYGEN 100; BG HCO3 ACT 24.4 mmol/L (21.0-28.0); BG OXYGEN SATURATION 93.3 % (94.0-98.0); BG OXYHEMOGLOBIN 91.9 % (94.0-98.0); BG PCO2 45.9 mmHg (32.0-45.0); BG PH 7.344 (7.350-7.450); BG PO2 72.8 mmHg (83.0-108.0); BG VENT MODE MASK - NRB
[2024-09-06 00:32] LABS: BETA HYDROXYBUTYRATE 3.6 mMol/L (0.0-0.3)
[2024-09-06] MEDS: IPRATROPIUM/ALBUTEROL 0.5-3(2.5)MG/3ML NEB HHN SCH (01:02)
[2024-09-06] MEDS: INSULIN GLARGINE 100 UNITS/ML SUBCUT SCH (03:22)
[2024-09-06] MEDS: HYDRALAZINE HCL 100MG TABLET PO SCH (05:05)
[2024-09-06] MEDS: KETOROLAC 15MG/ML VIAL IV NR (05:05)
[2024-09-06] MEDS: BLOOD SUGAR DIAGNOSTIC STRIP TEST SCH (06:10)
[2024-09-06] MEDS: INSULIN LISPRO 100 UNITS/ML SUBCUT SCH (06:14)
[2024-09-06] MEDS: ASPIRIN 81MG EC TABLET PO SCH (08:53)
[2024-09-06] MEDS: CLOPIDOGREL 75MG TABLET PO SCH (08:54)
[2024-09-06 11:25] LABS: *AMPHETAMINES SCREEN URINE NEGATIVE (NEGATIVE); *BARBITURATES SCREEN URINE NEGATIVE (NEGATIVE); *BENZODIAZEPINES SCREEN URINE NEGATIVE (NEGATIVE); *COCAINE SCREEN URINE NEGATIVE (NEGATIVE)
[2024-09-06 11:26] LABS: CANNABINOID URINE SCREEN NEGATIVE (NEGATIVE); ECSTASY MDMA SCREEN URINE NEGATIVE (NEGATIVE); METHADONE URINE SCREEN NEGATIVE (NEGATIVE); OPIATES URINE SCREEN NEGATIVE (NEGATIVE); PHENCYCLIDINE URINE SCREEN NEGATIVE (NEGATIVE)
[2024-09-06 11:56] LABS: HEMATOCRIT. 28.1 % (36.0-48.0); HEMOGLOBIN. 8.8 g/dL (12.0-16.0); MEAN CORPUSCULAR HEMOGLOBIN 27.4 pg (28.0-32.0); MEAN CORPUSCULAR HGB CONC 31.2 g/dL (31.0-37.0); MEAN CORPUSCULAR VOLUME 87.7 fL (81.0-99.0); MEAN PLATELET VOLUME 7.5 fl (7.4-10.4); PLATELET 179 x1000/uL (130-400); RED CELL DISTRIBUTION WIDTH 18.1 % (11.6-14.6)
[2024-09-06 12:00] LABS: DIFFERENTIAL COMMENT 1
[2024-09-06 12:02] LABS: WHITE BLOOD COUNT 1.9 x1000/uL (4.5-11.0)
[2024-09-06 12:08] LABS: CALCIUM 8.1 mg/dL (8.7-10.4)
[2024-09-06 12:15] LABS: TROPONIN I HIGH SENSITIVITY 13 ng/L (3.0-34)
[2024-09-06 12:17] LABS: T4 FREE 1.01 ng/dL (0.89-1.76); THYROID STIMULATING HORMONE 2.19 uIU/mL (0.55-4.78)
[2024-09-06 12:27] LABS: CREATININE 7.9 mg/dL (0.6-1.0)
[2024-09-06 13:40] LABS: ANISOCYTOSIS 1+; PLATELET ESTIMATE NORMAL
[2024-09-06] MEDS: IBUPROFEN 600MG TABLET PO PRN (14:39)
[2024-09-06] MEDS ORDERED: NON FORMULARY MED XX SCH (20:00)
[2024-09-06] MEDS: KETOROLAC 10MG TABLET PO PRN (20:50)
[2024-09-06] MEDS: ONDANSETRON HCL 4MG/2ML INJ IV PRN (20:51)
[2024-09-06] MEDS: MELATONIN 3MG TABLET PO NR (20:52)
[2024-09-06] MEDS: FAMOTIDINE 20MG TABLET PO SCH (20:54)
[2024-09-06] MEDS ORDERED: INSULIN GLARGINE 100 UNITS/ML SUBCUT SCH (22:00)
[2024-09-07] VITALS (18 sets, daily range): BP systolic 94–150; BP diastolic 62–79; PULSE 62–87; RESP 16–20; TEMP 36.00288–36.61404; O2SAT 96–100
[2024-09-07 11:52] LABS: CHLORIDE 102 mEq/L (98-107); POTASSIUM 4.2 mEq/L (3.5-5.1); SODIUM 141 mEq/L (136-145)
[2024-09-07 11:53] LABS: CALCIUM 8.2 mg/dL (8.7-10.4); CARBON DIOXIDE 29 mEq/L (21-32)
[2024-09-07 11:55] LABS: BASOPHILS % 0.5 % (0.0-2.0); EOSINOPHILS % 0.6 % (0.0-5.0); HEMATOCRIT. 27.2 % (36.0-48.0); HEMOGLOBIN. 8.3 g/dL (12.0-16.0); LYMPHOCYTES % 27.2 % (20.0-50.0); MEAN CORPUSCULAR HEMOGLOBIN 26.9 pg (28.0-32.0); MEAN CORPUSCULAR HGB CONC 30.6 g/dL (31.0-37.0); MEAN PLATELET VOLUME 7.7 fl (7.4-10.4); MONOCYTES % 10.8 % (2.0-8.0); NEUTROPHILS % 60.9 % (40.0-76.0); PLATELET 172 x1000/uL (130-400); RED CELL DISTRIBUTION WIDTH 18.1 % (11.6-14.6); WHITE BLOOD COUNT 2.6 x1000/uL (4.5-11.0)
[2024-09-07 11:58] LABS: GLUCOSE 89 mg/dL (70-105); IRON 31 ug/dL (50-170)
[2024-09-07 11:59] LABS: LDL CHOLESTEROL 51 mg/dL (5-100); TRIGLYCERIDE 52 mg/dL (0-150); TROPONIN I HIGH SENSITIVITY 20 ng/L (3.0-34); UREA NITROGEN BLOOD 41 mg/dL (9-23)
[2024-09-07 12:00] LABS: CHOLESTEROL 133 mg/dL (<200); HDL CHOLESTEROL 55 mg/dL (>65)
[2024-09-07 12:01] LABS: TOTAL IRON BINDING CAPACITY 243 ug/dl (250-425)
[2024-09-07 12:02] LABS: T4 FREE 1.01 ng/dL (0.89-1.76)
[2024-09-07 12:10] LABS: CREATININE 7.7 mg/dL (0.6-1.0)
[2024-09-07] MEDS ORDERED: HYDROCODONE/ACETAMINOPHEN 5/325MG TABLET PO ONE (12:30)
[2024-09-07 12:31] LABS: HEPATITIS B SURFACE ANTIGEN NEGATIVE (Negative)
[2024-09-07] MEDS: ONDANSETRON HCL 4MG/2ML INJ IV PRN (12:39)
[2024-09-07 12:52] LABS: HEPATITIS A AB IGM NEGATIVE (Negative)
[2024-09-07 12:53] LABS: HEPATITIS B CORE AB IGM NEGATIVE (Negative); HEPATITIS C AB NON REACTIVE (Neg) (Negative)
[2024-09-07 19:16] LABS: CREATINE KINASE MB FRACTION 0.8 ng/mL (0.5-3.6)
[2024-09-08] VITALS (13 sets, daily range): BP systolic 122–150; BP diastolic 62–84; PULSE 66–84; RESP 16–19; TEMP 36.4–37.1; O2SAT 95–99
[2024-09-08] MEDS: IPRATROPIUM/ALBUTEROL 0.5-3(2.5)MG/3ML NEB HHN SCH (06:00)
[2024-09-08] MEDS ORDERED: REGADENOSON 0.4 MG/5 ML IV NR (08:00)
[2024-09-08] MEDS ORDERED: METOCLOPRAMIDE HCL 5MG TABLET PO PRN (08:15)
[2024-09-08] MEDS: MEROPENEM 1GM/50ML DUPLEX 50 ML IV SCH (16:16)
[2024-09-08 19:51] LABS: POTASSIUM 4.3 mEq/L (3.5-5.1)
[2024-09-08 19:58] LABS: CREATINE KINASE MB FRACTION 0.8 ng/mL (0.5-3.6)
[2024-09-08 20:06] LABS: BASOPHILS % 0.4 % (0.0-2.0); EOSINOPHILS % 0.2 % (0.0-5.0); HEMATOCRIT. 27.9 % (36.0-48.0); HEMOGLOBIN. 8.6 g/dL (12.0-16.0); LYMPHOCYTES % 17.9 % (20.0-50.0); MEAN CORPUSCULAR HGB CONC 30.8 g/dL (31.0-37.0); MEAN CORPUSCULAR VOLUME 87.8 fL (81.0-99.0); MEAN PLATELET VOLUME 7.7 fl (7.4-10.4); MONOCYTES % 14.6 % (2.0-8.0); NEUTROPHILS % 66.9 % (40.0-76.0); PLATELET 188 x1000/uL (130-400); RED BLOOD CELL COUNT 3.17 mill/uL (4.2-5.4); RED CELL DISTRIBUTION WIDTH 18.4 % (11.6-14.6); WHITE BLOOD COUNT 2.7 x1000/uL (4.5-11.0)
[2024-09-08 20:18] LABS: DIFFERENTIAL COMMENT 1
[2024-09-08 20:35] LABS: CREATININE 7.1 mg/dL (0.6-1.0)
[2024-09-08] MEDS: MELATONIN 3MG TABLET PO NR (22:15)
[2024-09-09] VITALS (8 sets, daily range): BP systolic 119–151; BP diastolic 59–77; PULSE 73–83; RESP 16–19; TEMP 36.2–36.7; O2SAT 92–99
[2024-09-09 18:32] LABS: HEMOGLOBIN. 8.8 g/dL (12.0-16.0); MEAN CORPUSCULAR HEMOGLOBIN 27.3 pg (28.0-32.0); MEAN CORPUSCULAR HGB CONC 31.3 g/dL (31.0-37.0); MEAN CORPUSCULAR VOLUME 87.1 fL (81.0-99.0); MEAN PLATELET VOLUME 7.6 fl (7.4-10.4); PLATELET 193 x1000/uL (130-400); RED BLOOD CELL COUNT 3.21 mill/uL (4.2-5.4); RED CELL DISTRIBUTION WIDTH 17.5 % (11.6-14.6); WHITE BLOOD COUNT 2.7 x1000/uL (4.5-11.0)
[2024-09-09 18:33] LABS: DIFFERENTIAL COMMENT 1
[2024-09-09 18:40] LABS: POTASSIUM 4.9 mEq/L (3.5-5.1)
[2024-09-09 18:41] LABS: CALCIUM 7.9 mg/dL (8.7-10.4)
[2024-09-09 18:49] LABS: CREATININE 8.8 mg/dL (0.6-1.0)
[2024-09-09 20:37] LABS: ANISOCYTOSIS 1+; PLATELET ESTIMATE NORMAL
[2024-09-09] MEDS: MELATONIN 3MG TABLET PO NR (20:50)
[2024-09-10] VITALS (9 sets, daily range): BP systolic 114–156; BP diastolic 61–77; PULSE 50–78; RESP 15–20; TEMP 35.8–36.8; O2SAT 95–99
[2024-09-10] MEDS ORDERED: DIPHENHYDRAMINE 50MG/ML VIAL IV NR (01:30)
[2024-09-10] MEDS: DIPHENHYDRAMINE 50MG/ML VIAL IV NR (01:55)
== END 2024-09-10 11:30 | disposition home or self-care (01) | DRG 871 ==
LOC: ER 19:07 → 7EST 23:07 → EDBEDREQ 23:11 → EDBEDREQTM 23:11
PROVIDERS: ADMIT Internal Medicine; ATTEND Internal Medicine
PROC: 5A1D70Z Performance of Urinary Filtration, Intermittent, Less than 6 Hours Per Day (ICD-10-PCS; principal; 2024-09-07)
PROC: 5A1D70Z Performance of Urinary Filtration, Intermittent, Less than 6 Hours Per Day (ICD-10-PCS; 2024-09-08)
PROC: 5A1D70Z Performance of Urinary Filtration, Intermittent, Less than 6 Hours Per Day (ICD-10-PCS; 2024-09-10)
DX: A41.59 Other Gram-negative sepsis (principal); J96.01 Acute respiratory failure with hypoxia; N18.6 End stage renal disease; N39.0 Urinary tract infection, site not specified; I13.2 Hypertensive heart and chronic kidney disease with heart failure and with stage 5 chronic kidney disease, or end stage renal disease; I50.32 Chronic diastolic (congestive) heart failure; E78.5 Hyperlipidemia, unspecified; E03.9 Hypothyroidism, unspecified; E11.22 Type 2 diabetes mellitus with diabetic chronic kidney disease; E87.5 Hyperkalemia; B96.89 Other specified bacterial agents as the cause of diseases classified elsewhere; D63.8 Anemia in other chronic diseases classified elsewhere; D72.819 Decreased white blood cell count, unspecified; E11.42 Type 2 diabetes mellitus with diabetic polyneuropathy; E11.649 Type 2 diabetes mellitus with hypoglycemia without coma; Z20.822 Contact with and (suspected) exposure to COVID-19; R91.1 Solitary pulmonary nodule; E11.65 Type 2 diabetes mellitus with hyperglycemia; I25.10 Atherosclerotic heart disease of native coronary artery without angina pectoris; I25.2 Old myocardial infarction; Z79.02 Long term (current) use of antithrombotics/antiplatelets; Z79.4 Long term (current) use of insulin; Z87.01 Personal history of pneumonia (recurrent); Z87.440 Personal history of urinary (tract) infections; Z88.6 Allergy status to analgesic agent; Z91.148 Patient's other noncompliance with medication regimen for other reason; Z95.5 Presence of coronary angioplasty implant and graft; Z99.2 Dependence on renal dialysis; Z99.81 Dependence on supplemental oxygen; Z88.8 Allergy status to other drugs, medicaments and biological substances
CPT/HCPCS: 36415; 36600; 71045; 80048; 80061; 80076; 80305; 81003; 82010; 82375; 82550; 82553; 82728; 82805; 82962; 83036; 83540; 83550; 83605; 83880; 84145; 84439; 84443; 84484; 85025; 85044; 85379; 86705; 86709; 87186; 87340; 87426; 87804; 90935; 93005; 93306; 94070; 94640; 94664; 97162; 99285; A4606; C1893; J0696; J1200; J1650; J1815; J1885; J2185; J2270; J2405

== ENCOUNTER 2024-09-12 11:01 | Inpatient (IN) | payer OTHER, MEDICAID ==
[~2024-09-12] VITALS: Ht 160 cm; Wt 90.3 kg
[2024-09-12] MEDS: ONDANSETRON HCL 4MG/2ML INJ IV ONE ×2 (11:44→12:11)
[2024-09-12 11:59] LABS: HEMATOCRIT. 29.9 % (36.0-48.0); HEMOGLOBIN. 9.3 g/dL (12.0-16.0); MEAN CORPUSCULAR HEMOGLOBIN 26.9 pg (28.0-32.0); MEAN CORPUSCULAR HGB CONC 31.2 g/dL (31.0-37.0); MEAN CORPUSCULAR VOLUME 86.2 fL (81.0-99.0); MEAN PLATELET VOLUME 6.8 fl (7.4-10.4); PLATELET 216 x1000/uL (130-400); RED BLOOD CELL COUNT 3.47 mill/uL (4.2-5.4); RED CELL DISTRIBUTION WIDTH 17.6 % (11.6-14.6); WHITE BLOOD COUNT 2.6 x1000/uL (4.5-11.0)
[2024-09-12 12:10] LABS: CHLORIDE 103 mEq/L (98-107); POTASSIUM 3.9 mEq/L (3.5-5.1); SODIUM 144 mEq/L (136-145)
[2024-09-12 12:11] LABS: CALCIUM 9.4 mg/dL (8.7-10.4); CARBON DIOXIDE 25 mEq/L (21-32)
[2024-09-12 12:12] LABS: DIFFERENTIAL COMMENT 1
[2024-09-12] MEDS: DEXTROSE 50% WATER 50ML SYRINGE IV ONE (12:12)
[2024-09-12 12:16] LABS: GLUCOSE 64 mg/dL (70-105); TROPONIN I HIGH SENSITIVITY 34 ng/L (3.0-34); UREA NITROGEN BLOOD 52 mg/dL (9-23)
[2024-09-12 12:18] LABS: ALANINE AMINOTRANSFERASE < 7 IU/L (10-49); ASPARTATE AMINOTRANSFERASE 12 IU/L (<34); BILIRUBIN DIRECT 0.1 mg/dL (<=3.0); BILIRUBIN TOTAL 0.4 mg/dL (0.1-1.0); PROTEIN TOTAL 8.9 g/dL (6.0-8.3)
[2024-09-12 13:05] LABS: CREATININE 9.9 mg/dL (0.6-1.0)
[2024-09-12 13:57] LABS: ANISOCYTOSIS 1+
[2024-09-12 13:58] LABS: PLATELET ESTIMATE NORMAL
[2024-09-12] MEDS ORDERED: DOCUSATE SODIUM 100MG CAPSULE PO PRN (14:30)
[2024-09-12] MEDS ORDERED: MAGNESIUM/ALUMINUM HYDROXIDE/SIMETHICONE 30ML UDC PO PRN (14:30)
[2024-09-12] MEDS ORDERED: IPRATROPIUM/ALBUTEROL 0.5-3(2.5)MG/3ML NEB HHN PRN (14:30)
[2024-09-12] MEDS ORDERED: GUAIFENESIN 200MG/10ML SUGAR FREE UDC PO PRN (14:30)
[2024-09-12 15:24] LABS: TROPONIN I HIGH SENSITIVITY 34 ng/L (3.0-34)
[2024-09-12] MEDS: TRAMADOL 50MG TABLET PO NR (15:42)
[2024-09-12] MEDS: ENOXAPARIN 30MG/0.3ML SYR SUBCUT SCH (15:42)
[2024-09-12] MEDS: ATROPINE SULFATE 1MG/10ML SYR IV NR (18:00)
[2024-09-12] MEDS: ASPIRIN 81MG EC TABLET PO SCH (18:43)
[2024-09-12] MEDS: ONDANSETRON HCL 4MG/2ML INJ IV PRN (20:51)
[2024-09-12] MEDS: CARVEDILOL 6.25 MG TABLET PO SCH (21:42)
[2024-09-12] MEDS: ATORVASTATIN CALCIUM 20MG TABLET PO SCH (21:43)
[2024-09-12] MEDS: HYDRALAZINE HCL 25MG TABLET PO SCH (22:00)
[2024-09-13] VITALS (9 sets, daily range): BP systolic 126–163; BP diastolic 58–71; PULSE 64–99; RESP 16–24; TEMP 36.55848; O2SAT 94–100
[2024-09-13] MEDS: KETOROLAC 15MG/ML VIAL IV NR (00:10)
[2024-09-13] MEDS ORDERED: SODIUM CHLORIDE 0.9% 1,000 ML IV ONE (02:00)
[2024-09-13] MEDS ORDERED: SODIUM CHLORIDE 0.9% 500 ML IV NR (02:00)
[2024-09-13] MEDS: METOCLOPRAMIDE HCL 10MG/2ML VIAL IV NR (02:19)
[2024-09-13] MEDS: SODIUM CHLORIDE 0.9% 500 ML IV ONE ×2 (03:20→19:15)
[2024-09-13] MEDS: MIDODRINE HCL 5MG TABLET PO NR (03:40)
[2024-09-13] MEDS ORDERED: NOREPINEPHRINE 8MG/250ML PMX 250 ML IV PRN (04:00)
[2024-09-13] MEDS ORDERED: VASOPRESSIN 20 UNIT in SODIUM CHLORIDE 0.9% 99 ML IV PRN ×2 (04:00→04:30)
[2024-09-13] MEDS ORDERED: ACETAMINOPHEN 650MG/20.3ML UDC GT PRN (04:00)
[2024-09-13] MEDS ORDERED: DOCUSATE SODIUM 100MG CAPSULE PO PRN (04:00)
[2024-09-13] MEDS: IPRATROPIUM/ALBUTEROL 0.5-3(2.5)MG/3ML NEB NEB SCH (04:22)
[2024-09-13] MEDS: NOREPINEPHRINE 8MG/250ML PMX 250 ML IV PRN (04:36)
[2024-09-13] MEDS: DEXT 5%/0.45% NACL 1000ML 1,000 ML IV SCH (07:24)
[2024-09-13] MEDS: ONDANSETRON HCL 4MG/2ML INJ IV PRN (07:24)
[2024-09-13] MEDS: LEVOTHYROXINE SODIUM 25MCG TABLET PO SCH (07:50)
[2024-09-13] MEDS: FERROUS SULFATE 325MG TABLET PO SCH (09:00)
[2024-09-13] MEDS ORDERED: AMLODIPINE 10MG TABLET PO SCH (09:00)
[2024-09-13] MEDS ORDERED: PANTOPRAZOLE SODIUM 40 MG/VIAL IV SCH (09:00)
[2024-09-13] MEDS ORDERED: SEVELAMER HCL PO SCH (09:00)
[2024-09-13] MEDS ORDERED: CLOPIDOGREL 75MG TABLET PO SCH (09:00)
[2024-09-13] MEDS ORDERED: DEXTROSE 50% WATER 50ML SYRINGE IV PRN ×3 (09:45→15:15)
[2024-09-13] MEDS: PANTOPRAZOLE SODIUM 40 MG/VIAL IV SCH (09:45)
[2024-09-13 10:00] LABS: CHLORIDE 99 mEq/L (98-107); SODIUM 137 mEq/L (136-145)
[2024-09-13 10:01] LABS: CALCIUM 8.5 mg/dL (8.7-10.4); CARBON DIOXIDE 16 mEq/L (21-32)
[2024-09-13 10:06] LABS: CREATINE KINASE MB FRACTION 2.4 ng/mL (0.5-3.6); D-DIMER 4.8 mg/L FEU (<0.50); GLUCOSE 344 mg/dL (70-105); INR 1.2; PROTHROMBIN TIME 13.5 sec (9.6-11.0); TRIGLYCERIDE 98 mg/dL (0-150); UREA NITROGEN BLOOD 65 mg/dL (9-23)
[2024-09-13 10:07] LABS: LDL CHOLESTEROL 62 mg/dL (5-100)
[2024-09-13 10:08] LABS: CHOLESTEROL 146 mg/dL (<200); CREATINE KINASE 89 IU/L (34-145); HDL CHOLESTEROL 52 mg/dL (>65)
[2024-09-13 10:13] LABS: BASOPHILS % 0.2 % (0.0-2.0); HEMATOCRIT. 26.1 % (36.0-48.0); LYMPHOCYTES % 7.3 % (20.0-50.0); MEAN CORPUSCULAR HEMOGLOBIN 27.8 pg (28.0-32.0); MEAN CORPUSCULAR HGB CONC 30.6 g/dL (31.0-37.0); MEAN CORPUSCULAR VOLUME 90.9 fL (81.0-99.0); MEAN PLATELET VOLUME 7.9 fl (7.4-10.4); MONOCYTES % 13.3 % (2.0-8.0); NEUTROPHILS % 79.2 % (40.0-76.0); PLATELET 196 x1000/uL (130-400); RED BLOOD CELL COUNT 2.87 mill/uL (4.2-5.4); RED CELL DISTRIBUTION WIDTH 17.1 % (11.6-14.6); WHITE BLOOD COUNT 6.3 x1000/uL (4.5-11.0)
[2024-09-13 10:30] LABS: LACTIC ACID 4.6 mmol/L (0.4-2.0)
[2024-09-13 10:33] LABS: POTASSIUM 6.9 mEq/L (3.5-5.1)
[2024-09-13 10:34] LABS: CREATININE 10.5 mg/dL (0.6-1.0); PHOSPHORUS 8.4 mg/dL (2.5-4.9); TROPONIN I HIGH SENSITIVITY 164 ng/L (3.0-34)
[2024-09-13] MEDS: SODIUM BICARBONATE 8.4% 50MEQ/50ML SYR IV SCH (11:00)
[2024-09-13] MEDS: ALBUTEROL (0.083%) 2.5MG/3ML NEB HHN SCH (11:00)
[2024-09-13] MEDS: CALCIUM ACETATE 667MG CAPSULE PO SCH (11:30)
[2024-09-13] MEDS: GABAPENTIN 100MG CAPSULE PO SCH (11:30)
[2024-09-13] MEDS: DOXYCYCLINE HYCLATE 100MG CAPSULE PO SCH (11:45)
[2024-09-13 11:55] LABS: HEPATITIS B SURFACE ANTIGEN NEGATIVE (Negative)
[2024-09-13 12:15] LABS: BG BASE EXCESS -14.4 mmol/L (-2.0-3.0); BG CARBOXYHEMOGLOBIN 0.6 % (0.5-1.5); BG FRACTION INSPIRED OXYGEN 32; BG METHEMOGLOBIN 0.3 % (0.5-1.5); BG OXYGEN SATURATION 93.9 % (94.0-98.0); BG OXYHEMOGLOBIN 93.1 % (94.0-98.0); BG PCO2 29.9 mmHg (32.0-45.0); BG PH 7.222 (7.350-7.450); BG PO2 89.2 mmHg (83.0-108.0); BG SAMPLE SITE RIGHT RADIAL; BG TOTAL HEMOGLOBIN 9.7 g/dL (12.0-16.0); BG VENT MODE NASAL CANNULA
[2024-09-13 12:15] LABS: HEPATITIS A AB IGM NEGATIVE (Negative)
[2024-09-13 12:16] LABS: HEPATITIS B CORE AB IGM NEGATIVE (Negative); HEPATITIS C AB NON REACTIVE (Neg) (Negative)
[2024-09-13] MEDS: DEXTROSE 50% WATER 50ML SYRINGE IV SCH (12:28)
[2024-09-13] MEDS: CALCIUM CHLORIDE 1GM/10ML SYR IV SCH (12:28)
[2024-09-13] MEDS: SODIUM ZIRCONIUM CYCLOSILICATE 10GM/PACKET PO SCH (12:30)
[2024-09-13] MEDS: PIPERACILLIN/TAZO 3.375G/50ML 50 ML IV SCH (12:49)
[2024-09-13] MEDS: INSULIN REGULAR (HUMULIN R) 1000UNITS/10ML VIAL IV SCH (12:55)
[2024-09-13 12:58] LABS: CREATINE KINASE MB FRACTION 2.8 ng/mL (0.5-3.6)
[2024-09-13] MEDS ORDERED: INSULIN LISPRO 100 UNITS/ML SUBCUT SCH (13:20)
[2024-09-13] MEDS ORDERED: PANTOPRAZOLE 80 MG in SODIUM CHLORIDE 0.9% 100 ML IV SCH (14:00)
[2024-09-13] MEDS ORDERED: OCTREOTIDE 1,000 MCG in SODIUM CHLORIDE 0.9% 98 ML IV SCH (14:00)
[2024-09-13] MEDS: LIDOCAINE HCL 1% 10 MG/ML 10ML VIAL ONE (14:02)
[2024-09-13 14:37] LABS: CLARITY URINE TURBID (CLEAR); COLOR URINE DARK YELLOW (YELLOW); GLUCOSE URINE 1+ (NEGATIVE); KETONES URINE TRACE (NEGATIVE); LEUKOCYTE ESTERASE URINE 3+ (NEGATIVE); NITRITE URINE NEGATIVE (NEGATIVE); OCCULT BLOOD URINE 3+ (NEGATIVE); PROTEIN URINE 3+ (NEGATIVE); SPECIFIC GRAVITY URINE 1.018 (1.005-1.030)
[2024-09-13 14:39] LABS: CALCIUM 8.8 mg/dL (8.7-10.4)
[2024-09-13 14:42] LABS: POTASSIUM 6.7 mEq/L (3.5-5.1)
[2024-09-13 14:45] LABS: CREATINE KINASE MB FRACTION 2.7 ng/mL (0.5-3.6)
[2024-09-13 14:48] LABS: CREATININE 10.8 mg/dL (0.6-1.0)
[2024-09-13 14:52] LABS: *AMPHETAMINES SCREEN URINE NEGATIVE (NEGATIVE); *BARBITURATES SCREEN URINE NEGATIVE (NEGATIVE); *BENZODIAZEPINES SCREEN URINE NEGATIVE (NEGATIVE); *COCAINE SCREEN URINE NEGATIVE (NEGATIVE); METHADONE URINE SCREEN NEGATIVE (NEGATIVE); OPIATES URINE SCREEN NEGATIVE (NEGATIVE); PHENCYCLIDINE URINE SCREEN NEGATIVE (NEGATIVE)
[2024-09-13 14:53] LABS: CANNABINOID URINE SCREEN NEGATIVE (NEGATIVE); ECSTASY MDMA SCREEN URINE NEGATIVE (NEGATIVE)
[2024-09-13] MEDS: ALBUTEROL (0.083%) 2.5MG/3ML NEB HHN NR (15:15)
[2024-09-13] MEDS ORDERED: SODIUM BICARBONATE 8.4% 50MEQ/50ML SYR IV NR (15:15)
[2024-09-13] MEDS: SODIUM ZIRCONIUM CYCLOSILICATE 10GM/PACKET PO NR (15:15)
[2024-09-13] MEDS ORDERED: INSULIN REGULAR (HUMULIN R) 1000UNITS/10ML VIAL IV NR (15:15)
[2024-09-13] MEDS: CALCIUM CHLORIDE 1GM/10ML SYR IV NR (15:15)
[2024-09-13 15:21] LABS: BACTERIA URINE 4+; WBC URINE TNTC /hpf (0-2)
[2024-09-13 15:23] LABS: RBC URINE 15-25 /hpf (0-2); SQUAMOUS EPITHELIAL CELL URINE 3+ /lpf (RARE/1+); YEAST URINE FEW
[2024-09-13 16:48] LABS: T4 FREE 1.19 ng/dL (0.89-1.76)
[2024-09-13 16:49] LABS: THYROID STIMULATING HORMONE 4.2 uIU/mL (0.55-4.78)
[2024-09-13] MEDS: OCTREOTIDE 1,000 MCG in SODIUM CHLORIDE 0.9% 98 ML IV SCH (16:55)
[2024-09-13] MEDS: BLOOD SUGAR DIAGNOSTIC STRIP TEST SCH (17:00)
[2024-09-13] MEDS: INSULIN LISPRO 100 UNITS/ML SUBCUT SCH (19:10)
[2024-09-13 19:17] LABS: HEMATOCRIT 26.7 % (36.0-48.0); HEMOGLOBIN 8.3 g/dL (12.0-16.0)
[2024-09-13 20:16] LABS: CARBON DIOXIDE 14 mEq/L (21-32); CHLORIDE 101 mEq/L (98-107); POTASSIUM 4.7 mEq/L (3.5-5.1); SODIUM 139 mEq/L (136-145)
[2024-09-13 20:17] LABS: CALCIUM 8.8 mg/dL (8.7-10.4)
[2024-09-13 20:22] LABS: GLUCOSE 345 mg/dL (70-105); UREA NITROGEN BLOOD 54 mg/dL (9-23)
[2024-09-13 20:24] LABS: PHOSPHORUS 6.7 mg/dL (2.5-4.9)
[2024-09-13 20:49] LABS: LACTIC ACID 6.7 mmol/L (0.4-2.0)
[2024-09-14] MEDS: VANCOMYCIN 1G PREMIX 200 ML IV NR (03:10)
[2024-09-14] MEDS: MEROPENEM 500 MG in SODIUM CHLORIDE 0.9% 100 ML IV SCH ×2 (03:19→12:05)
[2024-09-14] MEDS: SUCRALFATE 1G TABLET PO SCH (03:37)
[2024-09-14] MEDS: PANTOPRAZOLE SODIUM 40 MG/VIAL IV SCH ×2 (03:38→15:30)
[2024-09-14 08:26] LABS: CARBON DIOXIDE 27 mEq/L (21-32); CHLORIDE 103 mEq/L (98-107); POTASSIUM 4.5 mEq/L (3.5-5.1); SODIUM 141 mEq/L (136-145)
[2024-09-14 08:27] LABS: CALCIUM 8.7 mg/dL (8.7-10.4)
[2024-09-14 08:31] LABS: GLUCOSE 224 mg/dL (70-105); IRON 160 ug/dL (50-170)
[2024-09-14 08:32] LABS: AMMONIA 32 uMol/L (<32); UREA NITROGEN BLOOD 64 mg/dL (9-23)
[2024-09-14 08:33] LABS: ALANINE AMINOTRANSFERASE 617 IU/L (10-49); ALBUMIN 3.3 g/dL (3.2-4.8)
[2024-09-14 08:34] LABS: BILIRUBIN DIRECT 0.3 mg/dL (<=3.0); BILIRUBIN TOTAL 0.7 mg/dL (0.1-1.0); PHOSPHORUS 6.6 mg/dL (2.5-4.9); PROTEIN TOTAL 7.2 g/dL (6.0-8.3); TOTAL IRON BINDING CAPACITY 217 ug/dl (250-425)
[2024-09-14 08:36] LABS: T4 FREE 0.92 ng/dL (0.89-1.76); THYROID STIMULATING HORMONE 1.48 uIU/mL (0.55-4.78)
[2024-09-14 08:45] LABS: ASPARTATE AMINOTRANSFERASE 1133 IU/L (<34)
[2024-09-14 08:47] LABS: CREATININE 8.6 mg/dL (0.6-1.0)
[2024-09-14] MEDS: MIDODRINE HCL 5MG TABLET PO SCH (09:00)
[2024-09-14] MEDS: DOCUSATE SODIUM 100MG CAPSULE PO SCH (09:00)
[2024-09-14] MEDS: METOCLOPRAMIDE HCL 10MG/2ML VIAL IV NR (09:00)
[2024-09-14] MEDS ORDERED: METOCLOPRAMIDE HCL 10MG/2ML VIAL IV ONE (09:00)
[2024-09-14] MEDS ORDERED: POLYETHYLENE GLYCOL 3350 (17GM) 1 DOSE PACK PO NR (09:00)
[2024-09-14] MEDS: VANCOMYCIN 500MG PREMIX 100 ML IV SCH (09:15)
[2024-09-14 09:17] LABS: FOLIC ACID (FOLATE) SERUM 14.58 ng/mL (>5.38); VITAMIN B12 SERUM 1469 pg/mL (211-911)
[2024-09-14 09:19] LABS: FERRITIN > 1650 ng/mL (10-291)
[2024-09-14] MEDS: LACTULOSE 20G/30ML UDC PO NR (09:30)
[2024-09-14 10:13] LABS: MEAN CORPUSCULAR HEMOGLOBIN 27.3 pg (28.0-32.0); MEAN CORPUSCULAR HGB CONC 32.4 g/dL (31.0-37.0); MEAN CORPUSCULAR VOLUME 84.4 fL (81.0-99.0); MEAN PLATELET VOLUME 7.8 fl (7.4-10.4); PLATELET 135 x1000/uL (130-400); RED BLOOD CELL COUNT 2.49 mill/uL (4.2-5.4); WHITE BLOOD COUNT 5.6 x1000/uL (4.5-11.0)
[2024-09-14 10:16] LABS: DIFFERENTIAL COMMENT 1
[2024-09-14 10:18] LABS: HEMOGLOBIN. 6.8 g/dL (12.0-16.0)
[2024-09-14] MEDS ORDERED: PANTOPRAZOLE 80 MG in SODIUM CHLORIDE 0.9% 100 ML IV SCH (10:30)
[2024-09-14] MEDS ORDERED: MEROPENEM 500 MG in SODIUM CHLORIDE 0.9% 100 ML IV SCH (11:30)
[2024-09-14] MEDS ORDERED: FENTANYL CITRATE/PF 50MCG/ML 2ML VIAL IV NR (14:45)
[2024-09-14] MEDS: DEXT 5%/0.9% NACL 1,000 ML IV SCH (15:05)
[2024-09-14] MEDS: SODIUM CHLORIDE 0.9% 1,000 ML IV ONE (15:30)
[2024-09-14] MEDS: DIPHENHYDRAMINE 25MG CAPSULE PO PRN (15:33)
[2024-09-14 20:00] VITALS: BP 163/83; PULSE 65; RESP 18; TEMP 36.5; O2SAT 99
[2024-09-14] MEDS ORDERED: MEROPENEM 500MG/50ML 50 ML IV SCH (21:00)
[2024-09-14 21:19] LABS: ANISOCYTOSIS 1+; PLATELET ESTIMATE NORMAL
[2024-09-14] MEDS: CLONIDINE 0.1MG TABLET PO PRN (22:09)
[2024-09-14 22:49] VITALS: BP 163/83; PULSE 65; RESP 18; TEMP 36.5
[2024-09-15] VITALS (15 sets, daily range): BP systolic 123–183; BP diastolic 67–104; PULSE 60–100; RESP 18–20; TEMP 36.3–36.8; O2SAT 95–100
[2024-09-15] MEDS: OCTREOTIDE 1,000 MCG in SODIUM CHLORIDE 0.9% 98 ML IV SCH (02:30)
[2024-09-15 06:44] LABS: HEMATOCRIT. 27.5 % (36.0-48.0); HEMOGLOBIN. 8.6 g/dL (12.0-16.0); MEAN CORPUSCULAR HEMOGLOBIN 27.8 pg (28.0-32.0); MEAN CORPUSCULAR HGB CONC 31.5 g/dL (31.0-37.0); MEAN CORPUSCULAR VOLUME 88.4 fL (81.0-99.0); MEAN PLATELET VOLUME 7.9 fl (7.4-10.4); PLATELET 130 x1000/uL (130-400); RED BLOOD CELL COUNT 3.11 mill/uL (4.2-5.4); RED CELL DISTRIBUTION WIDTH 17.3 % (11.6-14.6); WHITE BLOOD COUNT 4.9 x1000/uL (4.5-11.0)
[2024-09-15 06:57] LABS: DIFFERENTIAL COMMENT 1
[2024-09-15 06:58] LABS: CHLORIDE 101 mEq/L (98-107); POTASSIUM 5.6 mEq/L (3.5-5.1); SODIUM 138 mEq/L (136-145)
[2024-09-15 06:59] LABS: CARBON DIOXIDE 20 mEq/L (21-32)
[2024-09-15 07:00] LABS: CALCIUM 8.5 mg/dL (8.7-10.4)
[2024-09-15 07:04] LABS: GLUCOSE 321 mg/dL (70-105); UREA NITROGEN BLOOD 69 mg/dL (9-23)
[2024-09-15 07:07] LABS: PHOSPHORUS 6.3 mg/dL (2.5-4.9)
[2024-09-15 07:17] LABS: CREATININE 9.5 mg/dL (0.6-1.0)
[2024-09-15] MEDS: MIDODRINE HCL 5MG TABLET PO SCH (09:00)
[2024-09-15] MEDS: NA PHOS,M-B/NA PHOS,DI-BA ENEMA 118ML PR NR (09:45)
[2024-09-15] MEDS: SORBITOL 70% SOLN 30ML PO NR (09:45)
[2024-09-15] MEDS: BISACODYL 10MG SUPP PR NR (09:45)
[2024-09-15] MEDS: SODIUM ZIRCONIUM CYCLOSILICATE 10GM/PACKET PO NR (09:59)
[2024-09-15] MEDS: LACTULOSE 20G/30ML UDC PO NR (11:45)
[2024-09-15] MEDS: VANCOMYCIN 750MG/150ML (BAXTER) IV NR (16:38)
[2024-09-15] MEDS: AMLODIPINE 10MG TABLET PO SCH (17:14)
[2024-09-15 17:48] LABS: PLATELET ESTIMATE NORMAL
[2024-09-15] MEDS: HYDRALAZINE HCL 25MG TABLET PO SCH (22:19)
[2024-09-16] VITALS: BP 136/78; PULSE 63; RESP 18; TEMP 36.3; O2SAT 96
[2024-09-16 04:00] VITALS: BP 169/77; PULSE 68; RESP 18; TEMP 36.4; O2SAT 95
[2024-09-16 06:34] LABS: HEMATOCRIT. 26.9 % (36.0-48.0); HEMOGLOBIN. 8.9 g/dL (12.0-16.0); MEAN CORPUSCULAR HEMOGLOBIN 28.1 pg (28.0-32.0); MEAN CORPUSCULAR HGB CONC 32.9 g/dL (31.0-37.0); MEAN CORPUSCULAR VOLUME 85.4 fL (81.0-99.0); PLATELET 114 x1000/uL (130-400); RED BLOOD CELL COUNT 3.16 mill/uL (4.2-5.4); RED CELL DISTRIBUTION WIDTH 16.6 % (11.6-14.6)
[2024-09-16 07:08] LABS: CALCIUM 8.3 mg/dL (8.7-10.4); POTASSIUM 3.9 mEq/L (3.5-5.1)
[2024-09-16 07:21] LABS: CREATININE 7.3 mg/dL (0.6-1.0)
[2024-09-16 07:42] LABS: DIFFERENTIAL COMMENT 1
[2024-09-16 08:00] VITALS: BP 167/87; PULSE 70; RESP 18; TEMP 36.9; O2SAT 95
[2024-09-16] MEDS ORDERED: TETRACAINE/BENZOCAINE/BUTAMBEN 20 GM SPRAY MM ONE (09:19)
[2024-09-16] MEDS ORDERED: LIDOCAINE 2% 6ML GLYDO MM ONE (09:19)
[2024-09-16] MEDS ORDERED: FENTANYL CITRATE/PF 50MCG/ML 2ML VIAL ONE (09:38)
[2024-09-16] MEDS ORDERED: MIDAZOLAM HCL 2 MG/2 ML VIAL ONE (09:39)
[2024-09-16] MEDS: ASPIRIN 81MG TABLET PO SCH (11:52)
[2024-09-16 12:00] VITALS: BP 147/78; PULSE 60; RESP 18; TEMP 36.9; O2SAT 98
[2024-09-16 16:00] VITALS: BP 133/77; PULSE 62; RESP 18; TEMP 37.1; O2SAT 97
[2024-09-16 20:00] VITALS: BP 119/70; PULSE 69; RESP 18; TEMP 36.6; O2SAT 97
[2024-09-16] MEDS: SENNOSIDES 8.6MG TABLET PO SCH (21:00)
[2024-09-16 21:24] LABS: ANISOCYTOSIS 1+; PLATELET ESTIMATE DECREASED
[2024-09-17] VITALS: BP_SYST 12; BP_SYST 120; BP_DIAS 60; PULSE 68; RESP 20; TEMP 36.6; O2SAT 96
[2024-09-17 04:00] VITALS: BP 145/60; PULSE 72; RESP 19; TEMP 36.1; O2SAT 96
[2024-09-17 06:48] LABS: CHLORIDE 96 mEq/L (98-107); POTASSIUM 4.4 mEq/L (3.5-5.1); SODIUM 132 mEq/L (136-145)
[2024-09-17 06:49] LABS: CALCIUM 7.7 mg/dL (8.7-10.4); CARBON DIOXIDE 24 mEq/L (21-32)
[2024-09-17 06:54] LABS: GLUCOSE 346 mg/dL (70-105); UREA NITROGEN BLOOD 60 mg/dL (9-23)
[2024-09-17 06:56] LABS: ALANINE AMINOTRANSFERASE 397 IU/L (10-49); ALBUMIN 3.2 g/dL (3.2-4.8); ASPARTATE AMINOTRANSFERASE 405 IU/L (<34); BILIRUBIN DIRECT 0.3 mg/dL (<=3.0); BILIRUBIN TOTAL 0.7 mg/dL (0.1-1.0); PROTEIN TOTAL 7.3 g/dL (6.0-8.3)
[2024-09-17 07:00] LABS: CREATININE 8.4 mg/dL (0.6-1.0); HEMATOCRIT. 27.2 % (36.0-48.0); HEMOGLOBIN. 8.7 g/dL (12.0-16.0); MEAN CORPUSCULAR HEMOGLOBIN 27.7 pg (28.0-32.0); MEAN CORPUSCULAR HGB CONC 32.2 g/dL (31.0-37.0); MEAN CORPUSCULAR VOLUME 86.1 fL (81.0-99.0); MEAN PLATELET VOLUME 8.2 fl (7.4-10.4); PLATELET 94 x1000/uL (130-400); RED BLOOD CELL COUNT 3.16 mill/uL (4.2-5.4); RED CELL DISTRIBUTION WIDTH 16.6 % (11.6-14.6); WHITE BLOOD COUNT 3.4 x1000/uL (4.5-11.0)
[2024-09-17 07:15] LABS: INR 1.1; PROTHROMBIN TIME 12.4 sec (9.6-11.0)
[2024-09-17 07:36] LABS: DIFFERENTIAL COMMENT 1
[2024-09-17 08:00] VITALS: BP 159/78; PULSE 71; RESP 18; TEMP 36.6; O2SAT 95
[2024-09-17] MEDS ORDERED: LIDOCAINE HCL 1% 10 MG/ML 10ML VIAL ONE (08:18)
[2024-09-17] MEDS: PANTOPRAZOLE SODIUM 40 MG/VIAL IV SCH (08:31)
[2024-09-17 12:00] VITALS: BP 151/81; PULSE 65; RESP 18; TEMP 36.6; O2SAT 98
[2024-09-17 16:00] VITALS: BP 150/83; PULSE 65; RESP 18; TEMP 36.6; O2SAT 96
[2024-09-17] MEDS ORDERED: INSULIN GLARGINE 100 UNITS/ML SUBCUT NR (17:30)
[2024-09-17] MEDS: INSULIN GLARGINE 100 UNITS/ML SUBCUT SCH (21:50)
[2024-09-18 08:08] VITALS: BP 126/72; PULSE 66; RESP 18; TEMP 36.6; O2SAT 95
[2024-09-18 12:30] VITALS: BP 146/82; PULSE 60; RESP 18; TEMP 36.6; O2SAT 98
[2024-09-18 14:47] LABS: POTASSIUM 4.7 mEq/L (3.5-5.1)
[2024-09-18 16:10] VITALS: BP 154/76; PULSE 68; RESP 20; TEMP 36.6; O2SAT 97
[2024-09-18 18:53] LABS: PLATELET ESTIMATE SLIGHTLY DECREASED
[2024-09-18 20:00] VITALS: BP 132/77; PULSE 66; RESP 20; TEMP 36.3; O2SAT 100
[2024-09-19] VITALS (7 sets, daily range): BP systolic 110–148; BP diastolic 32–80; PULSE 68–78; RESP 19–20; TEMP 36.3–36.8; O2SAT 95–99
[2024-09-19] MEDS: KETOROLAC 15MG/ML VIAL IV NR (02:35)
[2024-09-19] MEDS: DEXT 5%/0.45% NACL 500ML 500 ML IV ONE (12:48)
[2024-09-19 17:07] LABS: BASOPHILS % 0.5 % (0.0-2.0); EOSINOPHILS % 0.3 % (0.0-5.0); HEMATOCRIT. 30.2 % (36.0-48.0); HEMOGLOBIN. 9.6 g/dL (12.0-16.0); LYMPHOCYTES % 18.5 % (20.0-50.0); MEAN CORPUSCULAR HEMOGLOBIN 27.4 pg (28.0-32.0); MEAN CORPUSCULAR HGB CONC 31.6 g/dL (31.0-37.0); MEAN CORPUSCULAR VOLUME 86.5 fL (81.0-99.0); MEAN PLATELET VOLUME 8.2 fl (7.4-10.4); MONOCYTES % 14.7 % (2.0-8.0); PLATELET 152 x1000/uL (130-400); RED BLOOD CELL COUNT 3.49 mill/uL (4.2-5.4); RED CELL DISTRIBUTION WIDTH 17.1 % (11.6-14.6); WHITE BLOOD COUNT 5.1 x1000/uL (4.5-11.0)
[2024-09-19 17:44] LABS: CHLORIDE 98 mEq/L (98-107); POTASSIUM 4.6 mEq/L (3.5-5.1); SODIUM 134 mEq/L (136-145)
[2024-09-19 17:45] LABS: CARBON DIOXIDE 23 mEq/L (21-32)
[2024-09-19] MEDS: DIPHENHYDRAMINE 12.5MG/5ML UDC PO PRN (20:11)
[2024-09-20] VITALS (23 sets, daily range): BP systolic 10–165; BP diastolic 48–86; PULSE 66–82; RESP 7–20; TEMP 36.3–37; O2SAT 95–100
[2024-09-20 06:25] LABS: INR 1.1; PROTHROMBIN TIME 12.4 sec (9.6-11.0)
[2024-09-20 06:26] LABS: CHLORIDE 99 mEq/L (98-107); POTASSIUM 4.8 mEq/L (3.5-5.1); SODIUM 137 mEq/L (136-145)
[2024-09-20 06:28] LABS: CARBON DIOXIDE 25 mEq/L (21-32)
[2024-09-20] MEDS ORDERED: LIDOCAINE HCL 1% 10 MG/ML 10ML VIAL ONE (10:57)
[2024-09-20] MEDS: FENTANYL CITRATE/PF 50MCG/ML 2ML VIAL IV ONE (11:10)
[2024-09-20] MEDS ORDERED: FENTANYL CITRATE/PF 50MCG/ML 2ML VIAL ONE (11:18)
[2024-09-20] MEDS ORDERED: FENTANYL CITRATE/PF 50MCG/ML 2ML VIAL IV NR (11:45)
[2024-09-20] MEDS: LOPERAMIDE HCL 2MG CAPSULE PO PRN (23:31)
[2024-09-21] VITALS: BP 142/73; PULSE 74; RESP 20; TEMP 36.4; O2SAT 95
[2024-09-21 04:00] VITALS: BP 129/70; PULSE 71; RESP 18; TEMP 36.6; O2SAT 98
[2024-09-21 06:04] LABS: BASOPHILS % 0.3 % (0.0-2.0); EOSINOPHILS % 0.2 % (0.0-5.0); HEMATOCRIT. 25.5 % (36.0-48.0); HEMOGLOBIN. 8.2 g/dL (12.0-16.0); LYMPHOCYTES % 14.5 % (20.0-50.0); MEAN CORPUSCULAR HEMOGLOBIN 27.6 pg (28.0-32.0); MEAN CORPUSCULAR VOLUME 86.1 fL (81.0-99.0); MEAN PLATELET VOLUME 8.1 fl (7.4-10.4); MONOCYTES % 13.3 % (2.0-8.0); NEUTROPHILS % 71.7 % (40.0-76.0); PLATELET 139 x1000/uL (130-400); RED BLOOD CELL COUNT 2.96 mill/uL (4.2-5.4); RED CELL DISTRIBUTION WIDTH 17.1 % (11.6-14.6); WHITE BLOOD COUNT 5.4 x1000/uL (4.5-11.0)
[2024-09-21 06:29] LABS: POTASSIUM 4.4 mEq/L (3.5-5.1)
[2024-09-21 06:30] LABS: CALCIUM 8.1 mg/dL (8.7-10.4)
[2024-09-21 06:42] LABS: CREATININE 9.8 mg/dL (0.6-1.0)
[2024-09-21 08:00] VITALS: BP 137/57; PULSE 70; RESP 20; TEMP 36.1; O2SAT 94
[2024-09-21 12:00] VITALS: BP 144/52; PULSE 72; RESP 20; TEMP 36.2; O2SAT 96
[2024-09-21 12:58] VITALS: BP 144/52; PULSE 72; TEMP 97.2; O2SAT 96
== END 2024-09-21 15:02 | disposition home health service (06) | DRG 871 ==
LOC: ER 11:08 → EDBEDREQSVC 09-13 04:52 → EDBEDREQTM 09-14 17:51 → EDBEDREQSVC 09-14 17:51 → 8WST 09-14 20:42
PROVIDERS: ADMIT Hospitalist; ATTEND Hospitalist
PROC: 5A1D70Z Performance of Urinary Filtration, Intermittent, Less than 6 Hours Per Day (ICD-10-PCS; principal; 2024-09-13)
PROC: 02HV33Z Insertion of Infusion Device into Superior Vena Cava, Percutaneous Approach (ICD-10-PCS; 2024-09-13)
PROC: B548ZZA Ultrasonography of Superior Vena Cava, Guidance (ICD-10-PCS; 2024-09-13)
PROC: 30233N1 Transfusion of Nonautologous Red Blood Cells into Peripheral Vein, Percutaneous Approach (ICD-10-PCS; 2024-09-14)
PROC: 5A1D70Z Performance of Urinary Filtration, Intermittent, Less than 6 Hours Per Day (ICD-10-PCS; 2024-09-15)
PROC: 05PYX3Z Removal of Infusion Device from Upper Vein, External Approach (ICD-10-PCS; 2024-09-17)
PROC: 5A1D70Z Performance of Urinary Filtration, Intermittent, Less than 6 Hours Per Day (ICD-10-PCS; 2024-09-20)
PROC: 0JH63XZ Insertion of Tunneled Vascular Access Device into Chest Subcutaneous Tissue and Fascia, Percutaneous Approach (ICD-10-PCS; 2024-09-20)
PROC: 02H633Z Insertion of Infusion Device into Right Atrium, Percutaneous Approach (ICD-10-PCS; 2024-09-20)
PROC: B548ZZA Ultrasonography of Superior Vena Cava, Guidance (ICD-10-PCS; 2024-09-20)
DX: A41.9 Sepsis, unspecified organism (principal); G93.41 Metabolic encephalopathy; R65.21 Severe sepsis with septic shock; J69.0 Pneumonitis due to inhalation of food and vomit; N18.6 End stage renal disease; I21.A1 Myocardial infarction type 2; I50.33 Acute on chronic diastolic (congestive) heart failure; J18.9 Pneumonia, unspecified organism; J96.21 Acute and chronic respiratory failure with hypoxia; K72.00 Acute and subacute hepatic failure without coma; I13.2 Hypertensive heart and chronic kidney disease with heart failure and with stage 5 chronic kidney disease, or end stage renal disease; E87.29 Other acidosis; K92.2 Gastrointestinal hemorrhage, unspecified; N39.0 Urinary tract infection, site not specified; R18.8 Other ascites; D63.1 Anemia in chronic kidney disease; I25.10 Atherosclerotic heart disease of native coronary artery without angina pectoris; E03.9 Hypothyroidism, unspecified; E11.40 Type 2 diabetes mellitus with diabetic neuropathy, unspecified; E87.5 Hyperkalemia; E83.39 Other disorders of phosphorus metabolism; E83.41 Hypermagnesemia; E83.51 Hypocalcemia; I08.1 Rheumatic disorders of both mitral and tricuspid valves; L89.159 Pressure ulcer of sacral region, unspecified stage; D64.9 Anemia, unspecified; K59.00 Constipation, unspecified; R16.2 Hepatomegaly with splenomegaly, not elsewhere classified; B96.89 Other specified bacterial agents as the cause of diseases classified elsewhere; R00.8 Other abnormalities of heart beat; E11.649 Type 2 diabetes mellitus with hypoglycemia without coma; E78.5 Hyperlipidemia, unspecified; E11.22 Type 2 diabetes mellitus with diabetic chronic kidney disease; T85.868A Thrombosis due to other internal prosthetic devices, implants and grafts, initial encounter; Y84.1 Kidney dialysis as the cause of abnormal reaction of the patient, or of later complication, without mention of misadventure at the time of the procedure; Y92.89 Other specified places as the place of occurrence of the external cause; Z95.5 Presence of coronary angioplasty implant and graft; Z99.2 Dependence on renal dialysis; Z99.81 Dependence on supplemental oxygen; Z88.8 Allergy status to other drugs, medicaments and biological substances; Z88.6 Allergy status to analgesic agent
CPT/HCPCS: 36415; 36558; 36573; 36589; 71045; 74176; 76700; 76937; 77001; 80048; 80051; 80061; 80076; 80202; 80305; 81003; 82010; 82140; 82542; 82550; 82553; 82607; 82728; 82746; 82962; 83036; 83540; 83550; 83605; 83735; 83880; 84100; 84132; 84145; 84439; 84443; 84480; 84484; 85025; 85044; 85379; 86705; 86709; 86850; 86870; 86900; 86920; 87070; 87077; 87186; 87340; 90935; 93005; 93306; 93312; 93970; 94070; 94640; 94664; 97162; 97166; 97535; 98960; 99152; 99153; 99291; A4606; A6261; C1725; C1750; C1769; J1642; J1650; J1815; J1885; J2003; J2185; J2250; J2354; J2405; J2470; J2543; J2765; J3010; J3370; J3490; J7050; P9016; Q0163; G0500

== ENCOUNTER 2024-09-22 16:48 | Inpatient (IN) | payer OTHER, MEDICAID ==
[~2024-09-22] VITALS: Ht 167.6 cm; Wt 88.0 kg
[2024-09-22] MEDS ORDERED: CEFEPIME 1GM IN DEXT 5% 50ML IV ONE (17:00)
[2024-09-22] MEDS: VANCOMYCIN 1G PREMIX 200 ML IV ONE (19:09)
[2024-09-22] MEDS: MORPHINE SULFATE 2 MG/ML INJ (NOT FOR IM USE) IV ONE (19:09)
[2024-09-22 19:14] LABS: BASOPHILS % 0.8 % (0.0-2.0); EOSINOPHILS % 0.4 % (0.0-5.0); HEMOGLOBIN. 7.7 g/dL (12.0-16.0); LYMPHOCYTES % 13.3 % (20.0-50.0); MEAN CORPUSCULAR HEMOGLOBIN 27.9 pg (28.0-32.0); MEAN CORPUSCULAR HGB CONC 32.1 g/dL (31.0-37.0); MEAN PLATELET VOLUME 8.1 fl (7.4-10.4); MONOCYTES % 9.9 % (2.0-8.0); NEUTROPHILS % 75.6 % (40.0-76.0); PLATELET 127 x1000/uL (130-400); RED BLOOD CELL COUNT 2.75 mill/uL (4.2-5.4); RED CELL DISTRIBUTION WIDTH 17.5 % (11.6-14.6); WHITE BLOOD COUNT 4.3 x1000/uL (4.5-11.0)
[2024-09-22 19:20] LABS: PROTHROMBIN TIME 11.4 sec (9.6-11.0)
[2024-09-22 19:22] LABS: CARBON DIOXIDE 26 mEq/L (21-32); CHLORIDE 97 mEq/L (98-107); POTASSIUM 4.2 mEq/L (3.5-5.1); SODIUM 135 mEq/L (136-145)
[2024-09-22 19:23] LABS: CALCIUM 8.6 mg/dL (8.7-10.4)
[2024-09-22 19:28] LABS: TROPONIN I HIGH SENSITIVITY 23 ng/L (3.0-34); UREA NITROGEN BLOOD 41 mg/dL (9-23)
[2024-09-22 19:29] LABS: ALANINE AMINOTRANSFERASE 72 IU/L (10-49)
[2024-09-22 19:30] LABS: ALBUMIN 3.9 g/dL (3.2-4.8); ASPARTATE AMINOTRANSFERASE 37 IU/L (<34); BETA HYDROXYBUTYRATE 0.4 mMol/L (0.0-0.3); BILIRUBIN DIRECT 0.3 mg/dL (<=3.0); BILIRUBIN TOTAL 0.7 mg/dL (0.1-1.0); PROTEIN TOTAL 7.8 g/dL (6.0-8.3)
[2024-09-22 19:36] LABS: GLUCOSE 465 mg/dL (70-105)
[2024-09-22] MEDS: CEFEPIME 1GM/50ML 50 ML IV NR (20:48)
[2024-09-22] MEDS ORDERED: HYDROCODONE/ACETAMINOPHEN 5/325MG TABLET PO PRN (23:15)
[2024-09-22] MEDS ORDERED: NALOXONE HCL 0.4MG/ML VIAL IV PRN (23:30)
[2024-09-22] MEDS: INSULIN GLARGINE 100 UNITS/ML SUBCUT SCH (23:31)
[2024-09-22] MEDS ORDERED: MAGNESIUM/ALUMINUM HYDROXIDE/SIMETHICONE 30ML UDC PO PRN (23:45)
[2024-09-22] MEDS ORDERED: IPRATROPIUM/ALBUTEROL 0.5-3(2.5)MG/3ML NEB HHN PRN (23:45)
[2024-09-22] MEDS ORDERED: DOCUSATE SODIUM 100MG CAPSULE PO PRN (23:45)
[2024-09-22] MEDS ORDERED: CLONIDINE 0.1MG TABLET PO PRN (23:45)
[2024-09-22] MEDS ORDERED: DEXTROSE 50% WATER 50ML SYRINGE IV PRN (23:45)
[2024-09-22] MEDS ORDERED: ACETAMINOPHEN 325MG TABLET PO PRN ×2 (23:45)
[2024-09-23] VITALS (61 sets, daily range): BP systolic 88–176; BP diastolic 50–152; PULSE 69–85; RESP 8–18; TEMP 36.50292–37.503; O2SAT 95–100
[2024-09-23] MEDS: ALBUMIN HUMAN 25GM/100ML (25%) IV NR (00:01)
[2024-09-23] MEDS: ALBUMIN HUMAN 25GM/100ML (25%) IV PRN (02:44)
[2024-09-23 03:07] LABS: LACTIC ACID 5.6 mmol/L (0.4-2.0)
[2024-09-23 04:27] LABS: BASOPHILS % 0.3 % (0.0-2.0); DIFFERENTIAL COMMENT 0; EOSINOPHILS % 0.1 % (0.0-5.0); HEMATOCRIT. 22.5 % (36.0-48.0); LYMPHOCYTES % 14.5 % (20.0-50.0); MEAN CORPUSCULAR HEMOGLOBIN 27.4 pg (28.0-32.0); MEAN CORPUSCULAR HGB CONC 30.4 g/dL (31.0-37.0); MEAN CORPUSCULAR VOLUME 89.9 fL (81.0-99.0); MEAN PLATELET VOLUME 8.1 fl (7.4-10.4); MONOCYTES % 12.8 % (2.0-8.0); NEUTROPHILS % 72.3 % (40.0-76.0); PLATELET 68 x1000/uL (130-400); RED CELL DISTRIBUTION WIDTH 17.7 % (11.6-14.6); WHITE BLOOD COUNT 3.2 x1000/uL (4.5-11.0)
[2024-09-23 04:53] LABS: HEMOGLOBIN. 6.8 g/dL (12.0-16.0)
[2024-09-23 05:00] LABS: POTASSIUM 5.4 mEq/L (3.5-5.1)
[2024-09-23 05:07] LABS: CREATINE KINASE MB FRACTION 0.9 ng/mL (0.5-3.6)
[2024-09-23 05:11] LABS: THYROID STIMULATING HORMONE 5.06 uIU/mL (0.55-4.78)
[2024-09-23 05:13] LABS: CREATININE 6.7 mg/dL (0.6-1.0)
[2024-09-23] MEDS: ONDANSETRON HCL 4MG/2ML INJ IV PRN (05:14)
[2024-09-23] MEDS: NOREPINEPHRINE 8MG/250ML PMX 250 ML IV PRN (05:54)
[2024-09-23] MEDS ORDERED: CEFEPIME 1GM IN DEXT 5% 50ML IV SCH (06:00)
[2024-09-23] MEDS ORDERED: DEXTROSE 50% WATER 50ML SYRINGE IV PRN (06:15)
[2024-09-23] MEDS: BLOOD SUGAR DIAGNOSTIC STRIP TEST SCH ×3 (06:15→21:25)
[2024-09-23] MEDS ORDERED: BLOOD SUGAR DIAGNOSTIC STRIP TEST SCH ×2 (06:30→23:45)
[2024-09-23] MEDS ORDERED: NALOXONE HCL 0.4MG/ML VIAL IV PRN (07:45)
[2024-09-23] MEDS: AZITHROMYCIN 500MG/250ML 250 ML IV SCH (08:40)
[2024-09-23] MEDS: INSULIN REGULAR 100U/100ML PMX 100 ML IV SCH ×2 (08:41→14:01)
[2024-09-23] MEDS: CALCIUM ACETATE 667MG CAPSULE PO SCH (09:09)
[2024-09-23 11:16] LABS: POTASSIUM 4.1 mEq/L (3.5-5.1)
[2024-09-23 11:33] LABS: TROPONIN I HIGH SENSITIVITY 1927 ng/L (3.0-34)
[2024-09-23 11:54] LABS: HEPATITIS B SURFACE ANTIGEN NEGATIVE (Negative)
[2024-09-23 12:14] LABS: HEPATITIS A AB IGM NEGATIVE (Negative)
[2024-09-23 12:15] LABS: HEPATITIS B CORE AB IGM NEGATIVE (Negative); HEPATITIS C AB NON REACTIVE (Neg) (Negative)
[2024-09-23] MEDS: SODIUM CHLORIDE 0.9% 1,000 ML IV ONE (12:26)
[2024-09-23] MEDS: FAMOTIDINE 20MG TABLET PO SCH (12:38)
[2024-09-23] MEDS ORDERED: LIDOCAINE HCL 1% 10 MG/ML 10ML VIAL ONE (13:09)
[2024-09-23 19:29] LABS: PHOSPHORUS 2.7 mg/dL (2.5-4.9)
[2024-09-23 19:32] LABS: T4 FREE 1.11 ng/dL (0.89-1.76)
[2024-09-23 20:03] LABS: TROPONIN I HIGH SENSITIVITY 3009 ng/L (3.0-34)
[2024-09-23] MEDS: VANCOMYCIN 750MG/150ML (BAXTER) IV NR (20:30)
[2024-09-23] MEDS: METRONIDAZOLE 500 MG PREMIX 100 ML IV SCH (20:30)
[2024-09-23] MEDS: INSULIN LISPRO 100 UNITS/ML SUBCUT SCH (21:00)
[2024-09-23] MEDS: CEFEPIME 1GM PREMIX 50ML IV SCH (21:26)
[2024-09-23] MEDS ORDERED: INSULIN GLARGINE 100 UNITS/ML SUBCUT SCH (22:00)
[2024-09-23] MEDS ORDERED: INSULIN LISPRO (HIGH DOSE) 100 UNITS/ML SUBCUT SCH (23:45)
[2024-09-24] VITALS (95 sets, daily range): BP systolic 72–182; BP diastolic 40–117; PULSE 60–96; RESP 7–23; TEMP 36.6–37; O2SAT 88–100
[2024-09-24 05:54] LABS: HEMATOCRIT. 26.6 % (36.0-48.0); HEMOGLOBIN. 8.7 g/dL (12.0-16.0); MEAN CORPUSCULAR HEMOGLOBIN 28.6 pg (28.0-32.0); MEAN CORPUSCULAR HGB CONC 32.5 g/dL (31.0-37.0); MEAN CORPUSCULAR VOLUME 87.9 fL (81.0-99.0); MEAN PLATELET VOLUME 8.6 fl (7.4-10.4); PLATELET 134 x1000/uL (130-400); RED BLOOD CELL COUNT 3.03 mill/uL (4.2-5.4); RED CELL DISTRIBUTION WIDTH 17.1 % (11.6-14.6); WHITE BLOOD COUNT 7.5 x1000/uL (4.5-11.0)
[2024-09-24 06:00] LABS: CHLORIDE 103 mEq/L (98-107); POTASSIUM 4.1 mEq/L (3.5-5.1); SODIUM 139 mEq/L (136-145)
[2024-09-24 06:03] LABS: CARBON DIOXIDE 25 mEq/L (21-32)
[2024-09-24 06:04] LABS: CALCIUM 8.4 mg/dL (8.7-10.4)
[2024-09-24 06:08] LABS: GLUCOSE 59 mg/dL (70-105)
[2024-09-24 06:09] LABS: UREA NITROGEN BLOOD 44 mg/dL (9-23)
[2024-09-24 06:10] LABS: ALANINE AMINOTRANSFERASE 260 IU/L (10-49); ALBUMIN 3.6 g/dL (3.2-4.8); ASPARTATE AMINOTRANSFERASE 594 IU/L (<34)
[2024-09-24 06:11] LABS: BILIRUBIN DIRECT 0.6 mg/dL (<=3.0); BILIRUBIN TOTAL 1.4 mg/dL (0.1-1.0); PHOSPHORUS 4.1 mg/dL (2.5-4.9); PROTEIN TOTAL 7.1 g/dL (6.0-8.3)
[2024-09-24 06:21] LABS: DIFFERENTIAL COMMENT 1
[2024-09-24 06:34] LABS: CREATININE 5.4 mg/dL (0.6-1.0)
[2024-09-24] MEDS: DEXTROSE 50% WATER 50ML SYRINGE IV PRN (06:34)
[2024-09-24 08:55] LABS: PHOSPHORUS 4.2 mg/dL (2.5-4.9)
[2024-09-24 09:10] LABS: TROPONIN I HIGH SENSITIVITY 3359 ng/L (3.0-34)
[2024-09-24] MEDS: LEVOTHYROXINE SODIUM 25MCG TABLET PO SCH (09:58)
[2024-09-24] MEDS: ASPIRIN 81MG TABLET PO SCH (09:58)
[2024-09-24] MEDS: MIDODRINE HCL 5MG TABLET PO PRN ×2 (10:00→13:09)
[2024-09-24] MEDS: CLOPIDOGREL 75MG TABLET PO SCH (11:02)
[2024-09-24] MEDS ORDERED: MIDODRINE HCL 5MG TABLET PO SCH (17:00)
[2024-09-24] MEDS: MIDODRINE HCL 5MG TABLET PO SCH (18:21)
[2024-09-24] MEDS: MENTHOL/LANOLIN/CALAMINE/ZN OX OINT 71GM TOP SCH (19:14)
[2024-09-25] VITALS (86 sets, daily range): BP systolic 101–186; BP diastolic 49–89; PULSE 64–81; RESP 8–23; TEMP 36.55848–37; O2SAT 80–100
[2024-09-25 09:51] LABS: BG BASE EXCESS -2.9 mmol/L (-2.0-3.0); BG CARBOXYHEMOGLOBIN 1.4 % (0.5-1.5); BG DEOXYHEMOGLOBIN 9.1 % (0.0-5.0); BG FRACTION INSPIRED OXYGEN 28; BG HCO3 ACT 22.2 mmol/L (21.0-28.0); BG METHEMOGLOBIN 0.3 % (0.5-1.5); BG OXYGEN SATURATION 90.7 % (94.0-98.0); BG OXYHEMOGLOBIN 89.2 % (94.0-98.0); BG PH 7.363 (7.350-7.450); BG PO2 64.1 mmHg (83.0-108.0); BG SAMPLE SITE RIGHT BRACHIAL; BG VENT MODE NASAL CANNULA
[2024-09-25 12:51] LABS: HEMATOCRIT. 23.8 % (36.0-48.0); HEMOGLOBIN. 7.7 g/dL (12.0-16.0); MEAN CORPUSCULAR HEMOGLOBIN 28.3 pg (28.0-32.0); MEAN CORPUSCULAR HGB CONC 32.2 g/dL (31.0-37.0); MEAN CORPUSCULAR VOLUME 87.7 fL (81.0-99.0); MEAN PLATELET VOLUME 8.9 fl (7.4-10.4); PLATELET 137 x1000/uL (130-400); RED BLOOD CELL COUNT 2.71 mill/uL (4.2-5.4); RED CELL DISTRIBUTION WIDTH 16.9 % (11.6-14.6); WHITE BLOOD COUNT 5.5 x1000/uL (4.5-11.0)
[2024-09-25 12:59] LABS: CHLORIDE 102 mEq/L (98-107); POTASSIUM 4.5 mEq/L (3.5-5.1); SODIUM 140 mEq/L (136-145)
[2024-09-25 13:00] LABS: CALCIUM 8.1 mg/dL (8.7-10.4); CARBON DIOXIDE 25 mEq/L (21-32)
[2024-09-25 13:05] LABS: GLUCOSE 190 mg/dL (70-105); UREA NITROGEN BLOOD 61 mg/dL (9-23)
[2024-09-25 13:07] LABS: ALANINE AMINOTRANSFERASE 179 IU/L (10-49); ASPARTATE AMINOTRANSFERASE 263 IU/L (<34); BILIRUBIN DIRECT 0.5 mg/dL (<=3.0); CREATININE 6.8 mg/dL (0.6-1.0); PROTEIN TOTAL 6.6 g/dL (6.0-8.3)
[2024-09-25 13:21] LABS: TROPONIN I HIGH SENSITIVITY 1109 ng/L (3.0-34)
[2024-09-25 13:38] LABS: DIFFERENTIAL COMMENT 1
[2024-09-25 16:30] LABS: ANISOCYTOSIS 1+; PLATELET ESTIMATE SLIGHTLY DECREASED
[2024-09-25] MEDS: MORPHINE SULFATE 2 MG/ML INJ (NOT FOR IM USE) IV NR (20:26)
[2024-09-25] MEDS: HYDRALAZINE 20MG/ML VIAL IV PRN (21:37)
[2024-09-25 22:10] LABS: ANISOCYTOSIS 1+; HYPOCHROMASIA 1+; MICROCYTOSIS 1+; PLATELET ESTIMATE SLIGHTLY DECREASED
[2024-09-25] MEDS: EPOETIN ALFA-EPBX 4,000 UNIT/ML VIAL SUBCUT SCH (23:22)
[2024-09-25] MEDS: VANCOMYCIN 500MG PREMIX 100 ML IV SCH (23:55)
[2024-09-26] VITALS: BP 151/69; PULSE 73; RESP 16; O2SAT 97
[2024-09-26 06:37] LABS: HEMATOCRIT. 22.8 % (36.0-48.0); HEMOGLOBIN. 7.5 g/dL (12.0-16.0); MEAN CORPUSCULAR HEMOGLOBIN 28.9 pg (28.0-32.0); MEAN CORPUSCULAR HGB CONC 32.9 g/dL (31.0-37.0); MEAN CORPUSCULAR VOLUME 87.8 fL (81.0-99.0); MEAN PLATELET VOLUME 8.5 fl (7.4-10.4); PLATELET 156 x1000/uL (130-400); RED BLOOD CELL COUNT 2.59 mill/uL (4.2-5.4); RED CELL DISTRIBUTION WIDTH 16.6 % (11.6-14.6); WHITE BLOOD COUNT 5.8 x1000/uL (4.5-11.0)
[2024-09-26 06:52] LABS: CHLORIDE 100 mEq/L (98-107); SODIUM 138 mEq/L (136-145)
[2024-09-26 06:53] VITALS: BP 156/53; PULSE 74; RESP 18; TEMP 36.8
[2024-09-26 06:53] LABS: CALCIUM 8.3 mg/dL (8.7-10.4); CARBON DIOXIDE 24 mEq/L (21-32)
[2024-09-26 06:58] LABS: GLUCOSE 305 mg/dL (70-105); UREA NITROGEN BLOOD 47 mg/dL (9-23)
[2024-09-26 07:00] LABS: PHOSPHORUS 4.5 mg/dL (2.5-4.9)
[2024-09-26 07:21] LABS: CREATININE 5.7 mg/dL (0.6-1.0)
[2024-09-26 07:38] LABS: DIFFERENTIAL COMMENT 1
[2024-09-26] MEDS: AZITHROMYCIN 500 MG TABLET PO SCH (10:20)
[2024-09-26] MEDS: METRONIDAZOLE 500MG TABLET PO SCH (10:20)
[2024-09-26] MEDS: HYDROCODONE/ACETAMINOPHEN 5/325MG TABLET PO PRN (11:33)
[2024-09-26] MEDS ORDERED: METR-167 MT (15:52)
[2024-09-26] MEDS ORDERED: AZIT250T12 PO (15:52)
[2024-09-26 17:04] LABS: ANISOCYTOSIS 1+; HYPOCHROMASIA 1+; PLATELET ESTIMATE NORMAL
[2024-09-26 20:00] VITALS: BP 154/65; PULSE 68; RESP 18; TEMP 36.9; O2SAT 97
[2024-09-26] MEDS: INSULIN GLARGINE 100 UNITS/ML SUBCUT SCH (22:18)
[2024-09-27] VITALS (11 sets, daily range): BP systolic 112–144; BP diastolic 32–75; PULSE 62–71; RESP 16–20; TEMP 36.1–36.8; O2SAT 95–98
[2024-09-28] VITALS: BP 123/60; PULSE 67; RESP 18; TEMP 36.5; O2SAT 97
[2024-09-28 04:00] VITALS: BP 125/32; PULSE 66; RESP 19; TEMP 36.4; O2SAT 96
[2024-09-28 06:28] LABS: HEMATOCRIT. 23.6 % (36.0-48.0); HEMOGLOBIN. 7.7 g/dL (12.0-16.0); MEAN CORPUSCULAR HGB CONC 32.6 g/dL (31.0-37.0); MEAN CORPUSCULAR VOLUME 85.8 fL (81.0-99.0); MEAN PLATELET VOLUME 8.3 fl (7.4-10.4); PLATELET 187 x1000/uL (130-400); RED BLOOD CELL COUNT 2.74 mill/uL (4.2-5.4); RED CELL DISTRIBUTION WIDTH 17.3 % (11.6-14.6); WHITE BLOOD COUNT 5.2 x1000/uL (4.5-11.0)
[2024-09-28 06:36] LABS: CHLORIDE 102 mEq/L (98-107); POTASSIUM 3.6 mEq/L (3.5-5.1); SODIUM 139 mEq/L (136-145)
[2024-09-28 06:39] LABS: CALCIUM 8.1 mg/dL (8.7-10.4); CARBON DIOXIDE 26 mEq/L (21-32)
[2024-09-28 06:44] LABS: GLUCOSE 86 mg/dL (70-105); IRON 44 ug/dL (50-170); PROTEIN TOTAL 6.5 g/dL (6.0-8.3)
[2024-09-28 06:45] LABS: UREA NITROGEN BLOOD 42 mg/dL (9-23)
[2024-09-28 06:46] LABS: ALANINE AMINOTRANSFERASE 144 IU/L (10-49); ASPARTATE AMINOTRANSFERASE 147 IU/L (<34)
[2024-09-28 06:47] LABS: BILIRUBIN TOTAL 0.5 mg/dL (0.1-1.0); TOTAL IRON BINDING CAPACITY 273 ug/dl (250-425)
[2024-09-28 06:51] LABS: DIFFERENTIAL COMMENT 1
[2024-09-28 07:03] LABS: CREATININE 5.7 mg/dL (0.6-1.0)
[2024-09-28 07:45] LABS: FERRITIN 634 ng/mL (10-291)
[2024-09-28 07:52] LABS: VITAMIN B12 SERUM 1194 pg/mL (211-911)
[2024-09-28 08:00] VITALS: BP 139/55; PULSE 66; RESP 18; TEMP 36.4; O2SAT 100
[2024-09-28 12:00] VITALS: BP 134/67; PULSE 65; RESP 20; TEMP 36.1; O2SAT 97
[2024-09-28] MEDS: FERROUS SULFATE 325MG TABLET PO SCH (13:03)
[2024-09-28] MEDS: ASCORBIC ACID 500 MG TABLET PO SCH (13:03)
[2024-09-28 14:20] VITALS: BP 132/88; PULSE 82; TEMP 98.2; O2SAT 96
[2024-09-28 17:42] LABS: ANISOCYTOSIS 1+; PLATELET ESTIMATE NORMAL
== END 2024-09-28 14:30 | disposition home or self-care (01) | DRG 871 ==
LOC: ER 16:48 → MICUSO 18:19 → EDBEDREQ 18:23 → EDBEDREQSVC 23:49 → MICUNO 09-23 06:11 → 8WST 09-25 23:13
PROVIDERS: ADMIT Internal Medicine; ATTEND Internal Medicine
PROC: 30233N1 Transfusion of Nonautologous Red Blood Cells into Peripheral Vein, Percutaneous Approach (ICD-10-PCS; principal; 2024-09-23)
PROC: 02H633Z Insertion of Infusion Device into Right Atrium, Percutaneous Approach (ICD-10-PCS; 2024-09-23)
PROC: B548ZZA Ultrasonography of Superior Vena Cava, Guidance (ICD-10-PCS; 2024-09-23)
PROC: 5A1D70Z Performance of Urinary Filtration, Intermittent, Less than 6 Hours Per Day (ICD-10-PCS; 2024-09-23)
PROC: 5A1D70Z Performance of Urinary Filtration, Intermittent, Less than 6 Hours Per Day (ICD-10-PCS; 2024-09-25)
PROC: 5A1D70Z Performance of Urinary Filtration, Intermittent, Less than 6 Hours Per Day (ICD-10-PCS; 2024-09-27)
DX: A41.9 Sepsis, unspecified organism (principal); E11.10 Type 2 diabetes mellitus with ketoacidosis without coma; G92.8 Other toxic encephalopathy; I21.A1 Myocardial infarction type 2; I50.33 Acute on chronic diastolic (congestive) heart failure; J18.9 Pneumonia, unspecified organism; J96.01 Acute respiratory failure with hypoxia; N18.6 End stage renal disease; D61.818 Other pancytopenia; D62 Acute posthemorrhagic anemia; E87.1 Hypo-osmolality and hyponatremia; I13.2 Hypertensive heart and chronic kidney disease with heart failure and with stage 5 chronic kidney disease, or end stage renal disease; K92.2 Gastrointestinal hemorrhage, unspecified; E87.0 Hyperosmolality and hypernatremia; D63.1 Anemia in chronic kidney disease; E11.649 Type 2 diabetes mellitus with hypoglycemia without coma; R74.01 Elevation of levels of liver transaminase levels; E87.5 Hyperkalemia; R91.1 Solitary pulmonary nodule; I25.10 Atherosclerotic heart disease of native coronary artery without angina pectoris; E11.22 Type 2 diabetes mellitus with diabetic chronic kidney disease; E03.9 Hypothyroidism, unspecified; Z88.6 Allergy status to analgesic agent; Z99.2 Dependence on renal dialysis; Z98.61 Coronary angioplasty status
CPT/HCPCS: 36415; 36573; 36600; 71045; 71250; 76700; 80048; 80053; 80061; 80076; 80202; 82010; 82375; 82542; 82550; 82553; 82607; 82728; 82746; 82803; 82805; 82947; 82962; 83540; 83550; 83605; 83735; 83930; 84100; 84132; 84145; 84439; 84443; 84484; 85025; 85044; 86705; 86709; 86850; 86870; 86900; 86920; 87340; 90935; 93005; 93306; 93970; 99291; A4606; A6261; C1725; C1769; J0360; J0456; J0692; J0885; J1815; J2003; J2270; J2405; J3370; J3490; P9016; P9047

== ENCOUNTER 2024-10-07 09:53 | Inpatient (IN) | payer OTHER, MEDICAID ==
[~2024-10-07] VITALS: Ht 162.6 cm; Wt 90.7 kg
[2024-10-07] VITALS (11 sets, daily range): BP systolic 132–188; BP diastolic 52–95; PULSE 85–99; RESP 18–22; TEMP 36.5–36.89184; O2SAT 97–100
[~2024-10-07 09:53] MED LIST changes: +AZIT250T12 PO; +METR-167 MT
[2024-10-07] MEDS: MORPHINE SULFATE 4 MG/ML INJ (FOR IV/IM USE) IV STA (10:27)
[2024-10-07 10:56] LABS: BASOPHILS % 0.8 % (0.0-2.0); EOSINOPHILS % 0.3 % (0.0-5.0); HEMATOCRIT. 29.9 % (36.0-48.0); HEMOGLOBIN. 9.4 g/dL (12.0-16.0); LYMPHOCYTES % 17.2 % (20.0-50.0); MEAN CORPUSCULAR HEMOGLOBIN 27.1 pg (28.0-32.0); MEAN CORPUSCULAR HGB CONC 31.3 g/dL (31.0-37.0); MEAN CORPUSCULAR VOLUME 86.6 fL (81.0-99.0); MEAN PLATELET VOLUME 8.5 fl (7.4-10.4); MONOCYTES % 14.9 % (2.0-8.0); NEUTROPHILS % 66.8 % (40.0-76.0); PLATELET 202 x1000/uL (130-400); RED BLOOD CELL COUNT 3.46 mill/uL (4.2-5.4); RED CELL DISTRIBUTION WIDTH 17.9 % (11.6-14.6); WHITE BLOOD COUNT 4.3 x1000/uL (4.5-11.0)
[2024-10-07 11:17] LABS: CHLORIDE 100 mEq/L (98-107); POTASSIUM 4.4 mEq/L (3.5-5.1); SODIUM 139 mEq/L (136-145)
[2024-10-07 11:18] LABS: CALCIUM 8.5 mg/dL (8.7-10.4); CARBON DIOXIDE 26 mEq/L (21-32)
[2024-10-07 11:23] LABS: GLUCOSE 316 mg/dL (70-105); TROPONIN I HIGH SENSITIVITY 29 ng/L (3.0-34); UREA NITROGEN BLOOD 33 mg/dL (9-23)
[2024-10-07 11:26] LABS: CREATININE 7.3 mg/dL (0.6-1.0)
[2024-10-07] MEDS ORDERED: EPOETIN ALFA-EPBX 4,000 UNIT/ML VIAL SUBCUT SCH (11:30)
[2024-10-07 13:08] LABS: HEPATITIS B SURFACE ANTIGEN NEGATIVE (Negative)
[2024-10-07 13:29] LABS: HEPATITIS A AB IGM NEGATIVE (Negative); HEPATITIS B CORE AB IGM NEGATIVE (Negative)
[2024-10-07 13:30] LABS: HEPATITIS C AB NON REACTIVE (Neg) (Negative)
[2024-10-07 15:11] LABS: PHOSPHORUS 4.3 mg/dL (2.5-4.9)
[2024-10-07] MEDS ORDERED: IPRATROPIUM/ALBUTEROL 0.5-3(2.5)MG/3ML NEB NEB PRN (16:00)
[2024-10-07] MEDS ORDERED: HYDROCODONE/ACETAMINOPHEN 5/325MG TABLET PO PRN ×2 (16:00→16:15)
[2024-10-07] MEDS ORDERED: MAGNESIUM/ALUMINUM HYDROXIDE/SIMETHICONE 30ML UDC PO PRN (16:00)
[2024-10-07] MEDS ORDERED: ACETAMINOPHEN 325MG TABLET PO PRN (16:00)
[2024-10-07] MEDS: TRAMADOL 50MG TABLET PO PRN (20:05)
[2024-10-07] MEDS: HYDRALAZINE 20MG/ML VIAL IV PRN (20:06)
[2024-10-07] MEDS: EPOETIN ALFA-EPBX 4,000 UNIT/ML VIAL SUBCUT SCH (22:20)
[2024-10-08] VITALS: BP 165/73; PULSE 81; RESP 18; TEMP 36.7; O2SAT 100
[2024-10-08] MEDS: INSULIN LISPRO 100 UNITS/ML SUBCUT NR (00:22)
[2024-10-08] MEDS: INSULIN GLARGINE 100 UNITS/ML SUBCUT NR (00:24)
[2024-10-08] MEDS: CLONIDINE 0.1MG TABLET PO PRN (00:49)
[2024-10-08 04:00] VITALS: BP 141/62; PULSE 72; RESP 19; TEMP 36.1; O2SAT 96
[2024-10-08] MEDS: BLOOD SUGAR DIAGNOSTIC STRIP TEST SCH (06:36)
[2024-10-08 08:00] VITALS: BP 135/71; PULSE 66; RESP 18; TEMP 36.9; O2SAT 100
[2024-10-08 08:18] LABS: POTASSIUM 4.1 mEq/L (3.5-5.1)
[2024-10-08 08:19] LABS: CALCIUM 7.9 mg/dL (8.7-10.4)
[2024-10-08 08:26] LABS: EOSINOPHILS % 0.4 % (0.0-5.0); HEMATOCRIT. 25.3 % (36.0-48.0); HEMOGLOBIN. 8.1 g/dL (12.0-16.0); LYMPHOCYTES % 15.2 % (20.0-50.0); MEAN CORPUSCULAR HEMOGLOBIN 28.6 pg (28.0-32.0); MEAN CORPUSCULAR HGB CONC 31.9 g/dL (31.0-37.0); MEAN CORPUSCULAR VOLUME 89.7 fL (81.0-99.0); MEAN PLATELET VOLUME 8.4 fl (7.4-10.4); MONOCYTES % 25.5 % (2.0-8.0); NEUTROPHILS % 57.9 % (40.0-76.0); PLATELET 150 x1000/uL (130-400); RED BLOOD CELL COUNT 2.82 mill/uL (4.2-5.4); RED CELL DISTRIBUTION WIDTH 17.6 % (11.6-14.6); WHITE BLOOD COUNT 4.2 x1000/uL (4.5-11.0)
[2024-10-08 08:39] LABS: DIFFERENTIAL COMMENT 1
[2024-10-08] MEDS: ENOXAPARIN 30MG/0.3ML SYR SUBCUT SCH (09:00)
[2024-10-08] MEDS: INSULIN LISPRO 100 UNITS/ML SUBCUT SCH (09:23)
[2024-10-08 09:51] LABS: CREATININE 6.5 mg/dL (0.6-1.0)
[2024-10-08] MEDS: PANTOPRAZOLE SODIUM 40 MG/VIAL IV SCH (10:46)
[2024-10-08 12:00] VITALS: BP 130/68; PULSE 66; RESP 16; TEMP 36.7; O2SAT 96
[2024-10-08] MEDS: AMLODIPINE 10MG TABLET PO SCH (13:45)
[2024-10-08 16:00] VITALS: BP 104/55; PULSE 69; RESP 18; TEMP 36.9; O2SAT 100
[2024-10-08] MEDS: HYDRALAZINE HCL 25MG TABLET PO SCH (16:00)
[2024-10-08] MEDS: CALCIUM ACETATE 667MG CAPSULE PO SCH (17:00)
[2024-10-08] MEDS: SEVELAMER CARBONATE 800 MG TABLET PO SCH (19:05)
[2024-10-08 20:00] VITALS: BP 136/59; PULSE 69; RESP 18; TEMP 36.1; O2SAT 93
[2024-10-08] MEDS: ZOLPIDEM TARTRATE 5MG TABLET PO PRN (21:18)
[2024-10-08] MEDS: CARVEDILOL 6.25 MG TABLET PO SCH (21:19)
[2024-10-08] MEDS: INSULIN GLARGINE 100 UNITS/ML SUBCUT SCH (22:20)
[2024-10-09] VITALS (14 sets, daily range): BP systolic 89–136; BP diastolic 50–102; PULSE 60–68; RESP 17–22; TEMP 35.9–36.55848; O2SAT 94–100
[2024-10-09] MEDS: LEVOTHYROXINE SODIUM 75MCG TABLET PO SCH (07:13)
[2024-10-09] MEDS: DEXTROSE 50% WATER 50ML SYRINGE IV PRN (07:13)
[2024-10-09] MEDS: INSULIN LISPRO 100 UNITS/ML SUBCUT SCH (07:20)
[2024-10-09] MEDS: CLOPIDOGREL 75MG TABLET PO SCH (09:45)
[2024-10-09] MEDS: ASPIRIN 81MG EC TABLET PO SCH (09:45)
[2024-10-09] MEDS: ATORVASTATIN CALCIUM 20MG TABLET PO SCH (09:45)
[2024-10-09] MEDS: DIPHENHYDRAMINE 50MG/ML VIAL IV PRN (12:15)
[2024-10-09 12:31] LABS: HEMATOCRIT. 24.1 % (36.0-48.0); HEMOGLOBIN. 7.8 g/dL (12.0-16.0); MEAN CORPUSCULAR HEMOGLOBIN 28.6 pg (28.0-32.0); MEAN CORPUSCULAR HGB CONC 32.2 g/dL (31.0-37.0); MEAN CORPUSCULAR VOLUME 88.9 fL (81.0-99.0); MEAN PLATELET VOLUME 8.3 fl (7.4-10.4); PLATELET 166 x1000/uL (130-400); RED BLOOD CELL COUNT 2.71 mill/uL (4.2-5.4); RED CELL DISTRIBUTION WIDTH 17.2 % (11.6-14.6); WHITE BLOOD COUNT 3.3 x1000/uL (4.5-11.0)
[2024-10-09 12:39] LABS: POTASSIUM 3.8 mEq/L (3.5-5.1)
[2024-10-09 12:41] LABS: CALCIUM 7.7 mg/dL (8.7-10.4)
[2024-10-09 12:55] LABS: DIFFERENTIAL COMMENT 1
[2024-10-09 13:07] LABS: CREATININE 6.3 mg/dL (0.6-1.0)
[2024-10-09 16:22] LABS: ANISOCYTOSIS 1+; HYPOCHROMASIA 1+; OVALOCYTES 1+; PLATELET ESTIMATE NORMAL; TARGET CELLS 1+
[2024-10-10] VITALS: BP 90/52; PULSE 66; RESP 20; TEMP 36.3; O2SAT 93
[2024-10-10 04:00] VITALS: BP 96/61; PULSE 58; RESP 20; TEMP 36.4; O2SAT 94
[2024-10-10 08:00] VITALS: BP 113/51; PULSE 69; RESP 17; TEMP 36.4; O2SAT 100
[2024-10-10 12:00] VITALS: BP 120/56; PULSE 70; RESP 18; TEMP 36.4; O2SAT 99
[2024-10-10 13:22] LABS: HEMATOCRIT. 25.4 % (36.0-48.0); HEMOGLOBIN. 7.9 g/dL (12.0-16.0); MEAN CORPUSCULAR HEMOGLOBIN 27.2 pg (28.0-32.0); MEAN CORPUSCULAR HGB CONC 31.2 g/dL (31.0-37.0); MEAN CORPUSCULAR VOLUME 87.2 fL (81.0-99.0); MEAN PLATELET VOLUME 8.2 fl (7.4-10.4); PLATELET 167 x1000/uL (130-400); RED BLOOD CELL COUNT 2.91 mill/uL (4.2-5.4); RED CELL DISTRIBUTION WIDTH 16.8 % (11.6-14.6); WHITE BLOOD COUNT 2.6 x1000/uL (4.5-11.0)
[2024-10-10 13:25] LABS: DIFFERENTIAL COMMENT 1
[2024-10-10 13:40] LABS: POTASSIUM 4.2 mEq/L (3.5-5.1)
[2024-10-10 13:42] LABS: CALCIUM 7.6 mg/dL (8.7-10.4)
[2024-10-10] MEDS ORDERED: NALOXONE HCL 0.4MG/ML VIAL IV PRN (15:15)
[2024-10-10 16:00] VITALS: BP 149/65; PULSE 73; RESP 18; TEMP 36.3; O2SAT 100
[2024-10-10] MEDS: ZINC OXIDE 20% OINT 30GM TOP SCH (17:19)
[2024-10-10] MEDS: NYSTATIN 100,000 UNITS/GM OINT 15GM TOP SCH (17:20)
[2024-10-10 17:29] LABS: ANISOCYTOSIS 1+; GIANT PLATELETS 1+; HYPOCHROMASIA 1+; PLATELET ESTIMATE NORMAL
[2024-10-10 20:00] VITALS: BP 134/67; PULSE 73; RESP 18; TEMP 36.7; O2SAT 100
[2024-10-11] VITALS (13 sets, daily range): BP systolic 108–147; BP diastolic 62–78; PULSE 66–91; RESP 14–19; TEMP 36.2–36.7; O2SAT 93–99
[2024-10-11 08:45] LABS: CARBON DIOXIDE 29 mEq/L (21-32); CHLORIDE 97 mEq/L (98-107); POTASSIUM 4.3 mEq/L (3.5-5.1); SODIUM 136 mEq/L (136-145)
[2024-10-11] MEDS: FAMOTIDINE 20MG/2ML VIAL IV SCH (09:05)
[2024-10-11] MEDS: ONDANSETRON HCL 4MG/2ML INJ IV PRN (09:05)
[2024-10-12] VITALS (14 sets, daily range): BP systolic 123–158; BP diastolic 53–78; PULSE 61–77; RESP 16–20; TEMP 35.7–36.78072; O2SAT 96–99
== END 2024-10-12 15:00 | disposition home or self-care (01) | DRG 291 ==
LOC: ER 09:53 → 6WST 11:22 → EDBEDREQ 11:27 → EDBEDREQTM 11:27
PROVIDERS: ADMIT Internal Medicine; ATTEND Internal Medicine
PROC: 5A1D70Z Performance of Urinary Filtration, Intermittent, Less than 6 Hours Per Day (ICD-10-PCS; principal; 2024-10-07)
PROC: 5A1D70Z Performance of Urinary Filtration, Intermittent, Less than 6 Hours Per Day (ICD-10-PCS; 2024-10-09)
PROC: 5A1D70Z Performance of Urinary Filtration, Intermittent, Less than 6 Hours Per Day (ICD-10-PCS; 2024-10-11)
PROC: 5A1D70Z Performance of Urinary Filtration, Intermittent, Less than 6 Hours Per Day (ICD-10-PCS; 2024-10-12)
DX: I13.2 Hypertensive heart and chronic kidney disease with heart failure and with stage 5 chronic kidney disease, or end stage renal disease (principal); I50.33 Acute on chronic diastolic (congestive) heart failure; J18.9 Pneumonia, unspecified organism; N18.6 End stage renal disease; J44.0 Chronic obstructive pulmonary disease with (acute) lower respiratory infection; I25.10 Atherosclerotic heart disease of native coronary artery without angina pectoris; E11.65 Type 2 diabetes mellitus with hyperglycemia; E11.22 Type 2 diabetes mellitus with diabetic chronic kidney disease; Z88.6 Allergy status to analgesic agent; Z99.2 Dependence on renal dialysis; D63.8 Anemia in other chronic diseases classified elsewhere; E78.5 Hyperlipidemia, unspecified; Z91.158 Patient's noncompliance with renal dialysis for other reason
CPT/HCPCS: 36415; 71045; 80048; 80051; 82962; 83036; 83735; 83880; 84100; 84484; 85025; 86705; 86709; 87340; 90935; 93005; 93970; 99285; A4606; A6261; J0360; J0885; J1200; J1650; J1815; J2270; J2470; J3490

== ENCOUNTER 2024-10-16 05:48 | Inpatient (IN) | payer OTHER, MEDICAID ==
[2024-10-16] VITALS (20 sets, daily range): BP systolic 104–148; BP diastolic 57–90; PULSE 70–81; RESP 17–35; TEMP 36.8–38; O2SAT 99–100
[~2024-10-16] VITALS: Ht 152.4 cm; Wt 70.3 kg
[~2024-10-16 05:48] MED LIST changes: -METR-167 MT
[2024-10-16 06:19] LABS: BASOPHILS % 0.6 % (0.0-2.0); HEMATOCRIT. 27.6 % (36.0-48.0); HEMOGLOBIN. 8.7 g/dL (12.0-16.0); LYMPHOCYTES % 8.6 % (20.0-50.0); MEAN CORPUSCULAR HEMOGLOBIN 27.3 pg (28.0-32.0); MEAN CORPUSCULAR HGB CONC 31.4 g/dL (31.0-37.0); MEAN CORPUSCULAR VOLUME 87.1 fL (81.0-99.0); MEAN PLATELET VOLUME 7.3 fl (7.4-10.4); MONOCYTES % 13.6 % (2.0-8.0); NEUTROPHILS % 77.2 % (40.0-76.0); PLATELET 273 x1000/uL (130-400); RED BLOOD CELL COUNT 3.17 mill/uL (4.2-5.4); RED CELL DISTRIBUTION WIDTH 16.5 % (11.6-14.6); WHITE BLOOD COUNT 7.1 x1000/uL (4.5-11.0)
[2024-10-16 06:20] LABS: CHLORIDE 98 mEq/L (98-107)
[2024-10-16 06:21] LABS: CARBON DIOXIDE 22 mEq/L (21-32); SODIUM 138 mEq/L (136-145)
[2024-10-16 06:22] LABS: CALCIUM 8.6 mg/dL (8.7-10.4)
[2024-10-16 06:27] LABS: TROPONIN I HIGH SENSITIVITY 30 ng/L (3.0-34); UREA NITROGEN BLOOD 49 mg/dL (9-23)
[2024-10-16] MEDS: IPRATROPIUM BROMIDE (0.02%) 0.5MG/2.5ML NEB HHN STA (06:34)
[2024-10-16 06:35] LABS: INR 1.1; PARTIAL THROMBOPLASTIN TIME 29.1 sec (23.4-31.0); PROTHROMBIN TIME 11.9 sec (9.6-11.0)
[2024-10-16] MEDS: ALBUTEROL (0.083%) 2.5MG/3ML NEB HHN SCH (06:35)
[2024-10-16 06:49] LABS: LACTIC ACID 2.6 mmol/L (0.4-2.0)
[2024-10-16 06:56] LABS: CREATININE 9.3 mg/dL (0.6-1.0); GLUCOSE 439 mg/dL (70-105)
[2024-10-16] MEDS: METHYLPREDNISOLONE SOD SUCC 125MG/2ML (ACT-O-VIAL) IV STA (07:00)
[2024-10-16] MEDS: MAGNESIUM 2 G PREMIX 50 ML IV ONE (07:00)
[2024-10-16] MEDS: PIPERACILLIN/TAZO 3.375G/50ML 50 ML IV STA (07:00)
[2024-10-16] MEDS: SODIUM CHLORIDE 0.9% 250 ML IV ONE (07:20)
[2024-10-16] MEDS: VANCOMYCIN 1.25GM PMX (XELLIA) 250 ML IV NR (08:49)
[2024-10-16 09:38] LABS: HEPATITIS B SURFACE ANTIGEN NEGATIVE (Negative)
[2024-10-16 09:59] LABS: HEPATITIS A AB IGM NEGATIVE (Negative); HEPATITIS B CORE AB IGM NEGATIVE (Negative)
[2024-10-16 10:00] LABS: HEPATITIS C AB NON REACTIVE (Neg) (Negative)
[2024-10-16] MEDS ORDERED: MAGNESIUM/ALUMINUM HYDROXIDE/SIMETHICONE 30ML UDC PO PRN (13:15)
[2024-10-16] MEDS ORDERED: HYDRALAZINE 20MG/ML VIAL IV PRN (13:15)
[2024-10-16] MEDS ORDERED: IPRATROPIUM/ALBUTEROL 0.5-3(2.5)MG/3ML NEB NEB PRN (13:15)
[2024-10-16] MEDS ORDERED: CLONIDINE 0.1MG TABLET PO PRN (13:15)
[2024-10-16] MEDS ORDERED: ACETAMINOPHEN 325MG TABLET PO PRN (13:15)
[2024-10-16 13:56] LABS: BG BASE EXCESS -7.4 mmol/L (-2.0-3.0); BG CARBOXYHEMOGLOBIN 0.9 % (0.5-1.5); BG DEOXYHEMOGLOBIN 6.5 % (0.0-5.0); BG FRACTION INSPIRED OXYGEN 70; BG HCO3 ACT 17.3 mmol/L (21.0-28.0); BG METHEMOGLOBIN 0.1 % (0.5-1.5); BG OXYGEN SATURATION 93.4 % (94.0-98.0); BG OXYHEMOGLOBIN 92.5 % (94.0-98.0); BG PCO2 31.8 mmHg (32.0-45.0); BG PH 7.353 (7.350-7.450); BG PO2 75.3 mmHg (83.0-108.0); BG SAMPLE SITE LEFT BRACHIAL; BG TOTAL HEMOGLOBIN 8.7 g/dL (12.0-16.0); BG VENT MODE MASK - BIPAP
[2024-10-16] MEDS ORDERED: NALOXONE HCL 0.4MG/ML VIAL IV PRN (14:15)
[2024-10-16] MEDS: LEVOTHYROXINE SODIUM 75MCG TABLET PO SCH (14:46)
[2024-10-16] MEDS: ENOXAPARIN 30MG/0.3ML SYR SUBCUT SCH (14:47)
[2024-10-16] MEDS: HYDRALAZINE HCL 25MG TABLET PO SCH (17:00)
[2024-10-16] MEDS: BLOOD SUGAR DIAGNOSTIC STRIP TEST SCH (18:08)
[2024-10-16] MEDS: INSULIN LISPRO 100 UNITS/ML SUBCUT SCH ×2 (18:32→18:34)
[2024-10-16] MEDS: PIPERACILLIN/TAZO 3.375G/50ML 50 ML IV SCH (20:16)
[2024-10-16] MEDS: CARVEDILOL 6.25 MG TABLET PO SCH (20:18)
[2024-10-16 20:45] LABS: TROPONIN I HIGH SENSITIVITY 58 ng/L (3.0-34)
[2024-10-16] MEDS: INSULIN GLARGINE 100 UNITS/ML SUBCUT SCH (21:32)
[2024-10-17] VITALS (15 sets, daily range): BP systolic 87–125; BP diastolic 49–75; PULSE 59–70; RESP 10–22; TEMP 36.1–37.1; O2SAT 94–100
[2024-10-17] MEDS: PANTOPRAZOLE SODIUM 40 MG/VIAL IV SCH (09:28)
[2024-10-17] MEDS: ATORVASTATIN CALCIUM 20MG TABLET PO SCH (09:30)
[2024-10-17] MEDS: CLOPIDOGREL 75MG TABLET PO SCH (09:30)
[2024-10-17] MEDS: ASPIRIN 81MG EC TABLET PO SCH (09:30)
[2024-10-17] MEDS: AMLODIPINE 10MG TABLET PO SCH (09:31)
[2024-10-17] MEDS: HYDROCODONE/ACETAMINOPHEN 5/325MG TABLET PO PRN (09:51)
[2024-10-17 12:18] LABS: BG CARBOXYHEMOGLOBIN 0.9 % (0.5-1.5); BG DEOXYHEMOGLOBIN 17.6 % (0.0-5.0); BG FRACTION INSPIRED OXYGEN 21; BG HCO3 ACT 21.9 mmol/L (21.0-28.0); BG METHEMOGLOBIN 0.3 % (0.5-1.5); BG OXYGEN SATURATION 82.2 % (94.0-98.0); BG OXYHEMOGLOBIN 81.2 % (94.0-98.0); BG PCO2 33.8 mmHg (32.0-45.0); BG PO2 46.6 mmHg (83.0-108.0); BG SAMPLE SITE LEFT BRACHIAL; BG TOTAL HEMOGLOBIN 8.3 g/dL (12.0-16.0); BG VENT MODE ROOM AIR
[2024-10-17] MEDS: MIDODRINE HCL 5MG TABLET PO SCH (15:14)
[2024-10-17 18:29] LABS: HEMATOCRIT. 25.6 % (36.0-48.0); MEAN CORPUSCULAR HEMOGLOBIN 27.1 pg (28.0-32.0); MEAN CORPUSCULAR HGB CONC 31.2 g/dL (31.0-37.0); MEAN CORPUSCULAR VOLUME 86.7 fL (81.0-99.0); MEAN PLATELET VOLUME 7.9 fl (7.4-10.4); PLATELET 190 x1000/uL (130-400); RED BLOOD CELL COUNT 2.96 mill/uL (4.2-5.4); RED CELL DISTRIBUTION WIDTH 16.7 % (11.6-14.6); WHITE BLOOD COUNT 10.9 x1000/uL (4.5-11.0)
[2024-10-17 18:33] LABS: DIFFERENTIAL COMMENT 1
[2024-10-17 18:46] LABS: CALCIUM 8.3 mg/dL (8.7-10.4); POTASSIUM 4.3 mEq/L (3.5-5.1)
[2024-10-17 18:53] LABS: PLATELET ESTIMATE NORMAL
[2024-10-17 20:12] LABS: INFLUENZA TYPE A Presumptive Negative (Pres. Neg.)
[2024-10-17 20:13] LABS: INFLUENZA TYPE B Presumptive Negative (Pres. Neg.)
[2024-10-17] MEDS: DOXYCYCLINE HYCLATE 100MG CAPSULE PO SCH (21:25)
[2024-10-17] MEDS: VANCOMYCIN 500MG PREMIX 100 ML IV NR (21:32)
[2024-10-18] VITALS (18 sets, daily range): BP systolic 84–138; BP diastolic 47–78; PULSE 62–77; RESP 11–22; TEMP 35.9–36.7; O2SAT 91–100
[2024-10-18 00:16] LABS: *AMPHETAMINES SCREEN URINE NEGATIVE (NEGATIVE); *BARBITURATES SCREEN URINE NEGATIVE (NEGATIVE); *BENZODIAZEPINES SCREEN URINE NEGATIVE (NEGATIVE)
[2024-10-18 00:17] LABS: *COCAINE SCREEN URINE NEGATIVE (NEGATIVE); CANNABINOID URINE SCREEN NEGATIVE (NEGATIVE); ECSTASY MDMA SCREEN URINE NEGATIVE (NEGATIVE); METHADONE URINE SCREEN NEGATIVE (NEGATIVE); OPIATES URINE SCREEN NEGATIVE (NEGATIVE); PHENCYCLIDINE URINE SCREEN NEGATIVE (NEGATIVE)
[2024-10-18] MEDS: DIPHENHYDRAMINE 50MG/ML VIAL IV PRN (12:18)
[2024-10-18] MEDS: MORPHINE SULFATE 2 MG/ML INJ (NOT FOR IM USE) IV PRN (12:22)
[2024-10-18 13:04] LABS: HEMATOCRIT. 30.5 % (36.0-48.0); HEMOGLOBIN. 9.5 g/dL (12.0-16.0); MEAN CORPUSCULAR HEMOGLOBIN 26.8 pg (28.0-32.0); MEAN CORPUSCULAR HGB CONC 31.2 g/dL (31.0-37.0); MEAN PLATELET VOLUME 7.9 fl (7.4-10.4); PLATELET 251 x1000/uL (130-400); RED BLOOD CELL COUNT 3.54 mill/uL (4.2-5.4); RED CELL DISTRIBUTION WIDTH 16.4 % (11.6-14.6); WHITE BLOOD COUNT 10.6 x1000/uL (4.5-11.0)
[2024-10-18 13:12] LABS: POTASSIUM 3.6 mEq/L (3.5-5.1)
[2024-10-18 13:13] LABS: CALCIUM 8.6 mg/dL (8.7-10.4)
[2024-10-18 13:22] LABS: CREATININE 7.2 mg/dL (0.6-1.0)
[2024-10-18 13:27] LABS: DIFFERENTIAL COMMENT 1
[2024-10-18 20:24] LABS: PLATELET ESTIMATE NORMAL
[2024-10-18] MEDS: VANCOMYCIN 500MG PREMIX 100 ML IV SCH (20:26)
[2024-10-18] MEDS: ONDANSETRON HCL 4MG/2ML INJ IV PRN (21:24)
[2024-10-19] VITALS (14 sets, daily range): BP systolic 91–131; BP diastolic 61–92; PULSE 67–70; RESP 0–20; TEMP 36.1–36.8; O2SAT 89–100
[2024-10-19] MEDS ORDERED: LIDOCAINE HCL 1% 10 MG/ML 10ML VIAL ONE (09:11)
[2024-10-19] MEDS: DEXTROSE 50% WATER 50ML SYRINGE IV PRN (11:24)
[2024-10-19 13:12] LABS: BASOPHILS % 0.2 % (0.0-2.0); EOSINOPHILS % 0.9 % (0.0-5.0); HEMATOCRIT. 26.8 % (36.0-48.0); HEMOGLOBIN. 8.5 g/dL (12.0-16.0); LYMPHOCYTES % 9.4 % (20.0-50.0); MEAN CORPUSCULAR HEMOGLOBIN 27.1 pg (28.0-32.0); MEAN CORPUSCULAR HGB CONC 31.8 g/dL (31.0-37.0); MEAN CORPUSCULAR VOLUME 85.4 fL (81.0-99.0); MONOCYTES % 10.8 % (2.0-8.0); NEUTROPHILS % 78.7 % (40.0-76.0); PLATELET 224 x1000/uL (130-400); RED BLOOD CELL COUNT 3.13 mill/uL (4.2-5.4); RED CELL DISTRIBUTION WIDTH 16.5 % (11.6-14.6); WHITE BLOOD COUNT 7.1 x1000/uL (4.5-11.0)
[2024-10-19 13:16] LABS: POTASSIUM 3.9 mEq/L (3.5-5.1)
[2024-10-19 13:18] LABS: CALCIUM 8.2 mg/dL (8.7-10.4)
[2024-10-19 13:55] LABS: INR 1.1; PROTHROMBIN TIME 11.6 sec (9.6-11.0)
[2024-10-19 15:22] LABS: CREATININE 7.9 mg/dL (0.6-1.0)
[2024-10-19] MEDS: ATORVASTATIN CALCIUM 20MG TABLET PO SCH (20:13)
[2024-10-20] VITALS (12 sets, daily range): BP systolic 107–130; BP diastolic 59–76; PULSE 68–72; RESP 10–21; TEMP 36.4–37.1; O2SAT 87–96
[2024-10-20] MEDS: LACTULOSE 20G/30ML UDC PO SCH (02:30)
[2024-10-21] VITALS (12 sets, daily range): BP systolic 100–126; BP diastolic 59–70; PULSE 61–69; RESP 12–18; TEMP 36.3–36.6; O2SAT 89–96
[2024-10-21] MEDS: FAMOTIDINE 20MG/2ML VIAL IV SCH (08:21)
[2024-10-21] MEDS: MONTELUKAST SODIUM 10MG TABLET PO SCH (17:23)
[2024-10-21 17:41] LABS: RESPIRATORY SYNCYTIAL VIRUS Not Detected (Not Detectd)
[2024-10-21 17:47] LABS: INFLUENZA TYPE A Presumptive Negative (Pres. Neg.)
[2024-10-21 17:48] LABS: INFLUENZA TYPE B Presumptive Negative (Pres. Neg.)
[2024-10-21 19:10] LABS: HEMATOCRIT. 25.9 % (36.0-48.0); HEMOGLOBIN. 8.1 g/dL (12.0-16.0); MEAN CORPUSCULAR HEMOGLOBIN 27.3 pg (28.0-32.0); MEAN CORPUSCULAR HGB CONC 31.1 g/dL (31.0-37.0); MEAN CORPUSCULAR VOLUME 87.6 fL (81.0-99.0); MEAN PLATELET VOLUME 8.2 fl (7.4-10.4); PLATELET 191 x1000/uL (130-400); RED BLOOD CELL COUNT 2.96 mill/uL (4.2-5.4); RED CELL DISTRIBUTION WIDTH 16.4 % (11.6-14.6); WHITE BLOOD COUNT 7.2 x1000/uL (4.5-11.0)
[2024-10-21 19:18] LABS: POTASSIUM 4.6 mEq/L (3.5-5.1)
[2024-10-21 19:19] LABS: CALCIUM 7.3 mg/dL (8.7-10.4)
[2024-10-21 19:25] LABS: CREATININE 9.4 mg/dL (0.6-1.0)
[2024-10-21 19:29] LABS: DIFFERENTIAL COMMENT 1
[2024-10-21 20:51] LABS: ANISOCYTOSIS 1+; PLATELET ESTIMATE NORMAL
[2024-10-22] VITALS (27 sets, daily range): BP systolic 106–138; BP diastolic 64–90; PULSE 59–74; RESP 4–19; TEMP 36.1–36.72516; O2SAT 88–100
[2024-10-22] MEDS: DEXT 5%/0.9% NACL 1,000 ML IV SCH (05:25)
[2024-10-22] MEDS ORDERED: LIDOCAINE HCL 1% 10 MG/ML 10ML VIAL ONE ×2 (07:52→07:53)
[2024-10-22] MEDS ORDERED: FENTANYL CITRATE/PF 50MCG/ML 2ML VIAL ONE (08:46)
[2024-10-22] MEDS ORDERED: HEPARIN 1000 UNITS/ML 10ML ONE (09:00)
[2024-10-22] MEDS: VANCOMYCIN 500MG PREMIX 100 ML IV NR (17:45)
[2024-10-22 22:15] LABS: HEMATOCRIT. 27.3 % (36.0-48.0); HEMOGLOBIN. 8.6 g/dL (12.0-16.0); MEAN CORPUSCULAR HEMOGLOBIN 27.3 pg (28.0-32.0); MEAN CORPUSCULAR HGB CONC 31.4 g/dL (31.0-37.0); MEAN CORPUSCULAR VOLUME 86.8 fL (81.0-99.0); MEAN PLATELET VOLUME 8.1 fl (7.4-10.4); PLATELET 224 x1000/uL (130-400); RED BLOOD CELL COUNT 3.14 mill/uL (4.2-5.4); RED CELL DISTRIBUTION WIDTH 16.3 % (11.6-14.6); WHITE BLOOD COUNT 8.2 x1000/uL (4.5-11.0)
[2024-10-22 22:17] LABS: DIFFERENTIAL COMMENT 1
[2024-10-22 22:27] LABS: POTASSIUM 4.3 mEq/L (3.5-5.1)
[2024-10-22 22:28] LABS: CALCIUM 7.8 mg/dL (8.7-10.4)
[2024-10-22 22:40] LABS: CREATININE 8.2 mg/dL (0.6-1.0)
[2024-10-23] VITALS (11 sets, daily range): BP systolic 112–140; BP diastolic 65–78; PULSE 72–78; RESP 9–18; TEMP 36.7–37.1; O2SAT 85–95
[2024-10-23 00:02] LABS: ANISOCYTOSIS 1+; PLATELET ESTIMATE NORMAL
[2024-10-23] MEDS: MORPHINE SULFATE 2 MG/ML INJ (NOT FOR IM USE) IV NR (13:17)
== END 2024-10-23 18:35 | disposition home health service (06) | DRG 871 ==
LOC: ER 05:48 → EDBEDREQ 07:43 → EDBEDREQTM 07:43 → 5EST 12:04
PROVIDERS: ADMIT Internal Medicine; ATTEND Internal Medicine
PROC: 5A09357 Assistance with Respiratory Ventilation, Less than 24 Consecutive Hours, Continuous Positive Airway Pressure (ICD-10-PCS; 2024-10-16)
PROC: 5A1D70Z Performance of Urinary Filtration, Intermittent, Less than 6 Hours Per Day (ICD-10-PCS; 2024-10-16)
PROC: 5A09357 Assistance with Respiratory Ventilation, Less than 24 Consecutive Hours, Continuous Positive Airway Pressure (ICD-10-PCS; 2024-10-17)
PROC: 5A09357 Assistance with Respiratory Ventilation, Less than 24 Consecutive Hours, Continuous Positive Airway Pressure (ICD-10-PCS; 2024-10-18)
PROC: 5A1D70Z Performance of Urinary Filtration, Intermittent, Less than 6 Hours Per Day (ICD-10-PCS; 2024-10-18)
PROC: 0JPV3XZ Removal of Tunneled Vascular Access Device from Upper Extremity Subcutaneous Tissue and Fascia, Percutaneous Approach (ICD-10-PCS; 2024-10-19)
PROC: 5A09357 Assistance with Respiratory Ventilation, Less than 24 Consecutive Hours, Continuous Positive Airway Pressure (ICD-10-PCS; 2024-10-19)
PROC: 0JH63XZ Insertion of Tunneled Vascular Access Device into Chest Subcutaneous Tissue and Fascia, Percutaneous Approach (ICD-10-PCS; principal; 2024-10-22)
PROC: 02H633Z Insertion of Infusion Device into Right Atrium, Percutaneous Approach (ICD-10-PCS; 2024-10-22)
PROC: B5181ZA Fluoroscopy of Superior Vena Cava using Low Osmolar Contrast, Guidance (ICD-10-PCS; 2024-10-22)
PROC: 5A1D70Z Performance of Urinary Filtration, Intermittent, Less than 6 Hours Per Day (ICD-10-PCS; 2024-10-22)
DX: A41.1 Sepsis due to other specified staphylococcus (principal); I50.33 Acute on chronic diastolic (congestive) heart failure; N18.6 End stage renal disease; J18.9 Pneumonia, unspecified organism; J96.21 Acute and chronic respiratory failure with hypoxia; I13.2 Hypertensive heart and chronic kidney disease with heart failure and with stage 5 chronic kidney disease, or end stage renal disease; E87.20 Acidosis, unspecified; Z20.822 Contact with and (suspected) exposure to COVID-19; R65.20 Severe sepsis without septic shock; D63.1 Anemia in chronic kidney disease; E03.9 Hypothyroidism, unspecified; J98.01 Acute bronchospasm; M10.9 Gout, unspecified; E11.22 Type 2 diabetes mellitus with diabetic chronic kidney disease; E87.5 Hyperkalemia; I25.10 Atherosclerotic heart disease of native coronary artery without angina pectoris; I25.2 Old myocardial infarction; Z99.2 Dependence on renal dialysis; Z95.5 Presence of coronary angioplasty implant and graft; Z91.158 Patient's noncompliance with renal dialysis for other reason; Z88.6 Allergy status to analgesic agent; Z87.440 Personal history of urinary (tract) infections; Z55.6 Problems related to health literacy; Z88.8 Allergy status to other drugs, medicaments and biological substances; Z91.199 Patient's noncompliance with other medical treatment and regimen due to unspecified reason
CPT/HCPCS: 36415; 36558; 36589; 36600; 71045; 76937; 77001; 80048; 80202; 80305; 82375; 82805; 82962; 83036; 83605; 83880; 84145; 84484; 85025; 86705; 86709; 86850; 86870; 86900; 87070; 87077; 87186; 87340; 87420; 87426; 87804; 90935; 93005; 93970; 94070; 94640; 94660; 94664; 98960; 99152; 99153; 99291; A4606; J1200; J1642; J1644; J1650; J1815; J2003; J2270; J2405; J2470; J2543; J2919; J3010; J3370; J3475; J3490; J7042; J7050; G0500

== ENCOUNTER 2024-10-24 13:07 | Inpatient (IN) | payer OTHER, MEDICAID ==
[~2024-10-24] VITALS: Ht 167.6 cm; Wt 87.7 kg
[2024-10-24] MEDS: SODIUM CHLORIDE 0.9% 1,000 ML IV ONE (14:59)
[2024-10-24] MEDS ORDERED: NOREPINEPHRINE 8 MG in DEXT 5% WATER 242 ML IV PRN (15:15)
[2024-10-24 15:35] LABS: CARBON DIOXIDE 13 mEq/L (21-32); CHLORIDE 98 mEq/L (98-107); SODIUM 134 mEq/L (136-145)
[2024-10-24 15:36] LABS: CALCIUM 7.4 mg/dL (8.7-10.4)
[2024-10-24 15:41] LABS: TROPONIN I HIGH SENSITIVITY 12 ng/L (3.0-34); UREA NITROGEN BLOOD 74 mg/dL (9-23)
[2024-10-24] MEDS: PIPERACILLIN/TAZO 3.375G/50ML 50 ML IV SCH ×2 (15:41→22:00)
[2024-10-24] MEDS: VANCOMYCIN 1G PREMIX 200 ML IV SCH (15:41)
[2024-10-24 15:42] LABS: ALANINE AMINOTRANSFERASE 15 IU/L (10-49); ASPARTATE AMINOTRANSFERASE 57 IU/L (<34)
[2024-10-24] MEDS: NOREPINEPHRINE 8MG/250ML PMX 250 ML IV PRN (15:42)
[2024-10-24 15:43] LABS: BILIRUBIN DIRECT 0.3 mg/dL (<=3.0); BILIRUBIN TOTAL 0.5 mg/dL (0.1-1.0); PHOSPHORUS 6.9 mg/dL (2.5-4.9); PROTEIN TOTAL 6.8 g/dL (6.0-8.3)
[2024-10-24 15:49] LABS: POTASSIUM 6.5 mEq/L (3.5-5.1)
[2024-10-24 15:50] LABS: CREATININE 9.8 mg/dL (0.6-1.0); GLUCOSE 589 mg/dL (70-105); HEMATOCRIT. 24.6 % (36.0-48.0); HEMOGLOBIN. 7.3 g/dL (12.0-16.0); MEAN CORPUSCULAR HEMOGLOBIN 26.4 pg (28.0-32.0); MEAN CORPUSCULAR HGB CONC 29.7 g/dL (31.0-37.0); MEAN CORPUSCULAR VOLUME 88.9 fL (81.0-99.0); MEAN PLATELET VOLUME 8.5 fl (7.4-10.4); PLATELET 128 x1000/uL (130-400); RED BLOOD CELL COUNT 2.76 mill/uL (4.2-5.4); RED CELL DISTRIBUTION WIDTH 17.4 % (11.6-14.6); WHITE BLOOD COUNT 3.8 x1000/uL (4.5-11.0)
[2024-10-24 15:51] LABS: LACTIC ACID 4.8 mmol/L (0.4-2.0)
[2024-10-24 15:54] LABS: DIFFERENTIAL COMMENT 1
[2024-10-24 15:57] LABS: BETA HYDROXYBUTYRATE 3.6 mMol/L (0.0-0.3)
[2024-10-24] MEDS: BLOOD SUGAR DIAGNOSTIC STRIP TEST SCH ×2 (16:00→19:03)
[2024-10-24] MEDS ORDERED: BLOOD SUGAR DIAGNOSTIC STRIP TEST PRN ×3 (16:00→23:00)
[2024-10-24] MEDS ORDERED: SODIUM PHOSPHATE 15 MMOL in SODIUM CHLORIDE 0.9% 245 ML IV PRN ×2 (16:00→18:30)
[2024-10-24] MEDS ORDERED: POTASSIUM CHLORIDE 40 MEQ in SODIUM CHLORIDE 0.9% 230 ML IV PRN ×2 (16:00→18:30)
[2024-10-24] MEDS: SODIUM BICARBONATE 8.4% 50MEQ/50ML SYR IV ONE (16:00)
[2024-10-24] MEDS ORDERED: KCL 20MEQ/100ML PREMIX 100 ML IV PRN ×2 (16:00→18:30)
[2024-10-24] MEDS: LACTATED RINGERS 1,000 ML IV SCH (16:00)
[2024-10-24] MEDS ORDERED: INSULIN REGULAR (DRIP) 100 UNITS in SODIUM CHLORIDE 0.9% 99 ML IV SCH (16:00)
[2024-10-24] MEDS: DEXT 5%/LACTATED RINGERS 1,000 ML IV SCH (16:00)
[2024-10-24] MEDS ORDERED: MAGNESIUM 2 G PREMIX 50 ML IV PRN ×2 (16:00→18:30)
[2024-10-24] MEDS ORDERED: CALCIUM GLUCONATE 1GM PREMIX 50 ML IV ONE ×2 (16:00)
[2024-10-24] MEDS ORDERED: DEXTROSE 50% WATER 50ML SYRINGE IV PRN ×2 (16:00→18:30)
[2024-10-24] MEDS ORDERED: LACTATED RINGERS 1,000 ML IV SCH (16:00)
[2024-10-24] MEDS: INSULIN REGULAR (HUMULIN R) 1000UNITS/10ML VIAL IV ONE (16:00)
[2024-10-24 16:27] LABS: INR 1.3; PROTHROMBIN TIME 13.3 sec (9.6-11.0)
[2024-10-24 16:47] LABS: BG BASE EXCESS -12.3 mmol/L (-2.0-3.0); BG CARBOXYHEMOGLOBIN 0.8 % (0.5-1.5); BG DEOXYHEMOGLOBIN 11.9 % (0.0-5.0); BG FRACTION INSPIRED OXYGEN 36; BG HCO3 ACT 13.3 mmol/L (21.0-28.0); BG METHEMOGLOBIN 0.2 % (0.5-1.5); BG OXYHEMOGLOBIN 87.1 % (94.0-98.0); BG PCO2 29.1 mmHg (32.0-45.0); BG PH 7.278 (7.350-7.450); BG PO2 65.4 mmHg (83.0-108.0); BG SAMPLE SITE RIGHT BRACHIAL; BG TOTAL HEMOGLOBIN 8.5 g/dL (12.0-16.0); BG VENT MODE NASAL CANNULA
[2024-10-24 17:32] VITALS: PULSE 80; RESP 14; O2SAT 92
[2024-10-24] MEDS: ALBUTEROL (0.083%) 2.5MG/3ML NEB HHN ONE (17:32)
[2024-10-24] MEDS: CALCIUM GLUCONATE 1GM PREMIX 50 ML IV SCH ×2 (17:37)
[2024-10-24] MEDS: INSULIN REGULAR 100U/100ML PMX 100 ML IV SCH ×2 (18:30→19:26)
[2024-10-24] MEDS ORDERED: DEXT 10%/0.9% NACL 1,000 ML IV SCH (18:30)
[2024-10-24] MEDS ORDERED: IPRATROPIUM/ALBUTEROL 0.5-3(2.5)MG/3ML NEB HHN PRN (18:45)
[2024-10-24] MEDS ORDERED: HYDRALAZINE 20MG/ML VIAL IV PRN (18:45)
[2024-10-24] MEDS ORDERED: DOCUSATE SODIUM 100MG CAPSULE PO PRN (19:00)
[2024-10-24] MEDS ORDERED: GUAIFENESIN 200MG/10ML SUGAR FREE UDC PO PRN (19:00)
[2024-10-24 19:06] LABS: BG CARBOXYHEMOGLOBIN 0.6 % (0.5-1.5); BG FRACTION INSPIRED OXYGEN 36; BG HCO3 ACT 17.4 mmol/L (21.0-28.0); BG METHEMOGLOBIN 0.1 % (0.5-1.5); BG OXYGEN SATURATION 89.9 % (94.0-98.0); BG OXYHEMOGLOBIN 89.3 % (94.0-98.0); BG PH 7.314 (7.350-7.450); BG PO2 67.4 mmHg (83.0-108.0); BG SAMPLE SITE RIGHT BRACHIAL; BG TOTAL HEMOGLOBIN 9.2 g/dL (12.0-16.0); BG VENT MODE NASAL CANNULA
[2024-10-24] MEDS: DEXT 5%/0.9% NACL 1,000 ML IV SCH (19:26)
[2024-10-24 19:44] LABS: ANISOCYTOSIS 1+; PLATELET ESTIMATE SLIGHTLY DECREASED
[2024-10-25] VITALS (88 sets, daily range): BP systolic 94–147; BP diastolic 45–114; PULSE 63–78; RESP 0–22; TEMP 36.3918–37.1; O2SAT 79–100
[2024-10-25] MEDS: METHYLPREDNISOLONE SOD SUCC 40MG/ML (ACT-O-VIAL) IV SCH (00:16)
[2024-10-25 00:30] LABS: CARBON DIOXIDE 21 mEq/L (21-32); CHLORIDE 100 mEq/L (98-107); POTASSIUM 5.2 mEq/L (3.5-5.1); SODIUM 137 mEq/L (136-145)
[2024-10-25 00:31] LABS: CALCIUM 7.6 mg/dL (8.7-10.4)
[2024-10-25 00:36] LABS: UREA NITROGEN BLOOD 80 mg/dL (9-23)
[2024-10-25 00:38] LABS: PHOSPHORUS 6.2 mg/dL (2.5-4.9)
[2024-10-25 01:01] LABS: ETHANOL BLOOD < 10 mg/dL (<10)
[2024-10-25 01:03] LABS: CREATININE 9.9 mg/dL (0.6-1.0); GLUCOSE 584 mg/dL (70-105)
[2024-10-25] MEDS: IPRATROPIUM/ALBUTEROL 0.5-3(2.5)MG/3ML NEB HHN SCH (01:48)
[2024-10-25] MEDS: PANTOPRAZOLE SODIUM 40 MG/VIAL IV SCH (08:18)
[2024-10-25 09:31] LABS: CARBON DIOXIDE 23 mEq/L (21-32); CHLORIDE 101 mEq/L (98-107); POTASSIUM 4.2 mEq/L (3.5-5.1); SODIUM 139 mEq/L (136-145)
[2024-10-25 09:32] LABS: CALCIUM 8.4 mg/dL (8.7-10.4)
[2024-10-25 09:37] LABS: GLUCOSE 206 mg/dL (70-105); TRIGLYCERIDE 42 mg/dL (0-150); UREA NITROGEN BLOOD 64 mg/dL (9-23)
[2024-10-25 09:38] LABS: LDL CHOLESTEROL 57 mg/dL (5-100)
[2024-10-25 09:39] LABS: CHOLESTEROL 121 mg/dL (<200); HDL CHOLESTEROL 39 mg/dL (>65); PHOSPHORUS 4.8 mg/dL (2.5-4.9)
[2024-10-25 09:40] LABS: T4 FREE 0.91 ng/dL (0.89-1.76); THYROID STIMULATING HORMONE 2.37 uIU/mL (0.55-4.78)
[2024-10-25 09:57] LABS: CREATININE 8.3 mg/dL (0.6-1.0)
[2024-10-25 10:21] LABS: BASOPHILS % 0.3 % (0.0-2.0); HEMATOCRIT. 24.3 % (36.0-48.0); HEMOGLOBIN. 7.7 g/dL (12.0-16.0); LYMPHOCYTES % 7.8 % (20.0-50.0); MEAN CORPUSCULAR HEMOGLOBIN 26.5 pg (28.0-32.0); MEAN CORPUSCULAR HGB CONC 31.8 g/dL (31.0-37.0); MEAN CORPUSCULAR VOLUME 83.4 fL (81.0-99.0); MEAN PLATELET VOLUME 8.4 fl (7.4-10.4); MONOCYTES % 2.4 % (2.0-8.0); NEUTROPHILS % 89.5 % (40.0-76.0); PLATELET 179 x1000/uL (130-400); RED BLOOD CELL COUNT 2.91 mill/uL (4.2-5.4); RED CELL DISTRIBUTION WIDTH 16.3 % (11.6-14.6)
[2024-10-25] MEDS: DICLOFENAC SODIUM 1% GEL 50GM TOP SCH (11:47)
[2024-10-25] MEDS: VANCOMYCIN 750MG PREMIX 150 ML IV NR (12:58)
[2024-10-25] MEDS ORDERED: DEXTROSE 50% WATER 50ML SYRINGE IV PRN (15:15)
[2024-10-25 15:20] LABS: POTASSIUM 4.6 mEq/L (3.5-5.1)
[2024-10-25 15:21] LABS: CALCIUM 8.4 mg/dL (8.7-10.4)
[2024-10-25 15:40] LABS: CREATININE 8.5 mg/dL (0.6-1.0)
[2024-10-25] MEDS: ASPIRIN 81MG TABLET PO SCH (15:57)
[2024-10-25] MEDS: CLOPIDOGREL 75MG TABLET PO SCH (15:57)
[2024-10-25] MEDS: INSULIN GLARGINE 100 UNITS/ML SUBCUT NR (16:00)
[2024-10-25] MEDS: BLOOD SUGAR DIAGNOSTIC STRIP TEST SCH (17:37)
[2024-10-25] MEDS: INSULIN LISPRO 100 UNITS/ML SUBCUT SCH (17:37)
[2024-10-25] MEDS: DIPHENHYDRAMINE 50MG/ML VIAL IV NR (19:56)
[2024-10-25 20:29] LABS: CHLORIDE 101 mEq/L (98-107)
[2024-10-25 20:30] LABS: CARBON DIOXIDE 21 mEq/L (21-32); POTASSIUM 4.8 mEq/L (3.5-5.1); SODIUM 138 mEq/L (136-145)
[2024-10-25 20:31] LABS: CALCIUM 8.5 mg/dL (8.7-10.4)
[2024-10-25 20:35] LABS: GLUCOSE 156 mg/dL (70-105)
[2024-10-25 20:36] LABS: UREA NITROGEN BLOOD 59 mg/dL (9-23)
[2024-10-25 20:38] LABS: PHOSPHORUS 5.7 mg/dL (2.5-4.9)
[2024-10-25 21:03] LABS: CREATININE 8.6 mg/dL (0.6-1.0)
[2024-10-25] MEDS: CARVEDILOL 6.25 MG TABLET PO SCH (21:18)
[2024-10-25] MEDS: HYDRALAZINE HCL 25MG TABLET PO SCH (21:18)
[2024-10-25] MEDS: ATORVASTATIN CALCIUM 20MG TABLET PO SCH (21:18)
[2024-10-26] VITALS (60 sets, daily range): BP systolic 76–150; BP diastolic 44–139; PULSE 64–76; RESP 0–19; TEMP 35.8–37.1; O2SAT 92–100
[2024-10-26] MEDS: MELATONIN 3MG TABLET PO PRN (00:02)
[2024-10-26 06:11] LABS: HEMATOCRIT. 23.6 % (36.0-48.0); HEMOGLOBIN. 7.5 g/dL (12.0-16.0); MEAN CORPUSCULAR HEMOGLOBIN 27.3 pg (28.0-32.0); MEAN CORPUSCULAR HGB CONC 31.8 g/dL (31.0-37.0); MEAN CORPUSCULAR VOLUME 85.7 fL (81.0-99.0); MEAN PLATELET VOLUME 8.7 fl (7.4-10.4); PLATELET 170 x1000/uL (130-400); RED BLOOD CELL COUNT 2.76 mill/uL (4.2-5.4); RED CELL DISTRIBUTION WIDTH 16.2 % (11.6-14.6); WHITE BLOOD COUNT 5.1 x1000/uL (4.5-11.0)
[2024-10-26 06:34] LABS: POTASSIUM 5.9 mEq/L (3.5-5.1)
[2024-10-26 06:35] LABS: CALCIUM 8.1 mg/dL (8.7-10.4)
[2024-10-26 07:29] LABS: DIFFERENTIAL COMMENT 1
[2024-10-26] MEDS ORDERED: DEXTROSE 50% WATER 50ML SYRINGE IV ONE (07:45)
[2024-10-26] MEDS ORDERED: SODIUM POLYSTYRENE SULFONATE 15 G/60 ML BOT PO ONE (08:00)
[2024-10-26] MEDS: SODIUM ZIRCONIUM CYCLOSILICATE 10GM/PACKET PO NR (08:21)
[2024-10-26] MEDS: CALCIUM CHLORIDE 1GM/10ML SYR IV NR (08:22)
[2024-10-26] MEDS: SODIUM BICARBONATE 8.4% 50MEQ/50ML SYR IV NR (08:22)
[2024-10-26] MEDS: INSULIN REGULAR (HUMULIN R) 1000UNITS/10ML VIAL IV NR (08:24)
[2024-10-26] MEDS: INSULIN GLARGINE 100 UNITS/ML SUBCUT SCH (10:33)
[2024-10-26] MEDS: AMLODIPINE 10MG TABLET PO SCH (11:39)
[2024-10-26] MEDS: INSULIN LISPRO 100 UNITS/ML SUBCUT SCH (18:55)
[2024-10-26] MEDS: HYDROXYZINE 25MG TABLET PO NR (21:47)
[2024-10-27] VITALS: BP 110/70; PULSE 61; RESP 13; TEMP 36.2; O2SAT 100
[2024-10-27 04:00] VITALS: BP 111/73; PULSE 62; RESP 14; TEMP 35.8; O2SAT 96
[2024-10-27 08:00] VITALS: BP 113/71; PULSE 68; RESP 18; O2SAT 97
[2024-10-27 09:28] VITALS: PULSE 66; RESP 18; O2SAT 98
[2024-10-27] MEDS: INSULIN GLARGINE 100 UNITS/ML SUBCUT SCH (09:58)
[2024-10-27] MEDS ORDERED: INSU100I28 SQ (12:07)
[2024-10-27 12:52] LABS: ANISOCYTOSIS 1+; PLATELET ESTIMATE NORMAL
[2024-10-27 14:48] VITALS: BP 111/76; PULSE 65; TEMP 97.9; O2SAT 98
== END 2024-10-27 17:05 | disposition home health service (06) | DRG 871 ==
LOC: ER 13:42 → CVICU 17:22 → EDBEDREQ 17:26 → EDBEDREQTM 17:26 → 3WST 10-26 15:45
PROVIDERS: ADMIT Hospitalist; ATTEND Hospitalist
PROC: 5A1D70Z Performance of Urinary Filtration, Intermittent, Less than 6 Hours Per Day (ICD-10-PCS; principal; 2024-10-25)
PROC: 5A1D70Z Performance of Urinary Filtration, Intermittent, Less than 6 Hours Per Day (ICD-10-PCS; 2024-10-26)
DX: A41.89 Other specified sepsis (principal); E11.10 Type 2 diabetes mellitus with ketoacidosis without coma; N18.6 End stage renal disease; R65.21 Severe sepsis with septic shock; I50.23 Acute on chronic systolic (congestive) heart failure; J18.9 Pneumonia, unspecified organism; J96.21 Acute and chronic respiratory failure with hypoxia; I13.2 Hypertensive heart and chronic kidney disease with heart failure and with stage 5 chronic kidney disease, or end stage renal disease; J44.0 Chronic obstructive pulmonary disease with (acute) lower respiratory infection; K62.5 Hemorrhage of anus and rectum; Z16.12 Extended spectrum beta lactamase (ESBL) resistance; D63.1 Anemia in chronic kidney disease; E03.9 Hypothyroidism, unspecified; E11.22 Type 2 diabetes mellitus with diabetic chronic kidney disease; E87.5 Hyperkalemia; I07.1 Rheumatic tricuspid insufficiency; I27.20 Pulmonary hypertension, unspecified; E83.39 Other disorders of phosphorus metabolism; I25.10 Atherosclerotic heart disease of native coronary artery without angina pectoris; Z91.158 Patient's noncompliance with renal dialysis for other reason; Z99.2 Dependence on renal dialysis; Z95.5 Presence of coronary angioplasty implant and graft; I25.2 Old myocardial infarction; Z79.4 Long term (current) use of insulin; Z87.440 Personal history of urinary (tract) infections; Z88.6 Allergy status to analgesic agent; Z99.81 Dependence on supplemental oxygen
CPT/HCPCS: 36415; 36600; 71045; 80048; 80061; 80076; 80202; 80320; 82010; 82375; 82805; 82962; 83036; 83605; 83735; 83880; 83930; 84100; 84145; 84439; 84443; 84484; 85025; 86850; 86870; 86900; 90935; 93005; 94070; 94640; 94664; 99291; J0610; J1200; J1815; J2470; J2543; J2920; J3370; J3490; J7030; J7042; J7120; J7121; G0480